=== PATIENT | female | born 1940 | race Caucasian/White ===

== ENCOUNTER 2021-05-27 12:30 | Outpatient (RCR) | payer MEDICARE, SELFPAY ==
--- NOTE | 2021-02-26 10:43 | OTOPEVAL ---
OCCUPATIONAL THERAPY INITIAL EVALUATION: 02/26/2021 Thank you for referring Rohini Ladd to [facility].? The patient is scheduled to be seen for therapy? 2x/week for 4 weeks. Please review, sign, date and return this plan of care BAUTISTA. I agree with and certify that the following plan of care is medically necessary. Referring Physician Date Attending Provider: Gurwinder Crandall, *OT Outpatient Evaluation Start: 02/26/21 09:32 Freq: Status: Active Protocol: Document 02/26/21 09:31 KJL (Rec: 02/26/21 10:43 KJL [id number]) Therapy Assessment Status Assessment Status Assessment Status Evaluation Evaluation Information Problem Diagnosis closed nondisplaced fracture of scaphoid Onset October 14, 2020 Cause fall Additional Evaluation Detail patient had a fall in kitchen on October 14, 2020 resulting in a scaphoid fracture of R UE wrist. Patient was in a cast for 8 weeks, and a brace for an additional week. Subjective Information Patient reports increased Query Text:As Reported By Patient/ swelling, decreased motion in Family R UE hand. 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, grasp objects, unable to play piano, difficulties with ADLs including dressing, buttoning shirts Prior Level of Function Activity Level (Last 3 Months) Hand Dominance Left Activity of Daily Living Ability Independent Indoor/Home Mobility Independent Community Mobility Independent Stairs Ability Independent Functional Cognition (Planning, Shopping Independent , Taking Medications) Cooking No Cleaning No Laundry Yes Shopping Yes Driving Yes Home Setting Home Type Apartment,Independent Living Facility Living Situation With Spouse Support Available Local Family Support,Neighbor/ Friend Support Mobility Assistive Devices (Used Last 3 Walker, Rollator Months) Bathroom Environment Bathtub, Walk-In,Shower, Curtain Bathing Equipment Built in Shower Seat,Grab Bars ,Hand Held Shower Toileting Equipment Grab Bars,Tall Toilet Pain Assessment Timing of Pain Assessmen
--- NOTE | 2021-03-25 14:38 | OTOPEVAL ---
OCCUPATIONAL THERAPY RE-EVALUATION AND POC UPDATE 03/25/21 Patient presents after 4 weeks of OT for right forearm, wrist, and hand stiffness and weakness following scaphoid fracture with lengthy immobilization. 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 Continued skilled OT indicated to progressively strengthen, utilize modalities for stiffness, utilize manual therapy techniques to mobilize stiff finger joints, and progress HEP as tolerated. Thank you for referring Rohini Ladd to [facility].? The patient is scheduled to be seen for continued occupational therapy?2x/week for 4 weeks. Please review, sign, date and return this plan of care BAUTISTA. I agree with and certify that the following plan of care is medically necessary. Referring Physician Date Referring Provider: Gurwinder Crandall MD *OT Outpatient Re-Evaluation Start: 02/26/21 09:32 Therapy Assessment Status Assessment Status Assessment Status Re-evaluation Evaluation Information Problem Diagnosis closed nondisplaced fracture of scaphoid Onset October 14, 2020 Cause fall Subjective Information Patient reports improvements Query Text:As Reported By Patient/ with the mobility of her index Family finger which has allowed more function with pinching and picking up objects. She reports that her function in still severely limited due to how weak the hand is. She states she has constant tingling, which has been keeping her up at night. She has concerns about her middle, ring, and small fingers not bending. Pain Assessment Timing of Pain Assessment Timing of Pain Assessment Assessment Pain Scale Pain Scale Used Numeric (1 - 10) Self Report Pain Assessment Right Hand(s) Reported Pain Level 3 Pain Description Aching,Soreness Other Pain Description Sore Lowest Pain Intensity 3 Greatest Pain Intensity 5 Pain Score Pain Score 3: Self Report Interventions Used Interventions Used By Clinicians Exercise Upper Extremity Range of Motion Elbow/Forearm Range of Motion Right Reason Not Measured WNL/Left Forearm Supination - Active 60 Forearm Pronation - Active 90 Elbow/Forearm Range of Motion Comments Supination improved from 25* Wrist Range of Motion Right Reason Not Measured WNL/Left Wrist Flexion - Active 65 Wrist Extension - Active 45 Wrist Radial Deviation - Active 20 Wrist Ulnar Deviation - Active 30 Wrist Range of Motion
--- NOTE | 2021-04-17 16:13 | PTOPEVAL ---
PHYSICAL THERAPY EVALUATION AND PLAN OF CARE 04-17-21 Thank you for referring Rohini Ladd to [facility] for the diagnosis of B LE lymphedema. She is scheduled to be seen for therapy? 3 x/week for 5 weeks. Please review, sign, date and return this plan of care BAUTISTA. I agree with and certify that the following plan of care is medically necessary. Referring Physician Date Attending Provider: Gurwinder Crandall MD *PT Outpatient Evaluation Document 04/17/21 14:55 CARLOS (Rec: 04/17/21 16:13 CARLOS [id number]) Therapy Assessment Status Assessment Status Assessment Status Evaluation Outpatient Past Medical History Past Medical History Source of Past Medical History Patient Neurological History Hx Neurological Disorders No Significant History Cardiovascular History Hx Cardiac Disorders No Significant History Respiratory History Hx Respiratory Disorders No Significant History Gastrointestinal History Hx Cholecystectomy Yes Genitourinary History Hx Genitourinary Disorders No Significant History Musculoskeletal History Hx Arthritis Yes: knees Hx Back Pain Yes: chronic back pain Hx Fractures Yes: R scaphoid fracture- immobilized Hx Orthopedic Surgery Yes: B carpal tunnel surgery Endocrine History Hx Endocrine Disorders No Significant History HEENT History Hx Other HEENT Disorders Yes: wear glasses Other History Hx Other Surgeries Yes: varicose vein surgery B LE, blood clots B LE Evaluation Information Problem Diagnosis lymphedema B LE's Onset January 2021 Prior Level of Function Activity Level (Last 3 Months) Activity of Daily Living Ability Independent Indoor/Home Mobility Independent Community Mobility Independent Stairs Ability Independent Functional Cognition (Planning, Shopping Independent , Taking Medications) Cooking No Cleaning No Laundry No Shopping No Driving No Medications Home Meds (Include: OTC, RX, Vitamins, xarelto, oxybutynin, Herbals, Dose, Route,and Frequency) propranodol, prinmidone; Query Text:Home Med Entries Will No multivitamin, Longer Recall From Past Visits. Home Meds Must Be Re-entered With Each Visit. Home Setting Home Type Apartment,Assisted Living Facility Living Situation With Spouse Mobility Assistive Devices (Used Last 3 Walker, Wheeled,Wheelchair, Months) Scooter Comments Additional Prior Level of Function indep with bathing and Comments dressing
--- NOTE | 2021-04-29 11:57 | OTOPEVAL ---
OCCUPATIONAL THERAPY RE-EVALUATION REPORT Patient presents for OT re-evaluation following 8 weeks of therapy for severe right forearm, wrist, finger, and thumb stiffness and weakness following scaphoid fracture with lengthy immobilization. Rohini continues to make functional progress toward being able to make a functional box sealing machine catcher/fist for ADLs. She is having overall less pain and is able to tolerate more aggressive ROM and strength training. She continues to have severe functional limitations and with the amount of progress seen monthly, another 4 weeks of therapy is indicated to continue to progress exercises and HEP. Skilled, hands-on, manual therapy necessary to continue to mobilize stiff joints. Thank you for referring Rohini Ladd to [facility].? The patient is scheduled to be seen for therapy? 2x/week for 4 weeks. Please review, sign, date and return this plan of care BAUTISTA. I agree with and certify that the following plan of care is medically necessary. Referring Physician Date Referring Provider: Gurwinder Crandall MD *OT Outpatient Re-Evaluation Problem Diagnosis Closed nondisplaced fracture of scaphoid Onset 10/14/2020 Cause Fall Subjective Information Patient reports improvements Query Text:As Reported By Patient/ with the flexibility of the Family middle, ring, and pinky fingers, now. She reports that the biggest improvements have been with nerve healing as noted by less tingling down the arm and wrist and now is only isolated to the finger tips. She reports sleeping better due to having less pain and paresthesias. Functional box sealing machine catcher is also improving as she is now able to unlock her rollator, but doesn't quite have the strength to pull open the fridge door. Pain Assessment Timing of Pain Assessment Timing of Pain Assessment Re-assessment Pain Scale Pain Scale Used Numeric (1 - 10) Self Report Pain Assessment Right Hand(s) Reported Pain Level 3 Pain Description Pressure,Shooting,Soreness Other Pain Description Sensitive , Sore Lowest Pain Intensity 1 Greatest Pain Intensity 3 Pain Score Pain Score 3: Self Report Interventions Used Interventions Used By Clinicians Rest Upper Extremity Range of Motion Elbow/Forearm Range of Motion Right Reason Not Measured WNL/Left Forearm Supination - Active 75 Forearm Pronation - Active 90 Elbow/Forearm Range of Motion Comments Supination improved from 60* Wrist Range of Motion Right Reason Not Measured
--- NOTE | 2021-05-08 15:39 | PCPTNOTE ---
per pt request faxed to [facility] her order for Circaid genny and knee high compression garments; and faxed request to for signature on the garments.
--- NOTE | 2021-05-13 10:00 | PCPTNOTE ---
pt called this AM, stated she had called [facility] and they did not know anything about her garment order. I called [facility] and talked with Nicky--she stated Talib Cortez was off today. I discussed with her. She was able to look and found the initial order I faxed over on 05-08-21 , but she stated it has not been ordered or processed yet. She did not not have the dr signature script I faxed over yesterday, I refaxed it to her. She stated they would start the process to order it, notify pt for payment and after all approval, would take 1-2 business days to receive it.
--- NOTE | 2021-05-22 13:55 | PTOPEVAL ---
PHYSICAL THERAPY REEVALUATION AND UPDATED PLAN OF CARE 05-22-21 Refer to the clinical summary below for her status today, compared to the initial evaluation. PT is to continue 3x/week for 2 weeks. Thank you for referring Rohini Ladd to [facility].? Please review, sign, date and return this updated plan of care BAUTISTA. I agree with and certify that the following plan of care is medically necessary. Referring Physician Date Attending Provider: Gurwinder Crandall, Document 05/22/21 12:35 CARLOS (Rec: 05/22/21 13:55 CARLOS [id number]) Assessment Status Re-evaluation Subjective Information Rohini reports: legs are Query Text:As Reported By Patient/ looking much better and amazed Family at how they went down so fast in size; Pain Assessment Timing of Pain Assessment Timing of Pain Assessment Assessment Pain Scale Pain Scale Used Numeric (1 - 10) Self Report Pain Assessment Bilateral Leg(s) Reported Pain Level 2 Pain Description Aching,Soreness Pain Frequency Chronic,Intermittent Other Pain Description sore in calf Pain Score Pain Score 2: Self Report Interventions Used Interventions Used By Clinicians Education Lymphedema Evaluation Skin Inspection Location Left Lower Extremity,Right Lower Extremity Skin Observations Absence of Leg Hair,Dorsum Foot Swelling Palpation Findings Cool Skin Temperature Tissue Texture Firm Lymphedema Stage II Skin Inspection Comment R LE: minimal edema over toes and dorsum of foot; no redness of leg; slight fibrotic ridge at medial- distal calf, with tenderness to deep pressure; tissue over thigh and knee with good skin color and no fibrotic tissue; lower medial leg lobule measurement of 16 cm- superior /inferior; L LE: minimal edema over toes and dorsum of foot; no redness over leg, no fibrotic tissue; increase size of medial knee and thigh LE Circumferential Measurement Right LE Lymphedema Side Right Metatarsal Heads (cm) 21.8 Figure 8 of Ankle (cm) 50 8 cm From Bottom of Foot (cm) 24.4 12 cm From Bottom of Foot (cm) 24.6 16 cm From Bottom of Foot (cm) 27 20 cm From Bottom of Foot (cm)
--- NOTE | 2021-05-22 14:34 | OTOPEVAL ---
OCCUPATIONAL THERAPY RE-EVALUATION REPORT AND DISCHARGE SUMMARY Patient presents today for her 3rd OT re-evaluation since beginning hand therapy on 02/26/21. Treatments have included instruction in active/passive ROM, strengthening, thermal modalities, manual joint mobilization, and fabrication of static progressive splinting to help facilitate improved functional use of her right hand. She has made quite a bit of progress since beginning therapy, but she continues to be severely limited functionally. Ability to make a fist is only about 50% normal and she was unable to complete the 9-hole peg test. She does now have the ability to lock her rollator and open the fridge however. At this time the patient has reached her maximum benefit from therapy. Discharging today with the patient independent with all materials. Thank you for referring Rohini Ladd to [facility].?D/C Note Please review, sign, date and return this plan of care BAUTISTA. I agree with and certify that the following plan of care is medically necessary. Referring Physician Date Referring Provider: Gurwinder Crandall MD *OT Outpatient Re-Evaluation Diagnosis Closed nondisplaced fracture of scaphoid Onset 10/14/2020 Cause Fall Subjective Information Patient reports that she has Query Text:As Reported By Patient/ noticed more improvements, Family particularly in the flexibility of the ring and pinky fingers. She notes that the tingling is now just localized to the tips of the fingers instead of radiating up the arm. She is now able to unlock her rollator and open the fridge door with the right UE. Pain Assessment Timing of Pain Assessment Timing of Pain Assessment Re-assessment Pain Scale Pain Scale Used Numeric (1 - 10) Self Report Pain Assessment Right Finger, Middle Reported Pain Level 3 Pain Description Aching Lowest Pain Intensity 0 Greatest Pain Intensity 3 Pain Aggravating Factors ADL's Other Pain Aggravating Factors Pinching and pulling up her compression stockings. Pain Score Pain Score 3: Self Report Interventions Used Interventions Used By Clinicians Rest Upper Extremity Range of Motion Wrist Range of Motion Right Reason Not Measured WNL/Left Wrist Flexion - Active 65 Wrist Extension - Active 60 Wrist Radial Deviation - Active 20 Wrist Ulnar Deviation - Active 30 Wrist Range of Motion Limitations Muscle Weakness,Pain,Soft Tissue Restriction Finger Range of Motion Right Index Finger MCP Joint Flexion - Active 35 Index Finger PIP Joint Flexion - Active 85 Index Finger DIP Joint Flex
--- NOTE | 2021-06-02 09:36 | PCPTNOTE ---
This treatment is being continued on visit number [id number] Please see documentation on both accounts to view progress. Completed interventions, outcomes, and problems have been marked as Inactive to facilitate the copying of the Care plan routine for recurring accounts. The reeval/ discharge was performed under the new #; plan of care and goals addressed under the previous #;
== END 2021-05-27 14:54 | disposition home or self-care (01) ==
LOC: ANHPT 12:30
PROVIDERS: Visit Provider Internal Medicine
DX: S62.001D Unspecified fracture of navicular [scaphoid] bone of right wrist, subsequent encounter for fracture with routine healing (principal); I89.0 Lymphedema, not elsewhere classified
CPT/HCPCS: 29581; 97016; 97018; 97110; 97140; 97161; 97165; 97760; L3806

== ENCOUNTER 2021-05-29 08:08 | Outpatient (RCR) | payer MEDICARE, SELFPAY ==
--- NOTE | 2021-05-29 16:19 | PTOPEVAL ---
PHYSICAL THERAPY DISCHARGE 05-29-21 Refer to the clinical summary below for her status today, compared to the last reeval. The goals were partially achieved. Discharge PT services. Thank you for referring Rohini Ladd to [facility].? Please review, sign, date and return this plan of care [facility]. I agree with and certify that the following plan of care is medically necessary. Referring Physician Date Attending Provider: Gurwinder Crandall MD Document 05/29/21 12:35 CARLOS (Rec: 05/29/21 13:16 CARLOS [id number]) Assessment Status Discharge Subjective Information Rohini reports: is pleased Query Text:As Reported By Patient/ with her legs and how small Family they are, is walking better and legs not hurt as much anymore; and helper are helping her with the garments. Using home pump for legs daily , with helper assist; doing self massage and deep breathing; is doing leg exercises and walking as much as can with the knees hurting; agrees to discharge from PT services. Pain Assessment Timing of Pain Assessment Timing of Pain Assessment Assessment Self Report Self Report Pain Level 0 Pain Score Pain Score 0: Self Report Additional Pain Score Comments tight at ankles where garment is, but eases within few minutes when take them off Lymphedema Evaluation Skin Inspection Location Left Lower Extremity,Right Lower Extremity Skin Observations Absence of Leg Hair,Dorsum Foot Swelling,Lipedema,Obesity Palpation Findings Warm Skin Temperature Lymphedema Stage I Skin Inspection Comment both legs with good skin color , without redness, no fibrotic tissue; lobules over medial, lower thighs and knees; no tenderness with palpation over legs; lobule over medial-upper tibial area, measured superior /inferior of 13.5 cm to dept with R and L knee high compression garments intact-- Mediven plus, 20-30 mmHg and mediven circiad
--- NOTE | 2021-06-02 09:22 | PCPTNOTE ---
This treatment is being continued from # [id number]. Please see documentation on both accounts to view progress. Completed interventions, outcomes, and problems have been marked as Inactive to facilitate the copying of the Care plan routine for recurring accounts. Refer to previous # for her plan of care and goals outcomes;
== END 2021-08-25 11:58 | disposition home or self-care (01) ==
LOC: ANHPT 08:08
PROVIDERS: Visit Provider Internal Medicine
DX: S62.001D Unspecified fracture of navicular [scaphoid] bone of right wrist, subsequent encounter for fracture with routine healing (principal)
CPT/HCPCS: 97140

== ENCOUNTER 2021-08-14 15:00 | Outpatient (RCR) | payer MEDICARE, SELFPAY ==
--- NOTE | 2021-07-30 16:08 | PTOPEVAL ---
PHYSICAL THERAPY EVALUATION AND PLAN OF CARE 07-30-21 Thank you for referring Rohini Ladd to [facility] for the diagnosis of B LE lymphedema. She is scheduled to be seen for therapy? 0-2 x/week for 6 weeks, depending upon appointment needs for measuring and fitting of new garments. Please review, sign, date and return this plan of care BAUTISTA. I agree with and certify that the following plan of care is medically necessary. Referring Physician Date Attending Provider: Gurwinder Crandall MD PT Outpatient Evaluation Document 07/30/21 14:45 CARLOS (Rec: 07/30/21 16:08 CARLOS [id number]) Outpatient Past Medical History Neurological History Hx Neurological Disorders No Significant History Cardiovascular History Hx Cardiac Disorders No Significant History Respiratory History Hx Respiratory Disorders No Significant History Gastrointestinal History Hx Cholecystectomy Yes Genitourinary History Hx Genitourinary Disorders No Significant History Musculoskeletal History Hx Arthritis Yes: knees Hx Back Pain Yes: chronic back pain Hx Fractures Yes: R scaphoid fracture- immobilized/ non surgical Hx Orthopedic Surgery Yes: B carpal tunnel surgery Endocrine History Hx Endocrine Disorders No Significant History HEENT History Hx Other HEENT Disorders Yes: wear glasses Other History Hx Other Surgeries Yes: varicose vein surgery B LE, blood clots B LE Evaluation Information Problem Diagnosis lymphedema B LE's Onset June 2021 Prior Level of Function Activity Level (Last 3 Months) Occupation retired Hand Dominance Right Activity of Daily Living Ability Needs Some Help Indoor/Home Mobility Independent Community Mobility Independent Stairs Ability Not-Applicable Functional Cognition (Planning, Shopping Needs Some Help , Taking Medications) Home Setting Home Type Apartment,Independent Living Facility Living Situation With Spouse Support Available Well Shooter,Medical Alert System Mobility Assistive Devices (Used Last 3 Walker, Rollator Months) Bathroom Environment Shower, Curtain Bathing Equipment Grab Bars,Hand Held Shower,Tub Seat With Back Toileting Equipment Raised Toilet Seat Comments Additional Prior Level of Function live in apartment of assisted Comments living facility- indep with bathing and dressing, except socks and shoes; meals and
--- NOTE | 2021-09-07 09:22 | PCPTNOTE ---
pt called and stated she has her custom garments and they fit well; feel like she does not need to come in for them to be checked. Stated that they fit well and does not have any issues. But, top of foot a little tight, and her legs are a little swollen.
--- NOTE | 2021-09-21 10:15 | PCPTNOTE ---
PHYSICAL THERAPY DISCHARGE 09-21-21 Attending Provider: Gurwinder Crandall MD Patient:Rohini aLdd Date of :1940 Mrs. Ladd has not returned for any further treatments since 08/14/2021. She had the initial PT eval and then the measurement for the custom garments. She received them and by phone conversations on September 07 and , informed me that they were comfortable and did not have any concerns with them. Therefore she will be discharged at this time. The goals were not addressed in person, but she verbally reported they were met. Thank you for referring Rohini to [facility]. Please review, sign, date and return this discharge summary BAUTISTA. I have been updated about the patient's current status and I agree with discharge from the above service at this time. Referring Physician Date
== END 2021-09-22 08:12 | disposition home or self-care (01) ==
LOC: ANHPT 15:00
PROVIDERS: Visit Provider Internal Medicine
DX: I89.0 Lymphedema, not elsewhere classified (principal)
CPT/HCPCS: 97140; 97161

== ENCOUNTER 2022-06-08 14:00 | Outpatient (RCR) | payer MEDICARE, SELFPAY ==
--- NOTE | 2022-03-18 15:57 | PTOPEVAL ---
PHYSICAL THERAPY EVALUATION AND PLAN OF CARE 03-18-22 Thank you for referring Rohini Ladd to [facility].? She is scheduled to be seen for therapy? 3x/week for 6 weeks. Please review, sign, date and return this plan of care BAUTISTA. I agree with and certify that the following plan of care is medically necessary. Referring Physician Date Attending Provider: Gurwinder Crandall MD Past Medical History Source of Past Medical History Recalled from Previous Visit, Confirmed with Patient/Family Neurological History Hx Neurological Disorders No Significant History Cardiovascular History Hx Hypertension Yes: meds Respiratory History Hx Respiratory Disorders No Significant History Gastrointestinal History Hx Cholecystectomy Yes Genitourinary History Hx Genitourinary Disorders No Significant History Musculoskeletal History Hx Arthritis Yes: knees Hx Back Pain Yes: chronic back pain Hx Fractures Yes: R scaphoid fracture- immobilized/ non surgical Hx Orthopedic Surgery Yes: B carpal tunnel surgery Endocrine History Hx Endocrine Disorders No Significant History HEENT History Hx Other HEENT Disorders Yes: wear glasses Other History Hx Other Surgeries Yes: varicose vein surgery B LE, blood clots B LE Evaluation Information Diagnosis B LE lymphedema Onset February 24, 2022 Additional Prior Level of Function live in assisted living Comments apartment; indep with bathing and dressing, but helper puts on her compression leg garments- socks and shoes; meals and housekeeping are provided; she does some light home chores and light cooking; use wheeled walker for ambulation; do exercises for legs daily; Pain Assessment Timing of Pain Assessment Timing of Pain Assessment Assessment Pain Scale Pain Scale Used Numeric (1 - 10) Self Report Pain Assessment Bilateral Leg(s) Reported Pain Level 5 Pain Frequency Chronic,Continuous Lowest Pain Intensity 5 Greatest Pain Intensity 8 Pain Aggravating Factors Walking,Weight Bearing/ Standing Pain Behaviors Anxious,Grimacing,Guarding Interventions Used Interventions Used By Clinicians Education Pain Relief Interventions Used By Inactivity/Rest,Position Patient Change Gross Lower Extremity Range of Motion sitting: B ankle WNL; knees (- Comments
--- NOTE | 2022-04-30 13:48 | PTOPEVAL ---
PHYSICAL THERAPY RE-EVALUATION AND UPDATED PLAN OF CARE 04-30-22 Refer to the clinical summary below for her status today, compared to the initial evaluation. The goals were partially achieved. Continue PT treatment 2-3 x/wk for 3 weeks. Thank you for referring Rohini Ladd to [facility].? Please review, sign, date and return this updated plan of care BAUTISTA. I agree with and certify that the following plan of care is medically necessary. Referring Physician Date Attending Provider: Gurwinder Crandall MD Pain Assessment Pain Scale Pain Scale Used Numeric (1 - 10) Self Report Pain Assessment Bilateral Leg(s) Pain Frequency Chronic,Continuous Pain Score Pain Score 5: Self Report Additional Pain Score Comments pain in both knees- arthritis; legs sore and ache a little Skin Inspection Location Left Lower Extremity,Right Lower Extremity Skin Observations Absence of Leg Hair,Dorsum Foot Swelling Palpation Findings Warm Skin Temperature Lymphedema Stage I Skin Inspection Comment both legs with normal skin color, edema over dorsum of feet; slight redness over L lateral 5th toe, where garment hit toe and anterior ankle-- reinforced with pt to keep garment pulled up; to dept with compression wrap over R lower leg and L lower leg with compression garment calf high--[employer] Elvarex soft 20-30 mmHg compression open toe; pt reports L garment comfortable and wants same garment for her R leg; --------- removed wraps from R lower leg ; cleansed leg; measured R leg for calf high custom garment, same as L garment type; see order form faxed order to [facility] per pt request LE Circumferential Measurement Right LE Lymphedema Side Right Metatarsal Heads (cm) 21 Figure 8 of Ankle (cm) 49 8 cm From Bottom of Foot (cm) 24.4 12 cm From Bottom of Foot (cm) 24.4 16 cm From Bottom of Foot (cm) 29 20 cm From Bottom of Foot (cm) 34.4 24 cm From Bottom of Foot (cm)
--- NOTE | 2022-04-30 14:13 | PCPTNOTE ---
faxed pt's measurements for custom garment to [employer] [phone], attn: Isaias, per pt request.
--- NOTE | 2022-05-21 14:32 | PTOPEVAL ---
PHYSICAL THERAPY RE-EVALUATION AND UPDATED PLAN OF CARE 05-21-22 Refer to the clinical summary below, for her status today, compared to the last reeval. The goals were partially achieved. Continue PT 2-3x/wk for 3 weeks, or less, when her compression garments are received and fit is appropriate for her. Thank you for referring Rohini Ladd to [facility].? Please review, sign, date and return this updated plan of care BAUTISTA. I agree with and certify that the following plan of care is medically necessary. Referring Physician Date Attending Provider: Gurwinder Crandall MD Subjective Information Rohini reports: anxious to Query Text:As Reported By Patient/ get the garments--waiting for Family them to be mailed to me, disappointed they are not here yet; does not want to have another wrap this weekend--has great grand daughter's birthday republican to go to; Pain Assessment Timing of Pain Assessment Pain Scale Pain Scale Used Numeric (1 - 10) Self Report Pain Assessment Bilateral Leg(s) Reported Pain Level 8 Pain Description Aching,Soreness,Tender on Palpation Pain Frequency Chronic,Intermittent Interventions Used Interventions Used By Clinicians Education Lymphedema Evaluation Skin Inspection Location Left Lower Extremity,Right Lower Extremity Skin Observations Dorsum Foot Swelling, Hyperpigmentation,Hyperplasia, Lipedema,Obesity,Swollen, Squared off Toes Palpation Findings Non-Pitting Edema,Pitting Edema Tissue Texture Hard Lymphedema Stage II Skin Inspection Comment R LE: dorsum of foot swelling; tenderness over big toe- medial aspect and medial knee/ upper tibial lobule; L LE: dorsum of foot swelling; medial knee and upper tibial lobule; LE Circumferential Measurement Right LE Lymphedema Side Right Metatarsal Heads (cm) 23 Figure 8 of Ankle (cm) 52 8 cm From Bottom of Foot (cm) 25.2 12 cm From Bottom of Foot (cm) 24.2 16 cm From Bottom of Foot (cm) 30.2 20 cm From Bottom of Foot (cm) 36.8 24 cm From Bottom of Foot (cm) 40.8 28 cm From Bottom of Foot (cm) 48.8 32 cm From Bottom of Foot (cm) 51 36 cm From Bottom of Foot (cm) 52 40 cm From Bottom of Foot (cm) 55 44 cm From Bottom of Foot (cm) 56 48 cm From Bottom of Foot (cm) 58 52 cm From Bottom o
--- NOTE | 2022-06-08 14:37 | PTOPDC ---
Assessment and note entered by Ros Salomon, PT Evaluation Information Assessment Status Discharge Subjective Information feels like she is ready to be done with therapy, but is not totally pleased with the new garments; will try them a little longer and reassess them; agrees to discharge from PT at this time; at home, to continue with the home pump, elevation, leg exercises, walking and compression garments. Reported Pain Level Pain Score Self Report range of 5-8/10 Additional Pain Score Comments legs tend to hurt more at night, with trying to sleep Assessment PT Clinical Summary Rohini has received 26 PT sessions, for B LE lymphedema. Compared to the last reevaluation: decreased circumferential measurements: R LE by 10.3 cm and L by 31.3 cm; she has good fitting R and L calf high compression garments 20-30 mmHg. At home, she has a helper for the donning of the garments and use of her home intermittent compression pump. She continues to have R dorsum of foot and toe edema--her garments are open toe, she cannot tolerate anything closed over her toes. Rohini expressed concern that she feels the garments are not giving her enough compression and the tops of the bands are not staying very well and sometimes roll down. She has been using a roll-on sticky product to assist them staying up. Reeducated her on the position of the garments. The goals were partially achieved. Discharge PT services. Plan of Care PT Services Indicated No
== END 2022-06-09 11:12 | disposition home or self-care (01) ==
LOC: ANHPT 14:00
PROVIDERS: PCP Internal Medicine; Visit Provider Internal Medicine
DX: I89.0 Lymphedema, not elsewhere classified (principal)
CPT/HCPCS: 29581; 97016; 97140; 97161

== ENCOUNTER 2023-09-05 12:30 | Outpatient (RCR) | payer MEDICARE, SELFPAY ==
--- NOTE | 2023-06-10 13:38 | OPREHPOC ---
Outpatient Therapy Plan of Care This is a Multidisciplinary Plan of Care that may contain components documented by all disciplines (PT, OT, and ST.) PT Problem 1 PT Problem #1 Knowledge Deficit PT Goal 1 Goal 1* indep with lymphedema management and self manual lymph drainage PT Problem 2 PT Problem #2 Impaired Lymphatic System PT Goal 1 Goal circumferential measurement of legs, to 68 cm from bottom of foot: 1* R 790 cm 2* L 790 cm 3* obtain appropriate compression garments for R and L LE PT Problem 3 PT Problem #3 Impaired Strength PT Goal 1 Goal increase LE strength: 1* supine/sit with use of one UE to assist legs 2* in supine, perform 5 SLR R and L LE
--- NOTE | 2023-06-10 13:38 | PTOPEVAL1 ---
Assessment and note entered by Ros Salomon, PT Evaluation Information Assessment Status Evaluation Diagnosis lymphedema of R and L LE Onset January 2023 Subjective Information gradual increase in leg swelling with heat and warm weather; ACTIVITY: use wheeled walker all the time, live in assisted living facility; indep with showering and dressing, except compression socks requires help; Reported Pain Level Pain Score 8: Self Report Additional Pain Score Comments both knees painful due to arthritis; R big toe with callous and pain Assessment PT Clinical Summary Rohini has the diagnosis of Bilateral LE lymphedema. She has chronic issues and has been her multiple times for lymphedema treatment. Last treatment was one year ago. She reports more swelling of her legs over the summer with heat and garments not working anymore. 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 Skilled PT services for complete decongestive therapy--manual lymph drainage, multilayer compression wraps, education and recommendations to obtain new compression garments. Plan of Care Interventions Lymphedema Compression Wrap,Manual Lymph Drainage, Patient Education,Therapeutic Exercise PT Services Indicated Yes Treatment Frequency and 3x/wk for 6 weeks Duration These treatments will address the objective and functional deficits as defined above. The patient will be advanced safely and appropriately in order for the patient to progress towards his/her prior level of function. Additional exercises will be introduced and as well as a comprehensive home exercise program upon discharge, if needed, ?to ensure carryover of functional gains achieved in the clinic. This treatment plan has been reviewed and agreement upon by the patient.
--- NOTE | 2023-07-21 10:33 | PCPTNOTE ---
faxed pt info to [employer] for insurance auth for home intermittent compression pump--demographic sheet, initial mike and dr stokes. Pt signed consent for info release during yesterday treatment session.
--- NOTE | 2023-07-22 13:25 | OPREHPOC ---
Outpatient Therapy Plan of Care This is a Multidisciplinary Plan of Care that may contain components documented by all disciplines (PT, OT, and ST.) PT Problem 1 PT Problem #1 Knowledge Deficit PT Goal 1 Goal 1* indep with lymphedema management and self manual lymph drainage Progress Met Comment 07-22-23 progress met goal continue to progress education/HEP. PT Problem 2 PT Problem #2 Impaired Lymphatic System PT Goal 1 Goal circumferential measurement of legs, to 68 cm from bottom of foot: 1* R 790 cm 2* L 790 cm 3* obtain appropriate compression garments for R and L LE Progress Not Met Comment 07-22-23 progress goals not met; #1 improved to 829 cm #2 have not yet initiated compression wraps for L LE #3- awaiting compression garment for R LE continue towards goals PT Problem 3 PT Problem #3 Impaired Strength PT Goal 1 Goal increase LE strength: 1* supine/sit with use of one UE to assist legs 2* in supine, perform 5 SLR R and L LE Progress Not Met Comment 07-22-23 progress goals not met; continue towards
--- NOTE | 2023-07-22 13:25 | PTOPPROG ---
Addendum entered by Ros Salomon, PT 08/02/23 09:55: Rohini reports she continues to do her leg exercises in sitting, walking as much as she can with the walker and elevating her legs in her recliner when she is sitting and reading or watching TV. Original Note: Assessment and note entered by Ros Salomon, PT Evaluation Information Assessment Status Progress Diagnosis lymphedema of R and L LE Onset January 2023 Subjective Information have ordered the R leg garment and waiting for it to come in; Assessment PT Clinical Summary Rohini has received 17 PT sessions. Compared to the initial evaluation: R LE circumferential measurement is 829.4 cm, from bottom of foot up to 68 cm-- decreased by 38.0 cm; L LE was not measured, due to not having compression wraps on it yet. Her R lower leg custom compression garment has been ordered and awaiting for it to arrive, so compression wraps continue on R LE until it arrives. She is not interested in any compression over her thighs or trunk/capris. She continues to have pain and heaviness in her legs with decreased strength--requires assist for supine/sit transfers. Education for self management of lymphedema care, leg exercises and self manual lymph drainage. Request has been sent to intermittent compression pump [employer] for her to obtain a new home pump-- awaiting insurance authorization for the pump. The goals were partially met. Continue PT treatment for bilateral LE lymphedema. Plan of Care Interventions Intermittent Compression,Lymphedema Compression Wraps ,Manual Lymph Drainage,Patient Education, Therapeutic Exercise PT Services Indicated Yes Treatment Frequency and 3x/wk for 5 weeks Duration These treatments will address the objective and functional deficits as defined above. The patient will be advanced safely and appropriately in order for the patient to progress towards his/her prior level of function. Additional exercises will be introduced and as well as a comprehensive home exercise program upon discharge, if needed, ?to ensure carryover of functional gains achieved in the clinic. This treatment plan has been reviewed and agreement upon by the patient.
--- NOTE | 2023-08-24 13:29 | OPREHPOC ---
Outpatient Therapy Plan of Care This is a Multidisciplinary Plan of Care that may contain components documented by all disciplines (PT, OT, and ST.) PT Problem 1 PT Problem #1 Knowledge Deficit PT Goal 1 Goal 1* indep with lymphedema management and self manual lymph drainage Progress Met Comment 07-22-23 progress met goal continue to progress education/HEP. PT Goal 2 Goal 08-23-23 progress met goal continue to progress education PT Problem 2 PT Problem #2 Impaired Lymphatic System PT Goal 1 Goal circumferential measurement of legs, to 68 cm from bottom of foot: 1* R 790 cm 2* L 790 cm 3* obtain appropriate compression garments for R and L LE Progress Not Met Comment 07-22-23 progress goals not met; #1 improved to 829 cm #2 have not yet initiated compression wraps for L LE #3- awaiting compression garment for R LE continue towards goals PT Goal 2 Goal 08-23-23 progress met goals 1,2 continue 3 PT Problem 3 PT Problem #3 Impaired Strength PT Goal 1 Goal increase LE strength: 1* supine/sit with use of one UE to assist legs 2* in supine, perform 5 SLR R and L LE Progress Not Met Comment 07-22-23 progress goals not met; continue towards PT Goal 2 Goal 08-23-23 progress goals not met continue towards
--- NOTE | 2023-08-24 13:30 | PTOPPROG ---
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 She has the compression garment for her R leg and it is maintaining her measurements. Her L LE is continuing with compression wraps, awaiting the custom made compression garment, which should be here any day now. With the circumferential measurements, decreased on R by 40.3 cm and L by 19.3 cm. She continues to use the wheeled walker for ambulation and requires assist for supine/sit transfer due to weakness and size of legs. The goals were partially met. Continue treatment, awaiting compression garment for L lower leg and assess it for fit and make sure it maintains her leg size. Plan of Care Interventions Intermittent Compression,Lymphedema Compression Wrap ,Manual Lymph Drainage,Patient/Caregiver Education, Therapeutic Exercise PT Services Indicated Yes Treatment Frequency and 2-3x/wk for 3 weeks Duration These treatments will address the objective and functional deficits as defined above. The patient will be advanced safely and appropriately in order for the patient to progress towards his/her prior level of function. Additional exercises will be introduced and as well as a comprehensive home exercise program upon discharge, if needed, ?to ensure carryover of functional gains achieved in the clinic. This treatment plan has been reviewed and agreement upon by the patient.
--- NOTE | 2023-09-05 13:38 | PTOPDC ---
Assessment and note entered by Ros Salomon, PT Discharge Information Assessment Status Discharge Diagnosis lymphedema of R and L LE Onset January 2023 Subjective Information Rohini reports: new garments are comfortable and doing well with them; is able to put them on herself, but takes some time and struggle with them; she no longer has her helper come every day, so she does it all on her own now; have the new home pump and can put it on and take it off herself; ready for being done with therapy. Reported Pain Level Pain Score 3: Self Report Assessment PT Clinical Summary Roihni has received 33 PT sessions. She now has R and L lower leg compression garments custom made 20-30 mmHg; education completed for self care of lymphedema. She has a new home intermittent compression pump that she is able to don/doff herself. The goals were partially met. Leg strength has increased with long sitting SLR, but needs assist with sit/supine transfer. She continues to have issues with her R garment slipping down and bunching at her ankle-- reinforced with her to pull it up during day. She has It Stays adhesive to apply at the top band to help keep it in place. Discharge PT services. Plan of Care PT Services Indicated No
== END 2023-09-05 14:06 | disposition home or self-care (01) ==
LOC: ANHPT 12:30
PROVIDERS: PCP Internal Medicine; Visit Provider Family Medicine
DX: I89.0 Lymphedema, not elsewhere classified (principal)
CPT/HCPCS: 29581; 97016; 97110; 97140; 97161

== ENCOUNTER 2023-09-29 13:29 | Emergency (ER) | payer MEDICARE, SELFPAY ==
[2023-09-29] VITALS (7 sets, daily range): BP systolic 140–169; BP diastolic 93–98; PULSE 55–78; RESP 12–22; TEMP 37.1; O2SAT 97–99
--- NOTE | ~2023-09-29 | XR_ITS ---
XR chest 2V DATE: 09/29/2023 14:11 INDICATION: Urinary frequency TECHNIQUE: 2 views COMPARISON: None FINDINGS: There is mild cardiomegaly. Aortic calcification. No hilar or mediastinal enlargement. Moderate hyperinflation. No pulmonary infiltrate or consolidation, pulmonary vascular congestion or pleural effusion or pneumothorax. There is mild upper thoracic scoliosis and more prominent lower thoracic dextroscoliosis. There is d egenerative change of the thoracic spine. There is right rotator cuff atrophy. Osteopenia. IMPRESSION: Cardiomegaly, aortic atherosclerosis Moderate hyperinflation; no active pulmonary disease Reviewed, dictated and finalized at location L. 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
--- NOTE | 2023-09-29 13:31 | ECG_ITS ---
Measurements Intervals [place] Rate: 68 P: 25 FL: 224 QRS: -4 QRSD: 92 T: 28 QT: 412 QTc: 440 Interpretive Statements SINUS RHYTHM WITH SINUS ARRHYTHMIA WITH FIRST DEGREE AV BLOCK BASELINE ARTIFACT- I, II, III, AVR, AVL, AVF, V1-V6 BORDERLINE ECG NO PREVIOUS ECG AVAILABLE FOR COMPARISON Electronically Signed On 09-29-2023 13:43:05 IT PROGRAM ENGAGEMENT DIRECTOR by Vladimir Giraldo D.O.
[2023-09-29 13:58] LABS: Basophils Absolute Auto 0.1 K/mm3 (0.0-0.1); Basophils Percent Auto 0.9 % (0.2-1.2); Eosinophils Absolute Auto 0.2 K/mm3 (0-0.3); Eosinophils Percent Auto 2.9 % (0-4.4); Hematocrit 42.6 % (37.0-47.0); Hemoglobin 13.7 g/dL (12.0-15.0); Immature Granulocyte Absolute 0.01 K/mm3 (0.00-0.031); Immature Granulocyte Percent A 0.2 % (0-0.5); Lymphocytes Absolute Auto 1.55 K/mm3 (0.9-3.2); Lymphocytes Percent Auto 26.6 % (18.3-44.2); Mean Corpuscular HGB Conc 32.2 g/dl (32-36); Mean Corpuscular Hemoglobin 31.4 pg (26-34); Mean Corpuscular Volume 97.5 fl (80-100); Monocytes Absolute Auto 0.8 K/mm3 (0.1-0.6); Monocytes Percent Auto 13.1 % (2.6-8.5); Neutrophils Absolute Auto 3.3 K/mm3 (1.3-6.7); Neutrophils Percent Auto 56.3 % (45.5-73.1); Platelet Count Result 204 k/mm3 (150-375); Red Blood Count 4.37 M/mm3 (4.2-5.4); Red Cell Distribution Width 14.3 % (11.5-14.5); White Blood Count 5.8 K/mm3 (4.5-10.0)
[2023-09-29 14:04] LABS: Appearance Urine Clear (Clear); Bacteria Urine None Seen /hpf; Bilirubin Urine Negative (Negative); Color Urine Yellow (Yellow); Glucose Urine UA Negative (Negative); Ketones Urine 2+ mg/dL (Negative); Leukocyte Esterase Ur Trace LEU/UL (Negative); Nitrate Urine Negative (Negative); Non Pathogenic Casts 0-2; Protein Urine Negative (Negative); RBC Urine 0-2 /hpf (0-2); Specific Grav Ur 1.008 (1.001-1.035); Squamous Epithelial Cell Urine None seen /hpf (Few); Urobilinogen Urine 0.2 mg/dL (<2.0); pH Urine 7.5 (5.0-9.0)
[2023-09-29 14:11] LABS: Alanine Aminotransferase 15 U/L (6-35); Albumin Level 3.9 g/dL (3.5-5.1); Alkaline Phosphatase 89 U/L (38-126); Anion Gap 7 mmol/L (8-16); Aspartate Amino Transferase 22 U/L (14-36); Bilirubin,Total 0.9 mg/dL (0.2-1.3); Blood Urea Nitrogen 11 mg/dL (7-17); Carbon Dioxide 26 mmol/L (22-30); Chloride 107 mmol/L (98-107); Estimated CRCL calculation 73 ml/min; Estimated Glomerular Filt Rate > 60; Glucose 93 mg/dL (65-110); Potassium 3.7 mmol/L (3.4-5.0); Sodium 140 mmol/L (137-145)
[2023-09-29 14:19] LABS: Add Urine Microscopic? YES
--- NOTE | 2023-09-29 16:32 | ED.GENADULT ---
HPI - General Adult General Chief complaint: Weakness Stated complaint: weakness Time Seen by Provider: 09/29/23 13:32 History of Present Illness HPI narrative: Patient is an 82-year-old female who presents ER with reports of weakness and urinary frequency. She reports that she just continues to have urinary incontinence and she has mild discomfort when she urinates. No abdominal pain. No fever he chills or sweats. Denies diarrhea. No chest pain or chest pressure. Related Data Allergies Allergy/AdvReac Type Severity Reaction Status Date / Time Penicillins Allergy unknown Unverified 09/29/23 16:33 Review of Systems Review of Systems: All systems reviewed & are unremarkable except as noted in HPI and below Constitutional: Constitutional: Reports no additional constitutional complaints Respiratory: Respiratory: Reports no additional respiratory complaints Gastrointestinal: Gastrointestinal: Reports no additional gastrointestinal complaints Genitourinary: Genitourinary: Reports nocturia, Reports dysuria, Denies pelvic pain and Denies flank pain PMF Past Medical History Medical History (Updated 09/29/23 @ 19:22 by Panchito Gr MD) DVT (deep venous thrombosis) Hypertension Surgical History Surgical History (Updated 09/29/23 @ 19:22 by Panchito Gr MD) History of appendectomy History of cholecystectomy Exam Narrative: GENERAL: Well-appearing, Obese, and in no acute distress. HEAD: Normocephalic, atraumatic. ENT: Mucous membranes moist. NECK: Supple. CHEST: Clear to auscultation. No respiratory distress. HEART: Regular rate and rhythm. Normal peripheral pulses. ABDOMEN: Soft, nontender, nondistended. EXTREMITIES: Normal range of motion. 2+ edema. SKIN: Warm, dry, no rash. NEURO: Alert and oriented x3. PSYCH: Normal mood and affect. Course Course Emergency Course: patient resting comfortably. Suspect UTI given white blood cells and leukocyte esterase with urinary frequency and dysuria. Will start her on cephalexin. Vital Signs Vital signs: Vital Signs Temperature 98.7 F 09/29/23 13:30 Pulse Rate 78 09/29/23 13:30 Respiratory Rate 18 09/29/23 13:30 Blood Pressure 169/93 H 09/29/23 13:30 Pulse Oximetry 97 09/29/23 13:30 Oxygen Delivery Room Air 09/29/23 13:30 Temperature 98.7 F 09/29/23 13:30 Pulse Rate 67 09/29/23 14:49 Respiratory Rate 22 H 09/29/23 14:45 Blood Pressure 140/98 H 09/29/23 14:44 Pulse Oximetry 99 09/29/23 14:02 Oxygen Delivery Room Air 09/29/23 13:30 Medical Decision Making Vital Signs Vital Signs: Vital Signs Temperature 98.7 F 09/29/23 13:30 Pulse Rate 78 09/29/23 13:30 Respiratory Rate 18 09/29/23 13:30 Blood Pressure 169/93 H 09/29/23 13:30 Pulse Oximetry 97 09/29/23 13:30 Oxygen Delivery Room Air 09/29/23 13:30 Temperature 98.7 F 09/29/23 13:30 Pulse Rate 67 09/29/23 14:49 Respiratory Rate 22 H 09/29/23 14:45 Blood Pressure 140/98 H 09/29/23 14:44 Pulse Oximetry 99 09/29/23 14:02 Oxygen Delivery Room Air 09/29/23 13:30 Lab Data 09/29/23 13:47 09/29/23 13:47 Labs: Lab Results 09/29/23 Range/Units 13:47 WBC 5.8 (4.5-10.0) K/mm3 RBC 4.37 (4.2-5.4) M/mm3 Hgb 13.7 (12.0-15.0) g/dL Hct 42.6 (37.0-47.0) % MCV 97.5 (80-100) fl MCH 31.4 (26-34) pg MCHC 32.2 (32-36) g/dl RDW 14.3 (11.5-14.5) % Plt Count 204 (150-375) k/mm3 MPV 10.0 (7.4-10.4) fl Immature Gran % (Auto) 0.2 (0-0.5) % Neut % (Auto) 56.3 (45.5-73.1) % Lymph % (Auto) 26.6 (18.3-44.2) % [place] % (Auto) 13.1 H (2.6-8.5) % Eos % (Auto) 2.9 (0-4.4) % Baso % (Auto) 0.9 (0.2-1.2) % Lymph # (Auto) 1.55 (0.9-3.2) K/mm3 [place] # (Auto) 0.8 H (0.1-0.6) K/mm3 Eos # (Auto) 0.2 (0-0.3) K/mm3 Baso # (Auto) 0.1 (0.0-0.1) K/mm3 Abs Immat Gran (auto) 0.01 (0.00-0.031) K/mm3 Absolute Neuts (auto) 3.3 (1.3-6.
== END 2023-09-29 17:01 | disposition home or self-care (01) ==
PROVIDERS: Emergency Medicine; Emergency Provider Emergency Medicine; PCP Internal Medicine
DX: N39.0 Urinary tract infection, site not specified (principal); I10 Essential (primary) hypertension; Z86.718 Personal history of other venous thrombosis and embolism; Z90.49 Acquired absence of other specified parts of digestive tract; R94.31 Abnormal electrocardiogram [ECG] [EKG]
CPT/HCPCS: 36415; 71046; 80053; 81001; 85025; 87086; 93005; 99284

== ENCOUNTER 2024-01-24 14:39 | Observation (INO) | payer MEDICARE, SELFPAY ==
[2024-01-24] VITALS (15 sets, daily range): BP systolic 90–150; BP diastolic 55–95; PULSE 76–84; RESP 10–20; TEMP 36.9; O2SAT 90–99
--- NOTE | 2024-01-24 18:02 | ED.GENADULT ---
HPI - General Adult General Chief complaint: Unspecified <Matt Sharpe MD - Last Filed: 01/28/24 11:08> Stated complaint: ?mental health eval <Matt Sharpe MD - Last Filed: 01/28/24 11:08> Time Seen by Provider: 01/24/24 17:17 <Matt Sharpe MD - Last Filed: 01/28/24 11:08> History of Present Illness HPI narrative: 83-year-old female present to the emergency department for evaluation of altered mental status. Patient was reportedly on the phone and made some statements that concerned the staff. Patient lately apparently stay that she thought she was dying. Upon arrival emergency department patient is alert oriented has no complaints. Patient has had decreased p.o. intake and did have episode of diarrhea few days ago. patient is currently in independent living and family is helping get her set up with assisted living and this is anticipated happen on Tuesday. Patient feels that she is able to take care of herself at this time. <Matt Sharpe MD - Last Filed: 01/28/24 11:08> Related Data Home medications: Home Medications Medication Instructions Recorded Confirmed apixaban 5 mg tablet (Eliquis) 5 mg PO BID 01/25/24 01/25/24 oxybutynin chloride 15 mg 15 mg PO DAILY 01/25/24 01/25/24 tablet,extended release 24 hr propranolol 80 mg capsule,24 160 mg PO DAILY 01/25/24 01/25/24 hr,extended release <Matt Sharpe MD - Last Filed: 01/28/24 11:08> Allergies/adverse reactions: Allergies Allergy/AdvReac Type Severity Reaction Status Date / Time Penicillins Allergy unknown Verified 01/24/24 22:55 <Matt Sharpe MD - Last Filed: 01/28/24 11:08> Review of Systems Review of Systems: All systems reviewed & are unremarkable except as noted in HPI and below <Matt Sharpe MD - Last Filed: 01/28/24 11:08> PMFSH Past Medical History Medical History: Medical History (Updated 01/25/24 @ 03:12 by Marcelo Arredondo MD) DVT (deep venous thrombosis) Hypertension <Matt Sharpe MD - Last Filed: 01/28/24 11:08> Surgical History Surgical History: Surgical History (Updated 09/29/23 @ 19:22 by Panchito Gr MD) History of appendectomy History of cholecystectomy <Matt Sharpe MD - Last Filed: 01/28/24 11:08> Social History Social History: Social History Smoking status: Never smoker Alcohol intake: never Substance use: never Spiritual care concerns: No <Matt Sharpe MD - Last Filed: 01/28/24 11:08> Exam Narrative: APPEARANCE: Well appearing, no pain, no distress, well-nourished. HEAD: normocephalic, atraumatic. EYES: PERRLA/EOMI, conjunctivae clear. NOSE: Normal no drainage EARS:TMS clear with good light reflex. THROAT: Pharynx clear, no exudate. NECK: Supple. No adenopathy, no masses. RESPIRATORY: Airway patent, respirations nonlabored. Clear to auscultation bilaterally, no rales, rhonchi, wheezing. CARDIOVASCULAR: Regular rate and rhythm without murmurs rubs or gallops. ABDOMINAL: Soft, nontender, nondistended, normal bowel sounds MUSCULOSKELETAL: Moves all extremities. Strength/ROM intact, No edema, No calf tenderness. NEURO: Alert. Cranial nerves II through XII intact. Good gait. Good coordination SKIN: Warm, dry. Normal Color PSYCHIATRIC: Normal affect/mood. <Matt Sharpe MD - Last Filed: 01/28/24 11:08> Course Course Emergency Course: Family does not feel the patient is able to take care of herself at home. Patient is going to be set up with assisted living on Tuesday but they did not feel they can care for the patient until Tuesday. Patient was signed out to Dr. Arredondo with crisis evaluation pending. Case was discussed with the hospitalist and patient will be admitted upstairs if the patient does not qualify for geriatric psych. ADIA: [id number]: Patient sinus me from previous physician pending crisis evaluation. Patient was cleared by the crisis team. Having abnormal grief reac
[2024-01-24 18:21] LABS: Basophils Percent Auto 0.5 % (0.2-1.2); Eosinophils Absolute Auto 0.1 K/mm3 (0-0.3); Eosinophils Percent Auto 0.8 % (0-4.4); Hematocrit 37.2 % (37.0-47.0); Hemoglobin 12.1 g/dL (12.0-15.0); Immature Granulocyte Absolute 0.02 K/mm3 (0.00-0.031); Immature Granulocyte Percent A 0.3 % (0-0.5); Lymphocytes Absolute Auto 1.64 K/mm3 (0.9-3.2); Lymphocytes Percent Auto 20.6 % (18.3-44.2); Mean Corpuscular HGB Conc 32.5 g/dl (32-36); Mean Corpuscular Hemoglobin 30.7 pg (26-34); Mean Corpuscular Volume 94.4 fl (80-100); Mean Platelet Volume 9.3 fl (7.4-10.4); Monocytes Absolute Auto 1.5 K/mm3 (0.1-0.6); Monocytes Percent Auto 18.7 % (2.6-8.5); Neutrophils Absolute Auto 4.7 K/mm3 (1.3-6.7); Neutrophils Percent Auto 59.1 % (45.5-73.1); Platelet Count Result 270 k/mm3 (150-375); Red Blood Count 3.94 M/mm3 (4.2-5.4); Red Cell Distribution Width 13.7 % (11.5-14.5)
[2024-01-24 18:38] LABS: Alanine Aminotransferase 10 U/L (6-35); Albumin Level 3.6 g/dL (3.5-5.1); Alkaline Phosphatase 63 U/L (38-126); Anion Gap 7 mmol/L (4-12); Aspartate Amino Transferase 19 U/L (14-36); Bilirubin,Total 1.1 mg/dL (0.2-1.3); Blood Urea Nitrogen 12 mg/dL (7-17); Calcium 8.9 mg/dL (8.4-10.2); Carbon Dioxide 23 mmol/L (22-30); Chloride 105 mmol/L (98-107); Estimated CRCL calculation 74 ml/min; Estimated Glomerular Filt Rate > 60; Glucose 104 mg/dL (65-110); Sodium 135 mmol/L (137-145)
[2024-01-24 18:56] LABS: Influenza A QL RT-PCR Negative (Negative); Influenza B QL RT-PCR Negative (Negative); RSV RNA, RT-PCR Negative (Negative); SARS-CoV-2 RNA PCR Negative (Negative)
[2024-01-24 20:37] LABS: Appearance Urine Clear (Clear); Bacteria Urine None Seen /hpf; Bilirubin Urine 1+ (Negative); Blood Urine Negative (Negative); Calcium Oxalate Crystals Urine Present /hpf; Color Urine Dark Yellow (Yellow); Glucose Urine UA Negative (Negative); Ketones Urine 2+ mg/dL (Negative); Leukocyte Esterase Ur Negative LEU/UL (Negative); Need Manual Microscopic Reviewed; Nitrate Urine Negative (Negative); Non Pathogenic Casts 0-2; Protein Urine Trace mg/dL (Negative); Specific Grav Ur 1.025 (1.001-1.035); Squamous Epithelial Cell Urine Occasional /hpf (Few); WBC Urine 0-5 /hpf (0-3)
[2024-01-24 20:38] LABS: Add Urine Microscopic? YES
[2024-01-24] MEDS: SODIUM CHLORIDE 0.9% IV 1,000 ML 999 ML IV CONT (21:47)
--- NOTE | 2024-01-24 22:00 | PC.NURSE ---
Patient has frequently stated that she wishes to go to [facility]. Dr. Sharpe and Dr. Cary aware and crisis has been paged for evaluation.
[2024-01-25 00:01] VITALS: BP 157/80; PULSE 83; RESP 20; O2SAT 97
--- NOTE | 2024-01-25 00:22 | PC.NURSE ---
Nikki crisis here to evaluate patient.
--- NOTE | 2024-01-25 01:15 | PC.NURSE ---
Crisis workers plan to safety plan patient.
[2024-01-25 02:01] VITALS: BP 136/92; PULSE 75; RESP 20; O2SAT 96
[2024-01-25 04:01] VITALS: BP 138/62; PULSE 68; RESP 20; O2SAT 96
--- NOTE | 2024-01-25 04:52 | ADMGEN ---
This patient, Rohini Ladd, was admitted to Medical Room 344-01. Patient/family oriented to hospital policies and general routines including ID bracelet, bed and alarms, visiting hours, pain management, procedures, bathroom and other care routines, personal items, smoking policy, room service/diet, and visiting hours. Information on how to activate the Rapid Response Team has been discussed. Patient/Family are encouraged to report perceived risks to care and to ask questions if they do not understand what they are told or what they should do.
[2024-01-25 05:35] VITALS: BMI 30.7
[2024-01-25 05:36] VITALS: BP 143/55; PULSE 77; RESP 18; TEMP 36.8; O2SAT 97
[2024-01-25 08:58] VITALS: O2SAT 96
--- NOTE | 2024-01-25 12:18 | PM.SD2 ---
Same Day Admit/Disch: HPI History of Present Illness Chief complaint: Grief Narrative: Rohini Ladd is a 83 year old female past medical history DVT and hypertension presenting with abnormal grief reaction. Lives in independent living and her recently . There were concerns from the family that she was acting odd. On evaluation on 01/24 in the morning the patient reports she is fine. Score 0 on a suicide screen. She denies suicidal or homicidal ideations. She is cantankerous otherwise and does not want any imaging of the brain or further workup and wants to leave. She is competent to make her own decisions she is A&O x3 can discuss her medical care comprehensively with me. [facility] Past Medical History Medical History (Updated 01/25/24 @ 03:12 by Marcelo Arredondo MD) DVT (deep venous thrombosis) Hypertension Surgical History Surgical History (Updated 09/29/23 @ 19:22 by Panchito Gr MD) History of appendectomy History of cholecystectomy Social History Social History Smoking status: Never smoker Alcohol intake: never Substance use: never Spiritual care concerns: No Same Day Admit/Disch: Med Pre-admit Medications Home Medications Medication Instructions Recorded Confirmed Type apixaban 5 mg tablet (Eliquis) 5 mg PO BID 01/25/24 01/25/24 History oxybutynin chloride 15 mg 15 mg PO DAILY 01/25/24 01/25/24 History tablet,extended release 24 hr propranolol 80 mg capsule,24 160 mg PO DAILY 01/25/24 01/25/24 History hr,extended release Review of Systems Review of Systems All systems reviewed & are unremarkable except as noted in HPI and below (Subjective) Exam Const: General: comfortable and no acute distress Other: A&O x3 Eyes: Pupils: Equal, round and reactive pupils present Neck: Neck: supple Resp: Effort & Inspection: normal respiratory effort Auscultation: clear to auscultation bilaterally Cardio: Rate: regular rate Rhythm: regular rhythm GI: GI Palp: Yes Soft to palpation and No Tenderness to palpation present (GI) Extrem: General: no edema DS: Data Data Completed and Pending Labs on day of discharge: Labs from last 24 hours 01/24/24 01/24/24 19:17 18:17 WBC 8.0 RBC 3.94 L Hgb 12.1 Hct 37.2 MCV 94.4 MCH 30.7 MCHC 32.5 RDW 13.7 Plt Count 270 MPV 9.3 Immature Gran % (Auto) 0.3 Neut % (Auto) 59.1 Lymph % (Auto) 20.6 [place] % (Auto) 18.7 H Eos % (Auto) 0.8 Baso % (Auto) 0.5 Lymph # (Auto) 1.64 [place] # (Auto) 1.5 H Eos # (Auto) 0.1 Baso # (Auto) 0.0 Abs Immat Gran (auto) 0.02 Absolute Neuts (auto) 4.7 Absolute Nucleated RBC 0.000 Nucleated RBC % 0.0 Sodium 135 L Potassium 4.0 Chloride 105 Carbon Dioxide 23 Anion Gap 7 BUN 12 Creatinine 0.50 L Estim Creat Clear Calc 74 Estimated GFR > 60 Glucose 104 Calcium 8.9 Total Bilirubin 1.1 AST 19 ALT 10 Alkaline Phosphatase 63 Total Protein 7.0 Albumin 3.6 Urine Color Dark yellow Urine Appearance Clear Urine pH 6.0 Ur Specific [place] 1.025 Urine Protein Trace Urine Glucose (UA) Negative Urine Ketones 2+ H Ur Blood (Man) Negative Urine Nitrate Negative Urine Bilirubin 1+ H Urine Urobilinogen 1.0 Add Ur Microanalysis Reviewed Leukocyte Esterase Rfl Negative Urine RBC 6-10 H Urine WBC 0-5 Ur Squamous Epith Cells Occasional Calcium Oxalate Crystal Present Urine Bacteria None seen Urine Casts 0-2 Influenza A (RT-PCR) Negative Influenza B (RT-PCR) Negative RSV (RT-PCR) Negative SARS-CoV-2 RNA (RT-PCR) Negative DS: Summary Hospital Course Hospital Course: Rohini Ladd is a 83 year old female past medical history DVT and hypertension presenting with abnormal grief reaction. Lives in independent living and her recently . There were concerns from the family that she was acting odd. On evaluation on 01/24 in the morning the kun
[2024-01-25] MEDS: APIXABAN 5 MG TABLET PO (12:49)
[2024-01-25] MEDS: oxyBUTYnin CHLORIDE XL 5 MG TAB.ER.24 15 MG PO (12:49)
== END 2024-01-25 16:15 ==
LOC: ANHED 01-25 03:12 → ANH3MED 01-25 11:08
PROVIDERS: Admitting Provider Internal Medicine; Emergency Provider Emergency Medicine; PCP Internal Medicine; Visit Provider General Practice
DX: F43.20 Adjustment disorder, unspecified (principal); I10 Essential (primary) hypertension; Z86.718 Personal history of other venous thrombosis and embolism; Z20.822 Contact with and (suspected) exposure to COVID-19
CPT/HCPCS: 36415; 80053; 81001; 85025; 87637; 96360; 97161; 99285; A9270; G0378; J7030

== ENCOUNTER 2024-08-22 19:11 | Observation (INO) | payer MEDICARE, SELFPAY ==
--- NOTE | ~2024-08-22 | XR_ITS ---
EXAMINATION: XR chest 2V DATE: 08/22/2024 19:35 INDICATION: Persistent cough. Choking event. TECHNIQUE: frontal and lateral views of the chest were obtained. COMPARISON: Chest radiograph dated 09/29/2023 FINDINGS: Calcified nodule at the right lung base consistent with old granulomatous disease. Unchanged opacitie s at the anterolateral left lower lung zone likely related to pericardial fat pad and associated ling ular atelectasis/scarring. No new airspace opacities, pulmonary edema, pleural effusion or pneumothor ax. Cardiomegaly. Thoracic dextroscoliosis with moderate to severe spondylosis. IMPRESSION: 1. Unchanged chronic opacities at the left lower lung zone likely related to paracardial fat pad and lingular atelectasis/scarring. No acute cardiopulmonary disease. Reviewed, dictated and finalized at location [facility] IMPRESSION: 1. Unchanged chronic opacities at the left lower lung zone likely related to pa racardial fat pad and lingular atelectasis/scarring. No acute cardiopulmonary d isease.
[2024-08-22 19:12] VITALS: BP 116/88; PULSE 61; RESP 14; TEMP 36.4; O2SAT 100
[2024-08-22 21:07] VITALS: BP 143/83; PULSE 53; PULSE 57; RESP 19; O2SAT 99
--- NOTE | 2024-08-22 22:49 | ED.GENADULT ---
HPI - General Adult General Chief complaint: Unspecified Stated complaint: choked on pork chop Time Seen by Provider: 08/22/24 20:00 History of Present Illness HPI narrative: patient is a 83-year-old female who presents emergency department with chief complaint of choking episode. The patient was eating a pork chop reports she had difficulty swallowing the port. Patient reports 7 around 5:30 p.m. reports her symptoms lasted until around 8 patient reports she is able to swallow now reports no shortness of breath she was sent to evaluate for possible aspiration Related Data Home Medications Medication Instructions Recorded Confirmed apixaban 5 mg tablet (Eliquis) 5 mg PO BID 01/25/24 08/23/24 oxybutynin chloride 15 mg 15 mg PO DAILY 01/25/24 08/23/24 tablet,extended release 24 hr propranolol 80 mg capsule,24 160 mg PO DAILY 01/25/24 08/23/24 hr,extended release furosemide 20 mg tablet 20 mg PO DAILY 08/23/24 08/23/24 Allergies Allergy/AdvReac Type Severity Reaction Status Date / Time Penicillins Allergy unknown Verified 08/23/24 00:49 Review of Systems Review of Systems: A 10 system review of systems was completed on the patient and is negative except for what is stated in the HPI. Nursing and ancillary documentation was reviewed. [facility] Past Medical History Medical History (Updated 08/23/24 @ 01:19 by Janusz Tellez MD) DVT (deep venous thrombosis) Hypertension Obesity Surgical History Surgical History History of appendectomy History of cholecystectomy Social History Social History Smoking status: Never smoker Alcohol intake: never Substance use: never Spiritual care concerns: No Exam Narrative: GENERAL: Well-appearing, well-nourished, and in no acute distress. HEAD: Normocephalic, atraumatic. EYES: PERRLA and EOMI. ENT: Nares clear, no rhinorrhea or epistaxis. Mucous membranes moist. NECK: Supple. CHEST: Clear to auscultation. No respiratory distress. HEART: Regular rate and rhythm. No murmur heard. Normal peripheral pulses. ABDOMEN: Soft, nontender, nondistended, normal active bowel sounds. EXTREMITIES: Normal range of motion. No edema. SKIN: Warm, dry, no rash. NEURO: No focal deficits. Alert and oriented x3. PSYCH: Normal mood and affect. Course Vital Signs Vital signs: Vital Signs Temperature 36.4 C L 08/22/24 19:12 Pulse Rate 61 08/22/24 19:12 Respiratory Rate 14 08/22/24 19:12 Blood Pressure 116/88 08/22/24 19:12 Pulse Oximetry 100 08/22/24 19:12 Oxygen Delivery Room Air 08/22/24 19:12 Temperature 36.4 C L 08/22/24 19:12 Pulse Rate 68 08/23/24 01:15 Respiratory Rate 23 H 08/23/24 01:15 Blood Pressure 111/48 L 08/23/24 01:15 Pulse Oximetry 93 08/23/24 01:15 Oxygen Delivery Nasal Cannula 08/23/24 01:15 Oxygen Flow Rate 4 08/23/24 01:15 Medical Decision Making MDM Narrative Medical decision making narrative: differential diagnosis includes aspiration pneumonia, esophageal food impaction patient is currently asymptomatic will have a p.o. challenge chest x-ray showed no focal infiltrate an initial attempt was made for the patient p.o. challenge patient was unable tolerate p.o. and the patient was then attempted with nitroglycerin and glucagon without passing esophageal obstruction. The case was discussed with GI who will take patient to the endoscopy suite for upper endoscopy Vital Signs Vital Signs: Vital Signs Temperature 36.4 C L 08/22/24 19:12 Pulse Rate 61 08/22/24 19:12 Respiratory Rate 14 08/22/24 19:12 Blood Pressure 116/88 08/22/24 19:12 Pulse Oximetry 100 08/22/24 19:12 Oxygen Delivery Room Air 08/22/24 19:12 Temperature 36.4 C L 08/22/24 19:12 Pulse Rate 68 08/23/24 01:15 Respiratory Rate 23 H 08/23/24 01:15 Blood Pressure 111/48 L 08/23/24 01:15 Pulse Oximetry 93 08/23/24 01:15 Oxygen Delivery Nasal Cannula 08/23/24 01:15 Oxygen Flow Rate 4 08/23/24 01:15 Lab Data 08/22/24 23:25 08/22/24 23:25 Labs: Lab Results 08/22/24 Range/Units 23:25 WBC 7.2 (4.5-10.0) K/mm3 RBC 3.88 L (4.2-5.4) M/mm3 Hgb 12.4 (12.0-15.0) g/dL Hct 38.2 (37.0-47.0) % MCV 98.5 (80-100) fl MCH 32.0 (26-34) pg MCHC 32.5 (32-36) g/dl RDW 14.0 (11.5-14.5) % Plt Count 209 (150-375) k/mm3 MPV 10.2 (7.4-10.4) fl Immature Gran % (Auto) 0.1 (0-0.5) % Neut % (Auto) 51.0 (45.5-73.1) % Lymph % (Auto) 33.5 (18.3-44.2) % [place] % (Auto) 11.5 H (2.6-8.5) % Eos % (Auto) 3.2 (0-4.4) % Baso % (Auto) 0.7 (0.2-1.2) % Lymph # (Auto) 2.41 (0.9-3.2) K/mm3 [place] # (Auto) 0.8 H (0.1-0.6) K/mm3 Eos # (Auto) 0.2 (0-0.3) K/mm3 Baso # (Auto) 0.1 (0.0-0.1) K/mm3 Abs Immat Gran (auto) 0.01 (0.00-0.031) K/mm3 Absolute Neuts (auto) 3.7 (1.3-6.7) K/mm3 Absolute Nucleated RBC 0.000 (0.0-0.012) K/mm3 Nucleated RBC % 0.0 (0.0-0.2) % Sodium 140 (137-145) mmol/L Potassium 4.0 (3.4-5.0) mmol/L Chloride 107 (98-107) mmol/L Carbon Dioxide 27 (22-30) mmol/L Anion Gap 6 (4-12) mmol/L BUN 20 H (7-17) mg/dL Creatinine 0.70 (0.7-1.0) mg/dL Estim Creat Clear Calc 53 ml/min Estimated GFR > 60 (59 - ) Glucose 133 H (65-110) mg/dL Calcium 9.1 (8.4-10.2) mg/dL Total Bilirubin 0.5 (0.2-1.3) mg/dL AST 19 (14-36) U/L ALT 13 (6-35) U/L Alkaline Phosphatase 84 (38-126) U/L Total Protein 7.0 (6.3-8.2) g/dL Albumin 4.1 (3.5-5.1) g/dL Discharge Plan Discharge Clinical Impression: Choking episode, Food impaction of esophagus Patient Disposition: Still a Patient Condition: Stable
[2024-08-22 23:00] VITALS: BP 162/71; PULSE 52; RESP 13; O2SAT 98
[2024-08-22] MEDS: NITROGLYCERIN SL 0.4 MG TABLET SUBLINGUAL (23:09)
[2024-08-22] MEDS: GLUCAGON FOR INJ 1 MG VIAL IV PUSH (23:14)
[2024-08-22 23:20] VITALS: BP 101/65; PULSE 60; RESP 17; O2SAT 96
[2024-08-22 23:27] VITALS: BP 124/86; PULSE 50; RESP 14; O2SAT 97
[2024-08-22 23:47] LABS: Basophils Absolute Auto 0.1 K/mm3 (0.0-0.1); Basophils Percent Auto 0.7 % (0.2-1.2); Eosinophils Absolute Auto 0.2 K/mm3 (0-0.3); Eosinophils Percent Auto 3.2 % (0-4.4); Hematocrit 38.2 % (37.0-47.0); Hemoglobin 12.4 g/dL (12.0-15.0); Immature Granulocyte Absolute 0.01 K/mm3 (0.00-0.031); Immature Granulocyte Percent A 0.1 % (0-0.5); Lymphocytes Absolute Auto 2.41 K/mm3 (0.9-3.2); Lymphocytes Percent Auto 33.5 % (18.3-44.2); Mean Corpuscular HGB Conc 32.5 g/dl (32-36); Mean Corpuscular Volume 98.5 fl (80-100); Mean Platelet Volume 10.2 fl (7.4-10.4); Monocytes Absolute Auto 0.8 K/mm3 (0.1-0.6); Monocytes Percent Auto 11.5 % (2.6-8.5); Neutrophils Absolute Auto 3.7 K/mm3 (1.3-6.7); Platelet Count Result 209 k/mm3 (150-375); Red Blood Count 3.88 M/mm3 (4.2-5.4); White Blood Count 7.2 K/mm3 (4.5-10.0)
[2024-08-22 23:57] LABS: Alanine Aminotransferase 13 U/L (6-35); Albumin Level 4.1 g/dL (3.5-5.1); Alkaline Phosphatase 84 U/L (38-126); Anion Gap 6 mmol/L (4-12); Aspartate Amino Transferase 19 U/L (14-36); Bilirubin,Total 0.5 mg/dL (0.2-1.3); Blood Urea Nitrogen 20 mg/dL (7-17); Calcium 9.1 mg/dL (8.4-10.2); Carbon Dioxide 27 mmol/L (22-30); Chloride 107 mmol/L (98-107); Estimated CRCL calculation 53 ml/min; Estimated Glomerular Filt Rate > 60; Glucose 133 mg/dL (65-110); Sodium 140 mmol/L (137-145)
[2024-08-23] VITALS (12 sets, daily range): BP systolic 85–164; BP diastolic 48–86; PULSE 50–72; RESP 13–23; TEMP 36.4; O2SAT 92–98; BMI 32.9
--- NOTE | 2024-08-23 00:32 | P.PNAN_ITS ---
Anes - Initial Pre Proc Eval Procedure: Operation Date: 08/23/24 01:00 Proposed Procedures p Esophagogastroduodenoscopy - Jameson Almodovar MD Date/Time: 08/23/24 00:32 Surgeon: Yoseph Tellez MD Pre Op Diagnosis: choked on pork chop Patient Data Age: 83 Gender: F Height: 1.63 m Weight: 84.09 kg Last Vital Signs Temp 36.4 C L 08/22/24 19:12 Pulse 50 L 08/23/24 00:16 Resp 17 08/23/24 00:16 BP 126/63 08/23/24 00:16 Pulse Ox 98 08/23/24 00:16 O2 Del Method Room Air 08/22/24 19:12 Allergies Allergy/AdvReac Type Severity Reaction Status Date / Time Penicillins Allergy unknown Verified 01/24/24 22:55 Home Medications Medication Instructions Recorded Confirmed Type apixaban 5 mg tablet (Eliquis) 5 mg PO BID 01/25/24 01/25/24 History oxybutynin chloride 15 mg 15 mg PO DAILY 01/25/24 01/25/24 History tablet,extended release 24 hr propranolol 80 mg capsule,24 160 mg PO DAILY 01/25/24 01/25/24 History hr,extended release Laboratory Tests 08/22/24 23:25 WBC 7.2 K/mm3 (4.5-10.0) RBC 3.88 L M/mm3 (4.2-5.4) Hgb 12.4 g/dL (12.0-15.0) Hct 38.2 % (37.0-47.0) MCV 98.5 fl (80-100) MCH 32.0 pg (26-34) MCHC 32.5 g/dl (32-36) RDW 14.0 % (11.5-14.5) Plt Count 209 k/mm3 (150-375) MPV 10.2 fl (7.4-10.4) Immature Gran % (Auto) 0.1 % (0-0.5) Neut % (Auto) 51.0 % (45.5-73.1) Lymph % (Auto) 33.5 % (18.3-44.2) [place] % (Auto) 11.5 H % (2.6-8.5) Eos % (Auto) 3.2 % (0-4.4) Baso % (Auto) 0.7 % (0.2-1.2) Lymph # (Auto) 2.41 K/mm3 (0.9-3.2) [place] # (Auto) 0.8 H K/mm3 (0.1-0.6) Eos # (Auto) 0.2 K/mm3 (0-0.3) Baso # (Auto) 0.1 K/mm3 (0.0-0.1) Abs Immat Gran (auto) 0.01 K/mm3 (0.00-0.031) Absolute Neuts (auto) 3.7 K/mm3 (1.3-6.7) Absolute Nucleated RBC 0.000 K/mm3 (0.0-0.012) Nucleated RBC % 0.0 % (0.0-0.2) Sodium 140 mmol/L (137-145) Potassium 4.0 mmol/L (3.4-5.0) Chloride 107 mmol/L (98-107) Carbon Dioxide 27 mmol/L (22-30) Anion Gap 6 mmol/L (4-12) BUN 20 H mg/dL (7-17) Creatinine 0.70 mg/dL (0.7-1.0) Estim Creat Clear Calc 53 ml/min Estimated GFR > 60 (59 - ) Glucose 133 H mg/dL (65-110) Calcium 9.1 mg/dL (8.4-10.2) Total Bilirubin 0.5 mg/dL (0.2-1.3) AST 19 U/L (14-36) ALT 13 U/L (6-35) Alkaline Phosphatase 84 U/L (38-126) Total Protein 7.0 g/dL (6.3-8.2) Albumin 4.1 g/dL (3.5-5.1) Patient hx anesthesia problems: none Family hx anesthesia problems: none Results Review: All pre-operative results and documents have been reviewed as part of the pre- operative evaluation. [facility] Past Medical History Medical History (Updated 08/23/24 @ 00:32 by Maikel Israel MD) DVT (deep venous thrombosis) Hypertension Obesity Surgical History Surgical History History of appendectomy History of cholecystectomy Social History Social History Smoking status: Never smoker Alcohol intake: never Substance use: never Spiritual care concerns: No Anes - Eval Final PreProcedure Day of Procedure 08/23/24 00:32 Patient weight: obese Heart: bradycardia and murmur (SM) Lungs: clear to auscultation Airway: Mallampati scale class II Last oral intake: >/= 8 hours ASA classification: III Emergent: yes Anesthetic plan: proceed Anesthesia type and monitoring: general GIVS (possible ETT) Results Review: All pre-operative results and documents have been reviewed as part of the pre- operative evaluation. Informed Consent: The patient's anesthetic plan and its attendant risks and benefits were discussed with the patient/family/POA. Questions were solicited and answers provided to the satisfaction of the patient/family/POA.
[2024-08-23] MEDS: LACTATED RINGERS 1,000 ML 150 ML IV CONT (00:35)
--- NOTE | 2024-08-23 01:15 | PM.IMHP ---
H&P: HPI History of Present Illness Date/Time: 08/23/24 01:15 Chief Complaint: food bolus Narrative: The patient was eating lunch at noon and felt that after eating a portion of pork chop she could not swallow any more liquids or solids, having a sensation of obstruction in her esophagus. No previous episodes or previous dysphagia. Review of Systems Review of Systems: All systems reviewed & are unremarkable except as noted in HPI and below PMFSH Past Medical History Medical History (Updated 08/23/24 @ 00:32 by Maikel Israel MD) DVT (deep venous thrombosis) Hypertension Obesity Surgical History Surgical History History of appendectomy History of cholecystectomy Social History Social History Smoking status: Never smoker Alcohol intake: never Substance use: never Spiritual care concerns: No Meds Home Medications and Allergies Home Medications Medication Instructions Recorded Confirmed Type apixaban 5 mg tablet (Eliquis) 5 mg PO BID 01/25/24 08/23/24 History oxybutynin chloride 15 mg 15 mg PO DAILY 01/25/24 08/23/24 History tablet,extended release 24 hr propranolol 80 mg capsule,24 160 mg PO DAILY 01/25/24 08/23/24 History hr,extended release furosemide 20 mg tablet 20 mg PO DAILY 08/23/24 08/23/24 History Allergies Allergy/AdvReac Type Severity Reaction Status Date / Time Penicillins Allergy unknown Verified 08/23/24 00:49 Vital Signs Vital Signs - 24 hr 08/22/24 19:12 08/22/24 21:07 08/22/24 21:07 Temperature 97.5 F L Pulse Rate 61 53 L 57 L Respiratory Rate 14 19 Blood Pressure 116/88 143/83 H Pulse Oximetry 100 99 Oxygen Delivery Room Air 08/22/24 23:00 08/22/24 23:20 08/22/24 23:27 Temperature Pulse Rate 52 L 60 50 L Respiratory Rate 13 17 14 Blood Pressure 162/71 H 101/65 124/86 Pulse Oximetry 98 96 97 Oxygen Delivery 08/23/24 00:16 08/23/24 00:50 Temperature Pulse Rate 50 L 52 L Respiratory Rate 17 20 Blood Pressure 126/63 144/51 H Pulse Oximetry 98 97 Oxygen Delivery Room Air Exam Const: General: cooperative and healthy appearing Resp: Effort & Inspection: normal respiratory effort and able to speak in complete sentences Auscultation: clear to auscultation bilaterally Cardio: Rate: regular rate Rhythm: regular rhythm GI: Inspection: normal to inspection GI Palp: No No hepatosplenomegaly present Auscultation: normal bowel sounds Rectal Exam: deferred Skin: General skin exam: normal color Psych: Appearance: grossly normal Mental Status: mental status grossly normal H&P: Results Labs Labs: Short CBC 08/22/24 Range/Units 23:25 WBC 7.2 (4.5-10.0) K/mm3 Hgb 12.4 (12.0-15.0) g/dL Hct 38.2 (37.0-47.0) % Plt Count 209 (150-375) k/mm3 BMP 08/22/24 23:25 Sodium 140 Potassium 4.0 Chloride 107 Carbon Dioxide 27 BUN 20 H Creatinine 0.70 Glucose 133 H Calcium 9.1 Liver Function 08/22/24 Range/Units 23:25 Total Bilirubin 0.5 (0.2-1.3) mg/dL AST 19 (14-36) U/L ALT 13 (6-35) U/L Alkaline Phosphatase 84 (38-126) U/L Albumin 4.1 (3.5-5.1) g/dL Assessment and Plan Assessment and plan (1) Choking episode: Code(s): R09.89 - Other specified symptoms and signs involving the circulatory and respiratory systems Status: Acute Assessment and Plan: Food bolus suspected. Will perform EGD with antesthesia. Consent signed.
--- NOTE | 2024-08-23 02:11 | SUR.PHASEII ---
Patient and son discussing the options on going home. Son does not feel he can care for her overnight at the assisted living facility. Spoke with powerhouse engineer, okay to bring patient back to ER for further care.
--- NOTE | 2024-08-23 02:15 | PC.NURSE ---
Pt returned from GI lab. This RN received report from ELDA Magaña. @[id number] HR: 72 RR: 12 O2: 94% BP:102/76
--- NOTE | 2024-08-23 08:41 | P.HP_ITS ---
H&P: HPI History of Present Illness Date/Time: 08/23/24 08:41 Chief Complaint: Chocking Sensation Narrative: 84 years old female was admitted through the hospital for for an episode of choking sensation. According to the patient yesterday at dinnertime she was eating pork chop but then she started having choking sensation. Choking sensation lasted for 2 hours. Patient was brought in the ER GI was consulted emergency endoscopy was performed and . impacted food bolus was removed. Patient started feeling better after that at present time she is on the floor in the room lying comfortably. Patient has no choking sensation. No shortness of breath or chest pain. Review of Systems Review of Systems: All systems reviewed & are unremarkable except as noted in HPI and below (the history and physical examination.) [facility]LY [facility] Past Medical History Medical History (Updated 08/23/24 @ 08:47 by Darell Solares MD) DVT (deep venous thrombosis) Hypertension Obesity Surgical History Surgical History History of appendectomy History of cholecystectomy Social History Social History Smoking status: Unknown if ever smoked Alcohol intake: unknown Substance use: unknown Substance use type: does not use Do You Feel Safe in your Home?: Yes Lack of Transportation: No Lack of Food: Never True Current Housing: I Have Housing Concerned About Future Housing: No Difficulty Paying Gas/Electric Bills: No Difficulty Paying for Meds: No Currently Unemployed: No Education: Don't Know Difficulty w/ Childcare or Family Care: No Spiritual care concerns: No Meds Home Medications and Allergies Home Medications Medication Instructions Recorded Confirmed Type apixaban 5 mg tablet (Eliquis) 5 mg PO BID 01/25/24 08/23/24 History oxybutynin chloride 15 mg 15 mg PO DAILY 01/25/24 08/23/24 History tablet,extended release 24 hr propranolol 80 mg capsule,24 160 mg PO DAILY 01/25/24 08/23/24 History hr,extended release furosemide 20 mg tablet 20 mg PO DAILY 08/23/24 08/23/24 History Allergies Allergy/AdvReac Type Severity Reaction Status Date / Time Penicillins Allergy unknown Verified 08/23/24 00:49 Vital Signs Vital Signs - 24 hr 08/22/24 19:12 08/22/24 21:07 08/22/24 21:07 Temperature 36.4 C L Pulse Rate 61 53 L 57 L Respiratory Rate 14 19 Blood Pressure 116/88 143/83 H Pulse Oximetry 100 99 Oxygen Delivery Room Air Oxygen Flow Rate 08/22/24 23:00 08/22/24 23:20 08/22/24 23:27 Temperature Pulse Rate 52 L 60 50 L Respiratory Rate 13 17 14 Blood Pressure 162/71 H 101/65 124/86 Pulse Oximetry 98 96 97 Oxygen Delivery Oxygen Flow Rate 08/23/24 00:16 08/23/24 00:50 08/23/24 01:15 Temperature Pulse Rate 50 L 52 L 68 Respiratory Rate 17 20 23 H Blood Pressure 126/63 144/51 H 111/48 L Pulse Oximetry 98 97 93 Oxygen Delivery Room Air Nasal Cannula Oxygen Flow Rate 4 08/23/24 01:25 08/23/24 01:35 08/23/24 01:46 Temperature Pulse Rate 69 67 Respiratory Rate 20 16 Blood Pressure 110/48 L 85/58 L 103/54 L Pulse Oximetry 93 95 Oxygen Delivery Nasal Cannula Nasal Cannula Oxygen Flow Rate 4 2 08/23/24 02:00 08/23/24 02:12 08/23/24 02:38 Temperature Pulse Rate 72 Respiratory Rate 13 Blood Pressure 118/86 121/49 L 102/76 Pulse Oximetry 93 94 94 Oxygen Delivery Room Air Room Air Oxygen Flow Rate 08/23/24 04:02 08/23/24 04:25 Temperature 36.4 C Pulse Rate 63 67 Respiratory Rate 21 H 18 Blood Pressure 151/74 H 164/69 H Pulse Oximetry 95 92 Oxygen Delivery Oxygen Flow Rate Exam Narrative: Narrative: GENERAL: Well-jodi earing, well-pal shed, and in no ac alicia distress. HEAD : Normocephalic, a traumatic. EYES: P ERRLA and EOMI. EN T: Nares clear, no rhinorrhea or epi staxis. Mucous me mbranes moist. NEC K: Supple. CHEST: Clear to auscultat ion. No respirato ry distress. HEART : Regular rate and rhythm. No murmu r heard. Normal p eripheral pulses. ABDOMEN: Soft, non tender, nondistend ed, normal active bowel sounds. EXTR EMITIES: Normal ra nge of motion. No edema. SKIN: Warm , dry, no rash. NE URO: No focal defi cits. Alert and o riented x3. PSYCH: Normal mood and a ffect. H&P: Results Labs Labs: Short CBC 08/22/24 Range/Units 23:25 WBC 7.2 (4.5-10.0) K/mm3 Hgb 12.4 (12.0-15.0) g/dL Hct 38.2 (37.0-47.0) % Plt Count 209 (150-375) k/mm3 BMP 08/22/24 23:25 Sodium 140 Potassium 4.0 Chloride 107 Carbon Dioxide 27 BUN 20 H Creatinine 0.70 Glucose 133 H Calcium 9.1 Liver Function 08/22/24 Range/Units 23:25 Total Bilirubin 0.5 (0.2-1.3) mg/dL AST 19 (14-36) U/L ALT 13 (6-35) U/L Alkaline Phosphatase 84 (38-126) U/L Albumin 4.1 (3.5-5.1) g/dL Assessment and Plan Assessment and plan (1) Food impaction of esophagus: Code(s): T18.128A - Food in esophagus causing other injury, initial encounter; W44.F3XA - Food entering into or through a natural orifice, initial encounter Status: Acute Assessment and Plan: Impacted food bolus was removed to by endoscopy. Patient is feeling better now. Will continue home medication start feeding patient now. If patient stays okay will discharge back home today (2) Hypertension: Code(s): I10 - Essential (primary) hypertension Status: Acute Assessment and Plan: Stable on current medications P Quality VTE Prophylaxis VTE prophylaxis: pharmacologic ordered Patient is admitted for observation. Will start feeding patient. Continue home medication. Possible discharge in the afternoon.
[2024-08-23] MEDS: FUROSEMIDE 20 MG TABLET PO (09:02)
[2024-08-23] MEDS: oxyBUTYnin CHLORIDE XL 5 MG TAB.ER.24 15 MG PO (09:02)
[2024-08-23] MEDS: APIXABAN 5 MG TABLET PO (09:02)
[2024-08-23] MEDS: PROPRANOLOL HCL 40 MG TABLET 160 MG PO (09:02)
--- NOTE | 2024-08-23 09:21 | PM.DS ---
DS: Admitting Diagnosis Discharge Date 08/23/2024 Admitting Diagnosis Food impaction DS: Discharge Diagnosis Discharge Diagnosis (1) Food impaction of esophagus: Code(s): T18.128A - Food in esophagus causing other injury, initial encounter; W44.F3XA - Food entering into or through a natural orifice, initial encounter Status: Acute Assessment and Plan: Impacted food bolus was removed to by endoscopy. Patient is feeling better now. Will continue home medication start feeding patient now. If patient stays okay will discharge back home today (2) Hypertension: Code(s): I10 - Essential (primary) hypertension Status: Acute Assessment and Plan: Stable on current medications P Plan Food impaction DS: Summary Hospital Course Reason for hospitalization: Food impaction Hospital Course: 83 years old female was admitted for food impaction. Emergent endoscopy was performed and food bolus was removed. At present patient is feeling better. Patient discharged back longterm in stable condition. Follow-up with primary care and GI scale Status at Discharge Cognitive/behavioral status at discharge: Stable Time Spent with Patient Time attestation: Total time spent providing and/or coordinating discharge services: 30 minutes Exam Narrative: Narrative: GENERAL: Well-jodi earing, well-pal shed, and in no ac [place] distress. HEAD : Normocephalic, a traumatic. EYES: P ERRLA and EOMI. EN T: Nares clear, no rhinorrhea or epi staxis. Mucous me mbranes moist. NEC K: Supple. CHEST: Clear to auscultat ion. No respirato ry distress. HEART : Regular rate and rhythm. No murmu r heard. Normal p eripheral pulses. ABDOMEN: Soft, non tender, nondistend ed, normal active bowel sounds. EXTR EMITIES: Normal ra nge of motion. No edema. SKIN: Warm , dry, no rash. NE URO: No focal defi cits. Alert and o riented x3. PSYCH: Normal mood and a ffect. DS: Data Data Completed and Pending Labs on day of discharge: Labs from last 24 hours 08/22/24 23:25 WBC 7.2 RBC 3.88 L Hgb 12.4 Hct 38.2 MCV 98.5 MCH 32.0 MCHC 32.5 RDW 14.0 Plt Count 209 MPV 10.2 Immature Gran % (Auto) 0.1 Neut % (Auto) 51.0 Lymph % (Auto) 33.5 [place] % (Auto) 11.5 H Eos % (Auto) 3.2 Baso % (Auto) 0.7 Lymph # (Auto) 2.41 [place] # (Auto) 0.8 H Eos # (Auto) 0.2 Baso # (Auto) 0.1 Abs Immat Gran (auto) 0.01 Absolute Neuts (auto) 3.7 Absolute Nucleated RBC 0.000 Nucleated RBC % 0.0 Sodium 140 Potassium 4.0 Chloride 107 Carbon Dioxide 27 Anion Gap 6 BUN 20 H Creatinine 0.70 Estim Creat Clear Calc 53 Estimated GFR > 60 Glucose 133 H Calcium 9.1 Total Bilirubin 0.5 AST 19 ALT 13 Alkaline Phosphatase 84 Total Protein 7.0 Albumin 4.1 Discharge Plan Discharge Attending physician on discharge: Darell Solares Discharging Clinician: Darell Solares Patient Disposition: [facility] Activity: as tolerated Diet: as tolerated Patient Instructions: Antibiotic Form, Food Impaction (ED) Stand Alone Forms: General Discharge Information Follow-up/Referrals: Raz,MD Gurwinder [Primary Care Provider] - Discharge Medications: Continued oxybutynin chloride 15 mg tablet extended release 24hr 15 mg PO DAILY propranolol 80 mg capsule,extended release 24hr 160 mg PO DAILY Eliquis 5 mg tablet 5 mg PO BID furosemide 20 mg tablet 20 mg PO DAILY Date of admission: 08/23/24 03:33 Primary Care Provider: RazGurwinder Admitting Provider: Carlene Cary Attending physician on admission: Carlene Cary Condition: Stable Quality VTE Prophylaxis VTE prophylaxis: pharmacologic ordered
== END 2024-08-23 11:27 ==
LOC: ANHED 23:55 → ANHENDO 08-23 00:01 → ANHED 08-23 02:33 → ANH3MEDSUR 08-23 04:24
PROVIDERS: Internal Medicine Gastroenterology; Admitting Provider Internal Medicine; Emergency Provider Emergency Medicine; PCP Internal Medicine; Visit Provider Internal Medicine
PROC: 0DJ08ZZ Inspection of Upper Intestinal Tract, Via Natural or Artificial Opening Endoscopic (ICD-10-PCS; CPT 43235; principal; 2024-08-23 01:00)
DX: T18.128A Food in esophagus causing other injury, initial encounter (principal); W44.F3XA Food entering into or through a natural orifice, initial encounter; I10 Essential (primary) hypertension; E66.9 Obesity, unspecified; Z68.32 Body mass index [BMI] 32.0-32.9, adult; Z79.01 Long term (current) use of anticoagulants; Z79.899 Other long term (current) drug therapy; Z86.718 Personal history of other venous thrombosis and embolism; Z88.0 Allergy status to penicillin; Z90.49 Acquired absence of other specified parts of digestive tract
CPT/HCPCS: 43247; 36415; 71046; 80053; 85025; 96361; 96374; 99285; A9270; G0378; J1610; J2704; J7120

== ENCOUNTER 2024-12-03 03:48 | Inpatient (IN) | payer MEDICARE, SELFPAY ==
[2024-12-03] VITALS (12 sets, daily range): BP systolic 117–181; BP diastolic 47–83; PULSE 55–78; RESP 14–20; TEMP 36.2–36.8; O2SAT 95–98; BMI 35.8
--- NOTE | ~2024-12-03 | CT_ITS ---
Noncontrast CT scan of the cervical spine Technique: Multiple contiguous axial [address] images of the cervical spine were obtained and rec onstructed in 2D sagittal and coronal planes on the acquisition scanner. Dose reduction technique was used on this scan by utilizing automated exposure control, adjustment of the mA and/or kV according to patient size. The dose-length product (DLP) was 247.74 mGy-cm. Clinical History: Pain Findings: No acute fracture. There is minimal grade 1 anterolisthesis of C5 over C6. There is mild re versal normal cervical lordosis. There is degenerative change at the articulation of the odontoid pro cess with the anterior arch of C1. There is advanced degenerative disc narrowing at C5-C6 and C6-C7. There are extensive facet joint degenerative changes of the cervical spine. There is left neural fora ruth narrowing at C5-C6. No prevertebral soft tissue swelling. Impression: No acute fracture. Minimal grade 1 anterolisthesis of C5 over C6. Moderate degenerative spondylosis, as above. Reviewed, dictated and finalized at [facility]. Impression: No acute fracture. Minimal grade 1 anterolisthesis of C5 over C6. Moderate degenerative spondylosis, as above.
--- NOTE | ~2024-12-03 | XR_ITS ---
AP view of the pelvis and AP and lateral views of the left hip Clinical history: Pain Findings: No acute fracture or dislocation is seen. Osseous alignment is anatomic. Bilateral hip and SI joint spaces are preserved. Soft tissues are unremarkable. Impression: No significant abnormality is seen. Reviewed, dictated and finalized at [facility]. Impression: No significant abnormality is seen.
--- NOTE | ~2024-12-03 | CT_ITS ---
CT head without contrast Indication: Head injury Technique: Serial scans were obtained through the brain without the administration of contrast. Dose reduction technique was used on this scan by utilizing automated exposure control and iterative recon struction technique. The dose-length product (DLP) was 681.00 mGy-cm. Findings: There is no evidence of intracranial hemorrhage, mass lesion, or acute infarct. The ventri cles and subarachnoid spaces are dilated, consistent with mild to moderate atrophy. Low attenuation regions are seen within the periventricular white matter bilaterally, likely representing changes fro m chronic microvascular ischemic disease. There is no evidence of edema, mass effect or midline shif t. The visualized paranasal sinuses and mastoid air cells are clear. Impression: No intracranial hemorrhage, mass, or acute infarct. Atrophy and chronic white matter changes, as above. Reviewed, dictated and finalized at location [facility]. Impression: No intracranial hemorrhage, mass, or acute infarct. Atrophy and chronic white matter changes, as above.
--- NOTE | ~2024-12-03 | XR_ITS ---
Portable chest x-ray Comparison: 08/22/2024 Clinical History: Cough, weakness Findings: Suspected minimal left pleural effusion. Possible COPD. Cardiomediastinal silhouette is s table. Bones and soft tissues are unremarkable. Impression: Suspected minimal left pleural effusion. COPD. Reviewed, dictated and finalized at [facility]. Impression: Suspected minimal left pleural effusion. COPD.
--- NOTE | 2024-12-03 03:54 | ECG_ITS ---
Test Date: 2024-12-03 04:37:12 Measurements Intervals [place] Rate: 72 P: 76 MS: 330 QRS: 34 QRSD: 102 T: 21 QT: 383 QTc: 421 Interpretive Statements SINUS RHYTHM WITH FIRST DEGREE AV BLOCK No previous ECG available for comparison Electronically Signed On 12-03-2024 11:36:32 CDT by Idris Diaz M.D.
--- NOTE | 2024-12-03 04:03 | ED_ITS ---
HPI - Weakness General Chief complaint: Weakness Stated complaint: GROUND LEVEL FALL AND WEAK Time Seen by Provider: 12/03/24 03:58 History of Present Illness HPI Narrative: Patient states that she was sleeping in her recliner and had to go to the bathroom, she tried to get up but could not reach her walker and slowly slid out of the recliner onto the ground. No loss of consciousness, she does take Eliquis, she has been weak for the last few days as she has been getting over a respiratory illness, she is having pain to her left hip. Related Data Home Medications ?Medication ?Instructions ?Recorded ?Confirmed ?Last Taken ?Type apixaban 5 mg tablet (Eliquis) 5 mg PO BID 01/25/24 08/23/24 08/22/24 History oxybutynin chloride 15 mg 15 mg PO DAILY 01/25/24 08/23/24 08/22/24 History tablet,extended release 24 hr propranolol 80 mg capsule,24 160 mg PO DAILY 01/25/24 08/23/24 08/22/24 History hr,extended release furosemide 20 mg tablet 20 mg PO DAILY 08/23/24 08/23/24 08/22/24 History Allergies Allergy/AdvReac Type Severity Reaction Status Date / Time Penicillins Allergy unknown Verified 08/23/24 00:49 Review of Systems 2 Review of Systems: All systems reviewed & are unremarkable except as noted in HPI and below PMFSH Past Medical History Medical History (Updated 12/03/24 @ 05:42 by Michaelle Zamudio MD) Obesity Hypertension DVT (deep venous thrombosis) Surgical History Surgical History History of appendectomy History of cholecystectomy Social History Social History Smoking status: Unknown if ever smoked Alcohol intake: unknown Substance use: unknown Substance use type: does not use Do You Feel Safe in your Home?: Yes Lack of Transportation: No Lack of Food: Never True Current Housing: I Have Housing Concerned About Future Housing: No Difficulty Paying Gas/Electric Bills: No Difficulty Paying for Meds: No Currently Unemployed: No Education: Don't Know Difficulty w/ Childcare or Family Care: No Spiritual care concerns: No Exam 2 Narrative: EXAMINATION OF ORGAN SYSTEMS/BODY AREAS: Constitutional: Vital signs per nursing GENERAL:[No acute distress, non-toxic appearing.] HEAD: Normal with no signs of head trauma. EYES: EOMI, conjunctiva normal ENT: Hearing grossly intact LUNGS: Nonlabored breathing. HEART: [Regular rate and rhythm] ABD: [Soft], [nontender to palpation] EXT: Tenderness to palpation left hip SKIN: [No rashes or lesions.] NEURO: [Alert. Speaking with clear speech.] PSYCH: Normal affect Course Vital Signs Vital signs: Vital Signs Temperature 97.7 F 12/03/24 03:56 Pulse Rate 75 12/03/24 03:56 Respiratory Rate 20 12/03/24 03:56 Blood Pressure 181/79 H 12/03/24 03:56 Pulse Oximetry 97 12/03/24 03:56 Oxygen Delivery Room Air 12/03/24 03:56 Temperature 97.7 F 12/03/24 03:56 Pulse Rate 75 12/03/24 03:56 Respiratory Rate 20 12/03/24 03:56 Blood Pressure 181/79 H 12/03/24 03:56 Pulse Oximetry 97 12/03/24 03:56 Oxygen Delivery Room Air 12/03/24 03:56 MDM - Weakness MDM Narrative Medical decision making narrative: Patient presenting with generalized weakness, she had a recent URI, was unable to reach her walker to go to the bathroom earlier today and ended of sliding out of her recliner onto for, and then she was unable to get back up on her own. She is on Eliquis, she has some pain to her left hip denies pain anywhere else. Will obtain imaging and basic labs. Imaging thankfully normal, however given her generalized weakness, will try to ambulate her since she is currently at assisted living. Shows completely out of breath and required assistance even with a walker to go to and from the bathroom which is only several feet, given this I did not feel it was safe for her to be back at assisted living, that she would likely benefit from PT/OT at this time. Patient agreeable to this plan. Labs within acceptable limits. Viral swab negative. CT head/C-spine without acute abnormality. X-ray of left hip on my independent interpretation does not show any obvious fracture. Family updated. Around agreeable to the plan. Discussed with hospitalist for admission. Lab Data 12/03/24 04:39 12/03/24 04:39 Labs: Lab Results 12/03/24 Range/Units 04:39 WBC 7.7 (4.5-10.0) K/mm3 RBC 3.66 L (4.2-5.4) M/mm3 Hgb 11.5 L (12.0-15.0) g/dL Hct 36.1 L (37.0-47.0) % MCV 98.6 (80-100) fl MCH 31.4 (26-34) pg MCHC 31.9 L (32-36) g/dl RDW 14.1 (11.5-14.5) % Plt Count 224 (150-375) k/mm3 MPV 9.6 (7.4-10.4) fl Immature Gran % (Auto) 0.1 (0-0.5) % Neut % (Auto) 54.3 (45.5-73.1) % Lymph % (Auto) 24.1 (18.3-44.2) % [place] % (Auto) 15.4 H (2.6-8.5) % Eos % (Auto) 5.3 H (0-4.4) % Baso % (Auto) 0.8 (0.2-1.2) % Lymph # (Auto) 1.85 (0.9-3.2) K/mm3 [place] # (Auto) 1.2 H (0.1-0.6) K/mm3 Eos # (Auto) 0.4 H (0-0.3) K/mm3 Baso # (Auto) 0.1 (0.0-0.1) K/mm3 Abs Immat Gran (auto) 0.01 (0.00-0.031) K/mm3 Absolute Neuts (auto) 4.2 (1.3-6.7) K/mm3 Absolute Nucleated RBC 0.000 (0.0-0.012) K/mm3 Nucleated RBC % 0.0 (0.0-0.2) % Sodium 140 (137-145) mmol/L Potassium 4.2 (3.4-5.0) mmol/L Chloride 107 (98-107) mmol/L Carbon Dioxide 25 (22-30) mmol/L Anion Gap 8 (4-12) mmol/L BUN 17 (7-17) mg/dL Creatinine 0.61 L (0.7-1.0) mg/dL Estim Creat Clear Calc 60 ml/min Estimated GFR > 60 (59 - ) Glucose 104 (65-110) mg/dL Calcium 9.3 (8.4-10.2) mg/dL Total Bilirubin 0.4 (0.2-1.3) mg/dL AST 17 (14-36) U/L ALT 13 (6-35) U/L Alkaline Phosphatase 86 (38-126) U/L Total Protein 7.0 (6.3-8.2) g/dL Albumin 3.9 (3.5-5.1) g/dL Influenza A (RT-PCR) Negative (Negative) Influenza B (RT-PCR) Negative (Negative) RSV (RT-PCR) Negative (Negative) SARS-CoV-2 RNA (RT-PCR) Negative (Negative) Discharge Plan Discharge Clinical Impression: Generalized weakness, Patient unable to walk 150 feet, Fall Patient Disposition: Still a Patient Condition: Stable Patient Language: Malagasy Prescriptions: No Action oxybutynin chloride 15 mg tablet extended release 24hr 15 mg PO DAILY propranolol 80 mg capsule,extended release 24hr 160 mg PO DAILY Eliquis 5 mg tablet 5 mg PO BID furosemide 20 mg tablet 20 mg PO DAILY Follow-up/Referrals: Raz,MD Gurwinder [Primary Care Provider] -
[2024-12-03 04:46] LABS: Basophils Absolute Auto 0.1 K/mm3 (0.0-0.1); Basophils Percent Auto 0.8 % (0.2-1.2); Eosinophils Absolute Auto 0.4 K/mm3 (0-0.3); Eosinophils Percent Auto 5.3 % (0-4.4); Hematocrit 36.1 % (37.0-47.0); Hemoglobin 11.5 g/dL (12.0-15.0); Immature Granulocyte Absolute 0.01 K/mm3 (0.00-0.031); Immature Granulocyte Percent A 0.1 % (0-0.5); Lymphocytes Absolute Auto 1.85 K/mm3 (0.9-3.2); Lymphocytes Percent Auto 24.1 % (18.3-44.2); Mean Corpuscular HGB Conc 31.9 g/dl (32-36); Mean Corpuscular Hemoglobin 31.4 pg (26-34); Mean Corpuscular Volume 98.6 fl (80-100); Mean Platelet Volume 9.6 fl (7.4-10.4); Monocytes Absolute Auto 1.2 K/mm3 (0.1-0.6); Monocytes Percent Auto 15.4 % (2.6-8.5); Neutrophils Absolute Auto 4.2 K/mm3 (1.3-6.7); Neutrophils Percent Auto 54.3 % (45.5-73.1); Platelet Count Result 224 k/mm3 (150-375); Red Blood Count 3.66 M/mm3 (4.2-5.4); Red Cell Distribution Width 14.1 % (11.5-14.5); White Blood Count 7.7 K/mm3 (4.5-10.0)
--- OUTSIDE RECORDS SUMMARY | 2024-12-03 04:47 | XMS_ITS | Clinical Summary ---
Author Organization [facility] Address [address] [place] [address] Phone Care Team Providers Care Utility System Operator Name Role Phone Bartolo Troncoso MD Primary Care Provider [phone] Allergies Active Allergy Reactions Criticality Noted Date Comments Acetaminophen Codeine Hydrocodone Hydrocodone-Acetaminophen Penicillins Rofecoxib Sulfa (Sulfonamide Antibiotics) Medications No known medications Active Problems Problem Noted Date Diagnosed Date Knee pain 03/20/2014 Surgical History Surgery Date Site/Laterality Comments OTHER SURGICAL HISTORY bile duct OTHER SURGICAL HISTORY varicose vein surgery CHOLECYSTECTOMY Cholecystectomy CARPAL TUNNEL RELEASE Carpal tunnel release CATARACT EXTRACTION Cataract extraction Medical History Medical History Date Comments Hx Other Medical poor circulatio n Hx Other Medical back pain Hx Other Medical blood clots in leg and lung Rheumatoid arthritis (HCC) Rheum atoid arthritis Hypertension Hypertension Family History Medical History Relation Name Comments Arthritis Father Family history of arthritis - (Added by Conv) Diabetes Father Family history of diabetes mellitus - (Added by TW Conv) Hypertension Father Family history of hypertension - (Added by TW Conv) Arthritis Mother Family history of arthritis - (Added by TW Conv) Diabetes Mother Family history of diabetes mellitus - (Added by Conv) Hypertension Mother Family history of hypertension - (Added by TW Conv) Blood Clot Other Family history of blood clots; Diabetes Other Family history of Diabetes mellitus; Hypertension Other Family history of Hypertension; Osteoarthritis Other Family histor y of Osteoarthritis; Other Other Family history of clots in lung; Stroke Other Family history of Stroke; Relation Name Status Comments Father Mother Other Social History Tobacco Use Types Packs/Day Years Used Date Smoking Tobacco: Never Alcohol Use Standard Drinks/Week Comments Yes 0 (1 standard drink = 0.6 oz pur e alcohol) Comments Unknown Sex and Gender Information Value Date Recorded Sex Assigned at Not on file 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 Gender Identity Not on file Sexual Orientation Not on file Obstetrics History Last Filed Vital Signs Vital Sign Reading Time Taken Comments Blood Pressure 155/78 12/03/2013 10:54 AM CDT Pulse 60 12/03/2013 10:54 AM CDT Temperature - - Respiratory Rate - - Oxygen Saturation - - Inhaled Oxygen Concentration - - Weight 85.7 kg (189 lb) 12/03/2013 10:54 AM CDT Height 158.8 cm (5' 2.5 ) 12/03/2013 10:54 AM CD T Body Mass Index 34.02 12/03/2013 10:54 AM CDT Plan of Treatment Health Maintenance Due Date Last Done Comments Depression Screening 1938 Fall Risk Assessment 1938 Hepatitis B Screening 1958 Well Visit 65+ 2003 Covid-19 Vaccine (5 - 2023-2 5 season) 2024 02/10/2022, 07/08/2021, 11/11/2020, Additional history exists Influenza Vaccine (#1) 2024 3, 06/15/2022, 07/04/2020, Additional history exists DTaP/Tdap/Td Vaccine (2 - Td or Tdap) 09/21/2032 09/21/2022 Zoster Vaccine Completed 10/23/2021, 05/13/2021 Pneumococcal vaccine 65+ Completed 022, 03/10/2020, 07/27/2006 Insurance [facility] MEDICARE [email or web address] [place] [id number] [place] [facility] MEDICARE BCBS MEDICARE [place] Care Teams Utility System Operator Relationship Specialty Start Date End Date Bartolo Troncoso MD [facility] - General 12/03/13
--- OUTSIDE RECORDS SUMMARY | 2024-12-03 04:47 | XMS_ITS | Referral Summary ---
Author Organization [facility] Address [address] [place] [address] Phone Care Team Providers Care Theatrical Agent Name Role Phone Bartolo Troncoso MD Primary Care Provider [phone] Allergies Active Allergy Reactions Criticality Noted Date Comments Acetaminophen Codeine Hydrocodone Hydrocodone-Acetaminophen Penicillins Rofecoxib Sulfa (Sulfonamide Antibiotics) Medications No known medications Active Problems Problem Noted Date Diagnosed Date Knee pain 03/20/2014 Social History Tobacco Use Types Packs/Day Years Used Date Smoking Tobacco: Never Alcohol Use Standard Drinks/Week Comments Yes 0 (1 standard drink = 0.6 oz pur e alcohol) Comments Unknown Sex and Gender Information Value Date Recorded Sex Assigned at Not on file Legal Sex 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 Gender Identity Not on file Sexual Orientation Not on file Last Filed Vital Signs Vital Sign Reading [...] 12/03/2013 10:54 AM CDT Plan of Treatment Not on file Insurance [employer] [place] [address] [employer], [facility] MEDICARE [employer] [place] [facility] Member Subscriber Plan / Payer (Ef fective 2021-Present) Name:Rohini Ladd Relation to Subscriber:Self Name:Rohini Ladd Payer ID:[id number] (NAIC) Group ID:[id number] Type: OTHER Address: [address] [place] [id number] MEDICARE [place] MEDICARE [place] [facility] Care Teams Theatrical Agent Relationship Specialty Start Date End Date Bartolo Troncoso MD PCP - General 12/03/13
--- OUTSIDE RECORDS SUMMARY | 2024-12-03 04:47 | XMS_ITS ---
Author Organization [facility] Care Team Providers Care Policy Checker Name Role Phone Brittany Baez Unavailable Unavailable Autumn Barraza Unavailable Unavailable Wendy Alexander Unavailable Unavailable Phil Fernández Unavailable Unavailable Allergies and adverse reactions Code CodeSystem Substance Reaction Severity StartDate Concern Status Vioxx Unknown 10/15/[address] Sulfa Antibiotics Unknown 10/15/[address] Penicillins Unknown 10/15/2020 activ e Macrobid Unknown 10/15/2020 active 5489 RXNORM Hydrocodone Unknown 10/15/2020 active 2670 RXNORM Codeine Unknown 10/15/[address] Cephalosporins Unknown 10/15/2020 ac tive Care Team Name Role Address Phone Organization [facility] y Practice [address], [place], [address], [place] (Office): : : [facility] 10/15/2020 - 01/23/2021 Brittany Baez Attending Physician [address], [facility] (Office): : [facility] 10/15/2020 - 01/23/2021 Autumn Barraza Attending Physician [address], [facility] (Office): : [facility] 10/15/2020 - 01/23/2021 Wendy Alexander Attending Physician [address], [facility] (Office): : [facility] 10/15/2020 - 01/23/2021 Immunizations Immunization Status Vaccine Details Vaccine Code CodeSystem Date Notes Hepatitis B cancelled hepatitis B vaccine, adult dosage 43 CVX created date: consent date: 1 Influenza completed Influenza, high-dose, split virus, quadrivalent, injectable, preservative free 197 CVX created date: 1 administe red date: 0 Given at [facility] TB 2 Step Mantoux Skin Test completed tuberculin skin test; unspecified formulation lotNumber: [id number] expiry: 06/13/2022 Given 0.1 ml Left Forearm intradermally Step 2 of Multi-step with next step required 98 CVX created date: 1 consent date: 1 administe red date: 1 TB 2 Step Mantoux Skin Test completed tuberculin skin test; unspecified formulation lotNumber: [id number] expiry: 03/05/2022 Mfg: SANOF PASTEUR Given 0.1 ml Left Forearm intradermally Step 1 of Multi-step with next step required 98 CVX created date: 1 consent date: 1 administe red date: 1 Zostavax (Shingles) cancelled zoster vaccine recombinant 187 CVX created date: 1 consent date: 1 Pneumococcal polysaccharide vaccine (PPSV23) completed pneumococcal polysaccharide vaccine, 23 valent 33 CVX created date: 1 administe red date: 6 Given at [facility] COVID Pre-Vaccine Consent new created date: 1 consent date: 1 SARS-COV-2 (COVID-19) completed lotNumber: [id number] Mfg: pfizer Given Left Deltoid intramuscularly Step 2 of Multi-step with next step required created date: 1 consent date: 1 administe red date: 1 [facility] came and gave SARS-COV-2 (COVID-19) completed lotNumber: [id number] Given Left Deltoid intramuscularly Step 1 of Multi-step with next step required created date: 1 consent date: 1 administe red date: 1 [facility] came and gave the vaccine Mental Status Section Date Assessment Total Score Description 01/23/2021 BIMS 15 cognitively int act CAM 0 No delirium ind icated PHQ-9 00 01/20/2021 BIMS 15 cognitively int act CAM 0 No delirium ind icated PHQ-9 00 Problems Problem # Description Date of onset Resolved Date Code CodeSystem Concern Status 1 ABNORMAL POSTURE 10/16/[address] active 2 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 10/16/[address] active 3 DIFFICULTY IN WALKING, NOT ELSEWHERE CLASSIFIED 10/16/[address] active 4 DISPLACED FRACTURE OF RIGHT ULNA STYLOID PROCESS, SUBSEQUENT ENCOUNTER FOR CLOSED FRACTURE WITH ROUTINE HEALING 10/16/1901/20/[address] completed 5 ESSENTIAL (PRIMARY) HYPERTENSION 10/16/[address] active 6 INSTITUTIONAL AIDE (CURRENT) USE OF ANTICOAGULANTS 10/16/[address] active 7 MUSCLE WEAKNESS (GENERALIZED) 10/16/[address] active 8 NEED FOR ASSISTANCE WITH PERSONAL CARE 10/16/[address] active 9 PNEUMONIA, UNSPECIFIED ORGANISM 10/16/1901/20/[address] completed 10 UNSPECIFIED OSTEOARTHRITIS, UNSPECIFIED SITE 10/16/[address] active 11 DISPLACED FRACTURE OF RIGHT ULNA STYLOID PROCESS, SUBSEQUENT ENCOUNTER FOR CLOSED FRACTURE WITH ROUTINE HEALING 10/15/[address] active 12 OTHER CHRONIC PAIN 10/15/[address] active 13 REPEATED FALLS 10/15/[address] active Reason for Referral No Reasons for Referral Entered Social History Social History Observation Description Start Date End Date Code Code System Current Smoking Status Tobacco smoking consumption unknown 408799950 SNOMED CT Sex Assigned At Female 1940 40634-1 [facility] Vital Signs Code Code System Vitals Name Values and Units Timing Information 9279-1 [facility] Respiratory Rate Value=20.0 Units=/m in 01/23/2021 8462-4 [facility] Blood Pressure-Diastolic Value=68 Un its=mmHg 01/23/2021 8480-6 [facility] Blood Pressure-Systolic Vdrji=086 Un its=mmHg 01/23/2021 8310-5 [facility] Body Temperature Value=97.9 Units= F 01/23/2021 8867-4 [facility] Heart rate Value=64.0 Units=/min 13341-3 [facility] O2 % BldC Oximetry Value=98.0 Units= % 01/23/2021 74387-0 [facility] Pain Level Value=0.0 01/22/2021 93083-0 [facility] Weight Rwnwq=193.0 Units=Lbs 06/2021 8302-2 [facility] Height Value=62.0 Units=Inches 10/16/2020
--- OUTSIDE RECORDS SUMMARY | 2024-12-03 04:47 | XMS_ITS | Continuity of Care Document ---
Author Name Auto Generated, Auto Generated Organization [facility] Support Name Relationship Address Phone Natanael Reis Emergency Contact [address] [place] [address] Unavailable Natanael Reis Son [address] [place] [address] Unavailable Natanael medeiros [facility] Financial [address] [place] [address] Unavailable Geri Reis Daughter [address] [place] [address] Unavailable Rohini Ladd Self [address] [place] [address] [place] [address] Rohini Ladd Statement Copy [address] [place] [address] Natanael Reis [facility] [address] [place] [address] Unavailable Geri Reis Emergency Contact [address] [place] [address] Unavailable Geri Reis Financial Responsible Democrat [address] [place] [address] Unavailable Geri Reis Statement Copy [address] [place] [address] Unavailable Adam Ladd Spouse [address] [place] [address] Summary Purpose Consult/Referral Allergies, Adverse Reactions, Alerts Type Description/Agent Code Date Allergy Active Date Allergy Inactivated Date of Last Reaction Adverse Reactions Severity Status Comments Source of Information FDB Medic ation Ingre dient penicillin Active Patien t History Medications Medications Prescription Date Begun Date Discontinued Status Associated Diagnoses Ordering Provider Vitamin D3 125 mcg (5,000 unit) tablet 1 tab 1 Time Daily 11/29/19 25 Active MD Caleb Pierre meloxicam 7.5 mg tablet 1 TABLET PRN 1 Time Daily 11/05/19 25 Active MD Caleb Pierre furosemide 20 mg tablet 1 tablet 1 Time Daily 03/02/20 24 Active AME Muñoz propranoloL ER 80 mg capsule,24 hr,extended release 2 tabs 1 Time Daily 02/12/20 24 Active MD Pierre Ellis oxyBUTYnin chloride ER 15 mg tablet,extended release 24 hr Take 1 1 Time Daily 02/12/20 24 Active MD Caleb Pierre Eliquis 5 mg tablet Take 1 2 Times Daily 02/12/20 24 Active MD Pierre Ellis acetaminophen 325 mg capsule 650 mg PRN Every 6 Hours 02/12/20 24 Active MD Pierre Ellis acetaminophen 325 mg tablet 2 tabs 4 Times Daily 02/12/20 24 Active MD Caleb Pierre Blood Pressure Kit 1 2 Times Monthly 02/12/20 24 Active MD Caleb Pierre Conditions/Problems Problem/Diagnosis Awareness of Diagnosis Code (ICD-10) Onset Date (Start Date) Resolution Date (End Date) Status Source Comments UNSPECIFIED OSTEOARTHRITIS, UNSPECIFIED SITE M19.90 01/30/20 24 Active MD Caleb Pierre ALTERED MENTAL STATUS, UNSPECIFIED R41.82 01/30/20 24 Active MD Caleb Pierre WEAKNESS R53.1 01/30/20 24 Active MD Caleb Pierre UNSTEADINESS ON FEET R26.81 0 24 Active MD Caleb Pierre UNSPECIFIED FALL, SUBSEQUENT ENCOUNTER W19.XXXD 01/26/20 24 Active MD Caleb Pierre UNSPECIFIED INFLAMMATORY SPONDYLOPATHY, SITE UNSPECIFIED M46.90 01/25/20 24 Active MD Caleb Pierre VARICOSE VEINS OF BILATERAL LOWER EXTREMITIES WITH OTHER COMPLICATIONS I83.893 01/25/20 24 Active MD Caleb Pierre LOCALIZED EDEMA R60.0 01/25/20 24 Active MD Caleb Pierre LYMPHEDEMA, NOT ELSEWHERE CLASSIFIED I89.0 01/25/20 24 Active MD Caleb Pierre CONTRACT ADMINISTRATIVE ASSISTANT (CURRENT) USE OF ANTICOAGULANTS Z79.01 01/25/20 24 Active MD Caleb Pierre PERSONAL HISTORY OF PULMONARY EMBOLISM Z86.711 01/25/20 24 Active MD Caleb Pierre PERSONAL HISTORY OF OTHER VENOUS THROMBOSIS AND EMBOLISM Z86.718 01/25/20 24 Active MD Caleb Pierre NONDISPLACED FRACTURE OF DISTAL POLE OF NAVICULAR [SCAPHOID] BONE OF RIGHT WRIST, SUBSEQUENT ENCOUNTER FOR FRACTURE WITH NONUNION S62.014K 01/25/20 Active MD Caleb Pierre ESSENTIAL (PRIMARY) HYPERTENSION I10 01/25/20 Active MD Caleb Pierre OTHER FATIGUE R53.83 01/20/20 Active MD Caleb Pierre NONINFECTIVE GASTROENTERITIS AND COLITIS, UNSPECIFIED K52.9 01/20/20 Active MD Caleb Pierre ACUTE UPPER RESPIRATORY INFECTION, UNSPECIFIED J06.9 01/20/20 Active MD Caleb Pierre MUSCLE WEAKNESS (GENERALIZED) M62.81 07/22/20 Active MD Caleb Pierre HISTORY OF FALLING Z91.81 07/22/20 Active MD Caleb Pierre Procedures No Known Procedures Immunizations Vaccine Administration Date Status Fluad Triv 2023-(65y up)(P F) 45 mcg (15 mcg x 3)/0.5 mL IM syringe 07/05/2024 Administered
--- OUTSIDE RECORDS SUMMARY | 2024-12-03 04:47 | XMS_ITS | Encounter Summary ---
Author Organization [facility] Address [address] [place] [address] Care Team Providers Care Marketer Name Role Phone Bartolo Troncoso MD Primary Care Provider [phone] Neville Ruiz MD Unavailable Gurwinder Crandall MD Primary Care Provider [phone] Encounter Details Date Type Department Care Team (Late st Contact Info) Description 03/03/2019 Abstract SFL CONVERSION [address] [place] [address] , Generic Conversion, Social History Tobacco Use Types Packs/Day Years Used Date Smoking Tobacco: Never Smokeless Tobacco: Never Alcohol Use Standard Drinks/Week Comments No 0 (1 standard drink = 0.6 oz pur e alcohol) Comments Unknown Sex and Gender Information Value Date Recorded Sex Assigned at Not on file Legal Sex Female 1:41 AM CDT Gender Identity Not on file Sexual Orientation Not on file 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 Not on file Not on file Not on file documented as of this encounter Plan of Treatment Not on file documented as of this encounter Visit Diagnoses Not on filedocumented in this encounter Additional Health Concerns Infection Onset Date Last Indicated Resolved Time COVID-19 Rule Out 10/12/2020 10/12/2020 10/12/2020 7:23 PM FINANCIAL PLANNING ANALYST COVID-19 Rule Out 10/12/2020 10/13/2020 10/13/2020 3:40 PM FINANCIAL PLANNING ANALYST COVID-19 Rule Out 09/23/2021 09/23/2021 09/24/2021 6:33 PM FINANCIAL PLANNING ANALYST COVID-19 Rule Out 10/27/2021 10/27/2021 10/27/2021 1:46 PM FINANCIAL PLANNING ANALYST COVID-19 Rule Out 10/27/2021 10/27/2021 10/30/2021 2:44 PM FINANCIAL PLANNING ANALYST COVID-19 Rule Out 01/20/2024 01/20/2024 01/20/2024 2:06 PM CDT documented as of this encounter Care Teams Marketer Relationship Specialty Start Date End Date Bartolo Troncoso MD [address] [place] [address] PCP - General FAMILY PRACTICE 07/27/16 02/05/21 Gurwinder Crandall MD [address] [id number] PCP - General INTERNAL MEDICINE 02/06/21 Neville Ruiz MD [address] [place] [address] INTERNAL MEDICINE 07/27/16 11/03/21 documented as of this encounter
--- OUTSIDE RECORDS SUMMARY | 2024-12-03 04:47 | XMS_ITS | Clinical Summary ---
Author Organization [facility] Address [facility] [place] [address] Care Team Providers Care Oncology Technician Name Role Phone Gurwinder Crandall MD Primary Care Provider [phone] Allergies Active Allergy Reactions Criticality Noted Date Comments Acetaminophen Other (see comment) 03/10/2021 Cephalosporins Nausea Only 03/14/2020 Codeine GI Upset 08/05/2016 Hydrocodone Other (see comment) 03/10/2021 Hydrocodone-Acetaminophe n Hallucinations 08/05/2016 Nitrofurantoin Rash,Itching Low 03/14/2020 Penicillins Rash Low 08/05/2016 Sulfa Antibiotics Rash Low 08/05/2016 Trazodone Other (see comment) 02/05/2022 Tongue swelling and dry mouth Rofecoxib Nausea Only 03/14/2020 Medications vitamin D3, cholecalciferol, (VITAMIN D) 1000 UNIT Tab tabletIndications:O steopenia, unspecified location Take 2 tablets (2,000 Units total) by mouth daily. 30 tablet 03/10/20 21 Active Additional Information Patient not taking.Reported on 09/10/2024 BED RAILS, DME,Indications:At high risk for falls 1 Device by Does not apply route daily. Send to [facility]; fax to [phone] 1 Device 12/24/19 22 Active Misc. Devices (EXTENDABLE BEDSIDE RAIL) MiscIndications:Art hritis,At high risk for falls Place one rail on each side of bed. Send order to [facility]. 2 each 02/09/20 Active Oral Electrolytes (PEDIALYTE ADVANCED CARE) SolutionIndications :Acute gastroenteritis Take 1 cup by mouth every 4 (four) hours. [place] substitute. [address] mL 01/20/20 24 Active Additional Information Patient not taking.Reported on 09/10/2024 traMADol (ULTRAM) 50 MG tabletIndications:C hronic Pain Take 1 tablet (50 mg total) by mouth 2 (two) times daily as needed for Pain. Indications: Chronic Pain 60 tablet 04/16/20 Active diclofenac sodium (VOLTAREN) 1 % gelIndications:Clos ed nondisplaced fracture of scaphoid of right wrist, unspecified portion of scaphoid, initial encounter Apply 2 g topically 2 (two) times a day. Rub on knees to help with pain. 150 g 1 04/16/20 24 Active Additional Information Patient not taking.Reported on 09/10/2024 COMPRESSION STOCKINGS, DME,Indications:Lym phedema Apply 1 Package topically daily. Fax to [facility] or [facility]. 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 Controlled. 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) Overview (02/05/2022): On Xarelto. Stable. 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, bilateral 02/06/2021 Lymphedema 02/06/2021 Encounters Date Type Department Care Team Description 09/10/2024 1:00 PM SENIOR ARCHITECTURAL DESIGNER Office Visit [facility] - [address] [place] [address] Gurwinder Crandall MD Follow Up (Acute - growth in eyebrow, pt is not sure when it appeared, may have been there for months ); Leg Swelling (Compression stockings are stretched out at the top); Lesion Removal 09/10/2024 5:29 AM SENIOR ARCHITECTURAL DESIGNER - 09/10/2024 11:59 PM SENIOR ARCHITECTURAL DESIGNER Hospital Encounter [facility] [address] [place] [address] Gurwinder Crandall MD Discharge Disposition: Home or Self Care (Routine Discharge) 09/10/2024 Travel from Last 3 Months Immunizations Name Administration Dates Next Due Fluzone High Dose (IIV, triv alent, 0.5mL) 09/10/2024 Fluzone High Dose - >Age 65 (Prefilled Syringe) 11/04/2021,07/04/2020 Influenza (Generic) 07/05/2023 Influenza Adult (Generic) 06/15/2022,05/2020,07/10/2019,2017,08/04/2017 MODERNA COVID-19 (12+) MRNA, LNP-S, PF, 100 MCG/ 0.5 ML DOSE 11/11/2020,10/21/2020 PFIZER COVID-19 (PEREIRA CAP), MRNA, LNP-S, PF, 30 MCG/0.3 ML BRENDAN-SUCROSE, IM 02/10/2022 PFIZER COVID-19 (ORIGINAL FORMULATION, PURPLE CAP) mRNA, LNP-S, PF, 30 MCG/0.3 ML DOSE 02/10/2022,07/08/2021 Pneumococcal (Pneumovax 23) 03/10/2020, 6 Pneumococcal (Prevnar 13) 06/21/2022 Shingrix 10/23/2021,05/13/2021 Tdap (Adacel) 09/21/2022 Family History Medical History Relation Comments No Known Problems Brother No Known Problems Father No Known Problems Mother No Known Problems Sister Relation Status Comments Brother Alive Father Mother Sister Social History Tobacco Use Types Packs/Day Years Used Date Smoking Tobacco: Never Smokeless Tobacco: Never Tobacco Cessation:Counseling Given: Yes Comments:Counseled by Dr Crandall. Alcohol Use Standard Drinks/Week Comments Yes 0 (1 standard drink = 0.6 oz pur e alcohol) SOCIALLY ON SPECIAL OCCASSIONS Overall Financial Resource Strain (CARDIA) Answe r Date Recorded How hard is it for you to pa y for the very basics like food, housing, medical care, and heating? Not hard at all 10/11/2020 PHQ-2 Answer Date Recorded Patient Health Questionnaire-2 Score 0 02/07/2023 [facility] - Occupational Stress Questionnaire Answer Date Recorded Do you feel stress - tense, restless, nervous, or anxious, or unable to sleep at night because your mind is troubled all the time - these days? Not at all 10/11/2020 Exercise Vital Sign Answer Date Recorde d On average, how many days pe r week do you engage in moderate to strenuous exercise (like a brisk walk)? 0 days 10/11/2020 On average, how many minutes do you engage in exercise at this level? 0 min 10/11/2020 Hunger Vital Sign Answer Date Recorded Within the past 12 months, y ou worried that your food would run out before you got the money to buy more. Never true 10/11/19 21 Within the past 12 months, t he food you bought just didn't last and you didn't have money to get more. Never true 10/11/2020 PRAPARE - Transportation Answer Date Re corded In the past 12 months, has l ack of transportation kept you from medical appointments or from getting medications? No 09/26 In the past 12 months, has l ack of transportation kept you from meetings, work, or from getting things needed for daily living? 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 Not on file Not on file Last Filed Vital Signs Vital Sign Reading Time Taken Comments Blood Pressure 117/78 09/10/2024 1:10 PM SENIOR ARCHITECTURAL DESIGNER Pulse 51 09/10/2024 1:10 PM SENIOR ARCHITECTURAL DESIGNER Temperature 36.4 C (97.6 F) 09/10/2024 1:10 PM SENIOR ARCHITECTURAL DESIGNER Respiratory Rate 18 09/10/2024 1:10 PM SENIOR ARCHITECTURAL DESIGNER Oxygen Saturation 96% 09/10/2024 1:10 PM SENIOR ARCHITECTURAL DESIGNER Inhaled Oxygen Concentration - - Weight 87.5 kg (192 lb 12.8 oz) 09/10/2024 1:10 PM SENIOR ARCHITECTURAL DESIGNER Height 158.8 cm (5' 2.5 ) 09/10/2024 1:10 PM SENIOR ARCHITECTURAL DESIGNER Body Mass Index 34.7 09/10/2024 1:10 PM SENIOR ARCHITECTURAL DESIGNER Plan of Treatment Health Maintenance Due Date Last Done Comments RSV Immunization or 60+ Years (1 - 1-dose 75+ series) 2013 Annual Medicare Wellness Visit 11/05/2022 11/04/2021 COVID-19 Vaccine ( season) 2024 07/09/2022, 02/10/2022, 02/10/2022, Additional history exists PHQ-2 (Physician [place]) 09/26/2024 02/07/2023 DTaP, Tdap and Td Vaccines (2 - Td or Tdap) 09/21/2032 09/21/2022 Zoster Vaccines Completed 10/23/2021, 05/13/2021 Pneumococcal Vaccine: 65+ Years Completed 06/21/2022, 03/10/2020, 07/27/2006 Influenza Adult Completed 09/10/2024, 06/26, 06/15/2022, Additional history exists Meningococcal B Vaccine Aged Out No l onger eligible based on patient's age to complete this topic Meningococcal Vaccine Aged Out No yaniv garrick eligible based on patient's age to complete this topic RSV Immunizations Under 20 Months Aged Out No longer eligible based on patient's age to complete this topic Goals Goal Patient Goal Type Associated Problems Recent Progress Patient-Stated? Author pt needs to increase activity at home Lifestyle Archana Blas, RN Note: Pt daughter states that pt and her both suffer from mobility issues. Pt will have PT/OT evaluation today Procedures Procedure Name Priority Date/Time Associated Diagnosis Comments PATHOLOGY Routine 09/10/2024 12:00 AM SENIOR ARCHITECTURAL DESIGNER from Last 3 Months Results * Pathology (09/10/2024 12:00 AM SENIOR ARCHITECTURAL DESIGNER) PATHOLOGY [facility] Department of Laboratory Medicine [address] [place] [address] , extension [phone] Pathology Report Surgical Pathology Report Name: ROHINI GARCIA Specimen #: [id number] Age: 2 1940 (Age: 83) Location: [facility] Sex: F Procedure Date: 09/10/2024 Hospital #: [id number] Date Received: 09/11/2024 Date Reported: 09/12/2024 Provider: GURWINDER CRANDALL MD Source: Skin, eyebrow above right eye, excision Clinical History: 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 FINAL DIAGNOSIS: Skin, eyebrow above right eye, excision: -Hypertrophic actinic keratosis, transected. Gross Description: Received in formalin, labeled with a patient label and not further designated, is a 0.5 x 0.4 cm shave biopsy of verrucous white-larsen skin. The deep surface is inked black and this piece is bisected. Also within the specimen containers 0.2 cm piece of larsen tissue. This piece is left intact and a deep surface is not grossly identified. The specimen is entirely submitted in cassette 1. Gross examination (when applicable) was performed at [facility], [address] [place] [address]. This case was interpreted and signed out at [facility], [address] [place], [place] [address]. Electronically Signed Out Ariana Swenson M.D. [facility] 09/10/2024 09/11/2024 8:3 9 AM SENIOR ARCHITECTURAL DESIGNER Comment:Skin, eyebrow above right eye, excision us Gurwinder Crandall MD PATHOLOGY/CYTOLOGY ORDERABLES nal Result [facility] [address] [place] [address], [place] [phone] [id number] from Last 3 Months Insurance MEDICARE [facility] Advance Directives Documents on File Type Date Recorded Patient Drafting Supervisor Expl anation Advance Directives and Livin g Will 01/25/2024 7:13 AM POLST * Full Code (Latest Code Status on File) Date Activated Date Inactivated Comments 10/11/2020 5:07 AM 10/15/2020 5:09 PM * Full Code Date Activated Date Inactivated Comments 10/08/2020 11:23 PM 10/10/2020 7:41 PM Care Teams Oncology Technician Relationship Specialty Start Date End Date Gurwinder Crandall MD [address] [address] PCP - General INTERNAL MEDICINE 02/06/21
[2024-12-03 05:00] LABS: Alanine Aminotransferase 13 U/L (6-35); Albumin Level 3.9 g/dL (3.5-5.1); Alkaline Phosphatase 86 U/L (38-126); Anion Gap 8 mmol/L (4-12); Aspartate Amino Transferase 17 U/L (14-36); Bilirubin,Total 0.4 mg/dL (0.2-1.3); Blood Urea Nitrogen 17 mg/dL (7-17); Calcium 9.3 mg/dL (8.4-10.2); Carbon Dioxide 25 mmol/L (22-30); Chloride 107 mmol/L (98-107); Estimated CRCL calculation 60 ml/min; Estimated Glomerular Filt Rate > 60; Glucose 104 mg/dL (65-110); Potassium 4.2 mmol/L (3.4-5.0); Sodium 140 mmol/L (137-145)
[2024-12-03 05:22] LABS: Influenza A QL RT-PCR Negative (Negative); Influenza B QL RT-PCR Negative (Negative); RSV RNA, RT-PCR Negative (Negative); SARS-CoV-2 RNA PCR Negative (Negative)
--- NOTE | 2024-12-03 05:42 | P.HP_ITS ---
H&P: HPI History of Present Illness Date/Time: 12/03/24 05:42 Chief Complaint: Weakness Upper respiratory infection Narrative: This is an 84 year old with a significant past medical history of obesity, hypertension, DVT, arthritis, chronic back pain who presented to the hospital from [facility] for evaluation of weakness. Patient was trying to get up from her recliner, reached for her walker, and ended up sliding out of her chair landing on her left hip. She was reporting left hip/thigh pain at the facility. She was also noted to have cough, postnasal drip, and congestion which started Tuesday night. She denies any fever, chills, nausea, vomiting, diarrhea, abdominal pain, chest pain, or shortness of breath. She is currently on room air. EMS was called and she was brought here for further evaluation. Work up in the hospital included hip/pelvis x-ray which was negative for any fracture or dislocation. Cervical spine CT was negative for any acute fracture, minimal grade I anterolisthesis of C5 over C6, moderate degenerative spondylosis. Head CT was negative for any acute intracranial hemorrhage, mass, or acute infarct, shown atrophy and chronic white matter changes. Chest X-ray shown COPD changes and suspected minimal left pleural effusion. Initial labs which showed a normal white blood cell count of 7.7, hemoglobin 11.5, eosinophils 5.3, otherwise unremarkable. Respiratory panel was negative for influenza A and B, RSV, COVID. EKG showed sinus rhythm with first-degree AV block with a rate of 72, QTC 421. Review of Systems Review of Systems: All systems reviewed & are unremarkable except as noted in HPI and below PMFSH Past Medical History Medical History (Updated 12/03/24 @ 07:04 by Keturah Troncoso APRN) Lymphedema Overactive bladder Obesity Hypertension DVT (deep venous thrombosis) Surgical History Surgical History History of appendectomy History of cholecystectomy Social History Social History Smoking status: Unknown if ever smoked Alcohol intake: never Substance use: never Substance use type: does not use Do You Feel Safe in your Home?: Yes Lack of Transportation: No Lack of Food: Never True Current Housing: I Have Housing Concerned About Future Housing: No Difficulty Paying Gas/Electric Bills: No Difficulty Paying for Meds: No Currently Unemployed: No Education: High School Diploma/GED Difficulty w/ Childcare or Family Care: No Spiritual care concerns: Yes Meds Home Medications and Allergies Home Medications ?Medication ?Instructions ?Recorded ?Confirmed ?Type apixaban 5 mg tablet (Eliquis) 5 mg PO BID 01/25/24 12/03/24 History oxybutynin chloride 15 mg 15 mg PO DAILY 01/25/24 12/03/24 History tablet,extended release 24 hr propranolol 80 mg capsule,24 160 mg PO DAILY 01/25/24 12/03/24 History hr,extended release furosemide 20 mg tablet 20 mg PO DAILY 08/23/24 12/03/24 History meloxicam 7.5 mg tablet 7.5 mg PO PRN pain 12/03/24 12/03/24 History Allergies Allergy/AdvReac Type Severity Reaction Status Date / Time Penicillins Allergy unknown Verified 08/23/24 00:49 Vital Signs Vital Signs - 24 hr 12/03/24 03:56 Temperature 97.7 F Pulse Rate 75 Respiratory Rate 20 Blood Pressure 181/79 H Pulse Oximetry 97 Oxygen Delivery Room Air Exam Narrative: General: In no acute distress, well nourished Head: atraumatic, no encephalopathy Eyes: PERRLA, sclera clear ENT: moist mucous membranes, nasal passages clear Neck: supple, no JVD, no adenopathy, trachea midline Cardiac: Normal S1 and S2. No murmur, gallops or friction rubs, peripheral pulses intact. Respiratory:Crackles noted in L>R, no adventitious lung sounds, currently on room air, course nonproductive cough, post nasal drip, congestion. Gastrointestinal: soft, non-distended, non-tender, normoactive bowel sounds. : voiding without difficulty. Extremities: moves all extremities well, lymphedema BLE, 1-2+ pedal edema, good ROM, strength 5/5 Skin: clean, dry, intact. No wounds or lesions. Neuro: Alert and oriented x4, cranial nerves intact, no neuro deficits. Psych: normal mood, normal affect, interactive H&P: Results Labs Labs: Short CBC 12/03/24 Range/Units 04:39 WBC 7.7 (4.5-10.0) K/mm3 Hgb 11.5 L (12.0-15.0) g/dL Hct 36.1 L (37.0-47.0) % Plt Count 224 (150-375) k/mm3 BMP 12/03/24 04:39 Sodium 140 Potassium 4.2 Chloride 107 Carbon Dioxide 25 BUN 17 Creatinine 0.61 L Glucose 104 Calcium 9.3 Liver Function 12/03/24 Range/Units 04:39 Total Bilirubin 0.4 (0.2-1.3) mg/dL AST 17 (14-36) U/L ALT 13 (6-35) U/L Alkaline Phosphatase 86 (38-126) U/L Albumin 3.9 (3.5-5.1) g/dL Imaging Hip/pelvis x-ray: Radiologist's impression: AP view of the pelvis and AP and lateral views of the left hip Clinical history: Pain Findings: No acute fracture or dislocation is seen. Osseous alignment is anatomic. Bilateral hip and SI joint spaces are preserved. Soft tissues are unremarkable. Impression: No significant abnormality is seen. Reviewed, dictated and finalized at [facility]. CT scan - head: Radiologist's impression: CT head without contrast Indication: Head injury Technique: Serial scans were obtained through the brain without the administration of contrast. Dose reduction technique was used on this scan by utilizing automated exposure control and iterative reconstruction technique. The dose-length product (DLP) was 681.00 mGy-cm. Findings: There is no evidence of intracranial hemorrhage, mass lesion, or acute infarct. The ventricles and subarachnoid spaces are dilated, consistent with mild to moderate atrophy. Low attenuation regions are seen within the periventricular white matter bilaterally, likely representing changes from chronic microvascular ischemic disease. There is no evidence of edema, mass effect or midline shift. The visualized paranasal sinuses and mastoid air cells are clear. Impression: No intracranial hemorrhage, mass, or acute infarct. Atrophy and chronic white matter changes, as above. Reviewed, dictated and finalized at location [facility]. Cervical spine CT: Radiologist's impression: Noncontrast CT scan of the cervical spine Technique: Multiple contiguous axial [address] images of the cervical spine were obtained and reconstructed in 2D sagittal and coronal planes on the acquisition scanner. Dose reduction technique was used on this scan by utilizing automated exposure control, adjustment of the mA and/or kV according to patient size. The dose-length product (DLP) was 247.74 mGy-cm. Clinical History: Pain Findings: No acute fracture. There is minimal grade 1 anterolisthesis of C5 over C6. There is mild reversal normal cervical lordosis. There is degenerative change at the articulation of the odontoid process with the anterior arch of C1. There is advanced degenerative disc narrowing at C5-C6 and C6-C7. There are extensive facet joint degenerative changes of the cervical spine. There is left neural foraminal narrowing at C5-C6. No prevertebral soft tissue swelling. Impression: No acute fracture. Minimal grade 1 anterolisthesis of C5 over C6. Moderate degenerative spondylosis, as above. Reviewed, dictated and finalized at location . Chest x-ray: Radiologist's impression: Portable chest x-ray Comparison: 08/22/2024 Clinical History: Cough, weakness Findings: Suspected minimal left pleural effusion. Possible COPD. Cardiomediastinal silhouette is stable. Bones and soft tissues are unremarkable. Impression: Suspected minimal left pleural effusion. COPD. Reviewed, dictated and finalized at location . Assessment and Plan Assessment and plan (1) Fall: Code(s): W19.XXXA - Unspecified fall, initial encounter Status: Acute Assessment and Plan: Patient was at her assisted living facility resting in her recliner when she tried to get up to go use the restroom and slipped out of chair onto floor landing on left hip * Head CT was negative for any acute intracranial hemorrhage, mass, acute infarct, atrophy and chronic white matter changes * Cervical spine CT was negative for fracture, showed minimal grade 1 anterior listhesis of C5 over C6, moderate degenerative spondylosis * Hip/pelvis x-ray was negative for any acute abnormality * Continue fall precautions * PT and OT ordered * Case coordination consulted for possible acute rehab * Will check UA with reflex to culture (2) Generalized weakness: Code(s): R53.1 - Weakness Status: Acute Assessment and Plan: Recently came down with upper respiratory symptoms of cough, postnasal drip, congestion that started this past Tuesday with associated weakness. * PT and OT ordered * Case coordination consulted (3) Hypertension: Code(s): I10 - Essential (primary) hypertension Status: Acute Assessment and Plan: * Blood pressure ranging 164/69 to 181/79 * Continue propranolol (4) DVT (deep venous thrombosis): Code(s): I82.409 - Acute embolism and thrombosis of unspecified deep veins of unspecified lower extremity Status: Acute Assessment and Plan: * Continue Eliquis (5) Upper respiratory infection: Code(s): J06.9 - Acute upper respiratory infection, unspecified Status: Acute Assessment and Plan: * Respiratory panel negative for influenza A and B, RSV, COVID * Start guaifenesin * Chest x-ray was negative for any acute cardiopulmonary process, showed minimal left pleural effusion * Start prednisone 40 mg daily * Start DuoNeb * Pep therapy Quality VTE Prophylaxis VTE prophylaxis: pharmacologic ordered Hospitalist MIPS Advance Care Plan I have confirmed that the patient's Advanced Care Plan is present, code status is documented, or surrogate decision maker is listed in patient medical record.: Yes Medication Reconciliation I have utilized all available resources to obtain, update and review the patients current medications (includes all prescriptions, OTC, herbals, cannabis, and nutritional supplements).: Yes
[2024-12-03] MEDS: FUROSEMIDE 20 MG TABLET PO (09:10)
[2024-12-03] MEDS: guaiFENesin 12 HR 600 MG TABCR 1200 MG PO (09:10)
[2024-12-03] MEDS: APIXABAN 5 MG TABLET PO (09:10)
[2024-12-03] MEDS: predniSONE 20 MG TABLET 40 MG PO (09:10)
[2024-12-03] MEDS: oxyBUTYnin CHLORIDE XL 5 MG TAB.ER.24 15 MG PO (09:11)
[2024-12-03] MEDS: PROPRANOLOL HCL 60 MG CAPSULE CR 120 MG PO (09:39)
--- NOTE | 2024-12-03 10:08 | P.PNIM_ITS ---
Progress Note: A&P Assessment and Plan (1) Fall: Code(s): W19.XXXA - Unspecified fall, initial encounter Status: Acute Assessment and Plan: Patient was at her assisted living facility resting in her recliner when she tried to get up to go use the restroom and slipped out of chair onto floor landing on left hip * Head CT was negative for any acute intracranial hemorrhage, mass, acute infarct, atrophy and chronic white matter changes * Cervical spine CT was negative for fracture, showed minimal grade 1 anterior listhesis of C5 over C6, moderate degenerative spondylosis * Hip/pelvis x-ray was negative for any acute abnormality * Continue fall precautions * PT and OT ordered * Case coordination consulted for possible acute rehab * Will check UA with reflex to culture * fall risk (2) Generalized weakness: Code(s): R53.1 - Weakness Status: Acute Assessment and Plan: Recently came down with upper respiratory symptoms of cough, postnasal drip, congestion that started this past Tuesday with associated weakness. * PT and OT ordered * Case coordination consulted (3) Hypertension: Code(s): I10 - Essential (primary) hypertension Status: Acute Assessment and Plan: * Blood pressure ranging 164/69 to 181/79 * Continue propranolol * monitor (4) DVT (deep venous thrombosis): Code(s): I82.409 - Acute embolism and thrombosis of unspecified deep veins of unspecified lower extremity Status: Acute Assessment and Plan: * Continue Eliquis * fall and bleeding risk (5) Upper respiratory infection: Code(s): J06.9 - Acute upper respiratory infection, unspecified Status: Acute Assessment and Plan: * Respiratory panel negative for influenza A and B, RSV, COVID * Start guaifenesin * Chest x-ray was negative for any acute cardiopulmonary process, showed minimal left pleural effusion * Start prednisone 40 mg daily * Start DuoNeb * Pep therapy Time Spent With Patient Time with patient: 25 - 35 minutes Subjective Date/time seen: 12/03/24 10:08 Interval history: Weakness Upper respiratory infection 84 year old with a significant past medical history of obesity, hypertension, DVT, arthritis, chronic back pain who presented to the hospital from [facility]. Patient was trying to get up from her recliner, reached for her walker, and ended up sliding out of her chair landing on her left hip. She was reporting left hip/thigh pain at the facility. She was also noted to have cough, postnasal drip, and congestion which started Tuesday night. She denies any fever, chills, nausea, vomiting, diarrhea, abdominal pain, chest pain, or shortness of breath. She is currently on room air. EMS was called and she was brought here for further evaluation. Work up in the hospital included hip/pelvis x-ray which was negative for any fracture or dislocation. Cervical spine CT was negative for any acute fracture, minimal grade I anterolisthesis of C5 over C6, moderate degenerative spondylosis. Head CT was negative for any acute intracranial hemorrhage, mass, or acute infarct, shown atrophy and chronic white matter changes. Chest X-ray shown COPD changes and suspected minimal left pleural effusion. Initial labs which showed a normal white blood cell count of 7.7, hemoglobin 11.5, eosinophils 5.3, otherwise unremarkable. Respiratory panel was negative for influenza A and B, RSV, COVID. EKG showed sinus rhythm with first-degree AV block with a rate of 72, QTC 421. Pt is seen and examined. She reports legs swelling- chronic. Generalized weakness, uses walker normally. Pt is alert, oriented, pleasant. Eating breakfast during the exam, voicing no acute concerns. Review of Systems Review of Systems: All systems reviewed & are unremarkable except as noted in HPI and below Exam Narrative: General: In no acute distress, well nourished Head: atraumatic, no encephalopathy Eyes: PERRLA, sclera clear ENT: moist mucous membranes, nasal passages clear Neck: supple, no JVD, no adenopathy, trachea midline Cardiac: Normal S1 and S2. No murmur, gallops or friction rubs, peripheral pulses intact. Respiratory:Crackles noted in L>R, no adventitious lung sounds, currently on room air, course nonproductive cough, post nasal drip, congestion. Gastrointestinal: soft, non-distended, non-tender, normoactive bowel sounds. : voiding without difficulty. Extremities: moves all extremities well, lymphedema BLE, 1-2+ pedal edema, good ROM, strength 5/5 Skin: clean, dry, intact. No wounds or lesions. Neuro: Alert and oriented x4, cranial nerves intact, no neuro deficits. Psych: normal mood, normal affect, interactive Objective Data Vital Signs Vital Signs: Vital Signs - 24 hr 12/03/24 03:56 12/03/24 06:19 12/03/24 06:21 Temperature 97.7 F Pulse Rate 75 78 Respiratory Rate 20 20 Blood Pressure 181/79 H 174/83 H Pulse Oximetry 97 98 Oxygen Delivery Room Air Room Air 12/03/24 06:22 12/03/24 08:00 12/03/24 09:39 Temperature 97.2 F L Pulse Rate 78 59 L 60 Respiratory Rate 20 18 Blood Pressure 174/83 H 128/47 L Pulse Oximetry 98 98 Oxygen Delivery Intake/Output Intake/Output: Intake & Output 11/30/24 12/01/24 12/03/24 12/03/24 23:59 23:59 00:59 23:59 Intake Total 120 Output Total 550 Balance -430 Meds/Results Medications: Active Medications Generic Name Dose Route Start Last Admin Trade Name Freq PRN Reason Stop Dose Admin Acetaminophen 650 mg 12/03/24 05:55 Acetaminophen 325 Mg Tablet PO Q4H PRN Mild Pain (1-3) or Fever Albuterol/Ipratropium 3 ml 12/03/24 08:00 12/03/24 09:29 Ipratropium 0.5 Mg/Albuterol Sulfate 2.5 Mg Ampul.Neb 3 Ml INHALATION Not Given Q6HRT ELLI Apixaban 5 mg 12/03/24 09:00 12/03/24 09:10 Apixaban 5 Mg Tablet PO 5 mg Q12HR ELLI Administration Furosemide 20 mg 12/03/24 09:00 12/03/24 09:10 Furosemide 20 Mg Tablet PO 20 mg DAILY ELLI Administration Guaifenesin 1,200 mg 12/03/24 09:00 12/03/24 09:10 Guaifenesin 12 Hr 600 Mg Tabcr PO 1,200 mg Q12HR ELLI Administration Ondansetron HCl 4 mg 12/03/24 05:55 Ondansetron Inj 4 Mg/2 Ml Vial IV PUSH Q6H PRN Nausea And Vomiting Oxybutynin Chloride 15 mg 12/03/24 09:00 12/03/24 09:11 Oxybutynin Chloride Xl 5 Mg Tab.Er.24 PO 15 mg DAILY ELLI Administration Prednisone 40 mg 12/03/24 08:00 12/03/24 09:10 Prednisone 20 Mg Tablet PO 40 mg DAILY@0800 ELLI Administration Propranolol HCl 120 mg 12/03/24 09:30 12/03/24 09:39 Propranolol Hcl 60 Mg Capsule Cr PO 120 mg QAM ELLI Administration Tramadol HCl 25 mg 12/03/24 05:55 Tramadol Hcl (*Crx) 25 Mg Tablet PO Q4H PRN Pain Rated 4-6 Radiology Results: ITS Impressions Cervical Spine CT 12/03/24 06:19 Impression: No acute fracture. Minimal grade 1 anterolisthesis of C5 over C6. Moderate degenerative spondylosis, as above. Head CT 12/03/24 06:19 Impression: No intracranial hemorrhage, mass, or acute infarct. Atrophy and chronic white matter changes, as above. Hip/Pelvis X-Ray 12/03/24 06:20 Impression: No significant abnormality is seen. Chest X-Ray 12/03/24 06:21 Impression: Suspected minimal left pleural effusion. COPD. Labs Labs: Laboratory Results - last 24 hr 12/03/24 04:39 WBC 7.7 RBC 3.66 L Hgb 11.5 L Hct 36.1 L MCV 98.6 MCH 31.4 MCHC 31.9 L RDW 14.1 Plt Count 224 MPV 9.6 Immature Gran % (Auto) 0.1 Neut % (Auto) 54.3 Lymph % (Auto) 24.1 [place] % (Auto) 15.4 H Eos % (Auto) 5.3 H Baso % (Auto) 0.8 Lymph # (Auto) 1.85 [place] # (Auto) 1.2 H Eos # (Auto) 0.4 H Baso # (Auto) 0.1 Abs Immat Gran (auto) 0.01 Absolute Neuts (auto) 4.2 Absolute Nucleated RBC 0.000 Nucleated RBC % 0.0 Sodium 140 Potassium 4.2 Chloride 107 Carbon Dioxide 25 Anion Gap 8 BUN 17 Creatinine 0.61 L Estim Creat Clear Calc 60 Estimated GFR > 60 Glucose 104 Calcium 9.3 Total Bilirubin 0.4 AST 17 ALT 13 Alkaline Phosphatase 86 Total Protein 7.0 Albumin 3.9 Influenza A (RT-PCR) Negative Influenza B (RT-PCR) Negative RSV (RT-PCR) Negative SARS-CoV-2 RNA (RT-PCR) Negative Quality VTE Prophylaxis VTE prophylaxis: pharmacologic ordered
[2024-12-03 13:02] LABS: Add Urine Microscopic? NO; Appearance Urine Clear (Clear); Bilirubin Urine Negative (Negative); Blood Urine Negative (Negative); Color Urine Yellow (Yellow); Glucose Urine UA Negative (Negative); Ketones Urine Negative (Negative); Leukocyte Esterase Ur Negative LEU/UL (Negative); Nitrate Urine Negative (Negative); Protein Urine Negative (Negative); Specific Grav Ur 1.008 (1.001-1.035); Urobilinogen Urine 0.2 mg/dL (<2.0)
[2024-12-03] MEDS: IPRATROPIUM 0.5 MG/ALBUTEROL SULFATE 2.5 MG AMPUL.NEB 3 ML INHALATION ×2 (13:46→20:07)
[2024-12-04] VITALS (9 sets, daily range): BP systolic 126–154; BP diastolic 62–71; PULSE 54–86; RESP 16–24; TEMP 36.8–36.9; O2SAT 96–97
[2024-12-04] MEDS: IPRATROPIUM 0.5 MG/ALBUTEROL SULFATE 2.5 MG AMPUL.NEB 3 ML INHALATION ×4 (02:18→21:59)
[2024-12-04 05:49] LABS: Hematocrit 35.3 % (37.0-47.0); Hemoglobin 11.2 g/dL (12.0-15.0); Mean Corpuscular HGB Conc 31.7 g/dl (32-36); Mean Corpuscular Hemoglobin 30.9 pg (26-34); Mean Corpuscular Volume 97.5 fl (80-100); Mean Platelet Volume 9.3 fl (7.4-10.4); Platelet Count Result 246 k/mm3 (150-375); Red Blood Count 3.62 M/mm3 (4.2-5.4); Red Cell Distribution Width 13.9 % (11.5-14.5); White Blood Count 8.7 K/mm3 (4.5-10.0)
[2024-12-04 06:15] LABS: Alanine Aminotransferase 14 U/L (6-35); Albumin Level 3.7 g/dL (3.5-5.1); Alkaline Phosphatase 79 U/L (38-126); Anion Gap 6 mmol/L (4-12); Aspartate Amino Transferase 17 U/L (14-36); Bilirubin,Total 0.5 mg/dL (0.2-1.3); Blood Urea Nitrogen 15 mg/dL (7-17); Calcium 9.1 mg/dL (8.4-10.2); Carbon Dioxide 29 mmol/L (22-30); Chloride 106 mmol/L (98-107); Estimated CRCL calculation 59 ml/min; Estimated Glomerular Filt Rate > 60; Glucose 103 mg/dL (65-110); Potassium 3.6 mmol/L (3.4-5.0); Sodium 141 mmol/L (137-145)
--- NOTE | 2024-12-04 07:23 | P.PNIM_ITS ---
Progress Note: A&P Assessment and Plan (1) Fall: Code(s): W19.XXXA - Unspecified fall, initial encounter Status: Acute Assessment and Plan: Patient was at her assisted living facility resting in her recliner when she tried to get up to go use the restroom and slipped out of chair onto floor landing on left hip * Head CT was negative for any acute intracranial hemorrhage, mass, acute infarct, atrophy and chronic white matter changes * Cervical spine CT was negative for fracture, showed minimal grade 1 anterior listhesis of C5 over C6, moderate degenerative spondylosis * Hip/pelvis x-ray was negative for any acute abnormality * Continue fall precautions * PT and OT ordered -develop be done today, appreciate recommendations * Case coordination consulted for possible acute rehab * UA with reflex to culture -was negative * fall risk (2) Generalized weakness: Code(s): R53.1 - Weakness Status: Acute Assessment and Plan: Recently came down with upper respiratory symptoms of cough, postnasal drip, congestion that started this past Tuesday with associated weakness. * PT and OT ordered * Case coordination consulted will follow suggestions post PT/OT eval (3) Hypertension: Code(s): I10 - Essential (primary) hypertension Status: Acute Assessment and Plan: * Blood pressure ranging 164/69 to 181/79 * Continue propranolol * monitor (4) DVT (deep venous thrombosis): Code(s): I82.409 - Acute embolism and thrombosis of unspecified deep veins of unspecified lower extremity Status: Acute Assessment and Plan: * Continue Eliquis * fall and bleeding risk (5) Upper respiratory infection: Code(s): J06.9 - Acute upper respiratory infection, unspecified Status: Acute Assessment and Plan: * Respiratory panel negative for influenza A and B, RSV, COVID * Start guaifenesin * Chest x-ray was negative for any acute cardiopulmonary process, showed minimal left pleural effusion * Start prednisone 40 mg daily * Start DuoNeb * Pep therapy Plan Patient however PT OT evaluation today, will follow suggestions DVT -patient will continue her Eliquis Code status -DNR Time Spent With Patient Time with patient: Greater than 35 minutes (40 minutes) Subjective Date/time seen: 12/04/24 07:23 Interval history: Weakness Upper respiratory infection 84 year old with a significant past medical history of obesity, hypertension, DVT, arthritis, chronic back pain who presented to the hospital from [facility] for evaluation of weakness. Patient was trying to get up from her recliner, reached for her walker, and ended up sliding out of her chair landing on her left hip. She was reporting left hip/thigh pain at the facility. She was also noted to have cough, postnasal drip, and congestion which started Tuesday night. She denies any fever, chills, nausea, vomiting, diarrhea, abdominal pain, chest pain, or shortness of breath. She is currently on room air. EMS was called and she was brought here for further evaluation. Work up in the hospital included hip/pelvis x-ray which was negative for any fracture or dislocation. Cervical spine CT was negative for any acute fracture, minimal grade I anterolisthesis of C5 over C6, moderate degenerative spondylosis. Head CT was negative for any acute intracranial hemorrhage, mass, or acute infarct, shown atrophy and chronic white matter changes. Chest X-ray shown COPD changes and suspected minimal left pleural effusion. Initial labs which showed a normal white blood cell count of 7.7, hemoglobin 11.5, eosinophils 5.3, otherwise unremarkable. Respiratory panel was negative for influenza A and B, RSV, COVID. EKG showed sinus rhythm with first-degree AV block with a rate of 72, QTC 421. 12/03- Pt is seen and examined. She reports legs swelling- chronic. Generalized weakness, uses walker normally. Pt is alert, oriented, pleasant. Eating breakfast during the exam, voicing no acute concerns. 12/04-patient today reports she does not want to be here, she wants to return to her apartment with her water. She states she just got up to the floor this morning, she was told she could go home by 930. Patient is A&O x1, but shows no signs of distress. The PT/OT are going to evaluate patient today and give recommendations on safety returning to her assisted living facility. According to nursing staff patient's night has been rather uneventful, patient is confused and requesting to go back home, otherwise no concerns. Review of Systems Review of Systems: All systems reviewed & are unremarkable except as noted in HPI and below Exam Narrative: General: In no acute distress, well nourished Head: atraumatic, no encephalopathy Eyes: PERRLA, sclera clear ENT: moist mucous membranes, nasal passages clear Neck: supple, no JVD, no adenopathy, trachea midline Cardiac: Normal S1 and S2. No murmur, gallops or friction rubs, peripheral pulses intact. Respiratory:Crackles noted in L>R, no adventitious lung sounds, currently on room air, course nonproductive cough, post nasal drip, congestion. Gastrointestinal: soft, non-distended, non-tender, normoactive bowel sounds. : voiding without difficulty. Extremities: moves all extremities well, lymphedema BLE, 1-2+ pedal edema, good ROM, strength 5/5 Skin: clean, dry, intact. No wounds or lesions. Neuro: Alert and oriented x4, cranial nerves intact, no neuro deficits. Psych: normal mood, normal affect, interactive Objective Data Vital Signs Vital Signs: Vital Signs - 24 hr 12/03/24 08:00 12/03/24 09:10 12/03/24 09:39 Temperature 97.2 F L Pulse Rate 59 L 60 Respiratory Rate 18 Blood Pressure 128/47 L Pulse Oximetry 98 98 Oxygen Delivery Room Air Fraction of Inspired Oxygen 12/03/24 13:46 12/03/24 13:46 12/03/24 13:55 Temperature Pulse Rate 58 L 55 L Respiratory Rate 16 16 Blood Pressure Pulse Oximetry 96 Oxygen Delivery Room Air Fraction of Inspired Oxygen 21 12/03/24 14:00 12/03/24 14:18 12/03/24 20:00 Temperature 97.5 F L Pulse Rate 57 L Respiratory Rate 14 Blood Pressure 117/54 L Pulse Oximetry 98 Oxygen Delivery Room Air Room Air Fraction of Inspired Oxygen 12/03/24 20:07 12/03/24 20:07 12/03/24 20:13 Temperature Pulse Rate 68 63 Respiratory Rate 16 16 Blood Pressure Pulse Oximetry 96 Oxygen Delivery Room Air Fraction of Inspired Oxygen 12/03/24 22:41 12/04/24 02:19 12/04/24 02:25 Temperature 98.3 F Pulse Rate 58 L 78 73 Respiratory Rate 16 16 16 Blood Pressure 126/60 Pulse Oximetry 95 Oxygen Delivery Fraction of Inspired Oxygen Intake/Output Intake/Output: Intake & Output 12/01/24 12/03/24 12/03/24 12/04/24 23:59 00:59 23:59 23:59 Intake Total 1460 Output Total 1460 Balance 0 Meds/Results Medications: Active Medications Generic Name Dose Route Start Last Admin Trade Name Freq PRN Reason Stop Dose Admin Acetaminophen 650 mg 12/03/24 05:55 Acetaminophen 325 Mg Tablet PO Q4H PRN Mild Pain (1-3) or Fever Albuterol/Ipratropium 3 ml 12/03/24 08:00 12/04/24 02:18 Ipratropium 0.5 Mg/Albuterol Sulfate 2.5 Mg Ampul.Neb 3 Ml INHALATION 3 ml Q6HRT ELLI Administration Apixaban 5 mg 12/03/24 09:00 12/04/24 06:15 Apixaban 5 Mg Tablet PO Not Given Q12HR ELLI Furosemide 20 mg 12/03/24 09:00 12/03/24 09:10 Furosemide 20 Mg Tablet PO 20 mg DAILY ELLI Administration Guaifenesin 1,200 mg 12/03/24 09:00 12/04/24 06:15 Guaifenesin 12 Hr 600 Mg Tabcr PO Not Given Q12HR ELLI Ondansetron HCl 4 mg 12/03/24 05:55 Ondansetron Inj 4 Mg/2 Ml Vial IV PUSH Q6H PRN Nausea And Vomiting Oxybutynin Chloride 15 mg 12/03/24 09:00 12/03/24 09:11 Oxybutynin Chloride Xl 5 Mg Tab.Er.24 PO 15 mg DAILY ELLI Administration Prednisone 40 mg 12/03/24 08:00 12/03/24 09:10 Prednisone 20 Mg Tablet PO 40 mg DAILY@0800 ELLI Administration Propranolol HCl 120 mg 12/03/24 09:30 12/03/24 09:39 Propranolol Hcl 60 Mg Capsule Cr PO 120 mg QAM ELLI Administration Tramadol HCl 25 mg 12/03/24 05:55 Tramadol Hcl (*Crx) 25 Mg Tablet PO Q4H PRN Pain Rated 4-6 Radiology Results: ITS Impressions Cervical Spine CT 12/03/24 06:19 Impression: No acute fracture. Minimal grade 1 anterolisthesis of C5 over C6. Moderate degenerative spondylosis, as above. Head CT 12/03/24 06:19 Impression: No intracranial hemorrhage, mass, or acute infarct. Atrophy and chronic white matter changes, as above. Hip/Pelvis X-Ray 12/03/24 06:20 Impression: No significant abnormality is seen. Chest X-Ray 12/03/24 06:21 Impression: Suspected minimal left pleural effusion. COPD. Labs Labs: Laboratory Results - last 24 hr 12/03/24 12/03/24 12/04/24 04:39 12:53 05:40 WBC 8.7 RBC 3.62 L Hgb 11.2 L Hct 35.3 L MCV 97.5 MCH 30.9 MCHC 31.7 L RDW 13.9 Plt Count 246 MPV 9.3 Sodium 141 Potassium 3.6 Chloride 106 Carbon Dioxide 29 Anion Gap 6 BUN 15 Creatinine 0.60 L Estim Creat Clear Calc 59 Estimated GFR > 60 Glucose 103 Calcium 9.1 Magnesium 2.0 Total Bilirubin 0.5 AST 17 ALT 14 Alkaline Phosphatase 79 Total Protein 7.0 Albumin 3.7 TSH 2.580 Urine Color Yellow Urine Appearance Clear Urine pH 7.0 Ur Specific Randolph 1.008 Urine Protein Negative Urine Glucose (UA) Negative Urine Ketones Negative Ur Blood (Man) Negative Urine Nitrate Negative Urine Bilirubin Negative Urine Urobilinogen 0.2 Leukocyte Esterase Rfl Negative Quality VTE Prophylaxis VTE prophylaxis: pharmacologic ordered Hospitalist [facility] Advance Care Plan I have confirmed that the patient's Advanced Care Plan is present, code status is documented, or surrogate decision maker is listed in patient medical record.: Yes Medication Reconciliation I have utilized all available resources to obtain, update and review the patients current medications (includes all prescriptions, OTC, herbals, cannabis, and nutritional supplements).: Yes
[2024-12-04] MEDS: APIXABAN 5 MG TABLET PO ×2 (09:26→20:50)
[2024-12-04] MEDS: guaiFENesin 12 HR 600 MG TABCR 1200 MG PO ×2 (09:26→20:50)
[2024-12-04] MEDS: predniSONE 20 MG TABLET 40 MG PO (09:26)
[2024-12-04] MEDS: oxyBUTYnin CHLORIDE XL 5 MG TAB.ER.24 15 MG PO (09:26)
[2024-12-04] MEDS: FUROSEMIDE 20 MG TABLET PO (09:26)
[2024-12-04] MEDS: PROPRANOLOL HCL 60 MG CAPSULE CR 120 MG PO (09:26)
[2024-12-05 01:57] VITALS: PULSE 80; RESP 20
[2024-12-05] MEDS: IPRATROPIUM 0.5 MG/ALBUTEROL SULFATE 2.5 MG AMPUL.NEB 3 ML INHALATION ×2 (01:57→08:26)
[2024-12-05 02:10] VITALS: PULSE 79; RESP 18
[2024-12-05] MEDS: HALOPERIDOL LACTATE 5 MG/ML VIAL IM (03:59)
--- NOTE | 2024-12-05 04:02 | PM.EVENT ---
Event Note Event Note Event Note: Called by bedside nursing that patient was agitated, trying to bite and hit the staff. Likely hospitalized delirium we will go ahead and give 5 mg IM Haldol now x1. We will continue to monitor.
--- NOTE | 2024-12-05 04:25 | PC.NURSE ---
At start of shift pt was seeing things on the floor and quiñones that wasnt there but was pleasant and could be redirected . As the night has went on her hallucinations have increased to seeing people in the room and having conversations w them. She was also seeing children at the closed window. At 0340 she was climbing out of bed again this time she couldnt be redirected and became very agitated. ELIE Donna came to help me to redirect her back to bed so she wouldnt fall. Patient became violent hitting and kicking Donna and Biting and scratching me. I called Keturah REIS to get some medication to help calm her. She received IM Haldol. We have succeeded in getting her in bed but she is still having hallucinations and is acting out.
[2024-12-05 06:03] LABS: Hematocrit 36.5 % (37.0-47.0); Hemoglobin 11.8 g/dL (12.0-15.0); Mean Corpuscular HGB Conc 32.3 g/dl (32-36); Mean Corpuscular Hemoglobin 31.3 pg (26-34); Mean Corpuscular Volume 96.8 fl (80-100); Mean Platelet Volume 9.9 fl (7.4-10.4); Platelet Count Result 268 k/mm3 (150-375); Red Blood Count 3.77 M/mm3 (4.2-5.4); Red Cell Distribution Width 14.2 % (11.5-14.5); White Blood Count 9.7 K/mm3 (4.5-10.0)
[2024-12-05 06:11] LABS: Alanine Aminotransferase 15 U/L (6-35); Albumin Level 3.9 g/dL (3.5-5.1); Alkaline Phosphatase 84 U/L (38-126); Anion Gap 9 mmol/L (4-12); Aspartate Amino Transferase 25 U/L (14-36); Bilirubin,Total 0.5 mg/dL (0.2-1.3); Blood Urea Nitrogen 17 mg/dL (7-17); Calcium 9.2 mg/dL (8.4-10.2); Carbon Dioxide 26 mmol/L (22-30); Chloride 106 mmol/L (98-107); Estimated CRCL calculation 55 ml/min; Estimated Glomerular Filt Rate > 60; Glucose 103 mg/dL (65-110); Potassium 3.7 mmol/L (3.4-5.0); Sodium 141 mmol/L (137-145)
[2024-12-05 08:27] VITALS: PULSE 57; RESP 22; O2SAT 97
[2024-12-05 08:34] VITALS: PULSE 60; RESP 22
[2024-12-05] MEDS: APIXABAN 5 MG TABLET PO ×2 (09:07→20:55)
[2024-12-05] MEDS: guaiFENesin 12 HR 600 MG TABCR 1200 MG PO ×2 (09:07→20:55)
[2024-12-05] MEDS: oxyBUTYnin CHLORIDE XL 5 MG TAB.ER.24 15 MG PO (09:08)
[2024-12-05] MEDS: predniSONE 20 MG TABLET 40 MG PO (09:08)
[2024-12-05] MEDS: FUROSEMIDE 20 MG TABLET PO (09:08)
[2024-12-05 09:09] VITALS: PULSE 66
[2024-12-05] MEDS: PROPRANOLOL HCL 60 MG CAPSULE CR 120 MG PO (09:09)
--- NOTE | 2024-12-05 15:34 | P.PNIM_ITS ---
Progress Note: A&P Assessment and Plan (1) Fall: Code(s): W19.XXXA - Unspecified fall, initial encounter Status: Acute Assessment and Plan: Patient was at her assisted living facility resting in her recliner when she tried to get up to go use the restroom and slipped out of chair onto floor landing on left hip * Head CT was negative for any acute intracranial hemorrhage, mass, acute infarct, atrophy and chronic white matter changes * Cervical spine CT was negative for fracture, showed minimal grade 1 anterior listhesis of C5 over C6, moderate degenerative spondylosis * Hip/pelvis x-ray was negative for any acute abnormality * Continue fall precautions * PT and OT ordered -develop be done today, appreciate recommendations * Case coordination consulted for possible acute rehab * UA with reflex to culture -was negative * fall risk (2) Generalized weakness: Code(s): R53.1 - Weakness Status: Acute Assessment and Plan: Recently came down with upper respiratory symptoms of cough, postnasal drip, congestion that started this past Tuesday with associated weakness. * PT and OT ordered * Case coordination consulted will follow suggestions post PT/OT eval (3) Hypertension: Code(s): I10 - Essential (primary) hypertension Status: Acute Assessment and Plan: * Blood pressure ranging 164/69 to 181/79 * Continue propranolol * monitor (4) DVT (deep venous thrombosis): Code(s): I82.409 - Acute embolism and thrombosis of unspecified deep veins of unspecified lower extremity Status: Acute Assessment and Plan: * Continue Eliquis * fall and bleeding risk (5) Upper respiratory infection: Code(s): J06.9 - Acute upper respiratory infection, unspecified Status: Acute Assessment and Plan: * Respiratory panel negative for influenza A and B, RSV, COVID * Start guaifenesin * Chest x-ray was negative for any acute cardiopulmonary process, showed minimal left pleural effusion * Start prednisone 40 mg daily * Start DuoNeb * Pep therapy Plan Patient however PT OT evaluation today, will follow suggestions DVT -patient will continue her Eliquis Code status -DNR Subjective Date/time seen: 12/05/24 15:34 Interval history: Patient has episodes of agitation possibly due to dementia. Review of Systems Review of Systems: All systems reviewed & are unremarkable except as noted in HPI and below Exam Narrative: General: In no acute distress, well nourished Head: atraumatic, no encephalopathy Eyes: PERRLA, sclera clear ENT: moist mucous membranes, nasal passages clear Neck: supple, no JVD, no adenopathy, trachea midline Cardiac: Normal S1 and S2. No murmur, gallops or friction rubs, peripheral pulses intact. Respiratory:Crackles noted in L>R, no adventitious lung sounds, currently on room air, course nonproductive cough, post nasal drip, congestion. Gastrointestinal: soft, non-distended, non-tender, normoactive bowel sounds. : voiding without difficulty. Extremities: moves all extremities well, lymphedema BLE, 1-2+ pedal edema, good ROM, strength 5/5 Skin: clean, dry, intact. No wounds or lesions. Neuro: Alert and oriented x4, cranial nerves intact, no neuro deficits. Psych: normal mood, normal affect, interactive Objective Data Vital Signs Vital Signs: Vital Signs - 24 hr 12/04/24 20:00 12/04/24 20:05 12/04/24 21:59 Temperature 98.3 F Pulse Rate 58 L Respiratory Rate 17 Blood Pressure 154/71 H Pulse Oximetry 97 96 Oxygen Delivery Room Air Room Air 12/04/24 21:59 12/05/24 01:57 12/05/24 02:10 Temperature Pulse Rate 70 80 79 Respiratory Rate 24 H 20 18 Blood Pressure Pulse Oximetry Oxygen Delivery 12/05/24 04:37 12/05/24 08:00 12/05/24 08:27 Temperature Pulse Rate Respiratory Rate Blood Pressure Pulse Oximetry 97 Oxygen Delivery Room Air Room Air Room Air 12/05/24 08:27 12/05/24 08:34 12/05/24 09:09 Temperature Pulse Rate 57 L 60 66 Respiratory Rate 22 H 22 H Blood Pressure Pulse Oximetry Oxygen Delivery Intake/Output Intake/Output: Intake & Output 12/03/24 12/03/24 12/04/24 12/05/24 00:59 23:59 23:59 23:59 Intake Total 1460 1934 480 Output Total 1460 1800 Balance 0 134 480 Meds/Results Medications: Active Medications Generic Name Dose Route Start Last Admin Trade Name Freq PRN Reason Stop Dose Admin Acetaminophen 650 mg 12/03/24 05:55 Acetaminophen 325 Mg Tablet PO Q4H PRN Mild Pain (1-3) or Fever Albuterol/Ipratropium 3 ml 12/05/24 14:44 Ipratropium 0.5 Mg/Albuterol Sulfate 2.5 Mg Ampul.Neb 3 Ml INHALATION Q6HRT PRN Wheezing Apixaban 5 mg 12/03/24 09:00 12/05/24 09:07 Apixaban 5 Mg Tablet PO 5 mg Q12HR ELLI Administration Furosemide 20 mg 12/03/24 09:00 12/05/24 09:08 Furosemide 20 Mg Tablet PO 20 mg DAILY ELLI Administration Guaifenesin 1,200 mg 12/03/24 09:00 12/05/24 09:07 Guaifenesin 12 Hr 600 Mg Tabcr PO 1,200 mg Q12HR ELLI Administration Ondansetron HCl 4 mg 12/03/24 05:55 Ondansetron Inj 4 Mg/2 Ml Vial IV PUSH Q6H PRN Nausea And Vomiting Oxybutynin Chloride 15 mg 12/03/24 09:00 12/05/24 09:08 Oxybutynin Chloride Xl 5 Mg Tab.Er.24 PO 15 mg DAILY ELLI Administration Propranolol HCl 120 mg 12/03/24 09:30 12/05/24 09:09 Propranolol Hcl 60 Mg Capsule Cr PO 120 mg QAM ELLI Administration Tramadol HCl 25 mg 12/03/24 05:55 Tramadol Hcl (*Crx) 25 Mg Tablet PO Q4H PRN Pain Rated 4-6 Radiology Results: ITS Impressions Cervical Spine CT 12/03/24 06:19 Impression: No acute fracture. Minimal grade 1 anterolisthesis of C5 over C6. Moderate degenerative spondylosis, as above. Head CT 12/03/24 06:19 Impression: No intracranial hemorrhage, mass, or acute infarct. Atrophy and chronic white matter changes, as above. Hip/Pelvis X-Ray 12/03/24 06:20 Impression: No significant abnormality is seen. Chest X-Ray 12/03/24 06:21 Impression: Suspected minimal left pleural effusion. COPD. Labs Labs: Laboratory Results - last 24 hr 12/05/24 05:37 WBC 9.7 RBC 3.77 L Hgb 11.8 L Hct 36.5 L MCV 96.8 MCH 31.3 MCHC 32.3 RDW 14.2 Plt Count 268 MPV 9.9 Sodium 141 Potassium 3.7 Chloride 106 Carbon Dioxide 26 Anion Gap 9 BUN 17 Creatinine 0.65 L Estim Creat Clear Calc 55 Estimated GFR > 60 Glucose 103 Calcium 9.2 Total Bilirubin 0.5 AST 25 ALT 15 Alkaline Phosphatase 84 Total Protein 7.0 Albumin 3.9 Quality VTE Prophylaxis VTE prophylaxis: pharmacologic ordered Hospitalist [facility] Advance Care Plan I have confirmed that the patient's Advanced Care Plan is present, code status is documented, or surrogate decision maker is listed in patient medical record.: Yes Medication Reconciliation I have utilized all available resources to obtain, update and review the patients current medications (includes all prescriptions, OTC, herbals, cannabis, and nutritional supplements).: Yes
[2024-12-05] MEDS: QUEtiapine FUMARATE 25 MG TABLET PO (20:55)
[2024-12-05 21:21] VITALS: BP 150/68; PULSE 74; RESP 17; TEMP 36.6; O2SAT 96
[2024-12-06 05:37] LABS: Hematocrit 37.3 % (37.0-47.0); Hemoglobin 12.2 g/dL (12.0-15.0); Mean Corpuscular HGB Conc 32.7 g/dl (32-36); Mean Corpuscular Hemoglobin 31.8 pg (26-34); Mean Corpuscular Volume 97.1 fl (80-100); Mean Platelet Volume 9.3 fl (7.4-10.4); Platelet Count Result 252 k/mm3 (150-375); Red Blood Count 3.84 M/mm3 (4.2-5.4); Red Cell Distribution Width 14.2 % (11.5-14.5); White Blood Count 10.4 K/mm3 (4.5-10.0)
[2024-12-06 05:40] VITALS: BP 136/77; PULSE 70; RESP 18; TEMP 36.5; O2SAT 94
[2024-12-06 05:56] LABS: Alanine Aminotransferase 17 U/L (6-35); Albumin Level 3.7 g/dL (3.5-5.1); Alkaline Phosphatase 76 U/L (38-126); Anion Gap 7 mmol/L (4-12); Aspartate Amino Transferase 27 U/L (14-36); Bilirubin,Total 0.6 mg/dL (0.2-1.3); Blood Urea Nitrogen 17 mg/dL (7-17); Carbon Dioxide 30 mmol/L (22-30); Chloride 106 mmol/L (98-107); Estimated CRCL calculation 54 ml/min; Estimated Glomerular Filt Rate > 60; Glucose 94 mg/dL (65-110); Potassium 3.7 mmol/L (3.4-5.0); Sodium 143 mmol/L (137-145)
--- NOTE | 2024-12-06 08:33 | PCPTNOTE ---
Attempted PT and per RN no PT at this time due to pt finally sleeping well after many hours of restlessness. Will cont per POC
--- NOTE | 2024-12-06 09:13 | P.DS_ITS ---
DS: Admitting Diagnosis Discharge Date 12/06/2024 Admitting Diagnosis Weakness Upper respiratory infection DS: Discharge Diagnosis Discharge Diagnosis (1) Fall: Code(s): W19.XXXA - Unspecified fall, initial encounter Status: Acute Assessment and Plan: Patient was at her assisted living facility resting in her recliner when she tried to get up to go use the restroom and slipped out of chair onto floor landing on left hip * Head CT was negative for any acute intracranial hemorrhage, mass, acute infarct, atrophy and chronic white matter changes * Cervical spine CT was negative for fracture, showed minimal grade 1 anterior listhesis of C5 over C6, moderate degenerative spondylosis * Hip/pelvis x-ray was negative for any acute abnormality * Continue fall precautions * PT and OT ordered -develop be done today, appreciate recommendations * Case coordination consulted for possible acute rehab * UA with reflex to culture -was negative * fall risk (2) Generalized weakness: Code(s): R53.1 - Weakness Status: Acute Assessment and Plan: Recently came down with upper respiratory symptoms of cough, postnasal drip, congestion that started this past Tuesday with associated weakness. * PT and OT ordered * Case coordination consulted will follow suggestions post PT/OT eval (3) Hypertension: Code(s): I10 - Essential (primary) hypertension Status: Acute Assessment and Plan: * Blood pressure ranging 164/69 to 181/79 * Continue propranolol * monitor (4) DVT (deep venous thrombosis): Code(s): I82.409 - Acute embolism and thrombosis of unspecified deep veins of unspecified lower extremity Status: Acute Assessment and Plan: * Continue Eliquis * fall and bleeding risk (5) Upper respiratory infection: Code(s): J06.9 - Acute upper respiratory infection, unspecified Status: Acute Assessment and Plan: * Respiratory panel negative for influenza A and B, RSV, COVID * Start guaifenesin * Chest x-ray was negative for any acute cardiopulmonary process, showed minimal left pleural effusion * Start prednisone 40 mg daily * Start DuoNeb * Pep therapy DS: Summary Hospital Course Hospital Course: 84 year old with a significant past medical history of obesity, hypertension, DVT, arthritis, chronic back pain who presented to the hospital from [facility] for evaluation of weakness. Patient was trying to get up from her recliner, reached for her walker, and ended up sliding out of her chair landing on her left hip. She was reporting left hip/thigh pain at the facility. She was also noted to have cough, postnasal drip, and congestion which started Tuesday night. She denies any fever, chills, nausea, vomiting, diarrhea, abdominal pain, chest pain, or shortness of breath. She is currently on room air. EMS was called and she was brought here for further evaluation. Work up in the hospital included hip/pelvis x-ray which was negative for any fracture or dislocation. Cervical spine CT was negative for any acute fracture, minimal grade I anterolisthesis of C5 over C6, moderate degenerative spondylosis. Head CT was negative for any acute intracranial hemorrhage, mass, or acute infarct, shown atrophy and chronic white matter changes. Chest X-ray shown COPD changes and suspected minimal left pleural effusion. Initial labs which showed a normal white blood cell count of 7.7, hemoglobin 11.5, eosinophils 5.3, otherwise unremarkable. Respiratory panel was negative for influenza A and B, RSV, COVID. EKG showed sinus rhythm with first-degree AV block with a rate of 72, QTC 421. I assumed care on 12/05-12/06: Night before patient was aggressive and received Haldol 5 mg IV 1 time. Patient was not agitated during my evaluation. Patient is AAO x3. Started Seroquel 25 mg p.o. q.h.s.Cervical spine CT was negative for any acute fractur e, minimal grade I anterolisthesis of C5 over C6, moderate degenerative spondylosis. Head CT was negative for any acute intracranial hemorrhage, mass, or acute infarct, shown atrophy and chronic white matter changes. Chest X-ray shown COPD changes and suspected minimal left pleural effusion. Patient has baseline dementia and needs to follow-up with the neurologist for further workup. Status at Discharge Cognitive/behavioral status at discharge: Stable Time Spent with Patient Time attestation: Total time spent providing and/or coordinating discharge services: 45 minute Exam Narrative: General: In no acute distress, well nourished Head: atraumatic, no encephalopathy Eyes: PERRLA, sclera clear ENT: moist mucous membranes, nasal passages clear Neck: supple, no JVD, no adenopathy, trachea midline Cardiac: Normal S1 and S2. No murmur, gallops or friction rubs, peripheral pulses intact. Respiratory:Crackles noted in L>R, no adventitious lung sounds, currently on room air, course nonproductive cough, post nasal drip, congestion. Gastrointestinal: soft, non-distended, non-tender, normoactive bowel sounds. : voiding without difficulty. Extremities: moves all extremities well, lymphedema BLE, 1-2+ pedal edema, good ROM, strength 5/5 Skin: clean, dry, intact. No wounds or lesions. Neuro: Alert and oriented x4, cranial nerves intact, no neuro deficits. Psych: normal mood, normal affect, interactive DS: Data Data Completed and Pending Labs on day of discharge: Labs from last 24 hours 12/06/24 05:29 WBC 10.4 H RBC 3.84 L Hgb 12.2 Hct 37.3 MCV 97.1 MCH 31.8 MCHC 32.7 RDW 14.2 Plt Count 252 MPV 9.3 Sodium 143 Potassium 3.7 Chloride 106 Carbon Dioxide 30 Anion Gap 7 BUN 17 Creatinine 0.66 L Estim Creat Clear Calc 54 Estimated GFR > 60 Glucose 94 Calcium 9.0 Total Bilirubin 0.6 AST 27 ALT 17 Alkaline Phosphatase 76 Total Protein 7.0 Albumin 3.7 Imaging Radiologist's impression: ITS Impressions Cervical Spine CT 12/03/24 06:19 Impression: No acute fracture. Minimal grade 1 anterolisthesis of C5 over C6. Moderate degenerative spondylosis, as above. Head CT 12/03/24 06:19 Impression: No intracranial hemorrhage, mass, or acute infarct. Atrophy and chronic white matter changes, as above. Hip/Pelvis X-Ray 12/03/24 06:20 Impression: No significant abnormality is seen. Chest X-Ray 12/03/24 06:21 Impression: Suspected minimal left pleural effusion. COPD. Discharge Plan Discharge Attending physician on discharge: Jermaine Cabello Discharging Clinician: Jermaine Cabello Anticipated Discharge Date/Time: 12/06/24 09:17 Patient Disposition: SNF Activity: as tolerated Diet: regular Discharge Instructions: Check blood pressure 1 to 2 times a day. Record and bring into your doctor for review. Call your doctor if your blood pressure is greater than 180/110 or less than 90/45. Walk with cane or other assist device. Take precautions to avoid falls. Rise slowly from a lying or sitting position. Pause before standing or walking. Contact your doctor or call 911 and come to the Emergency Room if you have any type of trauma, lightheadedness with standing or other worrisome symptoms. Avoid NSAIDs (ibuprofen, naproxen, Aleve). Tylenol is safe to take. Follow-up with your primary care provider in 1-2 weeks. Please call for appointment. Follow-up with Cardiology in 2-4 weeks. Please call for an appointment. Thank you for using [facility] for your health care needs. Patient Language: Uzbek Stand Alone Forms: General Discharge Information Discharge Medications: New guaifenesin [Mucus Relief ER] 600 mg Tablet Extended Release 12hr 1,200 mg PO Q12HR Qty: 30 0RF quetiapine [Seroquel] 25 mg Tablet 25 mg PO HS Qty: 30 0RF Continued oxybutynin chloride 15 mg tablet extended release 24hr 15 mg PO DAILY propranolol 80 mg capsule,extended release 24hr 160 mg PO DAILY Eliquis 5 mg tablet 5 mg PO BID meloxicam 7.5 mg tablet 7.5 mg PO PRN furosemide 20 mg tablet 20 mg PO DAILY Date of admission: 12/03/24 05:39 Primary Care Provider: Raz,Gurwinder Admitting Provider: Walt Arceo Attending physician on admission: Walt Arceo Condition: Stable
[2024-12-06] MEDS: FUROSEMIDE 20 MG TABLET PO (16:44)
[2024-12-06] MEDS: oxyBUTYnin CHLORIDE XL 5 MG TAB.ER.24 15 MG PO (16:44)
[2024-12-06 16:45] VITALS: PULSE 48
== END 2024-12-06 18:03 | DRG 948 ==
LOC: ANHED 05:47 → ANH3MED 13:39
PROVIDERS: Nurse Practitioner Acute Care; Admitting Provider Internal Medicine; Emergency Provider Emergency Medicine; PCP Internal Medicine; Visit Provider General Practice
DX: R53.1 Weakness (principal); F05 Delirium due to known physiological condition; J06.9 Acute upper respiratory infection, unspecified; I10 Essential (primary) hypertension; N32.81 Overactive bladder; M19.90 Unspecified osteoarthritis, unspecified site; M54.9 Dorsalgia, unspecified; G89.29 Other chronic pain; F03.90 Unspecified dementia, unspecified severity, without behavioral disturbance, psychotic disturbance, mood disturbance, and anxiety; W07.XXXA Fall from chair, initial encounter; Z20.822 Contact with and (suspected) exposure to COVID-19; Z79.01 Long term (current) use of anticoagulants; Z86.718 Personal history of other venous thrombosis and embolism
CPT/HCPCS: 36415; 70450; 71045; 72125; 73502; 80053; 81003; 83735; 84443; 85025; 85027; 87637; 93005; 94640; 94667; 97110; 97161; 97166; 97530; 99285; A9270; J1630; J7512

== ENCOUNTER 2025-01-17 14:12 | Inpatient (IN) | payer MEDICARE, SELFPAY ==
--- NOTE | ~2025-01-17 | CT_ITS ---
CT head without contrast Indication: Confusion COMPARISON: 12/03/2024 Technique: Serial scans were obtained through the brain without the administration of contrast. Dose reduction technique was used on this scan by utilizing automated exposure control and iterative recon struction technique. The dose-length product (DLP) was 605.33 mGy-cm. Findings: There is no evidence of intracranial hemorrhage, mass lesion, or acute infarct. The ventri cles and subarachnoid spaces are dilated, consistent with mild atrophy. Low attenuation regions are seen within the periventricular white matter bilaterally, likely representing changes from chronic mi crovascular ischemic disease. There is no evidence of edema, mass effect or midline shift. The visu alized paranasal sinuses and mastoid air cells are clear. Impression: No intracranial hemorrhage, mass, or acute infarct. Atrophy and chronic white matter changes, as above. Reviewed, dictated and finalized at location . Impression: No intracranial hemorrhage, mass, or acute infarct. Atrophy and chronic white matter changes, as above.
--- NOTE | ~2025-01-17 | US_ITS ---
BILATERAL LOWER EXTREMITY VENOUS ULTRASOUND Ordering provider: Hari Pérez MD History: . SWELLING, PAIN . Comparison: None. FINDINGS: RIGHT LOWER EXTREMITY VEINS: --COMMON FEMORAL: Patent and free of thrombus. Normal compressibility, phasic flow and augmentation. --PROXIMAL SUPERFICIAL FEMORAL: Patent and free of thrombus. Normal compressibility, phasic flow and augmentation. --DISTAL SUPERFICIAL FEMORAL: Patent and free of thrombus. Normal compressibility, phasic flow and au gmentation. --POPLITEAL: Patent and free of thrombus. Normal compressibility, phasic flow and augmentation. --POSTERIOR TIBIAL: Not evaluated. LEFT LOWER EXTREMITY VEINS: --COMMON FEMORAL: Patent and free of thrombus. Normal compressibility, phasic flow and augmentation. --PROXIMAL SUPERFICIAL FEMORAL: Patent and free of thrombus. Normal compressibility, phasic flow and augmentation. --DISTAL SUPERFICIAL FEMORAL: Patent and free of thrombus. Normal compressibility, phasic flow and au gmentation. --POPLITEAL: Patent and free of thrombus. Normal compressibility, phasic flow and augmentation. --POSTERIOR TIBIAL: Not evaluated. IMPRESSION: Negative bilateral lower extremity venous US. No deep vein thrombosis. Reviewed, dictated and finalized at location A.
--- NOTE | ~2025-01-17 | XR_ITS ---
CHEST RADIOGRAPH CLINICAL HISTORY: BILATERAL LEG EDEMA . COMPARISON: 12/03/2024 TECHNIQUE: Single portable view of the chest. FINDINGS The cardiomediastinal silhouette is unremarkable. Blunting of the left costophrenic sulcus suggesting a small left-sided pleural effusion. The remainder of the lungs are clear. IMPRESSION: Small left-sided pleural effusion without focal infiltrate. Reviewed, dictated and finalized at location A.
--- NOTE | ~2025-01-17 | CT_ITS ---
EXAMINATION: CTA LE BI DATE: 01/21/2025 11:28 INDICATION: Peripheral foot with bilateral lower limb edema. TECHNIQUE: Computed tomographic angiography (CTA) of the abdominal, pelvis, and both lower extremitie s was performed with 150 mL Omnipaque 350 intravenous contrast. Automated exposure control and iterat matt reconstruction technique were employed. The dose-length product was 1961.57 mGy-cm. COMPARISON: None. FINDINGS: There is excellent contrast opacification of the arteries in the lower chest, abdomen and pelvis. The re is however suboptimal contrast opacification of the arteries on subsequent imaging extending from the pelvis through the bilateral lower extremities which limits assessment of the arteries in the low er limbs. ABDOMINAL AORTA AND ITS BRANCHES IN THE ABDOMEN AND PELVIS: The visualized lower thoracic aorta and the abdominal aorta are normal in caliber with mild nonhemody namically significant atherosclerotic plaque and no dissection. No evident atherosclerotic plaque jean-paul ng the celiac axis and superior mesenteric artery. Small amount of plaque with no significant stenosi s origins of the inferior mesenteric artery and bilateral renal arteries. There is additional nonhemo dynamically significant atherosclerotic plaque along the bilateral common and bilateral internal guevara c arteries with no aneurysm or dissection. No evident plaque along the normal caliber bilateral exter nal iliac arteries. RIGHT LOWER EXTREMITY: Small amount of atherosclerotic plaque with with no hemodynamically significant stenosis at the right common femoral and superficial femoral arteries. No evident plaque along the right profunda femoral artery. There is scattered discoid plaque along the right popliteal artery with up to 50% stenosis ju st above level of the knee joint line. Scattered plaque without hemodynamically significant stenosis at the right anterior tibial artery, tibioperoneal trunk and the peroneal artery with runoff below th e ankle. There is occlusion of the right posterior parietal artery beginning at its origin which alessandro nstitutes from the peroneal artery just above level of the ankle with subsequent runoff below the ank le. LEFT LOWER EXTREMITY: Mild nonhemodynamically significant atherosclerotic plaque along the left common femoral, superficial femoral and popliteal arteries. No evident plaque along the left profunda femoral artery. There is m ild to moderate stenosis at the origin of the left anterior tibial artery and a moderate to severe st enosis at the origin of the left tibioperoneal trunk. There is three-vessel runoff below left ankle. ADDITIONAL FINDINGS: Small right pleural effusion. Mild bibasilar atelectasis. Calcified right lower lobe nodule consisten t with old granulomatous disease. Cardiomegaly. No pericardial effusion. Bladder not visualized and l ikely surgically absent. Liver, spleen, bilateral adrenal glands and right kidney are normal. 5 mm no nobstructing stone at the lower pole of the left kidney. Scattered colonic diverticulosis without adj acent from trace stranding to suggest diverticulitis. Normal bladder diverticulum. The retroverted ut erus and right adnexa are unremarkable. 1.3 cm left adnexal cyst. No pathologically enlarged abdomina l, pelvic or inguinal lymphadenopathy. IMPRESSION: 1. Atherosclerotic disease without hematoma significant stenosis in the abdomen and pelvis. 2. 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 Otherwise mild nonhemodynamically significant cali nosis in the arteries of the right lower limb. 3. Mild to moderate stenosis at the origin of the left anterior tibial artery and moderate to severe stenosis at the origin of the left tibioperoneal trunk but with three-vessel runoff below the ankle. 4. Nonobstructing left nephrolithiasis. Reviewed, dictated and finalized at location B. IMPRESSION: 1. Atherosclerotic disease without hematoma significant stenosis in the abdome n and pelvis. 2. 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 Other knight mild nonhemodynamically significant stenosis in the arteries of the right lower limb. 3. Mild to moderate stenosis at the origin of the left anterior tibial artery a nd moderate to severe stenosis at the origin of the left tibioperoneal trunk bu t with three-vessel runoff below the ankle. 4. Nonobstructing left nephrolithiasis.
--- NOTE | ~2025-01-17 | XR_ITS ---
EXAMINATION: XR tibia fibula RT 2V, XR foot RT min 3V DATE: 01/18/2025 15:07 INDICATION: Right lower leg and foot pain TECHNIQUE: 1. AP and lateral views of the right tibia and fibula were obtained on overlapping proximal and dista l images. 2. Dorsal plantar, lateral and oblique views of the right foot were obtained. COMPARISON: None. FINDINGS: Diffuse osteopenia. No fracture. Tricompartmental osteoarthritis at the right knee, severe in the lat eral compartment with secondary genu valgus. Bone alignment is otherwise normal. There is suggestion of a small right knee. Additional polyarticular osteoarthritis, moderate severity at the calcaneocubo id, first metatarsophalangeal and multiple tarsometatarsal joints and mild at the ankle and majority the remaining joints throughout the right foot. Small plantar calcaneal spur. Diffuse subcutaneous ed man throughout the right lower leg and ankle and more prominently over the dorsum of the foot. IMPRESSION: 1. Extensive subcutaneous edema throughout the right lower leg and about the foot and ankle. No acute osseous abnormality. 2. Polyarticular osteoarthritis, severe at the lateral compartment the right knee and moderate at mul tiple joints in the right foot. Reviewed, dictated and finalized at location A. IMPRESSION: 1. Extensive subcutaneous edema throughout the right lower leg and about the fo ot and ankle. No acute osseous abnormality. 2. Polyarticular osteoarthritis, severe at the lateral compartment the right kn ee and moderate at multiple joints in the right foot.
[2025-01-17 14:24] VITALS: BP 121/56; PULSE 74; RESP 20; TEMP 36.2; O2SAT 99
--- NOTE | 2025-01-17 15:01 | ED.EXTPRO ---
HPI - Extremity Problem General Chief complaint: Extremity Problem,Nontraumatic <Amrita Nash APRN - Last Filed: 01/17/25 15:08> Stated complaint: Bilat leg pain- more than normal <Amrita Nash APRN - Last Filed: 01/17/25 15:08> Time Seen by Provider: 01/17/25 15:00 <Amrita Nash APRN - Last Filed: 01/17/25 15:08> Focused HPI: Patient is an 84-year-old female who presents to the ER with bilateral lower extremity swelling. She has a history of dementia and is unable to give any reason as to why EMS brought her here. Per EMS report, patient was sent here for evaluation, as her lymphedema is worse today. Patient denies any pain or shortness of breath at the time of examination. Per her medical history she is on Eliquis. GENERAL: Well-appearing, well-nourished, and in no acute distress. HEAD: Normocephalic, atraumatic. CHEST: Clear to auscultation. ?No respiratory distress. HEART: Regular rate and rhythm.? NEURO: ?Alert and oriented x3. Patient screened in triage and initial orders placed.? ?Additional care and disposition to be based upon?diagnostic testing and treatment. <Amrita Nash APRN - Last Filed: 01/17/25 15:08> History of Present Illness HPI Narrative: AGREE WITH THE ABOVE HPI PATIENT IS AWAKE, ALERT ORIENTED X3 TO HER NAME, AGE AND THE YEAR OTHERWISE DOES NOT KNOW WHY SHE IS IN THE EMERGENCY ROOM. SHE DENIES ANY FEVER, CHILLS, NAUSEA, VOMITING, CHEST PAIN, SHORTNESS OF BREATH, OR ANY PAIN. <Hari Pérez MD - Last Filed: 01/17/25 18:41> Related Data Home medications: Home Medications ?Medication ?Instructions ?Recorded ?Confirmed ?Last Taken ?Type apixaban 5 mg tablet (Eliquis) 5 mg PO BID 01/25/24 12/03/24 12/02/24 History oxybutynin chloride 15 mg 15 mg PO DAILY 01/25/24 12/03/24 12/02/24 History tablet,extended release 24 hr propranolol 80 mg capsule,24 160 mg PO DAILY 0512/03/24 12/02/24 History hr,extended release furosemide 20 mg tablet 20 mg PO DAILY 08/23/24 12/03/24 12/02/24 History meloxicam 7.5 mg tablet 7.5 mg PO PRN pain 12/03/24 12/03/24 Unknown History <Amrita Nash APRN - Last Filed: 01/17/25 15:08> Allergies/Adverse reactions: Allergies Allergy/AdvReac Type Severity Reaction Status Date / Time Penicillins Allergy unknown Verified 01/17/25 14:14 <Amrita Nash APRN - Last Filed: 01/17/25 15:08> Review of Systems Review of Systems: ROS unobtainable: Yes unobtainable due to medical condition <Hari Pérez MD - Last Filed: 01/17/25 18:41> PMFSH Past Medical History Medical History: Medical History Lymphedema Overactive bladder Obesity Hypertension DVT (deep venous thrombosis) <Amrita Nash APRN - Last Filed: 01/17/25 15:08> Surgical History Surgical History: Surgical History History of appendectomy History of cholecystectomy <Amrita Nash APRN - Last Filed: 01/17/25 15:08> Social History Social History: Social History Smoking status: Never smoker Alcohol intake: never Substance use: never Substance use type: does not use Do You Feel Safe in your Home?: Yes Lack of Transportation: No Lack of Food: Never True Current Housing: I Have Housing Concerned About Future Housing: No Difficulty Paying Gas/Electric Bills: No Difficulty Paying for Meds: No Currently Unemployed: No Education: High School Diploma/GED Difficulty w/ Childcare or Family Care: No Spiritual care concerns: Yes <Amrita Nash APRN - Last Filed: 01/17/25 15:08> Exam Narrative: GENERAL APPEARANCE: WELL-DEVELOPED, WELL-NOURISHED SKIN: NORMAL COLOR HEAD: NORMOCEPHALIC, NONTRAUMATIC EYES: CLEAR CONJUNCTIVA ENT: OROPHARYNX NORMAL, EARS NORMAL, NOSE NORMAL NECK: SUPPLE, NONTENDER CHEST AND RESPIRATORY: AIRWAY PATENT, NO RESPIRATORY DISTRESS, NO ACCESSORY MUSCLE USE HEART: REGULAR RATE/RHYTHM ABDOMEN: SOFT, NONTENDER, NO ORGANOMEGALY, QUIET BOWEL SOUNDS VASCULAR: NORMAL PERIPHERAL PULSES, NORMAL CAPILLARY REFILL. MUSCULOSKELETAL: LARGE SWOLLEN LOWER EXTREMITY BILATERALLY MORE ON THE RIGHT SIDE CONSISTENT WITH LYMPHEDEMA, NO BRUISES, NO DEFORMITY, NO ERYTHEMA OR RASH OR ULCERATION OR WOUND. NO PITTING EDEMA NO LOCALIZED TENDERNESS. NEUROLOGIC: ALERT AND ORIENTED ?3, FACTORY WORKER IS NORMAL TESTED, NO GROSS MOTOR DEFICIT <Hari Pérez MD - Last Filed: 01/17/25 18:41> Course Vital Signs Vital signs: Vital Signs Temperature 36.2 C L 01/17/25 14:24 Pulse Rate 74 01/17/25 14:24 Respiratory Rate 20 01/17/25 14:24 Blood Pressure 121/56 L 01/17/25 14:24 Pulse Oximetry 99 01/17/25 14:24 Oxygen Delivery Room Air 01/17/25 14:24 Temperature 36.2 C L 01/17/25 14:24 Pulse Rate 66 01/17/25 17:42 Respiratory Rate 15 01/17/25 17:42 Blood Pressure 133/77 01/17/25 17:42 Pulse Oximetry 99 01/17/25 17:42 Oxygen Delivery Room Air 01/17/25 14:24 <Amrita Nash APRN - Last Filed: 01/17/25 15:08> Vital Signs Temperature 36.2 C L 01/17/25 14:24 Pulse Rate 74 01/17/25 14:24 Respiratory Rate 20 01/17/25 14:24 Blood Pressure 121/56 L 01/17/25 14:24 Pulse Oximetry 99 01/17/25 14:24 Oxygen Delivery Room Air 01/17/25 14:24 Temperature 36.2 C L 01/17/25 14:24 Pulse Rate 66 01/17/25 17:42 Respiratory Rate 15 01/17/25 17:42 Blood Pressure 133/77 01/17/25 17:42 Pulse Oximetry 99 01/17/25 17:42 Oxygen Delivery Room Air 01/17/25 14:24 <Hari Pérez MD - Last Filed: 01/17/25 18:41> MDM - Extremity (Nontraumatic) MDM Narrative Medical decision making narrative: PATIENT CAME TO THE ED WITH POSSIBLE INCREASED SWELLING AND PAIN OF THE LOWER EXTREMITY BILATERALLY, HISTORY OF LYMPHEDEMA, CURRENTLY ON ELIQUIS. VITAL SIGNS ARE STABLE PHYSICAL EXAMINATION CONSISTENT WITH LYMPHEDEMA OF THE LOWER EXTREMITIES DIFFERENTIAL DIAGNOSIS INCLUDE LYMPHEDEMA FLARE, CELLULITIS, DEEP VEIN THROMBOSIS, CONGESTIVE HEART FAILURE, RENAL FAILURE, HEPATIC FAILURE BLOOD WORKUP TODAY INCLUDES CBC, CMP PRO PRO BNP [place]OWED PRO BNP OF 2780 OTHERWISE WITHIN NORMAL LIMIT EKG ON ARRIVAL SHOWED AFIB WITH NORMAL VENTRICULAR RESPONSE AT 6 7 BEATS PER MINUTE, COMPARED TO EKG ON DECEMBER 03, 2024 SINUS RHYTHM NO LONGER PRESENT Venous Doppler lower extremity bilaterally showed no deep vein thrombosis Diagnosis AFib with normal ventricular response, elevated proBNP, CHF-suspected, Admit to hospitalist <Hari Pérez MD - Last Filed: 01/17/25 18:41> Differential Diagnosis Differential diagnosis: Likely other (As above) <Hari Pérez MD - Last Filed: 01/17/25 18:41> Lab Data Result diagrams: 01/17/25 17:21 01/17/25 15:31 <Amrita Nash APRN - Last Filed: 01/17/25 15:08> Labs: Lab Results 01/17/25 01/17/25 01/17/25 Range/Units 15:31 17:05 17:21 WBC 5.6 6.2 (4.5-10.0) K/mm3 RBC 3.88 L 3.82 L (4.2-5.4) M/mm3 Hgb 12.0 11.9 L (12.0-15.0) g/dL Hct 38.1 36.9 L (37.0-47.0) % MCV 98.2 96.6 (80-100) fl MCH 30.9 31.2 (26-34) pg MCHC 31.5 L 32.2 (32-36) g/dl RDW 14.5 14.5 (11.5-14.5) % Plt Count 231 228 (150-375) k/mm3 MPV 9.8 9.9 (7.4-10.4) fl Immature Gran % (Auto) 0.2 0.3 (0-0.5) % Neut % (Auto) 48.2 43.6 L (45.5-73.1) % Lymph % (Auto) 31.1 35.7 (18.3-44.2) % [place] % (Auto) 16.5 H 17.0 H (2.6-8.5) % Eos % (Auto) 3.1 2.6 (0-4.4) % Baso % (Auto) 0.9 0.8 (0.2-1.2) % Lymph # (Auto) 1.73 2.22 (0.9-3.2) K/mm3 [place] # (Auto) 0.9 H 1.1 H (0.1-0.6) K/mm3 Eos # (Auto) 0.2 0.2 (0-0.3) K/mm3 Baso # (Auto) 0.1 0.1 (0.0-0.1) K/mm3 Abs Immat Gran (auto) 0.01 0.02 (0.00-0.031) K/mm3 Absolute Neuts (auto) 2.7 2.7 (1.3-6.7) K/mm3 Absolute Nucleated RBC 0.000 0.000 (0.0-0.012) K/mm3 Nucleated RBC % 0.0 0.0 (0.0-0.2) % PT 16.6 H (11.1-14.7) Seconds INR 1.3 APTT 32.5 (22.3-36.8) Seconds Sodium 139 (137-145) mmol/L Potassium 3.6 (3.4-5.0) mmol/L Chloride 102 (98-107) mmol/L Carbon Dioxide 30 (22-30) mmol/L Anion Gap 7 (4-12) mmol/L BUN 18 H (7-17) mg/dL Creatinine 0.87 (0.7-1.0) mg/dL Estim Creat Clear Calc 43 ml/min Estimated GFR > 60 (59 - ) Glucose 106 (65-110) mg/dL Calcium 9.0 (8.4-10.2) mg/dL Total Bilirubin 0.7 (0.2-1.3) mg/dL AST 24 (14-36) U/L ALT 13 (6-35) U/L Alkaline Phosphatase 84 (38-126) U/L Troponin I < 0.012 (0.000-0.034) ng/mL NT-Pro-B Natriuret Pep 2780 H (19.9-100) pg/mL Total Protein 7.0 (6.3-8.2) g/dL Albumin 4.0 (3.5-5.1) g/dL Urine Color Yellow (Yellow) Urine Appearance Clear (Clear) Urine pH 7.0 (5.0-9.0) Ur Specific [place] 1.008 (1.001-1.035) Urine Protein Negative (Negative) mg/dL Urine Glucose (UA) Negative (Negative) mg/dL Urine Ketones Negative (Negative) mg/dL Ur Blood (Man) Negative (Negative) Urine Nitrate Negative (Negative) Urine Bilirubin Negative (Negative) Urine Urobilinogen 0.2 (<2.0) mg/dL Leukocyte Esterase Rfl Negative (Negative) ALFA/UL <Amrita Nash, [employer]ENT[employer] ACCESS MANAGEMENT ARCHITECT - Last Filed: 01/17/25 15:08> Lab Results 01/17/25 01/17/25 01/17/25 Range/Units 15:31 17:05 17:21 WBC 5.6 6.2 (4.5-10.0) K/mm3 RBC 3.88 L 3.82 L (4.2-5.4) M/mm3 Hgb 12.0 11.9 L (12.0-15.0) g/dL Hct 38.1 36.9 L (37.0-47.0) % MCV 98.2 96.6 (80-100) fl MCH 30.9 31.2 (26-34) pg MCHC 31.5 L 32.2 (32-36) g/dl RDW 14.5 14.5 (11.5-14.5) % Plt Count 231 228 (150-375) k/mm3 MPV 9.8 9.9 (7.4-10.4) fl Immature Gran % (Auto) 0.2 0.3 (0-0.5) % Neut % (Auto) 48.2 43.6 L (45.5-73.1) % Lymph % (Auto) 31.1 35.7 (18.3-44.2) % [place] % (Auto) 16.5 H 17.0 H (2.6-8.5) % Eos % (Auto) 3.1 2.6 (0-4.4) % Baso % (Auto) 0.9 0.8 (0.2-1.2) % Lymph # (Auto) 1.73 2.22 (0.9-3.2) K/mm3 [place] # (Auto) 0.9 H 1.1 H (0.1-0.6) K/mm3 Eos # (Auto) 0.2 0.2 (0-0.3) K/mm3 Baso # (Auto) 0.1 0.1 (0.0-0.1) K/mm3 Abs Immat Gran (auto) 0.01 0.02 (0.00-0.031) K/mm3 Absolute Neuts (auto) 2.7 2.7 (1.3-6.7) K/mm3 Absolute Nucleated RBC 0.000 0.000 (0.0-0.012) K/mm3 Nucleated RBC % 0.0 0.0 (0.0-0.2) % PT 16.6 H (11.1-14.7) Seconds INR 1.3 APTT 32.5 (22.3-36.8) Seconds Sodium 139 (137-145) mmol/L Potassium 3.6 (3.4-5.0) mmol/L Chloride 102 (98-107) mmol/L Carbon Dioxide 30 (22-30) mmol/L Anion Gap 7 (4-12) mmol/L BUN 18 H (7-17) mg/dL Creatinine 0.87 (0.7-1.0) mg/dL Estim Creat Clear Calc 43 ml/min Estimated GFR > 60 (59 - ) Glucose 106 (65-110) mg/dL Calcium 9.0 (8.4-10.2) mg/dL Total Bilirubin 0.7 (0.2-1.3) mg/dL AST 24 (14-36) U/L ALT 13 (6-35) U/L Alkaline Phosphatase 84 (38-126) U/L Troponin I < 0.012 (0.000-0.034) ng/mL NT-Pro-B Natriuret Pep 2780 H (19.9-100) pg/mL Total Protein 7.0 (6.3-8.2) g/dL Albumin 4.0 (3.5-5.1) g/dL Urine Color Yellow (Yellow) Urine Appearance Clear (Clear) Urine pH 7.0 (5.0-9.0) Ur Specific [place] 1.008 (1.001-1.035) Urine Protein Negative (Negative) mg/dL Urine Glucose (UA) Negative (Negative) mg/dL Urine Ketones Negative (Negative) mg/dL Ur Blood (Man) Negative (Negative) Urine Nitrate Negative (Negative) Urine Bilirubin Negative (Negative) Urine Urobilinogen 0.2 (<2.0) mg/dL Leukocyte Esterase Rfl Negative (Negative) ALFA/UL <Hari Pérez MD - Last Filed: 01/17/25 18:41> Imaging Data Radiologist's impression: Impressions Chest X-Ray 01/17/25 16:21 IMPRESSION: Small left-sided pleural effusion without focal infiltrate. Venous Doppler Study 01/17/25 16:49 IMPRESSION: Negative bilateral lower extremity venous US. No deep vein thrombosis. <Hari Pérez MD - Last Filed: 01/17/25 18:41> ECG Data EKG #1: Attestation EKG: I personally reviewed and interpreted this ECG as follows: <Hari Pérez MD - Last Filed: 01/17/25 18:41> ECG completion date: 01/17/25 <Hari Pérez MD - Last Filed: 01/17/25 18:41> Interpretation: AFib at 67 beats per minute, incomplete right bundle-branch block, baseline artifact, abnormal EKG, compared to EKG on December 03, 2024 sinus rhythm no longer present <Hari Pérez MD - Last Filed: 01/17/25 18:41> Critical Care Time Critical Care Time Critical Care Time: No <Hari Pérez MD - Last Filed: 01/17/25 18:41> Discharge Plan Discharge Clinical Impression: Atrial fibrillation by electrocardiogram, CHF (congestive heart failure), Lymphedema <Amrita Nash APRN - Last Filed: 01/17/25 15:08> Patient Disposition: Still a Patient <Amrita Nash APRN - Last Filed: 01/17/25 15:08> Condition: Stable <Amrita Nash APRN - Last Filed: 01/17/25 15:08> Patient Language: Serbian <Amrita Nash APRN - Last Filed: 01/17/25 15:08> Prescriptions: No Action oxybutynin chloride 15 mg tablet extended release 24hr 15 mg PO DAILY propranolol 80 mg capsule,extended release 24hr 160 mg PO DAILY Eliquis 5 mg tablet 5 mg PO BID meloxicam 7.5 mg tablet 7.5 mg PO PRN guaifenesin [Mucus Relief ER] 600 mg Tablet Extended Release 12hr 1,200 mg PO Q12HR Qty: 30 0RF quetiapine [Seroquel] 25 mg Tablet 25 mg PO HS Qty: 30 0RF furosemide 20 mg tablet 20 mg PO DAILY <Amrita Nash APRN - Last Filed: 01/17/25 15:08> Follow-up/Referrals: Raz,MD Gurwinder [Primary Care Provider] - <Amrita Nash APRN - Last Filed: 01/17/25 15:08>
--- OUTSIDE RECORDS SUMMARY | 2025-01-17 15:21 | XMS_ITS ---
Author Name Auto Generated, Auto Generated Organization [facility] Address [address] [place] [address] Phone [phone] Care Team Providers [facility] Name Role Phone Pierre Ellis Unavailable [phone] Nicky Vogel Unavailable Isabel Alva Unavailable [phone] Functional Status No Results Mental Status No Results Allergies and Intolerances Name Onset Date Reaction Severity penicillin (Allergy) TueJanuary 24 17:55:00 EDT 202 4 Encounters Program Name Primary Diagnosis Admission Date/Time Dis charge Date/Time [facility] TueSep 21 19:00:00 2019January 29 12:30:00 EDT 2023 [facility] TueDec 19 20:00:00 EDT 2024 Assisted Living Area Lymphedema, not elsewhere classified TueFebruary 11 09:00:00 EDT 2023 [facility] TueJanuary 24 12:45:00 EDT 2023February 11 08:30:00 EDT 2023 [facility] TueFebruary 12 20:00:00 EDT 2023 Caitlyn Mar 08 08:00:00 EDT 2023 [facility] TueDec 06 14:30:00 EDT 2024Dec 19 07:00:00 EDT 2024 Immunizations Name Dates Status TST-PPD intradermal TueJanuary 24 01:00:00 EDT 2024 Completed TST-PPD intradermal Wed January 31:00:00 EDT 2023 Completed TST-PPD intradermal Wed January 24:00:00 EDT 2023 Completed TST-PPD intradermal Caitlyn February 01 01:00:00 EDT 2023 Completed influenza, trivalent, adjuvanted Caitlyn Jul 05 01:0 0:00 EDT 2023 Completed TST-PPD intradermal Wed Aug 22 01:00:00 EST 2023 Completed TST-PPD intradermal Fri Aug 24 01:00:00 EST 2023 Completed TST-PPD intradermal Fri Aug 31 01:00:00 EST 2023 Completed TST-PPD intradermal Wed Aug 29 01:00:00 EST 2023 Completed TST-PPD intradermal Fri Dec 07 01:00:00 EDT 2024 Completed TST-PPD intradermal Fri Nov 14 01:00:00 EDT 2024 Completed TST-PPD intradermal Sun Nov 16 01:00:00 EDT 2024 Completed TST-PPD intradermal Fri Nov 21 01:00:00 EDT 2024 Completed TST-PPD intradermal Sun Nov 23 01:00:00 EDT 2024 Completed Medications Medication Directions Start Date End Date dexAMETHasone sodium phosphate (PF) 10 mg/mL injection solution 40 mg VIAL (ML) Intramuscular 1 Time Daily for 1 Day Indication: Muscle painAdminister steroid into right knee x1. TueJan 21 10:00:00 EDT 2024Jan 22 09:59:00 2024 lidocaine HCL 10 mg/mL (1 %) injection solution 5 mg VIAL (ML) Intramuscular 1 Time Daily for 1 Day Indication: Muscle pain Administer steroid into right knee x1. TueJan 21 10:00:00 EDT 2024Jan 22 09:59:00 ED2024 dexAMETHasone sodium phosphate (PF) 10 mg/mL injection solution 40 mg VIAL (ML) Intramuscular 1 Time Daily for 1 Day Indication: Muscle painAdminister steroid into left knee x1. TueJan 21 10:00:00 EDT 2024Jan 22 09:59:00 ED2024 furosemide 20 mg tablet 1 tablet TABLET Oral 1 Time Daily Indication: Edema total 40mg DISABILITY ATTORNEY supervision x1 TueJan 11 01:00:00 ED2024 benzonatate 200 mg capsule 1 capsule CAP DARA Oral PRN Every 8 Hours Indication: cough Sat Dec 29 16:00:00 EDT 2024 Mucus Relief ER 600 mg tablet, extended release 1 tablet TABLET, EXTENDED RELEASE 12 HR Oral PRN Every 12 Hours Indication: congestion Sat Dec 29 16:00:00 EDT 2024 Myrbetriq 25 mg tablet,extended release 1 tab TABLET, EXTENDED RELEASE 24 HR Oral 1 Time Daily Indication: OAB Caitlyn Dec 27 01:00:00 EDT 2024 oxyBUTYnin chloride ER 15 mg tablet,extended release 24 hr Take 1 TABLET, EXTENDED RELEASE 24 HR Oral 1 Time Daily Indication: OABCNA supervision x1 TueDec 19 15:05:00 EDT 2024Dec 26 21:22:00 EDT 2024 Eliquis 5 mg tablet Take 1 TABLET Oral 2 Times Daily Indication: blood clot prevention DISABILITY ATTORNEY supervision x1, x4 TueDec 19 15:07:00 EDT 2024 propranoloL ER 80 mg capsule,24 hr,extended release 2 tabs CAPSULE, EXTENDED RELEASE 24HR Oral 1 Time Daily Indication: HTN HIGH BLOOD PRESSURE BP and/or Pulse Hold: Systolic Blood Pressure < 100 Hold;Vitals (Diastolic Blood Pressure) < 60 Hold;Vital Signs (Pulse) < 55 Hold;.DISABILITY ATTORNEY supervision x1 TueDec 19 15:13:00 EDT 2024 furosemide 20 mg tablet 1 tablet TABLET Oral 1 Time Daily Indication: Edema DISABILITY ATTORNEY supervision x1 TueDec 19 15:14:00 EDT 2024 acetaminophen 325 mg capsule 2 tablets CAPSULE Oral PRN Every 6 Hours Indication: PainNurse to administer TueDec 19 15:16:00 EDT 2024 Vitamin D3 125 mcg (5,000 unit) tablet 1 tab TABLET Oral 1 Time Daily Indication: Vitamin D deficiencyCNA supervision X1 TueDec 19 15:17:00 EDT 2024 melatonin 5 mg tablet 1 tablet TABLET Or al 1 Time Daily Indication: Insomnia DISABILITY ATTORNEY supervision x4 TueDec 19 15:00:00 EDT 2024 Lidocaine Pain Relief 4 % topical patch 1-2 patches ADHESIVE PATCH, MEDICATED Topical PRN 2 Times Daily Indication: pain Apply 1-2 patches to LLE in am and remove at HS. TueDec 19 15:00:00 EDT 2024 Lidocaine Pain Relief 4 % topical patch Apply 1-2 patches ADHESIVE PATCH, MEDICATED Topical 2 Times Daily Indication: Pain Apply 1-2 patches to LLE in am and remove at HS for pain TueDec 11 11:23:00 EDT 2024Dec 19 01:00:00 EDT 2024 benzonatate 200 mg capsule 200 mg CAPSUL E Oral 3 Times Daily for 5 Days Indication: cough TueDec 11 09:00:00 EDT 2024Dec 16 08:59:00 EDT 2024 Vitamin D3 125 mcg (5,000 unit) tablet 5,000 units TABLET Oral 1 Time Daily Indication: supplement TueDec 09 13:00:00 EDT 2024Dec 19 01:00:00 EDT 2024 benzonatate 200 mg capsule 200 mg CAPSUL E Oral 3 Times Daily for 5 Days Indication: cough TueDec 09 13:00:00 EDT 2024Dec 10 12:23:00 EDT 2024 benzonatate 200 mg capsule 200 mg CAPSUL E Oral 3 Times Daily for 5 Days Indication: cough TueDec 10 07:00:00 EDT 2024Dec 10 12:23:00 EDT 2024 Mucinex 1,200 mg tablet, extended release 1 TAB TABLET, EXTENDED RELEASE 12 HR Oral 2 Times Daily for 8 Days Indication: congestion Tue 13 22:00:00 EDT 2024Dec 14 21:59:00 EDT 2024 oxyBUTYnin chloride ER 15 mg tablet,extended release 24 hr 1 TAB TABLET, EXTENDED RELEASE 24 HR Oral 1 Time Daily Indication: Bladder spasms TueDec 07 14:22:00 EDT 2024Dec 19 01:00:00 EDT 2024 Eliquis 5 mg tablet 1 TAB TABLET Oral 2 Times Daily Indication: DVT proph TueDec 07 14:22:00 EDT 2024Dec 19 01:00:00 ED2024 propranoloL ER 80 mg capsule,24 hr,extended release 160mg CAPSULE, EXTENDED RELEASE 24HR Oral 1 Time Daily Indication: HTN TueDec 07 14:23:00 ED2024Dec 07 14:25:00 ED2024 propranoloL ER 80 mg capsule,24 hr,extended release 160mg CAPSULE, EXTENDED RELEASE 24HR Oral 1 Time Daily Indication: HTN TueDec 07 14:24:00 T 2024Dec 19 01:00:00 ED2024 furosemide 20 mg tablet 1 tablet TABLET Oral 1 Time Daily Indication: CHF TueDec 07 14:25:00 EDT 2024Dec 19 01:00:00 EDT 2024 melatonin 5 mg tablet 1 tablet TABLET Or al 1 Time Daily Indication: Insomnia TueDec 07 14:25:00 ED2024Dec 19 01:00:00 EDT 2024 acetaminophen 325 mg tablet 2 tablets TABLET Oral PRN Every 6 Hours Indication: Pain TueDec 07 14:28:00 EDT 2024Dec 19 01:00:00 EDT 2024 TubersoL 5 tub. unit/0.1 mL intradermal injection solution 0.1 ml VIAL (ML) Intradermal 1 Time Weekly for 2 Weeks Indication: TB 1st injection on admission, then one week after. Read between 48 and 72 hours TueDec 07 07:00:00 EDT 2024Dec 19 01:00:00 EDT 2024 TubersoL 5 tub. unit/0.1 mL intradermal injection solution Read Results VIAL (ML) Other 1 Time Weekly for 2 Weeks Indication: TB Read results between 48-72 hours after 1st and 2nd (1 week apart). Any reading of 10mm or greater results in a positive test, an x-ray will need to be ordered as a follow up. TueDec 07 14:31:00 2024Dec 19 01:00:00 EDT 2024 oxyBUTYnin chloride ER 15 mg tablet,extended release 24 hr 1 TAB TABLET, EXTENDED RELEASE 24 HR Oral 1 Time Daily Indication: Bladder spasms TueDec 06 19:00:00 2024Dec 07 14:23:00 2024 Eliquis 5 mg tablet 1 TAB TABLET Oral 2 Times Daily Indication: Anticoagulant TueDec 06 21:30:00 2024Dec 07 14:23:00 2024 propranoloL ER 80 mg capsule,24 hr,extended release 2 tabs CAPSULE, EXTENDED RELEASE 24HR Oral 1 Time Daily Indication: HTN TueDec 06 19:00:00 2024Dec 07 14:25:00 ED2024 furosemide 20 mg tablet 1 tablet TABLET Oral 1 Time Daily Indication: CHF TueDec 06 19:00:00 ED2024Dec 07 14:26:00 2024 Mucinex 1,200 mg tablet, extended release 1 TAB TABLET, EXTENDED RELEASE 12 HR Oral 2 Times Daily for 8 Days Indication: congestion TueDec 06 22:00:00 ED2024Dec 07 14:22:00 2024 melatonin 5 mg tablet 1 tab TABLET Oral 1 Time Daily Indication: sleep TueDec 06 22:00:00 2024Dec 07 14:29:00 ED2024 acetaminophen 325 mg tablet 2 tab TABLET Oral PRN Every 6 Hours Indication: pain TueDec 06 22:00:00 EDT 2024Dec 07 14:29:00 EDT 2024 TubersoL 5 tub. unit/0.1 mL intradermal injection solution 0.1 ml VIAL (ML) Intradermal 1 Time Weekly for 2 Weeks Indication: TB 1st injection on admission, then one week after. Read between 48 and 72 hours TueDec 06 01:00:00 EDT 2024Dec 07 14:31:00 EDT 2024 TubersoL 5 tub. unit/0.1 mL intradermal injection solution Read Results VIAL (ML) Other 1 Time Weekly for 2 Weeks Indication: TB Read results between 48-72 hours after 1st and 2nd (1 week apart). Any reading of 10mm or greater results in a positive test, an x-ray will need to be ordered as a follow up. TueDec 06 01:00:00 EDT 2024Dec 07 14:32:00 EDT 2024 Vitamin D3 125 mcg (5,000 unit) tablet 1 tab TABLET Oral 1 Time Daily Indication: Vitamin D deficiencyCNA supervision X1 TueNov 28 01:00:00 EST 2024Dec 19 15:18:00 EDT 2024 meloxicam 7.5 mg tablet 1 TABLET TABLET Oral PRN 1 Time Daily Indication: pain TueNov 05 17:00:00 EST 2024Dec 19 15:43:00 EDT 2024 ondansetron 4 mg disintegrating tablet 1 tablet TABLET,DISINTEGRATING Oral PRN for 10 Days Indication: For nausea and vomiting. Give 1 tablet po every 8 hours PRN for 10 days. TueOct 01 03:00:00 EST 2024Oct 11 02:59:00 EST 2024 TubersoL 5 tub. unit/0.1 mL intradermal injection solution Read Results VIAL (ML) Other 1 Time Weekly for 2 Weeks Indication: rule out tb Read results between 48-72 hours after 1st and 2nd (1 week apart). If positive do chest x-ray. TueAug 24 07:00:00 EST 2023Sep 07 06:59:00 EST 2023 TubersoL 5 tub. unit/0.1 mL intradermal injection solution 0.1 ml VIAL (ML) Intradermal 1 Time Weekly for 2 Weeks Indication: rule out tb 1st injection on admission, then one week after. Read between 48 and 72 hours TueAug 22 07:00:00 EST 2023Sep 05 06:59:00 EST 2023 Fluad Triv (65y up)(PF) 45 mcg (15 mcg x 3)/0.5 mL IM syringe 1 SYRINGE (ML) Intramuscular 1 Time Daily for 1 Day Indication: Vaccine TueJul 05 01:00:00 EDT 2023Jul 06 00:59:00 EDT 2023 furosemide 20 mg tablet 1 tablet TABLET Oral 1 Time Daily Indication: Edema DISABILITY ATTORNEY supervision x1 TueMar 02 01:00:00 EDT 2023Dec 19 15:15:00 EDT 2024 doxycycline hyclate 100 mg capsule 1 tab CAPSULE Oral 2 Times Daily for 10 Days Indication: URI DISABILITY ATTORNEY Supervision X1 x4 TueFebruary 23 01:00:00 EDT 2023Mar 05 00:59:00 EDT 2023 azithromycin 250 mg tablet 2 tabs TABLET Oral 1 Time Daily for 1 Day Indication: Bronchitis DISABILITY ATTORNEY Supervision x1 TueFebruary 16 01:00:00 EDT 2023February 17 00:59:00 EDT 2023 azithromycin 250 mg tablet 1 tabs TABLET Oral 1 Time Daily for 4 Days Indication: Bronchitis DISABILITY ATTORNEY Supervision x1 TueFebruary 17 01:00:00 EDT 2023February 21 00:59:00 EDT 2023 Mucus DM 30 mg-600 mg tablet,extended release 1 tab TABLET, EXTENDED RELEASE 12 HR Oral 2 Times Daily for 7 Days Indication: Bronchitis /cough DISABILITY ATTORNEY Supervision x1 x4 TueFebruary 16 01:00:00 EDT 2023February 23 00:59:00 EDT 2023 oxyBUTYnin chloride ER 15 mg tablet,extended release 24 hr Take 1 TABLET, EXTENDED RELEASE 24 HR Oral 1 Time Daily Indication: OABCNA supervision x1 TueFebruary 11 14:00:00 EDT 2023Dec 19 15:07:00 EDT 2024 Eliquis 5 mg tablet Take 1 TABLET Oral 2 Times Daily Indication: blood clot prevention DISABILITY ATTORNEY supervision x1, x4 TueFebruary 11 14:00:00 EDT 2023Dec 19 15:13:00 EDT 2024 acetaminophen 325 mg capsule 650 mg CAPSULE Oral PRN Every 6 Hours Indication: PainNurse to administer TueFebruary 11 14:00:00 EDT 2023Dec 19 15:17:00 EDT 2024 propranoloL ER 80 mg capsule,24 hr,extended release 2 tabs CAPSULE, EXTENDED RELEASE 24HR Oral 1 Time Daily Indication: HIGH BLOOD PRESSURE BP and/or Pulse Hold: Systolic Blood Pressure < 100 Hold;Vitals (Diastolic Blood Pressure) < 60 Hold;Vital Signs (Pulse) < 55 Hold;.DISABILITY ATTORNEY supervision x1 TueFebruary 11 06:00:00 EDT 2023February 11 17:01:00 EDT 2023 acetaminophen 325 mg tablet 2 tabs TABLET Oral 4 Times Daily Indication: PainCNA supervision x1, x2, x3, x4 TueFebruary 11 14:00:00 EDT 2023Dec 19 15:42:00 EDT 2024 propranoloL ER 80 mg capsule,24 hr,extended release 2 tabs CAPSULE, EXTENDED RELEASE 24HR Oral 1 Time Daily Indication: HIGH BLOOD PRESSURE BP and/or Pulse Hold: Systolic Blood Pressure < 100 Hold;Vitals (Diastolic Blood Pressure) < 60 Hold;Vital Signs (Pulse) < 55 Hold;.DISABILITY ATTORNEY supervision x1 TueFebruary 11 17:00:00 EDT 2023Dec 19 15:15:00 EDT 2024 Blood Pressure Kit 1 KIT Other 2 Times Monthly Indication: Vital signs DISABILITY ATTORNEY to obtain vital signs TueFebruary 11 14:00:00 EDT 2023 acetaminophen 325 mg tablet Take 2 TABLET Oral Every 6 Hours Indication: Pain TueFebruary 01 05:00:00 EDT 2023February 11 01:00:00 EDT 2023 propranoloL ER 80 mg capsule,24 hr,extended release 160 MG CAPSULE, EXTENDED RELEASE 24HR Oral 1 Time Daily Indication: HIGH BLOOD PRESSURE BP and/or Pulse Hold: Systolic Blood Pressure < 100 Hold;Vitals (Diastolic Blood Pressure) < 60 Hold;Vital Signs (Pulse) < 55 Hold;. TueJanuary 29 07:00:00 EDT 2023February 11 01:00:00 EDT 2023 acetaminophen 325 mg capsule 650 mg CAPSULE Oral PRN Every 6 Hours Indication: Pain TueJanuary 28 13:00:00 EDT 2023February 11 01:00:00 EDT 2023 acetaminophen 325 mg capsule 650 mg CAPSULE Oral PRN Every 6 Hours Indication: Pain TueJanuary 24 17:00:00 EDT 2023January 28 08:55:00 EDT 2023 TubersoL 5 tub. unit/0.1 mL intradermal injection solution 0.1 ml VIAL (ML) Intradermal 1 Time Weekly for 2 Weeks Indication: 1st injection on admission, then one week after. Read between 48 and 72 hours TueJanuary 24 15:00:00 EDT 2023February 07 14:59:00 EDT 2023 TubersoL 5 tub. unit/0.1 mL intradermal injection solution Read Results VIAL (ML) Other 1 Time Weekly for 2 Weeks Indication: Read results between 48-72 hours after 1st and 2nd (1 week apart). If positive do chest x-ray. TueJanuary 24 15:00:00 EDT 2023February 07 14:59:00 EDT 2023 oxyBUTYnin chloride ER 15 mg tablet,extended release 24 hr Take 1 TABLET, EXTENDED RELEASE 24 HR Oral 1 Time Daily Indication: OAB TueJanuary 24 15:00:00 EDT 2023February 11 01:00:00 EDT 2023 propranoloL ER 160 mg capsule,24 hr,extended release Take 1 CAPSULE, EXTENDED RELEASE 24HR Oral 1 Time Daily BP and/or Pulse Hold: Systolic Blood Pressure < 110 Hold;Vitals (Diastolic Blood Pressure) < 60 Hold;. Indication: HTN TueJanuary 24 15:00:00 EDT 2023January 29 09:04:00 EDT 2023 Eliquis 5 mg tablet Take 1 TABLET Oral 2 Times Daily Indication: blood clot prevention TueJanuary 24 15:00:00 EDT 2023February 11 01:00:00 EDT 2023 Problems Active Concerns * Muscle weakness (generalized)* Code: * Start Date: TueFebruary 17 00:00:00 EDT 2020 * End Date: * Text: * History of falling* Code: * Start Date: TueJul 22 00:00:00 EDT 2020 * End Date: * Text: * Unspecified osteoarthritis, unspecified site* Code: * Start Date: TueJanuary 24 00:00:00 EDT 2023 * End Date: * Text: * Varicose veins of bilateral lower extremities with other complications* Code: * Start Date: TueJanuary 24 00:00:00 EDT 2023 * End Date: * Text: * Localized edema* Code: * Start Date: TueJanuary 24 00:00:00 EDT 2023 * End Date: * Text: * Lymphedema, not elsewhere classified* Code: * Start Date: TueJanuary 24 00:00:00 EDT 2023 * End Date: * Text: * [facility] (current) use of anticoagulants* Code: * Start Date: TueJanuary 24 00:00:00 EDT 2023 * End Date: * Text: * Personal history of pulmonary embolism* Code: * Start Date: TueJanuary 24 00:00:00 EDT 2023 * End Date: * Text: * Personal history of other venous thrombosis and embolism* Code: * Start Date: TueJanuary 24 00:00:00 EDT 2023 * End Date: * Text: * Nondisplaced fracture of distal pole of navicular [scaphoid] bone of right wrist, subsequent encounter for fracture with nonunion* Code: * Start Date: TueJanuary 24 00:00:00 EDT 2023 * End Date: * Text: * Essential (primary) hypertension* Code: * Start Date: TueJanuary 24 00:00:00 EDT 2023 * End Date: * Text: * Other fatigue* Code: * Start Date: TueJanuary 24 00:00:00 EDT 2023 * End Date: * Text: * Noninfective gastroenteritis and colitis, unspecified* Code: * Start Date: TueJanuary 24 00:00:00 EDT 2023 * End Date: * Text: * Unspecified fall, subsequent encounter* Code: * Start Date: TueDec 06 00:00:00 EDT 2024 * End Date: * Text: * Unspecified inflammatory spondylopathy, site unspecified* Code: * Start Date: TueJanuary 24 00:00:00 EDT 2023 * End Date: * Text: * Altered mental status, unspecified* Code: * Start Date: TueJanuary 24 00:00:00 EDT 2023 * End Date: * Text: * Weakness* Code: * Start Date: TueFebruary 13 00:00:00 EDT 2023 * End Date: * Text: * Unsteadiness on feet* Code: * Start Date: TueFebruary 13 00:00:00 EDT 2023 * End Date: * Text: * Atrioventricular block, first degree* Code: * Start Date: TueDec 06 00:00:00 EDT 2024 * End Date: * Text: * Spondylosis without myelopathy or radiculopathy, cervical region* Code: * Start Date: TueDec 06 00:00:00 EDT 2024 * End Date: * Text: * Spondylolisthesis, cervical region* Code: * Start Date: TueDec 06 00:00:00 EDT 2024 * End Date: * Text: * Pleural effusion, not elsewhere classified* Code: * Start Date: TueDec 06 00:00:00 EDT 2024 * End Date: * Text: * Overactive bladder* Code: * Start Date: TueJanuary 24 00:00:00 EDT 2023 * End Date: * Text: * Insomnia, unspecified* Code: * Start Date: TueDec 06 00:00:00 EDT 2024 * End Date: * Text: * Vitamin D deficiency, unspecified* Code: * Start Date: TueDec 06 00:00:00 EDT 2024 * End Date: * Text: * Chronic obstructive pulmonary disease with (acute) lower respiratory infection * Code: * Start Date: TueDec 20 00:00:00 EDT 2024 * End Date: * Text: * Other abnormalities of gait and mobility* Code: * Start Date: TueDec 20 00:00:00 EDT 2024 * End Date: * Text: * LSS_COPD Gaurav Nova has diagnosis of COPD.* Code: * Start Date: TueDec 14 00:00:00 EDT 2024 * End Date: * Text: LSS_COPD Gaurav Nova has diagnosis of COPD. * LSS_Falls Gaurav Nova is at risk for falls/injury as evidenced by: history of falls, cognitive status/behavior, vision status, continence, mobility, balance.* Code: * Start Date: TueDec 14 00:00:00 EDT 2024 * End Date: * Text: LSS_Falls Gaurav Nova is at risk for falls/injury as evidenced by: history of falls, cognitive status/behavior, vision status, continence, mobility, balance. * LSS_Skin Integrity - (Potential Alteration of)- Rohini is at risk for developing impaired skin integrity.* Code: * Start Date: TueDec 14 00:00:00 EDT 2024 * End Date: * Text: LSS_Skin Integrity - (Potential Alteration of)- Rohini is at risk for developing impaired skin integrity. * LSS_ADLs - Rohini has ADL selfcare deficit related to decreased mobility and muscle weakness* Code: * Start Date: TueDec 14 00:00:00 EDT 2024 * End Date: * Text: LSS_ADLs - Rohini has ADL selfcare deficit related to decreased mobility and muscle weakness * LSS_Urinary Incontinence1 - Rohini is occasionally incontinent.* Code: * Start Date: TueDec 14 00:00:00 EDT 2024 * End Date: * Text: LSS_Urinary Incontinence1 - Rohini is occasionally incontinent. * Rohini is at risk for weight loss related to COPD dx* Code: * Start Date: TueDec 17 00:00:00 EDT 2024 * End Date: * Text: Rohini is at risk for weight loss related to COPD dx * LSS_Social Services- Rohini's wishes will be followed (Advanced Directive/Code Status).* Code: * Start Date: TueDec 18 00:00:00 EDT 2024 * End Date: * Text: LSS_Social Services- Rohini's wishes will be followed (Advanced Directive/Code Status). * LSS_Social Services- Rohini will be involved in goal development to the best of his or her ability.* Code: * Start Date: TueDec 18 00:00:00 EDT 2024 * End Date: * Text: LSS_Social Services- Rohini will be involved in goal development to the best of his or her ability. * LSS_Social Services- Rohini has impaired cognition.* Code: * Start Date: TueDec 18 00:00:00 EDT 2024 * End Date: * Text: LSS_Social Services- Rohini has impaired cognition. * LSS_Social Services- Rohini has family/friends who are supportive.* Code: * Start Date: TueDec 18 00:00:00 EDT 2024 * End Date: * Text: LSS_Social Services- Rohini has family/friends who are supportive. * LSS_Social Services- Rohini's mobility level is different than prior level due to current medical condition.* Code: * Start Date: TueDec 18 00:00:00 EDT 2024 * End Date: * Text: LSS_Social Services- Rohini's mobility level is different than prior level due to current medical condition. * LSS_Social Services- Rohini will be involved in discharge planning.* Code: * Start Date: TueDec 18 00:00:00 EDT 2024 * End Date: * Text: LSS_Social Services- Rohini will be involved in discharge planning. Resolved Concerns * Problem Acute upper respiratory infection, unspecified* Code: * Start Date: TueDec 06 00:00:00 EDT 2024 * End Date: TueJan 09 00:00:00 EDT 2024 * Problem Unspecified dementia, unspecified severity, without behavioral disturbance, psychotic disturbance, mood disturbance, and anxiety* Code: * Start Date: TueDec 06 00:00:00 EDT 2024 * End Date: TueDec 11 00:00:00 EDT 2024 Vital Signs Vital Sign Measurement Date Systolic Blood Pressure 127.00 mm[Hg] TueJan 17 11:06:10 EDT 2024 Diastolic Blood Pressure 74.00 mm[Hg] TueJan 17 11:06:10 EDT 2024 Heart Rate 72.00 /min TueJan 17 11:06 :10 EDT 2024 Systolic Blood Pressure 133.00 mm[Hg] TueJan 16 08:03:47 EDT 2024 Diastolic Blood Pressure 75.00 mm[Hg] TueJan 16 08:03:47 EDT 2024 Heart Rate 67.00 /min TueJan 16 08:03 :47 EDT 2024 Systolic Blood Pressure 109.00 mm[Hg] TueJan 15 08:26:28 EDT 2024 Diastolic Blood Pressure 62.00 mm[Hg] TueJan 15 08:26:28 EDT 2024 Heart Rate 59.00 /min TueJan 15 08:26 :28 EDT 2024 Systolic Blood Pressure 140.00 mm[Hg] TueJan 14 10:55:46 EDT 2024 Diastolic Blood Pressure 78.00 mm[Hg] TueJan 14 10:55:46 EDT 2024 Heart Rate 62.00 /min TueJan 14 10:55 :46 EDT 2024 Systolic Blood Pressure 140.00 mm[Hg] TueJan 13 09:04:45 EDT 2024 Diastolic Blood Pressure 65.00 mm[Hg] TueJan 13 09:04:45 EDT 2024 Heart Rate 76.00 /min TueJan 13 09:04 :45 EDT 2024 Systolic Blood Pressure 121.00 mm[Hg] Sat Jan 12 11:32:10 EDT 2024 Diastolic Blood Pressure 61.00 mm[Hg] TueJan 12 11:32:10 EDT 2024 Heart Rate 65.00 /min Sat Dec 19 11:32 :10 EDT 2024 Systolic Blood Pressure 119.00 mm[Hg] Tue 18 11:06:01 EDT 2024 Diastolic Blood Pressure 58.00 mm[Hg] Tue 18 11:06:01 EDT 2024 Heart Rate 72.00 /min Tue 18 11:06 :01 EDT 2024 Systolic Blood Pressure 119.00 mm[Hg] Caitlyn Dec 17 22:49:29 EDT 2024 Diastolic Blood Pressure 60.00 mm[Hg] Caitlyn Dec 17 22:49:29 EDT 2024 Body weight 192.60 [lb_av] Caitlyn Dec 17 22:49 :29 EDT 2024 Heart Rate 55.00 /min Caitlyn Dec 17 22:49 :29 EDT 2024 Body temperature 97.70 [degF] Caitlyn Dec 17 22:4 9:29 EDT 2024 Respiratory rate 18.00 /min Caitlyn Dec 17 22:4 9:29 EDT 2024 Systolic Blood Pressure 112.00 mm[Hg] Caitlyn Dec 17 08:02:15 EDT 2024 Diastolic Blood Pressure 53.00 mm[Hg] Caitlyn Dec 17 08:02:15 EDT 2024 Heart Rate 50.00 /min Caitlyn Dec 17 08:02 :15 EDT 2024 Systolic Blood Pressure 131.00 mm[Hg] Tue 16 10:45:02 EDT 2024 Diastolic Blood Pressure 61.00 mm[Hg] Tue 16 10:45:02 EDT 2024 Heart Rate 66.00 /min Tue 16 10:45 :02 EDT 2024 Systolic Blood Pressure 109.00 mm[Hg] Tue 15 10:08:42 EDT 2024 Diastolic Blood Pressure 60.00 mm[Hg] Tue 15 10:08:42 EDT 2024 Heart Rate 51.00 /min Tue 15 10:08 :42 EDT 2024 Systolic Blood Pressure 135.00 mm[Hg] Tue 14 11:04:51 EDT 2024 Diastolic Blood Pressure 67.00 mm[Hg] Tue 14 11:04:51 EDT 2024 Heart Rate 68.00 /min Tue 14 11:04 :51 EDT 2024 Systolic Blood Pressure 126.00 mm[Hg] Sun Dec 13 08:38:36 EDT 2024 Diastolic Blood Pressure 58.00 mm[Hg] Sun Jan 06 08:38:36 EDT 2024 Heart Rate 54.00 /min TueJan 06 08:38 :36 EDT 2024 Systolic Blood Pressure 127.00 mm[Hg] Sat Dec 12 08:34:27 EDT 2024 Diastolic Blood Pressure 86.00 mm[Hg] Sat Jan 05 08:34:27 EDT 2024 Heart Rate 78.00 /min Sat Jan 05 08:34 :27 EDT 2024 Systolic Blood Pressure 142.00 mm[Hg] TueJan 04 14:40:54 EDT 2024 Diastolic Blood Pressure 48.00 mm[Hg] TueJan 04 14:40:54 EDT 2024 Heart Rate 60.00 /min TueJan 04 14:40 :54 EDT 2024 Systolic Blood Pressure 105.00 mm[Hg] Caitlyn Jan 03 11:28:00 EDT 2024 Diastolic Blood Pressure 57.00 mm[Hg] TueJan 03 11:28:00 EDT 2024 Heart Rate 50.00 /min TueJan 03 11:28 :00 EDT 2024 Systolic Blood Pressure 113.00 mm[Hg] TueJan 02 11:42:21 EDT 2024 Diastolic Blood Pressure 52.00 mm[Hg] TueJan 02 11:42:21 EDT 2024 Heart Rate 55.00 /min TueJan 02 11:42 :21 EDT 2024 Systolic Blood Pressure 98.00 mm[Hg] TueJan 01 08:23:40 EDT 2024 Diastolic Blood Pressure 64.00 mm[Hg] TueJan 01 08:23:40 EDT 2024 Heart Rate 71.00 /min TueJan 01 08:23 :40 EDT 2024 Systolic Blood Pressure 94.00 mm[Hg] TueDec 31 09:05:49 EDT 2024 Diastolic Blood Pressure 63.00 mm[Hg] TueDec 31 09:05:49 EDT 2024 Heart Rate 63.00 /min TueDec 31 09:05 :49 EDT 2024 Systolic Blood Pressure 142.00 mm[Hg] Sun Dec 30 08:13:59 EDT 2024 Diastolic Blood Pressure 64.00 mm[Hg] Sun Dec 30 08:13:59 EDT 2024 Heart Rate 71.00 /min Sun Dec 30 08:13 :59 EDT 2024 Systolic Blood Pressure 96.00 mm[Hg] Sat Apr 05 09:08:21 EDT 2025 Diastolic Blood Pressure 74.00 mm[Hg] Sat Dec 29 09:08:21 EDT 2024 Heart Rate 90.00 /min Sat Dec 29 09:08 :21 EDT 2024 Systolic Blood Pressure 111.00 mm[Hg] Fri Dec 28 10:35:52 EDT 2024 Diastolic Blood Pressure 58.00 mm[Hg] TueDec 28 10:35:52 EDT 2024 Heart Rate 66.00 /min TueDec 28 10:35 :52 EDT 2024 Systolic Blood Pressure 122.00 mm[Hg] Caitlyn Dec 27 18:30:20 EDT 2024 Diastolic Blood Pressure 73.00 mm[Hg] Caitlyn Dec 27 18:30:20 EDT 2024 Body weight 192.20 [lb_av] Caitlyn Dec 27 18:30 :20 EDT 2024 Heart Rate 54.00 /min Caitlyn Dec 27 18:30 :20 EDT 2024 Body temperature 98.20 [degF] Caitlyn Dec 27 18:3 0:20 EDT 2024 Respiratory rate 20.00 /min Caitlyn Dec 27 18:3 0:20 EDT 2024 Systolic Blood Pressure 118.00 mm[Hg] Caitlyn Dec 27 11:01:08 EDT 2024 Diastolic Blood Pressure 69.00 mm[Hg] Caitlyn Dec 27 11:01:08 EDT 2024 Heart Rate 62.00 /min Caitlyn Dec 27 11:01 :08 EDT 2024 Systolic Blood Pressure 135.00 mm[Hg] TueDec 26 09:15:47 EDT 2024 Diastolic Blood Pressure 75.00 mm[Hg] TueDec 26 09:15:47 EDT 2024 Heart Rate 78.00 /min TueDec 26 09:15 :47 EDT 2024 Systolic Blood Pressure 109.00 mm[Hg] TueDec 25 08:47:03 EDT 2024 Diastolic Blood Pressure 82.00 mm[Hg] TueDec 25 08:47:03 EDT 2024 Heart Rate 67.00 /min TueDec 25 08:47 :03 EDT 2024 Systolic Blood Pressure 109.00 mm[Hg] TueDec 24 10:58:05 EDT 2024 Diastolic Blood Pressure 54.00 mm[Hg] TueDec 24 10:58:05 EDT 2024 Heart Rate 52.00 /min TueDec 24 10:58 :05 EDT 2024 Systolic Blood Pressure 115.00 mm[Hg] Tue 30 08:40:07 EDT 2024 Diastolic Blood Pressure 63.00 mm[Hg] Tue 30 08:40:07 EDT 2024 Heart Rate 58.00 /min Tue 30 08:40 :07 EDT 2024 Systolic Blood Pressure 113.00 mm[Hg] Sat Mar 29 07:53:22 EDT 2024 Diastolic Blood Pressure 76.00 mm[Hg] Sat Nov 29 07:53:22 EDT 2024 Heart Rate 70.00 /min Tue 29 07:53 :22 EDT 2024 Systolic Blood Pressure 137.00 mm[Hg] TueDec 21 08:54:52 EDT 2024 Diastolic Blood Pressure 63.00 mm[Hg] TueDec 21 08:54:52 EDT 2024 Heart Rate 58.00 /min TueDec 21 08:54 :52 EDT 2024 Systolic Blood Pressure 93.00 mm[Hg] Caitlyn Dec 20 09:04:42 EDT 2024 Diastolic Blood Pressure 69.00 mm[Hg] Caitlyn Dec 20 09:04:42 EDT 2024 Heart Rate 58.00 /min Caitlyn Dec 20 09:04 :42 EDT 2024 Systolic Blood Pressure 123.00 mm[Hg] TueDec 19 10:33:44 EDT 2024 Diastolic Blood Pressure 63.00 mm[Hg] TueDec 19 10:33:44 EDT 2024 Systolic Blood Pressure 123.00 mm[Hg] TueDec 19 10:33:44 EDT 2024 Diastolic Blood Pressure 63.00 mm[Hg] TueDec 19 10:33:44 EDT 2024 Heart Rate 74.00 /min TueDec 19 10:33 :44 EDT 2024 Systolic Blood Pressure 123.00 mm[Hg] TueDec 19 09:41:10 EDT 2024 Diastolic Blood Pressure 63.00 mm[Hg] TueDec 19 09:41:10 EDT 2024 Heart Rate 74.00 /min TueDec 19 09:41 :10 EDT 2024 Body temperature 98.20 [degF] TueDec 19 09:4 1:10 EDT 2024 Respiratory rate 20.00 /min TueDec 19 09:4 1:10 EDT 2024 Pulse Oximetry 96.00 % TueDec 19 09:41 :10 EDT 2024 Systolic Blood Pressure 115.00 mm[Hg] TueDec 19 01:00:00 EDT 2024 Diastolic Blood Pressure 71.00 mm[Hg] TueDec 19 01:00:00 EDT 2024 Heart Rate 65.00 /min TueDec 19 01:00 :00 EDT 2024 Body weight 191.20 [lb_av] TueDec 19 01:00 :00 EDT 2024 Body temperature 98.40 [degF] TueDec 19 01:0 0:00 EDT 2024 Respiratory rate 18.00 /min TueDec 19 01:0 0:00 EDT 2024 Pulse Oximetry 98.00 % TueDec 19 01:00 :00 EDT 2024 Body Height 62.00 [in_i] TueDec 19 01:00 :00 EDT 2024 Systolic Blood Pressure 124.00 mm[Hg] TueDec 18 23:28:33 EDT 2024 Diastolic Blood Pressure 54.00 mm[Hg] TueDec 18 23:28:33 EDT 2024 Heart Rate 76.00 /min TueDec 18 23:28 :33 EDT 2024 Body temperature 98.50 [degF] TueDec 18 23:2 8:33 EDT 2024 Respiratory rate 18.00 /min TueDec 18 23:2 8:33 EDT 2024 Pulse Oximetry 97.00 % TueDec 18 23:28 :33 EDT 2024 Body weight 184.10 [lb_av] TueDec 18 17:16 :07 EDT 2024 Systolic Blood Pressure 112.00 mm[Hg] TueDec 18 09:33:13 EDT 2024 Diastolic Blood Pressure 56.00 mm[Hg] TueDec 18 09:33:13 EDT 2024 Heart Rate 59.00 /min TueDec 18 09:33 :13 EDT 2024 Body temperature 98.00 [degF] TueDec 18 09:3 3:13 EDT 2024 Respiratory rate 20.00 /min TueDec 18 09:3 3:13 EDT 2024 Pulse Oximetry 97.00 % TueDec 18 09:33 :13 EDT 2024 Systolic Blood Pressure 112.00 mm[Hg] TueDec 18 08:55:16 EDT 2024 Diastolic Blood Pressure 56.00 mm[Hg] TueDec 18 08:55:16 EDT 2024 Systolic Blood Pressure 112.00 mm[Hg] Tue Mar 25 08:55:16 EDT 2024 Diastolic Blood Pressure 56.00 mm[Hg] TueDec 18 08:55:16 EDT 2024 Heart Rate 59.00 /min TueDec 18 08:55 :16 EDT 2024 Systolic Blood Pressure 134.00 mm[Hg] TueDec 18 00:37:20 EDT 2024 Diastolic Blood Pressure 61.00 mm[Hg] TueDec 18 00:37:20 EDT 2024 Heart Rate 58.00 /min TueDec 18 00:37 :20 EDT 2024 Body temperature 98.20 [degF] TueDec 18 00:3 7:20 EDT 2024 Respiratory rate 18.00 /min TueDec 18 00:3 7:20 EDT 2024 Pulse Oximetry 99.00 % TueDec 18 00:37 :20 EDT 2024 Systolic Blood Pressure 131.00 mm[Hg] TueDec 17 09:12:16 EDT 2024 Diastolic Blood Pressure 54.00 mm[Hg] TueDec 17 09:12:16 EDT 2024 Systolic Blood Pressure 131.00 mm[Hg] Tue 24 09:12:16 EDT 2024 Diastolic Blood Pressure 54.00 mm[Hg] Tue 24 09:12:16 EDT 2024 Systolic Blood Pressure 131.00 mm[Hg] Tue 24 09:12:16 EDT 2024 Diastolic Blood Pressure 54.00 mm[Hg] Tue 24 09:12:16 EDT 2024 Heart Rate 51.00 /min Tue 24 09:12 :16 EDT 2024 Heart Rate 51.00 /min Tue 24 09:12 :16 EDT 2024 Body temperature 98.00 [degF] Tue 24 09:1 2:16 EDT 2024 Respiratory rate 18.00 /min Tue 24 09:1 2:16 EDT 2024 Pulse Oximetry 97.00 % Tue 24 09:12 :16 EDT 2024 Systolic Blood Pressure 121.00 mm[Hg] Tue 23 23:09:55 EDT 2024 Diastolic Blood Pressure 66.00 mm[Hg] TueDec 16 23:09:55 EDT 2024 Heart Rate 82.00 /min Tue 23 23:09 :55 EDT 2024 Body temperature 97.80 [degF] TueDec 16 23:0 9:55 EDT 2025 Respiratory rate 18.00 /min Sun Dec 16 23:0 9:55 EDT 2024 Pulse Oximetry 97.00 % Sun Dec 16 23:09 :55 EDT 2024 Systolic Blood Pressure 109.00 mm[Hg] TueDec 16 11:57:31 EDT 2024 Diastolic Blood Pressure 90.00 mm[Hg] Sun Dec 16 11:57:31 EDT 2024 Body weight 184.00 [lb_av] Sun Dec 16 11:57 :31 EDT 2024 Heart Rate 98.00 /min TueDec 16 11:57 :31 EDT 2024 Body temperature 97.40 [degF] Sun Dec 16 11:5 7:31 EDT 2024 Respiratory rate 16.00 /min TueDec 16 11:5 7:31 EDT 2024 Pulse Oximetry 98.00 % TueDec 16 11:57 :31 EDT 2024 Systolic Blood Pressure 128.00 mm[Hg] Sun Dec 16 11:51:23 EDT 2024 Diastolic Blood Pressure 64.00 mm[Hg] Sun Dec 16 11:51:23 EDT 2024 Systolic Blood Pressure 128.00 mm[Hg] Sun Dec 16 11:51:23 EDT 2024 Diastolic Blood Pressure 64.00 mm[Hg] Sun Dec 16 11:51:23 EDT 2024 Heart Rate 66.00 /min Sun Dec 16 11:51 :23 EDT 2024 Systolic Blood Pressure 104.00 mm[Hg] Sat Mar 21:42:50 EDT 2024 Diastolic Blood Pressure 57.00 mm[Hg] Sat Mar 21:42:50 EDT 2024 Heart Rate 61.00 /min Sat Mar 21:42 :50 EDT 2024 Body temperature 98.20 [degF] Sat Mar 21:4 2:50 EDT 2024 Respiratory rate 18.00 /min Sat Mar 22 21:4 2:50 EDT 2024 Pulse Oximetry 99.00 % Sat Mar 22 21:42 :50 EDT 2024 Body weight 185.40 [lb_av] Sat Mar 22 12:54 :15 EDT 2024 Systolic Blood Pressure 137.00 mm[Hg] Sat Mar 22 09:23:31 EDT 2024 Diastolic Blood Pressure 63.00 mm[Hg] Sat Mar 22 09:23:31 EDT 2024 Systolic Blood Pressure 137.00 mm[Hg] Sat Mar 22 09:23:31 EDT 2024 Diastolic Blood Pressure 63.00 mm[Hg] Sat Mar 22 09:23:31 EDT 2024 Heart Rate 62.00 /min Tue Mar 22 09:23 :31 EDT 2024 Systolic Blood Pressure 137.00 mm[Hg] Sat Mar 22 08:29:44 EDT 2024 Diastolic Blood Pressure 63.00 mm[Hg] Sat Mar 22 08:29:44 EDT 2024 Heart Rate 62.00 /min Tue Mar 08:29 :44 EDT 2024 Body temperature 98.00 [degF] Sat Mar 22 08:2 9:44 EDT 2024 Respiratory rate 16.00 /min Sat Mar 08:2 9:44 EDT 2024 Pulse Oximetry 99.00 % [facility] Mar 08:29 :44 EDT 2024 Systolic Blood Pressure 110.00 mm[Hg] Tue 22 01:49:47 EDT 2024 Diastolic Blood Pressure 72.00 mm[Hg] TueDec 15 01:49:47 EDT 2024 Heart Rate 68.00 /min [facility] Dec 15 01:49 :47 EDT 2024 Body temperature 98.20 [degF] [facility] Dec 15 01:4 9:47 EDT 2024 Respiratory rate 16.00 /min TueDec 15 01:4 9:47 EDT 2024 Pulse Oximetry 98.00 % [facility] Dec 15 01:49 :47 EDT 2024 Body weight 181.00 [lb_av] TueDec 14 17:50 :27 EDT 2024 Systolic Blood Pressure 103.00 mm[Hg] TueDec 14 10:12:18 EDT 2024 Diastolic Blood Pressure 55.00 mm[Hg] TueDec 14 10:12:18 EDT 2024 Systolic Blood Pressure 103.00 mm[Hg] TueDec 14 10:12:18 EDT 2024 Diastolic Blood Pressure 55.00 mm[Hg] TueDec 14 10:12:18 EDT 2024 Systolic Blood Pressure 103.00 mm[Hg] TueDec 14 10:12:18 EDT 2024 Diastolic Blood Pressure 55.00 mm[Hg] TueDec 14 10:12:18 EDT 2024 Heart Rate 74.00 /min TueDec 14 10:12 :18 EDT 2024 Heart Rate 74.00 /min TueDec 14 10:12 :18 EDT 2024 Body temperature 97.40 [degF] TueDec 14 10:1 2:18 EDT 2024 Respiratory rate 16.00 /min Tue 21 10:1 2:18 EDT 2024 Pulse Oximetry 98.00 % TueDec 14 10:12 :18 EDT 2024 Systolic Blood Pressure 114.00 mm[Hg] Tue 20 21:49:23 EDT 2024 Diastolic Blood Pressure 50.00 mm[Hg] Caitlynnov 20 21:49:23 EDT 2024 Heart Rate 68.00 /min Caitlynnov 20 21:49 :23 EDT 2024 Body temperature 98.00 [degF] Caitlynnov 20 21:4 9:23 EDT 2024 Respiratory rate 18.00 /min Tue 20 21:4 9:23 EDT 2024 Pulse Oximetry 95.00 % Caitlynnov 20 21:49 :23 EDT 2024 Systolic Blood Pressure 117.00 mm[Hg] Caitlynnov 20 10:05:07 EDT 2024 Diastolic Blood Pressure 57.00 mm[Hg] Caitlynnov 20 10:05:07 EDT 2024 Body weight 181.60 [lb_av] Caitlyn Dec 13 10:05 :07 EDT 2024 Heart Rate 56.00 /min Tue 20 10:05 :07 EDT 2024 Body temperature 98.20 [degF] Caitlynnov 20 10:0 5:07 EDT 2024 Respiratory rate 18.00 /min Caitlynnov 20 10:0 5:07 EDT 2024 Pulse Oximetry 95.00 % Caitlynnov 20 10:05 :07 EDT 2024 Systolic Blood Pressure 117.00 mm[Hg] Caitlynnov 20 09:42:04 EDT 2024 Diastolic Blood Pressure 57.00 mm[Hg] Caitlynnov 20 09:42:04 EDT 2024 Systolic Blood Pressure 117.00 mm[Hg] Caitlynnov 20 09:42:04 EDT 2024 Diastolic Blood Pressure 57.00 mm[Hg] Caitlynnov 20 09:42:04 EDT 2024 Heart Rate 55.00 /min Caitlynnov 20 09:42 :04 EDT 2024 Systolic Blood Pressure 146.00 mm[Hg] Caitlynnov 20 00:00:56 EDT 2024 Diastolic Blood Pressure 77.00 mm[Hg] Caitlynnov 20 00:00:56 EDT 2024 Heart Rate 97.00 /min Caitlynnov 20 00:00 :56 EDT 2024 Body temperature 98.20 [degF] Tue 20 00:0 0:56 EDT 2024 Respiratory rate 20.00 /min TueDec 13 00:0 0:56 EDT 2024 Pulse Oximetry 98.00 % TueDec 13 00:00 :56 EDT 2024 Body weight 182.40 [lb_av] TueDec 12 13:53 :22 EDT 2024 Systolic Blood Pressure 129.00 mm[Hg] TueDec 12 13:39:16 EDT 2024 Diastolic Blood Pressure 57.00 mm[Hg] TueDec 12 13:39:16 EDT 2024 Heart Rate 71.00 /min TueDec 12 13:39 :16 EDT 2024 Body temperature 98.20 [degF] TueDec 12 13:3 9:16 EDT 2024 Respiratory rate 18.00 /min TueDec 12 13:3 9:16 EDT 2024 Pulse Oximetry 92.00 % TueDec 12 13:39 :16 EDT 2024 Systolic Blood Pressure 129.00 mm[Hg] TueDec 12 08:58:54 EDT 2024 Diastolic Blood Pressure 57.00 mm[Hg] TueDec 12 08:58:54 EDT 2024 Systolic Blood Pressure 129.00 mm[Hg] TueDec 12 08:58:54 EDT 2024 Diastolic Blood Pressure 57.00 mm[Hg] TueDec 12 08:58:54 EDT 2024 Heart Rate 71.00 /min TueDec 12 08:58 :54 EDT 2024 Systolic Blood Pressure 131.00 mm[Hg] TueDec 12 00:06:58 EDT 2024 Diastolic Blood Pressure 69.00 mm[Hg] TueDec 12 00:06:58 EDT 2024 Heart Rate 71.00 /min TueDec 12 00:06 :58 EDT 2024 Body temperature 98.20 [degF] TueDec 12 00:0 6:58 EDT 2024 Respiratory rate 20.00 /min TueDec 12 00:0 6:58 EDT 2024 Pulse Oximetry 94.00 % TueDec 12 00:06 :58 EDT 2024 Body weight 179.20 [lb_av] TueDec 11 14:50 :56 EDT 2024 Systolic Blood Pressure 108.00 mm[Hg] TueDec 11 09:25:15 EDT 2024 Diastolic Blood Pressure 70.00 mm[Hg] TueDec 11 09:25:15 EDT 5 Systolic Blood Pressure 108.00 mm[Hg] TueDec 11 09:10:06 EDT 2024 Diastolic Blood Pressure 70.00 mm[Hg] TueDec 11 09:10:06 EDT 2024 Heart Rate 69.00 /min TueDec 11 09:10 :06 EDT 2024 Body temperature 98.00 [degF] TueDec 11 09:1 0:06 EDT 2024 Respiratory rate 18.00 /min TueDec 11 09:1 0:06 EDT 2024 Pulse Oximetry 97.00 % TueDec 11 09:10 :06 EDT 2024 Systolic Blood Pressure 116.00 mm[Hg] TueDec 11 00:29:55 EDT 2024 Diastolic Blood Pressure 64.00 mm[Hg] TueDec 11 00:29:55 EDT 2024 Heart Rate 67.00 /min TueDec 11 00:29 :55 EDT 2024 Body temperature 98.20 [degF] TueDec 11 00:2 9:55 EDT 2024 Respiratory rate 16.00 /min TueDec 11 00:2 9:55 EDT 2024 Pulse Oximetry 99.00 % TueDec 11 00:29 :55 EDT 2024 Body Height 62.00 [in_i] TueDec 10 14:01 :26 EDT 2024 Body weight 181.60 [lb_av] TueDec 10 12:15 :54 EDT 2024 Systolic Blood Pressure 116.00 mm[Hg] TueDec 10 12:15:46 EDT 2024 Diastolic Blood Pressure 59.00 mm[Hg] TueDec 10 12:15:46 EDT 2024 Heart Rate 65.00 /min TueDec 10 12:15 :46 EDT 2024 Body temperature 98.20 [degF] TueDec 10 12:1 5:46 EDT 2024 Respiratory rate 20.00 /min TueDec 10 12:1 5:46 EDT 2024 Pulse Oximetry 95.00 % TueDec 10 12:15 :46 EDT 2024 Systolic Blood Pressure 115.00 mm[Hg] TueDec 10 10:40:22 EDT 2024 Diastolic Blood Pressure 59.00 mm[Hg] TueDec 10 10:40:22 EDT 2024 Systolic Blood Pressure 115.00 mm[Hg] Mon Mar 17 10:40:22 EDT 5 Diastolic Blood Pressure 59.00 mm[Hg] Tue 17 10:40:22 EDT 5 Heart Rate 65.00 /min Tue 17 10:40 :22 EDT 5 Systolic Blood Pressure 143.00 mm[Hg] Tue 17 01:10:16 EDT 2024 Diastolic Blood Pressure 75.00 mm[Hg] Tue 17 01:10:16 EDT 2024 Heart Rate 78.00 /min Tue 17 01:10 :16 EDT 2024 Body temperature 98.20 [degF] Tue 17 01:1 0:16 EDT 5 Respiratory rate 20.00 /min Tue 17 01:1 0:16 EDT 2024 Pulse Oximetry 99.00 % Tue 17 01:10 :16 EDT 2024 Systolic Blood Pressure 140.00 mm[Hg] Sun Nov 16 10:54:00 EDT 2024 Diastolic Blood Pressure 73.00 mm[Hg] Sun Nov 16 10:54:00 EDT 2024 Body weight 178.60 [lb_av] Sun Nov 16 10:54 :00 EDT 2024 Heart Rate 89.00 /min Sun Nov 16 10:54 :00 EDT 2024 Body temperature 98.50 [degF] Tue 16 10:5 4:00 EDT 2024 Respiratory rate 18.00 /min Tue 16 10:5 4:00 EDT 2024 Pulse Oximetry 94.00 % Tue 16 10:54 :00 EDT 2024 Systolic Blood Pressure 140.00 mm[Hg] Sun Nov 16 10:53:06 EDT 2024 Diastolic Blood Pressure 73.00 mm[Hg] Sun Nov 16 10:53:06 EDT 2024 Systolic Blood Pressure 140.00 mm[Hg] Sun Nov 16 10:53:06 EDT 2024 Diastolic Blood Pressure 73.00 mm[Hg] Sun Nov 16 10:53:06 EDT 2024 Heart Rate 89.00 /min Sun Nov 16 10:53 :06 EDT 2024 Systolic Blood Pressure 108.00 mm[Hg] Sun Nov 16 01:02:52 EDT 2024 Diastolic Blood Pressure 61.00 mm[Hg] Sun Mar 16 01:02:52 EDT 2024 Heart Rate 64.00 /min Sun Nov 16 01:02 :52 EDT 2024 Body temperature 97.80 [degF] Sun Mar 16 01:0 2:52 EDT 2024 Respiratory rate 20.00 /min [facility] 16 01:0 2:52 EDT 2024 Pulse Oximetry 93.00 % [facility] 16 01:02 :52 EDT 2024 Body weight 179.60 [lb_av] [facility] Mar 15 11:32 :51 EDT 2024 Systolic Blood Pressure 108.00 mm[Hg] [facility] Mar 15 10:47:15 EDT 2024 Diastolic Blood Pressure 78.00 mm[Hg] [facility] Mar 15 10:47:15 EDT 2024 Heart Rate 72.00 /min [facility] 15 10:47 :15 EDT 2024 Body temperature 98.20 [degF] [facility] 15 10:4 7:15 EDT 2024 Respiratory rate 20.00 /min [facility] 15 10:4 7:15 EDT 2024 Pulse Oximetry 96.00 % [facility] 15 10:47 :15 EDT 2024 Systolic Blood Pressure 108.00 mm[Hg] [facility] 15 10:35:49 EDT 2024 Diastolic Blood Pressure 78.00 mm[Hg] [facility] 15 10:35:49 EDT 2024 Systolic Blood Pressure 108.00 mm[Hg] [facility] 15 10:35:49 EDT 2024 Diastolic Blood Pressure 78.00 mm[Hg] [facility] Mar 15 10:35:49 EDT 2024 Heart Rate 72.00 /min [facility] Mar 15 10:35 :49 EDT 2024 Systolic Blood Pressure 94.00 mm[Hg] [facility] Mar 15 02:44:16 EDT 2024 Diastolic Blood Pressure 58.00 mm[Hg] [facility] Mar 15 02:44:16 EDT 2024 Heart Rate 65.00 /min [facility] Nov 15 02:44 :16 EDT 2024 Body temperature 98.30 [degF] [facility] Mar 15 02:4 4:16 EDT 2024 Respiratory rate 18.00 /min [facility] 15 02:4 4:16 EDT 2024 Pulse Oximetry 95.00 % [facility] Nov 15 02:44 :16 EDT 2024 Systolic Blood Pressure 156.00 mm[Hg] Tue 14 10:18:03 EDT 2024 Diastolic Blood Pressure 82.00 mm[Hg] Tue 14 10:18:03 EDT 2024 Systolic Blood Pressure 156.00 mm[Hg] Tue 14 10:18:03 EDT 2024 Diastolic Blood Pressure 82.00 mm[Hg] Tue 14 10:18:03 EDT 5 Systolic Blood Pressure 156.00 mm[Hg] Tue 14 09:27:12 EDT 2024 Diastolic Blood Pressure 82.00 mm[Hg] Tue 14 09:27:12 EDT 2024 Heart Rate 82.00 /min Tue 14 09:27 :12 EDT 2024 Body temperature 98.30 [degF] Tue 14 09:2 7:12 EDT 2024 Respiratory rate 18.00 /min Tue 14 09:2 7:12 EDT 2024 Pulse Oximetry 90.00 % Tue 14 09:27 :12 EDT 2024 Systolic Blood Pressure 166.00 mm[Hg] Tue 14 01:39:39 EDT 2024 Diastolic Blood Pressure 78.00 mm[Hg] Tue 14 01:39:39 EDT 2024 Heart Rate 75.00 /min Tue 14 01:39 :39 EDT 2024 Body temperature 98.50 [degF] Tue 14 01:3 9:39 EDT 2024 Respiratory rate 18.00 /min Tue 14 01:3 9:39 EDT 2024 Pulse Oximetry 98.00 % Tue 14 01:39 :39 EDT 5 Systolic Blood Pressure 166.00 mm[Hg] Tue 14 00:29:00 EDT 2024 Diastolic Blood Pressure 78.00 mm[Hg] Tue 14 00:29:00 EDT 2024 Heart Rate 75.00 /min Tue 14 00:29 :00 EDT 2024 Body temperature 98.50 [degF] Tue 14 00:2 9:00 EDT 2024 Respiratory rate 18.00 /min Tue 14 00:2 9:00 EDT 2024 Pulse Oximetry 98.00 % Tue 14 00:29 :00 EDT 2024 Systolic Blood Pressure 160.00 mm[Hg] Tue 10 04:34:00 EDT 2024 Diastolic Blood Pressure 93.00 mm[Hg] TueDec 03 04:34:00 EDT 2024 Heart Rate 70.00 /min TueDec 03 04:34 :00 EDT 2024 Body temperature 97.70 [degF] TueDec 03 04:3 4:00 EDT 2024 Respiratory rate 22.00 /min TueDec 03 04:3 4:00 EDT 2024 Pulse Oximetry 93.00 % TueDec 03 04:34 :00 EDT 2024 Systolic Blood Pressure 138.00 mm[Hg] TueDec 02 09:13:43 EDT 2024 Diastolic Blood Pressure 59.00 mm[Hg] TueDec 02 09:13:43 EDT 2024 Heart Rate 54.00 /min TueDec 02 09:13 :43 EDT 2024 Systolic Blood Pressure 148.00 mm[Hg] TueDec 01 09:28:56 EST 2024 Diastolic Blood Pressure 67.00 mm[Hg] TueDec 01 09:28:56 EST 2024 Heart Rate 57.00 /min TueDec 01 09:28 :56 EST 5 Systolic Blood Pressure 127.00 mm[Hg] TueNov 30 09:44:17 EST 2024 Diastolic Blood Pressure 63.00 mm[Hg] TueNov 30 09:44:17 EST 2024 Heart Rate 62.00 /min TueNov 30 09:44 :17 EST 2024 Systolic Blood Pressure 138.00 mm[Hg] TueNov 29 08:21:52 EST 2024 Diastolic Blood Pressure 73.00 mm[Hg] TueNov 29 08:21:52 EST 2024 Heart Rate 51.00 /min TueNov 29 08:21 :52 EST 2024 Systolic Blood Pressure 136.00 mm[Hg] TueNov 28 10:26:33 EST 2024 Diastolic Blood Pressure 66.00 mm[Hg] TueNov 28 10:26:33 EST 2024 Heart Rate 56.00 /min TueNov 28 10:26 :33 EST 2024 Systolic Blood Pressure 123.00 mm[Hg] TueNov 27 08:27:27 EST 2024 Diastolic Blood Pressure 61.00 mm[Hg] TueNov 27 08:27:27 EST 2024 Heart Rate 52.00 /min TueNov 27 08:27 :27 EST 2024 Systolic Blood Pressure 116.00 mm[Hg] TueNov 26 19:49:37 EST 2024 Diastolic Blood Pressure 49.00 mm[Hg] TueNov 26 19:49:37 EST 2024 Body weight 195.20 [lb_av] TueNov 26 19:49 :37 EST 2024 Heart Rate 52.00 /min TueNov 26 19:49 :37 EST 2024 Body temperature 97.50 [degF] TueNov 26 19:4 9:37 EST 2024 Respiratory rate 18.00 /min TueNov 26 19:4 9:37 EST 2024 Systolic Blood Pressure 150.00 mm[Hg] Mon Nov 26 10:45:06 EST 2024 Diastolic Blood Pressure 63.00 mm[Hg] Mon Nov 26 10:45:06 EST 2024 Heart Rate 57.00 /min Mon Nov 26 10:45 :06 EST 2024 Systolic Blood Pressure 145.00 mm[Hg] Sun Mar 02 10:00:10 EST 2024 Diastolic Blood Pressure 68.00 mm[Hg] Sun Mar 10:00:10 EST 2024 Heart Rate 53.00 /min Sun Mar 10:00 :10 EST 2024 Systolic Blood Pressure 162.00 mm[Hg] Sat Mar 08:27:24 EST 2024 Diastolic Blood Pressure 68.00 mm[Hg] Sat Mar 08:27:24 EST 2024 Heart Rate 54.00 /min Sat Mar 08:27 :24 EST 2024 Systolic Blood Pressure 124.00 mm[Hg] Tue Feb 09:58:38 EST 2024 Diastolic Blood Pressure 55.00 mm[Hg] Tue Feb 09:58:38 EST 2024 Heart Rate 45.00 /min Tueb 09:58 :38 EST 2024 Systolic Blood Pressure 142.00 mm[Hg] Caitlyn Feb 27 10:44:11 EST 2024 Diastolic Blood Pressure 62.00 mm[Hg] Caitlyn Feb 27 10:44:11 EST 2024 Heart Rate 47.00 /min Caitlyn Feb 27 10:44 :11 EST 2024 Systolic Blood Pressure 139.00 mm[Hg] Wed Feb 11:05:37 EST 2024 Diastolic Blood Pressure 55.00 mm[Hg] Wed Feb 11:05:37 EST 2024 Heart Rate 52.00 /min Wed Feb 11:05 :37 EST 5 Systolic Blood Pressure 130.00 mm[Hg] e Feb 09:07:32 EST 5 Diastolic Blood Pressure 51.00 mm[Hg] Tue Feb 09:07:32 EST 2024 Heart Rate 50.00 /min Tue Feb 09:07 :32 EST 5 Systolic Blood Pressure 141.00 mm[Hg] Mon Feb 24 11:08:28 EST 5 Diastolic Blood Pressure 62.00 mm[Hg] Mon Feb 24 11:08:28 EST 5 Heart Rate 58.00 /min Tue Feb 24 11:08 :28 EST 5 Systolic Blood Pressure 131.00 mm[Hg] Sun Feb 23 10:40:24 EST 5 Diastolic Blood Pressure 60.00 mm[Hg] Sun Feb 23 10:40:24 EST 5 Heart Rate 55.00 /min Sun Feb 23 10:40 :24 EST 5 Systolic Blood Pressure 144.00 mm[Hg] Sat Feb 22 11:41:38 EST 5 Diastolic Blood Pressure 64.00 mm[Hg] Sat Feb 22 11:41:38 EST 2025 Heart Rate 53.00 /min Sat Feb 22 11:41 :38 EST 2025 Systolic Blood Pressure 104.00 mm[Hg] Fri Feb 21 08:30:18 EST 5 Diastolic Blood Pressure 60.00 mm[Hg] Fri Feb 21 08:30:18 EST 5 Heart Rate 48.00 /min Tue Feb 08:30 :18 EST 5 Systolic Blood Pressure 128.00 mm[Hg] Caitlyn Feb 20 10:35:24 EST 5 Diastolic Blood Pressure 64.00 mm[Hg] Caitlyn Feb 20 10:35:24 EST 5 Heart Rate 57.00 /min Caitlyn Feb 20 10:35 :24 EST 5 Systolic Blood Pressure 138.00 mm[Hg] Wed Feb 19 12:14:48 EST 5 Diastolic Blood Pressure 70.00 mm[Hg] Wed Feb 19 12:14:48 EST 5 Heart Rate 50.00 /min Tue Feb 19 12:14 :48 EST 5 Systolic Blood Pressure 144.00 mm[Hg] Tue Feb 18 11:09:52 EST 5 Diastolic Blood Pressure 68.00 mm[Hg] Tue Feb 18 11:09:52 EST 5 Heart Rate 54.00 /min Tueb 18 11:09 :52 EST 5 Systolic Blood Pressure 121.00 mm[Hg] Tueb 17 19:14:46 EST 5 Diastolic Blood Pressure 54.00 mm[Hg] Tueb 17 19:14:46 EST 5 Body weight 194.00 [lb_av] Tueb 17 19:14 :46 EST 5 Heart Rate 47.00 /min Tueb 17 19:14 :46 EST 5 Body temperature 96.60 [degF] Tueb 17 19:1 4:46 EST 5 Respiratory rate 18.00 /min Mon Feb 17 19:1 4:46 EST 5 Systolic Blood Pressure 141.00 mm[Hg] Mon Feb 17 11:22:57 EST 5 Diastolic Blood Pressure 64.00 mm[Hg] Mon Feb 17 11:22:57 EST 5 Heart Rate 78.00 /min Mon Feb 17 11:22 :57 EST 5 Systolic Blood Pressure 129.00 mm[Hg] Sun Feb 16 08:56:04 EST 5 Diastolic Blood Pressure 57.00 mm[Hg] Sun Feb 16 08:56:04 EST 5 Heart Rate 53.00 /min Sun Feb 16 08:56 :04 EST 5 Systolic Blood Pressure 123.00 mm[Hg] Sat Feb 15 09:05:05 EST 5 Diastolic Blood Pressure 69.00 mm[Hg] Sat Feb 15 09:05:05 EST 5 Heart Rate 51.00 /min Sat Feb 15 09:05 :05 EST 5 Systolic Blood Pressure 163.00 mm[Hg] Fri Feb 14 11:17:59 EST 5 Diastolic Blood Pressure 76.00 mm[Hg] Fri Feb 14 11:17:59 EST 5 Heart Rate 67.00 /min Fri Feb 14 11:17 :59 EST 5 Systolic Blood Pressure 111.00 mm[Hg] Wed Feb 12 13:06:03 EST 5 Diastolic Blood Pressure 59.00 mm[Hg] Wed Feb 12 13:06:03 EST 5 Heart Rate 73.00 /min Wed Feb 12 13:06 :03 EST 5 Systolic Blood Pressure 152.00 mm[Hg] Tue Feb 11 08:22:43 EST 5 Diastolic Blood Pressure 77.00 mm[Hg] e Feb 11 08:22:43 EST 5 Heart Rate 45.00 /min e Feb 11 08:22 :43 EST 5 Systolic Blood Pressure 127.00 mm[Hg] Mon Feb 10 08:13:51 EST 5 Diastolic Blood Pressure 67.00 mm[Hg] Mon Feb 10 08:13:51 EST 5 Heart Rate 70.00 /min Mon Feb 10 08:13 :51 EST 5 Systolic Blood Pressure 147.00 mm[Hg] Sun Feb 09 11:33:19 EST 5 Diastolic Blood Pressure 69.00 mm[Hg] Sun Feb 09 11:33:19 EST 5 Heart Rate 58.00 /min Sun Feb 09 11:33 :19 EST 5 Systolic Blood Pressure 155.00 mm[Hg] Sat Feb 08 10:42:42 EST 5 Diastolic Blood Pressure 72.00 mm[Hg] Sat Feb 08 10:42:42 EST 2025 Heart Rate 49.00 /min Sat Feb 08 10:42 :42 EST 5 Systolic Blood Pressure 125.00 mm[Hg] Tueb 07 11:35:47 EST 2025 Diastolic Blood Pressure 62.00 mm[Hg] Tueb 11:35:47 EST 2025 Heart Rate 52.00 /min Tueb 11:35 :47 EST 5 Systolic Blood Pressure 155.00 mm[Hg] Caitlyn b 11:07:45 EST 5 Diastolic Blood Pressure 75.00 mm[Hg] Caitlyn Nov 01 11:07:45 EST 5 Heart Rate 48.00 /min Caitlynb 11:07 :45 EST 5 Systolic Blood Pressure 147.00 mm[Hg] TueOct 31 11:57:14 EST 5 Diastolic Blood Pressure 86.00 mm[Hg] TueOct 31 11:57:14 EST 5 Heart Rate 77.00 /min TueOct 31 11:57 :14 EST 2024 Systolic Blood Pressure 126.00 mm[Hg] TueOct 30 10:24:52 EST 5 Diastolic Blood Pressure 62.00 mm[Hg] TueOct 30 10:24:52 EST 5 Heart Rate 63.00 /min TueOct 30 10:24 :52 EST 5 Systolic Blood Pressure 128.00 mm[Hg] TueOct 29 21:22:55 EST 2024 Diastolic Blood Pressure 67.00 mm[Hg] TueOct 29 21:22:55 EST 2024 Body weight 185.60 [lb_av] TueOct 29 21:22 :55 EST 2024 Heart Rate 70.00 /min TueOct 29 21:22 :55 EST 2024 Body temperature 98.20 [degF] TueOct 29 21:2 2:55 EST 2024 Respiratory rate 18.00 /min TueOct 29 21:2 2:55 EST 2024 Systolic Blood Pressure 121.00 mm[Hg] TueOct 29 10:37:18 EST 2024 Diastolic Blood Pressure 65.00 mm[Hg] TueOct 29 10:37:18 EST 2024 Heart Rate 69.00 /min TueOct 29 10:37 :18 EST 2024 Systolic Blood Pressure 145.00 mm[Hg] TueOct 28 08:46:42 EST 2024 Diastolic Blood Pressure 86.00 mm[Hg] TueOct 28 08:46:42 EST 2024 Heart Rate 59.00 /min TueOct 28 08:46 :42 EST 2024 Systolic Blood Pressure 128.00 mm[Hg] [facility] Oct 27 08:40:20 EST 2024 Diastolic Blood Pressure 61.00 mm[Hg] [facility] Oct 27 08:40:20 EST 2024 Heart Rate 52.00 /min [facility] Oct 27 08:40 :20 EST 2024 Systolic Blood Pressure 135.00 mm[Hg] TueOct 26 09:48:55 EST 2024 Diastolic Blood Pressure 68.00 mm[Hg] TueOct 26 09:48:55 EST 2024 Heart Rate 59.00 /min TueOct 26 09:48 :55 EST 2024 Systolic Blood Pressure 135.00 mm[Hg] TueOct 25 10:35:03 EST 2024 Diastolic Blood Pressure 72.00 mm[Hg] TueOct 25 10:35:03 EST 2024 Heart Rate 71.00 /min TueOct 25 10:35 :03 EST 2024 Systolic Blood Pressure 127.00 mm[Hg] TueOct 24 09:37:35 EST 2024 Diastolic Blood Pressure 55.00 mm[Hg] TueOct 24 09:37:35 EST 2024 Heart Rate 90.00 /min TueOct 24 09:37 :35 EST 2024 Systolic Blood Pressure 102.00 mm[Hg] TueOct 23 07:35:06 EST 2024 Diastolic Blood Pressure 68.00 mm[Hg] TueOct 23 07:35:06 EST 2024 Heart Rate 77.00 /min TueOct 23 07:35 :06 EST 2024 Systolic Blood Pressure 143.00 mm[Hg] TueOct 22 10:12:43 EST 2024 Diastolic Blood Pressure 75.00 mm[Hg] TueOct 22 10:12:43 EST 2024 Heart Rate 75.00 /min TueOct 22 10:12 :43 EST 2024 Systolic Blood Pressure 121.00 mm[Hg] TueOct 21 11:33:37 EST 2024 Diastolic Blood Pressure 68.00 mm[Hg] TueOct 21 11:33:37 EST 2024 Heart Rate 64.00 /min TueOct 21 11:33 :37 EST 2024 Systolic Blood Pressure 136.00 mm[Hg] TueOct 20 09:39:48 EST 2024 Diastolic Blood Pressure 60.00 mm[Hg] TueOct 20 09:39:48 EST 2024 Heart Rate 54.00 /min TueOct 20 09:39 :48 EST 2024 Systolic Blood Pressure 110.00 mm[Hg] TueOct 19 09:52:54 EST 2024 Diastolic Blood Pressure 56.00 mm[Hg] TueOct 19 09:52:54 EST 2024 Heart Rate 86.00 /min TueOct 19 09:52 :54 EST 2024 Systolic Blood Pressure 144.00 mm[Hg] TueOct 18 12:08:19 EST 2024 Diastolic Blood Pressure 74.00 mm[Hg] TueOct 18 12:08:19 EST 2024 Heart Rate 58.00 /min TueOct 18 12:08 :19 EST 2024 Systolic Blood Pressure 119.00 mm[Hg] TueOct 17 08:47:08 EST 2024 Diastolic Blood Pressure 71.00 mm[Hg] TueOct 17 08:47:08 EST 2024 Heart Rate 63.00 /min TueOct 17 08:47 :08 EST 2024 Systolic Blood Pressure 147.00 mm[Hg] TueOct 16 11:47:01 EST 2024 Diastolic Blood Pressure 86.00 mm[Hg] TueOct 16 11:47:01 EST 2024 Heart Rate 83.00 /min TueOct 16 11:47 :01 EST 2024 Systolic Blood Pressure 109.00 mm[Hg] TueOct 15 09:34:37 EST 2024 Diastolic Blood Pressure 79.00 mm[Hg] TueOct 15 09:34:37 EST 2024 Heart Rate 85.00 /min TueOct 15 09:34 :37 EST 2024 Systolic Blood Pressure 151.00 mm[Hg] TueOct 14 07:54:25 EST 2024 Diastolic Blood Pressure 67.00 mm[Hg] TueOct 14 07:54:25 EST 2024 Heart Rate 56.00 /min TueOct 14 07:54 :25 EST 2024 Systolic Blood Pressure 129.00 mm[Hg] TueOct 13 08:42:41 EST 2024 Diastolic Blood Pressure 63.00 mm[Hg] TueOct 13 08:42:41 EST 2024 Heart Rate 54.00 /min TueOct 13 08:42 :41 EST 2024 Systolic Blood Pressure 133.00 mm[Hg] TueOct 12 18:34:02 EST 2024 Diastolic Blood Pressure 69.00 mm[Hg] TueOct 12 18:34:02 EST 2024 Body weight 186.40 [lb_av] TueOct 12 18:34 :02 EST 2024 Heart Rate 55.00 /min TueOct 12 18:34 :02 EST 2024 Body temperature 97.20 [degF] TueOct 12 18:3 4:02 EST 2024 Respiratory rate 18.00 /min TueOct 12 18:3 4:02 EST 2024 Systolic Blood Pressure 133.00 mm[Hg] TueOct 12 08:47:55 EST 2024 Diastolic Blood Pressure 69.00 mm[Hg] TueOct 12 08:47:55 EST 2024 Heart Rate 55.00 /min TueOct 12 08:47 :55 EST 2024 Systolic Blood Pressure 126.00 mm[Hg] TueOct 11 08:58:40 EST 2024 Diastolic Blood Pressure 55.00 mm[Hg] TueOct 11 08:58:40 EST 2024 Heart Rate 54.00 /min TueOct 11 08:58 :40 EST 2024 Systolic Blood Pressure 144.00 mm[Hg] TueOct 10 08:40:55 EST 2024 Diastolic Blood Pressure 70.00 mm[Hg] TueOct 10 08:40:55 EST 2024 Heart Rate 47.00 /min TueOct 10 08:40 :55 EST 2024 Systolic Blood Pressure 166.00 mm[Hg] TueOct 09 08:22:33 EST 2024 Diastolic Blood Pressure 89.00 mm[Hg] TueOct 09 08:22:33 EST 2024 Heart Rate 55.00 /min TueOct 09 08:22 :33 EST 2024 Systolic Blood Pressure 139.00 mm[Hg] TueOct 08 09:42:59 EST 2024 Diastolic Blood Pressure 69.00 mm[Hg] TueOct 08 09:42:59 EST 2024 Heart Rate 48.00 /min TueOct 08 09:42 :59 EST 2024 Systolic Blood Pressure 151.00 mm[Hg] TueOct 07 10:03:06 EST 2024 Diastolic Blood Pressure 67.00 mm[Hg] TueOct 07 10:03:06 EST 2024 Heart Rate 52.00 /min TueOct 07 10:03 :06 EST 2024 Systolic Blood Pressure 190.00 mm[Hg] TueOct 06 10:31:56 EST 2024 Diastolic Blood Pressure 83.00 mm[Hg] TueOct 06 10:31:56 EST 2024 Heart Rate 68.00 /min TueOct 06 10:31 :56 EST 2024 Systolic Blood Pressure 152.00 mm[Hg] TueOct 05 11:25:12 EST 2024 Diastolic Blood Pressure 88.00 mm[Hg] TueOct 05 11:25:12 EST 2024 Heart Rate 60.00 /min TueOct 05 11:25 :12 EST 2024 Systolic Blood Pressure 164.00 mm[Hg] TueOct 04 09:45:00 EST 2024 Diastolic Blood Pressure 73.00 mm[Hg] TueOct 04 09:45:00 EST 2024 Heart Rate 49.00 /min TueOct 04 09:45 :00 EST 2024 Systolic Blood Pressure 145.00 mm[Hg] TueOct 03 08:18:31 EST 2024 Diastolic Blood Pressure 82.00 mm[Hg] TueOct 03 08:18:31 EST 2024 Heart Rate 79.00 /min TueOct 03 08:18 :31 EST 2024 Systolic Blood Pressure 153.00 mm[Hg] TueOct 02 10:23:42 EST 2024 Diastolic Blood Pressure 80.00 mm[Hg] TueOct 02 10:23:42 EST 2024 Heart Rate 61.00 /min TueOct 02 10:23 :42 EST 2024 Systolic Blood Pressure 123.00 mm[Hg] TueOct 01 08:44:21 EST 2024 Diastolic Blood Pressure 73.00 mm[Hg] TueOct 01 08:44:21 EST 2024 Heart Rate 68.00 /min TueOct 01 08:44 :21 EST 2024 Systolic Blood Pressure 147.00 mm[Hg] TueSep 30 09:08:29 EST 2024 Diastolic Blood Pressure 76.00 mm[Hg] TueSep 30 09:08:29 EST 2024 Heart Rate 49.00 /min TueSep 30 09:08 :29 EST 2024 Systolic Blood Pressure 141.00 mm[Hg] TueSep 29 09:25:08 EST 2024 Diastolic Blood Pressure 69.00 mm[Hg] TueSep 29 09:25:08 EST 2024 Heart Rate 74.00 /min TueSep 29 09:25 :08 EST 2024 Systolic Blood Pressure 163.00 mm[Hg] TueSep 28 21:27:04 EST 2024 Diastolic Blood Pressure 70.00 mm[Hg] TueSep 28 21:27:04 EST 2024 Body weight 193.20 [lb_av] TueSep 28 21:27 :04 EST 2024 Heart Rate 66.00 /min TueSep 28 21:27 :04 EST 2024 Body temperature 98.20 [degF] TueSep 28 21:2 7:04 EST 2024 Respiratory rate 18.00 /min TueSep 28 21:2 7:04 EST 2024 Systolic Blood Pressure 143.00 mm[Hg] TueSep 28 11:22:33 EST 2024 Diastolic Blood Pressure 72.00 mm[Hg] TueSep 28 11:22:33 EST 2024 Heart Rate 62.00 /min TueSep 28 11:22 :33 EST 2024 Systolic Blood Pressure 170.00 mm[Hg] TueSep 27 11:49:23 EST 2024 Diastolic Blood Pressure 73.00 mm[Hg] TueSep 27 11:49:23 EST 2024 Heart Rate 53.00 /min TueSep 27 11:49 :23 EST 2024 Systolic Blood Pressure 164.00 mm[Hg] TueSep 26 10:53:20 EST 2024 Diastolic Blood Pressure 69.00 mm[Hg] TueSep 26 10:53:20 EST 2024 Heart Rate 50.00 /min TueSep 26 10:53 :20 EST 2024 Systolic Blood Pressure 172.00 mm[Hg] TueSep 25 09:09:40 EST 2023 Diastolic Blood Pressure 69.00 mm[Hg] TueSep 25 09:09:40 EST 2023 Heart Rate 51.00 /min TueSep 25 09:09 :40 EST 2023 Systolic Blood Pressure 146.00 mm[Hg] TueSep 24 11:32:02 EST 2023 Diastolic Blood Pressure 78.00 mm[Hg] TueSep 24 11:32:02 EST 2023 Heart Rate 86.00 /min TueSep 24 11:32 :02 EST 2023 Systolic Blood Pressure 129.00 mm[Hg] TueSep 23 08:55:27 EST 2023 Diastolic Blood Pressure 76.00 mm[Hg] TueSep 23 08:55:27 EST 2023 Heart Rate 62.00 /min TueSep 23 08:55 :27 EST 2023 Systolic Blood Pressure 166.00 mm[Hg] TueSep 22 10:56:39 EST 2023 Diastolic Blood Pressure 68.00 mm[Hg] TueSep 22 10:56:39 EST 2023 Heart Rate 51.00 /min TueSep 22 10:56 :39 EST 4 Systolic Blood Pressure 180.00 mm[Hg] TueSep 21 08:52:58 EST 2023 Diastolic Blood Pressure 73.00 mm[Hg] TueSep 21 08:52:58 EST 2023 Heart Rate 57.00 /min TueSep 21 08:52 :58 EST 2023 Systolic Blood Pressure 153.00 mm[Hg] TueSep 20 09:22:55 EST 2023 Diastolic Blood Pressure 79.00 mm[Hg] TueSep 20 09:22:55 EST 2023 Heart Rate 64.00 /min TueSep 20 09:22 :55 EST 2023 Systolic Blood Pressure 145.00 mm[Hg] TueSep 19 09:18:20 EST 2023 Diastolic Blood Pressure 65.00 mm[Hg] TueSep 19 09:18:20 EST 4 Heart Rate 51.00 /min TueSep 19 09:18 :20 EST 4 Systolic Blood Pressure 157.00 mm[Hg] TueSep 18 09:06:21 EST 4 Diastolic Blood Pressure 81.00 mm[Hg] TueSep 18 09:06:21 EST 4 Heart Rate 61.00 /min TueSep 18 09:06 :21 EST 4 Systolic Blood Pressure 112.00 mm[Hg] TueSep 17 08:28:15 EST 2023 Diastolic Blood Pressure 79.00 mm[Hg] TueSep 17 08:28:15 EST 4 Heart Rate 52.00 /min TueSep 17 08:28 :15 EST 4 Systolic Blood Pressure 137.00 mm[Hg] TueSep 16 08:19:47 EST 2023 Diastolic Blood Pressure 78.00 mm[Hg] TueSep 16 08:19:47 EST 4 Heart Rate 68.00 /min TueSep 16 08:19 :47 EST 2023 Systolic Blood Pressure 149.00 mm[Hg] TueSep 15 08:44:14 EST 2023 Diastolic Blood Pressure 69.00 mm[Hg] TueSep 15 08:44:14 EST 2023 Heart Rate 53.00 /min TueSep 15 08:44 :14 EST 4 Systolic Blood Pressure 136.00 mm[Hg] TueSep 14 11:13:26 EST 2023 Diastolic Blood Pressure 64.00 mm[Hg] TueSep 14 11:13:26 EST 2023 Heart Rate 55.00 /min TueSep 14 11:13 :26 EST 2023 Systolic Blood Pressure 151.00 mm[Hg] TueSep 13 08:39:36 EST 2023 Diastolic Blood Pressure 79.00 mm[Hg] TueSep 13 08:39:36 EST 2023 Heart Rate 58.00 /min TueSep 13 08:39 :36 EST 4 Systolic Blood Pressure 102.00 mm[Hg] TueSep 12 08:41:42 EST 2023 Diastolic Blood Pressure 76.00 mm[Hg] TueSep 12 08:41:42 EST 2023 Heart Rate 65.00 /min TueSep 12 08:41 :42 EST 4 Systolic Blood Pressure 119.00 mm[Hg] TueSep 11 21:01:26 EST 2023 Diastolic Blood Pressure 66.00 mm[Hg] TueSep 11 21:01:26 EST 2023 Body weight 193.00 [lb_av] TueSep 11 21:01 :26 EST 2023 Heart Rate 51.00 /min TueSep 11 21:01 :26 EST 2023 Body temperature 98.40 [degF] TueSep 11 21:0 1:26 EST 2023 Respiratory rate 18.00 /min TueSep 11 21:0 1:26 EST 2023 Systolic Blood Pressure 121.00 mm[Hg] TueSep 11 08:25:47 EST 2023 Diastolic Blood Pressure 62.00 mm[Hg] TueSep 11 08:25:47 EST 2023 Heart Rate 54.00 /min TueSep 11 08:25 :47 EST 2023 Systolic Blood Pressure 142.00 mm[Hg] TueSep 10 14:43:49 EST 2023 Diastolic Blood Pressure 68.00 mm[Hg] TueSep 10 14:43:49 EST 2023 Heart Rate 60.00 /min TueSep 10 14:43 :49 EST 2023 Systolic Blood Pressure 145.00 mm[Hg] TueSep 09 13:12:53 EST 2023 Diastolic Blood Pressure 54.00 mm[Hg] TueSep 09 13:12:53 EST 2023 Heart Rate 66.00 /min TueSep 09 13:12 :53 EST 2023 Systolic Blood Pressure 144.00 mm[Hg] TueSep 08 10:37:23 EST 2023 Diastolic Blood Pressure 66.00 mm[Hg] TueSep 08 10:37:23 EST 2023 Heart Rate 60.00 /min TueSep 08 10:37 :23 EST 4 Systolic Blood Pressure 135.00 mm[Hg] TueSep 07 10:48:53 EST 2023 Diastolic Blood Pressure 55.00 mm[Hg] TueSep 07 10:48:53 EST 2023 Heart Rate 50.00 /min TueSep 07 10:48 :53 EST 4 Systolic Blood Pressure 143.00 mm[Hg] TueSep 06 09:05:56 EST 2023 Diastolic Blood Pressure 67.00 mm[Hg] TueSep 06 09:05:56 EST 2023 Heart Rate 50.00 /min TueSep 06 09:05 :56 EST 4 Systolic Blood Pressure 127.00 mm[Hg] TueSep 05 08:00:43 EST 2023 Diastolic Blood Pressure 77.00 mm[Hg] TueSep 05 08:00:43 EST 2023 Heart Rate 58.00 /min TueSep 05 08:00 :43 EST 4 Systolic Blood Pressure 123.00 mm[Hg] TueSep 04 11:04:17 EST 2023 Diastolic Blood Pressure 63.00 mm[Hg] TueSep 04 11:04:17 EST 4 Heart Rate 61.00 /min TueSep 04 11:04 :17 EST 4 Systolic Blood Pressure 162.00 mm[Hg] TueSep 03 10:27:38 EST 2023 Diastolic Blood Pressure 75.00 mm[Hg] TueSep 03 10:27:38 EST 2023 Heart Rate 60.00 /min TueSep 03 10:27 :38 EST 4 Systolic Blood Pressure 152.00 mm[Hg] TueSep 02 08:05:42 EST 2023 Diastolic Blood Pressure 63.00 mm[Hg] TueSep 02 08:05:42 EST 2023 Heart Rate 50.00 /min TueSep 02 08:05 :42 EST 4 Systolic Blood Pressure 168.00 mm[Hg] TueSep 01 08:45:37 EST 4 Diastolic Blood Pressure 66.00 mm[Hg] TueSep 01 08:45:37 EST 2023 Heart Rate 56.00 /min TueSep 01 08:45 :37 EST 4 Systolic Blood Pressure 136.00 mm[Hg] TueAug 31 11:07:49 EST 4 Diastolic Blood Pressure 54.00 mm[Hg] TueAug 31 11:07:49 EST 4 Heart Rate 50.00 /min TueAug 31 11:07 :49 EST 4 Systolic Blood Pressure 154.00 mm[Hg] TueAug 30 11:21:32 EST 2023 Diastolic Blood Pressure 78.00 mm[Hg] TueAug 30 11:21:32 EST 2023 Heart Rate 57.00 /min TueAug 30 11:21 :32 EST 2023 Systolic Blood Pressure 136.00 mm[Hg] TueAug 29 08:51:04 EST 2023 Diastolic Blood Pressure 61.00 mm[Hg] TueAug 29 08:51:04 EST 2023 Heart Rate 54.00 /min TueAug 29 08:51 :04 EST 2023 Systolic Blood Pressure 143.00 mm[Hg] TueAug 28 19:19:04 EST 2023 Diastolic Blood Pressure 60.00 mm[Hg] TueAug 28 19:19:04 EST 2023 Body weight 190.00 [lb_av] TueAug 28 19:19 :04 EST 2023 Heart Rate 48.00 /min TueAug 28 19:19 :04 EST 2023 Body temperature 97.70 [degF] TueAug 28 19:1 9:04 EST 2023 Respiratory rate 18.00 /min TueAug 28 19:1 9:04 EST 2023 Systolic Blood Pressure 135.00 mm[Hg] TueAug 28 10:03:33 EST 2023 Diastolic Blood Pressure 59.00 mm[Hg] TueAug 28 10:03:33 EST 2023 Heart Rate 50.00 /min TueAug 28 10:03 :33 EST 2023 Systolic Blood Pressure 137.00 mm[Hg] TueAug 27 10:44:01 2023 Diastolic Blood Pressure 77.00 mm[Hg] TueAug 27 10:44:01 2023 Heart Rate 57.00 /min TueAug 27 10:44 :01 EST 2023 Systolic Blood Pressure 145.00 mm[Hg] TueAug 26 11:10:22 EST 2023 Diastolic Blood Pressure 64.00 mm[Hg] TueAug 26 11:10:22 EST 2023 Heart Rate 76.00 /min TueAug 26 11:10 :22 EST 2023 Systolic Blood Pressure 157.00 mm[Hg] TueAug 25 08:55:59 EST 2023 Diastolic Blood Pressure 71.00 mm[Hg] TueAug 25 08:55:59 EST 2023 Heart Rate 81.00 /min TueAug 25 08:55 :59 EST 2023 Systolic Blood Pressure 114.00 mm[Hg] TueAug 24 10:27:23 EST 2023 Diastolic Blood Pressure 78.00 mm[Hg] TueAug 24 10:27:23 EST 2023 Heart Rate 47.00 /min TueAug 24 10:27 :23 EST 2023 Systolic Blood Pressure 140.00 mm[Hg] TueAug 22 08:06:37 EST 2023 Diastolic Blood Pressure 62.00 mm[Hg] TueAug 22 08:06:37 EST 2023 Heart Rate 44.00 /min TueAug 22 08:06 :37 EST 202 Systolic Blood Pressure 146.00 mm[Hg] TueAug 21 11:31:53 EST 2023 Diastolic Blood Pressure 66.00 mm[Hg] TueAug 21 11:31:53 EST 2023 Heart Rate 49.00 /min TueAug 21 11:31 :53 EST 2023 Systolic Blood Pressure 124.00 mm[Hg] TueAug 20 13:55:30 EST 2023 Diastolic Blood Pressure 56.00 mm[Hg] TueAug 20 13:55:30 EST 2023 Heart Rate 50.00 /min TueAug 20 13:55 :30 EST 2023 Systolic Blood Pressure 117.00 mm[Hg] TueAug 19 09:05:47 EST 2023 Diastolic Blood Pressure 64.00 mm[Hg] TueAug 19 09:05:47 EST 2023 Heart Rate 80.00 /min TueAug 19 09:05 :47 EST 2023 Systolic Blood Pressure 127.00 mm[Hg] TueAug 18 10:01:59 EST 2023 Diastolic Blood Pressure 62.00 mm[Hg] TueAug 18 10:01:59 EST 2023 Heart Rate 70.00 /min TueAug 18 10:01 :59 EST 2023 Systolic Blood Pressure 137.00 mm[Hg] TueAug 17 11:14:11 EST 2023 Diastolic Blood Pressure 64.00 mm[Hg] TueAug 17 11:14:11 EST 2023 Heart Rate 63.00 /min TueAug 17 11:14 :11 EST 2023 Systolic Blood Pressure 121.00 mm[Hg] TueAug 16 10:18:59 EST 2023 Diastolic Blood Pressure 57.00 mm[Hg] TueAug 16 10:18:59 EST 2023 Heart Rate 53.00 /min TueAug 16 10:18 :59 EST 2023 Systolic Blood Pressure 114.00 mm[Hg] TueAug 15 08:06:22 EST 2023 Diastolic Blood Pressure 56.00 mm[Hg] TueAug 15 08:06:22 EST 2023 Heart Rate 45.00 /min TueAug 15 08:06 :22 EST 4 Systolic Blood Pressure 167.00 mm[Hg] TueAug 14 09:52:04 EST 2023 Diastolic Blood Pressure 68.00 mm[Hg] TueAug 14 09:52:04 EST 4 Heart Rate 62.00 /min TueAug 14 09:52 :04 EST 2023 Systolic Blood Pressure 122.00 mm[Hg] TueAug 13 15:12:31 EST 2023 Diastolic Blood Pressure 74.00 mm[Hg] TueAug 13 15:12:31 EST 4 Body weight 189.00 [lb_av] TueAug 13 15:12 :31 EST 2023 Heart Rate 98.60 /min TueAug 13 15:12 :31 EST 2023 Body temperature 97.70 [degF] TueAug 13 15:1 2:31 EST 2023 Respiratory rate 18.00 /min TueAug 13 15:1 2:31 EST 2023 Systolic Blood Pressure 122.00 mm[Hg] TueAug 13 10:40:08 EST 2023 Diastolic Blood Pressure 74.00 mm[Hg] TueAug 13 10:40:08 EST 2023 Heart Rate 65.00 /min TueAug 13 10:40 :08 EST 2023 Systolic Blood Pressure 116.00 mm[Hg] TueAug 12 11:35:36 EST 2023 Diastolic Blood Pressure 75.00 mm[Hg] TueAug 12 11:35:36 2023 Heart Rate 55.00 /min TueAug 12 11:35 :36 EST 2023 Systolic Blood Pressure 118.00 mm[Hg] TueAug 11 11:51:30 EST 2023 Diastolic Blood Pressure 65.00 mm[Hg] TueAug 11 11:51:30 EST 2023 Heart Rate 49.00 /min TueAug 11 11:51 :30 EST 2023 Systolic Blood Pressure 132.00 mm[Hg] TueAug 10 11:11:30 EST 2023 Diastolic Blood Pressure 76.00 mm[Hg] TueAug 10 11:11:30 EST 2023 Heart Rate 55.00 /min TueAug 10 11:11 :30 EST 2023 Systolic Blood Pressure 141.00 mm[Hg] TueAug 09 09:02:47 EST 2023 Diastolic Blood Pressure 73.00 mm[Hg] TueAug 09 09:02:47 EST 2024 Heart Rate 48.00 /min TueAug 09 09:02 :47 EST 4 Systolic Blood Pressure 136.00 mm[Hg] TueAug 08 08:52:54 EST 2023 Diastolic Blood Pressure 70.00 mm[Hg] TueAug 08 08:52:54 EST 2023 Heart Rate 51.00 /min TueAug 08 08:52 :54 EST 4 Systolic Blood Pressure 150.00 mm[Hg] TueAug 07 10:16:39 EST 2023 Diastolic Blood Pressure 76.00 mm[Hg] TueAug 07 10:16:39 EST 2023 Heart Rate 55.00 /min TueAug 07 10:16 :39 EST 2023 Systolic Blood Pressure 135.00 mm[Hg] TueAug 06 08:49:37 EST 2023 Diastolic Blood Pressure 69.00 mm[Hg] TueAug 06 08:49:37 EST 2023 Heart Rate 52.00 /min TueAug 06 08:49 :37 EST 2023 Systolic Blood Pressure 137.00 mm[Hg] TueAug 05 11:48:02 EST 2023 Diastolic Blood Pressure 80.00 mm[Hg] TueAug 05 11:48:02 2023 Heart Rate 63.00 /min TueAug 05 11:48 :02 EST 2023 Systolic Blood Pressure 167.00 mm[Hg] TueAug 01 09:01:42 EST 2023 Diastolic Blood Pressure 85.00 mm[Hg] TueAug 01 09:01:42 EST 2023 Heart Rate 63.00 /min TueAug 01 09:01 :42 EST 2023 Systolic Blood Pressure 148.00 mm[Hg] TueJul 31 11:03:36 EST 2023 Diastolic Blood Pressure 64.00 mm[Hg] TueJul 31 11:03:36 EST 2023 Heart Rate 51.00 /min TueJul 31 11:03 :36 EST 2023 Systolic Blood Pressure 114.00 mm[Hg] TueJul 30 10:43:47 EST 2023 Diastolic Blood Pressure 54.00 mm[Hg] TueJul 30 10:43:47 EST 2023 Body weight 186.20 [lb_av] TueJul 30 10:43 :47 EST 2023 Heart Rate 68.00 /min TueJul 30 10:43 :47 EST 2023 Body temperature 97.80 [degF] TueJul 30 10:4 3:47 EST 2023 Respiratory rate 20.00 /min TueJul 30 10:4 3:47 EST 2023 Systolic Blood Pressure 159.00 mm[Hg] TueJul 30 09:33:28 EST 2023 Diastolic Blood Pressure 85.00 mm[Hg] TueJul 30 09:33:28 EST 2023 Heart Rate 96.00 /min TueJul 30 09:33 :28 EST 2023 Systolic Blood Pressure 128.00 mm[Hg] TueJul 29 11:44:41 EST 2023 Diastolic Blood Pressure 64.00 mm[Hg] TueJul 29 11:44:41 EST 2023 Heart Rate 58.00 /min TueJul 29 11:44 :41 EST 2023 Systolic Blood Pressure 137.00 mm[Hg] TueJul 28 16:09:35 EDT 2023 Diastolic Blood Pressure 56.00 mm[Hg] TueJul 28 16:09:35 EDT 2023 Heart Rate 52.00 /min TueJul 28 16:09 :35 EDT 2023 Systolic Blood Pressure 143.00 mm[Hg] TueJul 27 11:06:23 EDT 2023 Diastolic Blood Pressure 68.00 mm[Hg] TueJul 27 11:06:23 EDT 2023 Heart Rate 56.00 /min TueJul 27 11:06 :23 EDT 2023 Systolic Blood Pressure 130.00 mm[Hg] Caitlyn Jul 26 08:58:16 EDT 2023 Diastolic Blood Pressure 64.00 mm[Hg] TueJul 26 08:58:16 EDT 2023 Heart Rate 50.00 /min TueJul 26 08:58 :16 EDT 2023 Systolic Blood Pressure 153.00 mm[Hg] TueJul 25 08:38:32 EDT 2023 Diastolic Blood Pressure 79.00 mm[Hg] TueJul 25 08:38:32 EDT 2023 Heart Rate 57.00 /min TueJul 25 08:38 :32 EDT 2023 Systolic Blood Pressure 119.00 mm[Hg] TueJul 24 08:38:10 EDT 2023 Diastolic Blood Pressure 57.00 mm[Hg] TueJul 24 08:38:10 EDT 2023 Heart Rate 47.00 /min TueJul 24 08:38 :10 EDT 2023 Systolic Blood Pressure 153.00 mm[Hg] TueJul 23 11:12:02 EDT 2023 Diastolic Blood Pressure 63.00 mm[Hg] TueJul 23 11:12:02 EDT 2023 Heart Rate 47.00 /min Mon Oct 28 11:12 :02 EDT 4 Systolic Blood Pressure 159.00 mm[Hg] Sun Oct 27 09:51:16 EDT 4 Diastolic Blood Pressure 70.00 mm[Hg] Sun Oct 27 09:51:16 EDT 2023 Heart Rate 82.00 /min Sun Oct 27 09:51 :16 EDT 2023 Systolic Blood Pressure 139.00 mm[Hg] Sat Oct 26 08:17:00 EDT 2023 Diastolic Blood Pressure 62.00 mm[Hg] Sat Oct 26 08:17:00 EDT 2023 Heart Rate 65.00 /min Sat Oct 26 08:17 :00 EDT 4 Systolic Blood Pressure 163.00 mm[Hg] Fri Oct 25 11:21:28 EDT 2023 Diastolic Blood Pressure 72.00 mm[Hg] Fri Oct 25 11:21:28 EDT 2023 Heart Rate 65.00 /min Fri Oct 25 11:21 :28 EDT 2023 Systolic Blood Pressure 126.00 mm[Hg] Caitlyn Oct 24 10:55:47 EDT 2023 Diastolic Blood Pressure 83.00 mm[Hg] Caitlyn Oct 24 10:55:47 EDT 4 Heart Rate 56.00 /min Caitlyn Oct 24 10:55 :47 EDT 4 Systolic Blood Pressure 153.00 mm[Hg] Wed Oct 23 08:32:12 EDT 2023 Diastolic Blood Pressure 79.00 mm[Hg] Wed Oct 23 08:32:12 EDT 4 Heart Rate 57.00 /min Wed Oct 23 08:32 :12 EDT 4 Systolic Blood Pressure 132.00 mm[Hg] Tue Oct 22 08:44:13 EDT 4 Diastolic Blood Pressure 64.00 mm[Hg] Tue Oct 22 08:44:13 EDT 4 Heart Rate 46.00 /min Tue Oct 22 08:44 :13 EDT 4 Systolic Blood Pressure 128.00 mm[Hg] Mon Oct 21 08:02:42 EDT 4 Diastolic Blood Pressure 66.00 mm[Hg] Mon Oct 21 08:02:42 EDT 2023 Heart Rate 57.00 /min Mon Oct 21 08:02 :42 EDT 4 Systolic Blood Pressure 139.00 mm[Hg] Sun Oct 20 10:00:32 EDT 2023 Diastolic Blood Pressure 54.00 mm[Hg] Sun Oct 20 10:00:32 EDT 2024 Heart Rate 48.00 /min Sun Oct 20 10:00 :32 EDT 4 Systolic Blood Pressure 141.00 mm[Hg] Sat Oct 19 10:54:56 EDT 4 Diastolic Blood Pressure 61.00 mm[Hg] Sat Oct 19 10:54:56 EDT 2023 Heart Rate 71.00 /min Sat Oct 19 10:54 :56 EDT 4 Systolic Blood Pressure 156.00 mm[Hg] Fri Oct 18 08:48:42 EDT 4 Diastolic Blood Pressure 65.00 mm[Hg] Fri Oct 18 08:48:42 EDT 4 Heart Rate 64.00 /min Fri Oct 18 08:48 :42 EDT 4 Systolic Blood Pressure 110.00 mm[Hg] Caitlyn Oct 17 18:02:48 EDT 2023 Diastolic Blood Pressure 57.00 mm[Hg] Caitlyn Oct 17 18:02:48 EDT 2023 Body weight 185.60 [lb_av] Caitlyn Oct 17 18:02 :48 EDT 2023 Heart Rate 65.00 /min Caitlyn Oct 17 18:02 :48 EDT 2023 Body temperature 97.80 [degF] Caitlyn Oct 17 18:0 2:48 EDT 2023 Respiratory rate 18.00 /min Caitlyn Oct 17 18:0 2:48 EDT 2023 Systolic Blood Pressure 157.00 mm[Hg] Caitlyn Oct 17 08:34:59 EDT 2023 Diastolic Blood Pressure 75.00 mm[Hg] Caitlyn Oct 17 08:34:59 EDT 4 Heart Rate 52.00 /min Caitlyn Oct 17 08:34 :59 EDT 4 Systolic Blood Pressure 133.00 mm[Hg] Wed Oct 16 08:05:27 EDT 4 Diastolic Blood Pressure 72.00 mm[Hg] Wed Oct 16 08:05:27 EDT 4 Heart Rate 47.00 /min Wed Oct 16 08:05 :27 EDT 4 Systolic Blood Pressure 133.00 mm[Hg] Tue Oct 15 08:53:51 EDT 2023 Diastolic Blood Pressure 71.00 mm[Hg] Tue Oct 15 08:53:51 EDT 2023 Heart Rate 69.00 /min Tue Oct 15 08:53 :51 EDT 2023 Systolic Blood Pressure 121.00 mm[Hg] Mon Oct 14 11:39:43 EDT 2024 Diastolic Blood Pressure 68.00 mm[Hg] Mon Oct 14 11:39:43 EDT 4 Heart Rate 51.00 /min Mon Oct 14 11:39 :43 EDT 4 Body temperature 97.60 [degF] Sun Oct 13 12:4 9:26 EDT 2024 Body temperature 97.60 [degF] Sun Oct 13 12:4 8:39 EDT 4 Systolic Blood Pressure 129.00 mm[Hg] Sun Oct 13 09:21:49 EDT 4 Diastolic Blood Pressure 55.00 mm[Hg] Sun Oct 13 09:21:49 EDT 2023 Heart Rate 50.00 /min Sun Oct 13 09:21 :49 EDT 4 Body temperature 97.60 [degF] Sat Oct 12 17:5 7:09 EDT 2023 Body temperature 97.70 [degF] Sat Oct 12 15:5 7:29 EDT 2023 Systolic Blood Pressure 147.00 mm[Hg] [facility] Oct 12 08:45:30 EDT 2023 Diastolic Blood Pressure 65.00 mm[Hg] [facility] 12 08:45:30 EDT 2023 Heart Rate 97.70 /min [facility] Oct 12 08:45 :30 EDT 4 Body temperature 97.90 [degF] [facility] Oct 11 21:3 4:56 EDT 2023 Body temperature 98.20 [degF] [facility] Oct 11 14:0 3:07 EDT 2023 Systolic Blood Pressure 123.00 mm[Hg] Tue 11 09:34:39 EDT 2023 Diastolic Blood Pressure 56.00 mm[Hg] Tue 11 09:34:39 EDT 2023 Heart Rate 49.00 /min Tue 11 09:34 :39 EDT 2023 Body temperature 97.30 [degF] Tue 11 03:0 5:42 EDT 2023 Systolic Blood Pressure 173.00 mm[Hg] [facility] Oct 10 09:17:41 EDT 2023 Diastolic Blood Pressure 79.00 mm[Hg] [facility] Oct 10 09:17:41 EDT 2023 Heart Rate 80.00 /min [facility] Jun 10 09:17 :41 EDT 2023 Systolic Blood Pressure 135.00 mm[Hg] Wed Jul 04 07:50:45 EDT 2023 Diastolic Blood Pressure 59.00 mm[Hg] Wed Jul 04 07:50:45 EDT 2023 Heart Rate 56.00 /min Wed Oct 09 07:50 :45 EDT 2023 Systolic Blood Pressure 126.00 mm[Hg] Tue Oct 08 08:01:19 EDT 2023 Diastolic Blood Pressure 63.00 mm[Hg] Tue Oct 08 08:01:19 EDT 2023 Heart Rate 51.00 /min Tue 08 08:01 :19 EDT 2023 Systolic Blood Pressure 136.00 mm[Hg] Tue Oct 07 09:24:00 EDT 2023 Diastolic Blood Pressure 66.00 mm[Hg] Mon Oct 07 09:24:00 EDT 2023 Heart Rate 61.00 /min Mon Oct 07 09:24 :00 EDT 2023 Systolic Blood Pressure 130.00 mm[Hg] Sun Oct 06 08:49:45 EDT 2023 Diastolic Blood Pressure 58.00 mm[Hg] Sun Oct 06 08:49:45 EDT 2023 Heart Rate 50.00 /min Sun Oct 06 08:49 :45 EDT 2023 Systolic Blood Pressure 133.00 mm[Hg] Sat Oct 05 11:07:46 EDT 2023 Diastolic Blood Pressure 69.00 mm[Hg] Sat Oct 05 11:07:46 EDT 2023 Heart Rate 55.00 /min Sat Oct 05 11:07 :46 EDT 2023 Systolic Blood Pressure 130.00 mm[Hg] Fri Oct 04 08:49:17 EDT 2023 Diastolic Blood Pressure 66.00 mm[Hg] Fri Oct 04 08:49:17 EDT 2023 Heart Rate 60.00 /min Fri Oct 04 08:49 :17 EDT 2023 Systolic Blood Pressure 151.00 mm[Hg] [facility] Oct 15:43:03 EDT 2023 Diastolic Blood Pressure 67.00 mm[Hg] [facility] Oct 15:43:03 EDT 2023 Body weight 187.40 [lb_av] [facility] Oct 15:43 :03 EDT 2023 Heart Rate 57.00 /min [facility] Oct 15:43 :03 ED2023 Body temperature 97.60 [degF] [facility] Oct 15:4 3:03 ED2023 Respiratory rate 18.00 /min [facility] Oct 15:4 3:03 ED2023 Systolic Blood Pressure 147.00 mm[Hg] [facility] Oct 03 08:01:58 EDT 2023 Diastolic Blood Pressure 68.00 mm[Hg] [facility] Jun 28 08:01:58 EDT 4 Heart Rate 48.00 /min [facility] Jun 28 08:01 :58 EDT 4 Systolic Blood Pressure 127.00 mm[Hg] TueJun 27 08:36:49 EDT 2023 Diastolic Blood Pressure 57.00 mm[Hg] TueJun 27 08:36:49 EDT 2023 Heart Rate 63.00 /min TueJun 27 08:36 :49 EDT 2023 Systolic Blood Pressure 130.00 mm[Hg] TueJun 26 09:51:16 EDT 2023 Diastolic Blood Pressure 67.00 mm[Hg] TueJun 26 09:51:16 EDT 2023 Heart Rate 81.00 /min TueJun 26 09:51 :16 EDT 2023 Systolic Blood Pressure 137.00 mm[Hg] Mon Sep 30 11:16:52 EDT 2023 Diastolic Blood Pressure 67.00 mm[Hg] Mon Sep 30 11:16:52 EDT 2023 Heart Rate 51.00 /min Mon Sep 30 11:16 :52 EDT 2023 Systolic Blood Pressure 134.00 mm[Hg] Sun Sep 29 08:09:44 EDT 2023 Diastolic Blood Pressure 65.00 mm[Hg] Sun Sep 29 08:09:44 EDT 4 Heart Rate 48.00 /min Sun Sep 29 08:09 :44 EDT 4 Systolic Blood Pressure 155.00 mm[Hg] Sat Sep 28 09:36:14 EDT 4 Diastolic Blood Pressure 64.00 mm[Hg] Sat Sep 28 09:36:14 EDT 4 Heart Rate 60.00 /min Sat Sep 28 09:36 :14 EDT 4 Systolic Blood Pressure 118.00 mm[Hg] Fri Sep 27 10:46:40 EDT 2023 Diastolic Blood Pressure 66.00 mm[Hg] Fri Sep 27 10:46:40 EDT 4 Heart Rate 51.00 /min Fri Sep 27 10:46 :40 EDT 2023 Systolic Blood Pressure 121.00 mm[Hg] [facility] Sep 26 07:47:03 EDT 2023 Diastolic Blood Pressure 72.00 mm[Hg] [facility] Sep 26 07:47:03 EDT 2023 Heart Rate 61.00 /min [facility] Sep 26 07:47 :03 EDT 2023 Systolic Blood Pressure 126.00 mm[Hg] Wed Sep 25 07:55:05 EDT 2023 Diastolic Blood Pressure 64.00 mm[Hg] Wed Sep 25 07:55:05 EDT 2023 Heart Rate 57.00 /min Wed Sep 25 07:55 :05 EDT 2023 Systolic Blood Pressure 125.00 mm[Hg] Tue Sep 24 07:55:35 EDT 2023 Diastolic Blood Pressure 70.00 mm[Hg] Tue Sep 24 07:55:35 EDT 2023 Heart Rate 51.00 /min Tue Sep 24 07:55 :35 EDT 2023 Systolic Blood Pressure 149.00 mm[Hg] Mon Sep 23 09:42:03 EDT 2023 Diastolic Blood Pressure 69.00 mm[Hg] Mon Sep 23 09:42:03 EDT 2023 Heart Rate 59.00 /min Mon Sep 23 09:42 :03 EDT 2023 Systolic Blood Pressure 150.00 mm[Hg] Sun Sep 22 11:09:25 EDT 2023 Diastolic Blood Pressure 71.00 mm[Hg] Sun Sep 22 11:09:25 EDT 2023 Heart Rate 63.00 /min Sun Sep 22 11:09 :25 EDT 2023 Systolic Blood Pressure 125.00 mm[Hg] Sat Sep 21 11:28:58 EDT 2023 Diastolic Blood Pressure 53.00 mm[Hg] Sat Sep 21 11:28:58 EDT 2023 Heart Rate 51.00 /min Sat Sep 21 11:28 :58 EDT 2023 Systolic Blood Pressure 151.00 mm[Hg] Fri Sep 20 12:00:23 EDT 2023 Diastolic Blood Pressure 74.00 mm[Hg] Fri Sep 20 12:00:23 EDT 2023 Heart Rate 60.00 /min Fri Sep 20 12:00 :23 EDT 2023 Systolic Blood Pressure 120.00 mm[Hg] [facility] Sep 19 08:01:48 EDT 2023 Diastolic Blood Pressure 79.00 mm[Hg] [facility] Sep 19 08:01:48 EDT 2023 Heart Rate 46.00 /min [facility] Sep 19 08:01 :48 EDT 2023 Systolic Blood Pressure 138.00 mm[Hg] Wed Sep 18 08:45:50 EDT 2023 Diastolic Blood Pressure 72.00 mm[Hg] Wed Sep 18 08:45:50 EDT 2023 Heart Rate 56.00 /min Wed Sep 18 08:45 :50 EDT 2023 Systolic Blood Pressure 117.00 mm[Hg] Tue Sep 17 21:30:41 EDT 2024 Diastolic Blood Pressure 62.00 mm[Hg] e Sep 17 21:30:41 EDT 4 Body weight 187.50 [lb_av] e Sep 17 21:30 :41 EDT 2023 Heart Rate 59.00 /min e Sep 17 21:30 :41 EDT 2023 Body temperature 97.80 [degF] [facility] Sep 17 21:3 0:41 EDT 2023 Respiratory rate 18.00 /min [facility] Sep 17 21:3 0:41 EDT 2023 Systolic Blood Pressure 156.00 mm[Hg] e Sep 17 12:10:10 EDT 2023 Diastolic Blood Pressure 66.00 mm[Hg] e Sep 17 12:10:10 EDT 2023 Heart Rate 52.00 /min e Sep 17 12:10 :10 EDT 2023 Systolic Blood Pressure 136.00 mm[Hg] Mon Sep 16 11:07:11 EDT 2023 Diastolic Blood Pressure 71.00 mm[Hg] Mon Sep 16 11:07:11 EDT 2023 Heart Rate 70.00 /min Mon Sep 16 11:07 :11 EDT 2023 Systolic Blood Pressure 136.00 mm[Hg] Sun Sep 15 09:43:37 EDT 2023 Diastolic Blood Pressure 61.00 mm[Hg] Sun Sep 15 09:43:37 EDT 2023 Heart Rate 50.00 /min Sun Sep 15 09:43 :37 EDT 2023 Systolic Blood Pressure 144.00 mm[Hg] Sat Sep 14 08:44:46 EDT 2023 Diastolic Blood Pressure 69.00 mm[Hg] Sat Sep 14 08:44:46 EDT 2023 Heart Rate 58.00 /min Sat Sep 14 08:44 :46 EDT 2023 Systolic Blood Pressure 130.00 mm[Hg] Fri Sep 13 08:07:24 EDT 2023 Diastolic Blood Pressure 61.00 mm[Hg] Fri Sep 13 08:07:24 EDT 2023 Heart Rate 49.00 /min Fri Sep 13 08:07 :24 EDT 2023 Systolic Blood Pressure 123.00 mm[Hg] [facility] Sep 12 10:26:49 EDT 2023 Diastolic Blood Pressure 65.00 mm[Hg] [facility] Sep 12 10:26:49 EDT 2023 Heart Rate 59.00 /min [facility] Sep 12 10:26 :49 EDT 2023 Systolic Blood Pressure 157.00 mm[Hg] Wed Sep 11 08:00:13 EDT 2023 Diastolic Blood Pressure 67.00 mm[Hg] Wed Sep 11 08:00:13 EDT 2023 Heart Rate 49.00 /min Wed Sep 11 08:00 :13 EDT 2023 Systolic Blood Pressure 136.00 mm[Hg] Tue Sep 10 08:40:20 EDT 2023 Diastolic Blood Pressure 81.00 mm[Hg] Tue Sep 10 08:40:20 EDT 2023 Heart Rate 61.00 /min Tue Sep 10 08:40 :20 EDT 2023 Systolic Blood Pressure 136.00 mm[Hg] Mon Sep 09 09:17:01 EDT 2023 Diastolic Blood Pressure 61.00 mm[Hg] Mon Sep 09 09:17:01 EDT 2023 Heart Rate 54.00 /min Mon Sep 09 09:17 :01 EDT 2023 Systolic Blood Pressure 151.00 mm[Hg] Sun Sep 08 13:01:09 EDT 2023 Diastolic Blood Pressure 87.00 mm[Hg] Sun Sep 08 13:01:09 EDT 2023 Heart Rate 73.00 /min Sun Sep 08 13:01 :09 EDT 2023 Systolic Blood Pressure 111.00 mm[Hg] Sat Sep 07 10:26:49 EDT 2023 Diastolic Blood Pressure 60.00 mm[Hg] Sat Sep 07 10:26:49 EDT 2023 Heart Rate 76.00 /min Sat Sep 07 10:26 :49 EDT 2023 Systolic Blood Pressure 148.00 mm[Hg] Fri Sep 06 08:38:21 EDT 2023 Diastolic Blood Pressure 67.00 mm[Hg] Fri Sep 06 08:38:21 EDT 2023 Heart Rate 51.00 /min Fri Sep 06 08:38 :21 EDT 2023 Systolic Blood Pressure 142.00 mm[Hg] [facility] Sep 05 07:51:32 EDT 2023 Diastolic Blood Pressure 79.00 mm[Hg] [facility] Sep 05 07:51:32 EDT 2023 Heart Rate 64.00 /min [facility] Sep 05 07:51 :32 EDT 2023 Systolic Blood Pressure 130.00 mm[Hg] Wed Sep 04 08:07:20 EDT 2023 Diastolic Blood Pressure 62.00 mm[Hg] Wed Sep 04 08:07:20 EDT 2023 Heart Rate 51.00 /min Wed Sep 04 08:07 :20 EDT 2023 Systolic Blood Pressure 137.00 mm[Hg] e Sep 03 20:18:44 EDT 2023 Diastolic Blood Pressure 61.00 mm[Hg] e Sep 03 20:18:44 EDT 2023 Body weight 186.20 [lb_av] e Sep 20:18 :44 EDT 2023 Heart Rate 56.00 /min e Sep 20:18 :44 EDT 2023 Body temperature 97.70 [degF] e Sep 20:1 8:44 EDT 2023 Respiratory rate 18.00 /min e Sep 20:1 8:44 EDT 2023 Systolic Blood Pressure 119.00 mm[Hg] e Sep 03 08:51:02 EDT 2023 Diastolic Blood Pressure 71.00 mm[Hg] e Sep 08:51:02 EDT 2023 Heart Rate 71.00 /min e Sep 08:51 :02 EDT 2023 Systolic Blood Pressure 144.00 mm[Hg] Mon Sep 02 08:56:54 EDT 2023 Diastolic Blood Pressure 73.00 mm[Hg] Mon Sep 02 08:56:54 EDT 2023 Heart Rate 56.00 /min Mon Sep 02 08:56 :54 EDT 2023 Systolic Blood Pressure 136.00 mm[Hg] Sun Sep 08:35:44 EDT 2023 Diastolic Blood Pressure 51.00 mm[Hg] Sun Sep 08:35:44 EDT 2023 Heart Rate 54.00 /min Sun Sep 08:35 :44 EDT 2023 Systolic Blood Pressure 127.00 mm[Hg] TueMay 26 08:36:56 EDT 2023 Diastolic Blood Pressure 69.00 mm[Hg] TueMay 26 08:36:56 EDT 2023 Heart Rate 80.00 /min TueMay 26 08:36 :56 EDT 2023 Systolic Blood Pressure 119.00 mm[Hg] TueMay 25 09:21:43 EDT 2023 Diastolic Blood Pressure 58.00 mm[Hg] TueMay 25 09:21:43 EDT 2023 Heart Rate 67.00 /min TueMay 25 09:21 :43 EDT 2023 Systolic Blood Pressure 148.00 mm[Hg] TueMay 24 07:57:10 EDT 2023 Diastolic Blood Pressure 75.00 mm[Hg] TueMay 24 07:57:10 EDT 2023 Heart Rate 58.00 /min TueMay 24 07:57 :10 EDT 2023 Systolic Blood Pressure 154.00 mm[Hg] TueMay 23 08:06:11 EDT 2023 Diastolic Blood Pressure 70.00 mm[Hg] TueMay 23 08:06:11 EDT 2023 Heart Rate 49.00 /min TueMay 23 08:06 :11 EDT 2023 Systolic Blood Pressure 167.00 mm[Hg] TueMay 22 08:08:38 EDT 2023 Diastolic Blood Pressure 78.00 mm[Hg] TueMay 22 08:08:38 EDT 2023 Heart Rate 73.00 /min TueMay 22 08:08 :38 EDT 2023 Systolic Blood Pressure 124.00 mm[Hg] TueMay 21 07:44:55 EDT 2023 Diastolic Blood Pressure 56.00 mm[Hg] TueMay 21 07:44:55 EDT 2023 Heart Rate 56.00 /min TueMay 21 07:44 :55 EDT 2023 Systolic Blood Pressure 110.00 mm[Hg] [place] May 20 08:45:26 EDT 2023 Diastolic Blood Pressure 52.00 mm[Hg] [place] May 20 08:45:26 EDT 2023 Heart Rate 57.00 /min [place] May 20 08:45 :26 EDT 2023 Systolic Blood Pressure 157.00 mm[Hg] [facility] May 19 08:44:05 EDT 2023 Diastolic Blood Pressure 89.00 mm[Hg] [facility] May 19 08:44:05 EDT 2023 Heart Rate 73.00 /min [facility] May 19 08:44 :05 EDT 2023 Systolic Blood Pressure 133.00 mm[Hg] TueMay 18 10:25:17 EDT 2023 Diastolic Blood Pressure 64.00 mm[Hg] TueMay 18 10:25:17 EDT 2023 Heart Rate 52.00 /min TueMay 18 10:25 :17 EDT 2023 Systolic Blood Pressure 142.00 mm[Hg] TueMay 17 07:55:23 EDT 2023 Diastolic Blood Pressure 68.00 mm[Hg] TueMay 17 07:55:23 EDT 2023 Heart Rate 53.00 /min TueMay 17 07:55 :23 EDT 2023 Systolic Blood Pressure 183.00 mm[Hg] TueMay 16 08:36:29 EDT 2024 Diastolic Blood Pressure 82.00 mm[Hg] TueMay 16 08:36:29 EDT 2023 Heart Rate 61.00 /min TueMay 16 08:36 :29 EDT 2023 Systolic Blood Pressure 132.00 mm[Hg] TueMay 15 09:51:18 EDT 2023 Diastolic Blood Pressure 51.00 mm[Hg] TueMay 15 09:51:18 EDT 2023 Heart Rate 56.00 /min TueMay 15 09:51 :18 EDT 2023 Systolic Blood Pressure 115.00 mm[Hg] TueMay 14 10:38:07 EDT 2023 Diastolic Blood Pressure 51.00 mm[Hg] TueMay 14 10:38:07 EDT 2023 Heart Rate 47.00 /min TueMay 14 10:38 :07 EDT 2023 Systolic Blood Pressure 117.00 mm[Hg] [place] May 13 08:37:01 EDT 2023 Diastolic Blood Pressure 61.00 mm[Hg] [facility] May 13 08:37:01 EDT 2023 Heart Rate 56.00 /min [place] May 13 08:37 :01 EDT 2023 Systolic Blood Pressure 143.00 mm[Hg] [facility] May 12 17:19:48 EDT 2023 Diastolic Blood Pressure 75.00 mm[Hg] [facility] May 12 17:19:48 EDT 2023 Body weight 188.40 [lb_av] [facility] May 12 17:19 :48 EDT 2023 Heart Rate 51.00 /min [facility] May 12 17:19 :48 EDT 2023 Body temperature 96.40 [degF] [facility] May 12 17:1 9:48 EDT 2023 Respiratory rate 20.00 /min [facility] May 12 17:1 9:48 EDT 2023 Systolic Blood Pressure 123.00 mm[Hg] [facility] May 12 09:31:19 EDT 2023 Diastolic Blood Pressure 69.00 mm[Hg] [facility] May 12 09:31:19 EDT 2023 Heart Rate 66.00 /min [facility] May 12 09:31 :19 EDT 2023 Systolic Blood Pressure 148.00 mm[Hg] TueMay 11 10:14:15 EDT 2023 Diastolic Blood Pressure 65.00 mm[Hg] TueMay 11 10:14:15 EDT 2023 Heart Rate 48.00 /min TueMay 11 10:14 :15 EDT 2023 Systolic Blood Pressure 154.00 mm[Hg] [facility] May 10 08:36:13 EDT 2023 Diastolic Blood Pressure 74.00 mm[Hg] TueMay 10 08:36:13 EDT 2023 Heart Rate 47.00 /min TueMay 10 08:36 :13 EDT 2023 Systolic Blood Pressure 130.00 mm[Hg] TueMay 09 08:53:11 EDT 2023 Diastolic Blood Pressure 72.00 mm[Hg] TueMay 09 08:53:11 EDT 2023 Heart Rate 74.00 /min TueMay 09 08:53 :11 EDT 2023 Systolic Blood Pressure 170.00 mm[Hg] TueMay 08 09:39:47 EDT 2023 Diastolic Blood Pressure 79.00 mm[Hg] TueMay 08 09:39:47 EDT 2023 Heart Rate 51.00 /min TueMay 08 09:39 :47 EDT 2023 Systolic Blood Pressure 135.00 mm[Hg] TueMay 07 08:42:02 EDT 2023 Diastolic Blood Pressure 68.00 mm[Hg] TueMay 07 08:42:02 EDT 2023 Heart Rate 53.00 /min TueMay 07 08:42 :02 EDT 2023 Systolic Blood Pressure 132.00 mm[Hg] [place] May 06 11:19:26 EDT 2023 Diastolic Blood Pressure 80.00 mm[Hg] [facility] May 06 11:19:26 EDT 2023 Heart Rate 73.00 /min [place] May 06 11:19 :26 EDT 2023 Systolic Blood Pressure 133.00 mm[Hg] [facility] May 05 09:23:10 EDT 2023 Diastolic Blood Pressure 60.00 mm[Hg] TueMay 05 09:23:10 EDT 2023 Heart Rate 55.00 /min TueMay 05 09:23 :10 EDT 2023 Systolic Blood Pressure 121.00 mm[Hg] TueMay 04 09:35:05 EDT 2023 Diastolic Blood Pressure 56.00 mm[Hg] TueMay 04 09:35:05 EDT 2023 Heart Rate 53.00 /min TueMay 04 09:35 :05 EDT 2023 Systolic Blood Pressure 122.00 mm[Hg] TueMay 03 09:04:36 EDT 2023 Diastolic Blood Pressure 71.00 mm[Hg] TueMay 03 09:04:36 EDT 2023 Heart Rate 62.00 /min TueMay 03 09:04 :36 EDT 2023 Systolic Blood Pressure 150.00 mm[Hg] TueMay 02 09:12:50 EDT 2023 Diastolic Blood Pressure 62.00 mm[Hg] TueMay 02 09:12:50 EDT 2023 Heart Rate 50.00 /min TueMay 02 09:12 :50 EDT 2023 Systolic Blood Pressure 145.00 mm[Hg] TueMay 01 08:38:48 EDT 2023 Diastolic Blood Pressure 82.00 mm[Hg] TueMay 01 08:38:48 EDT 2023 Heart Rate 58.00 /min TueMay 01 08:38 :48 EDT 2023 Systolic Blood Pressure 124.00 mm[Hg] TueApr 30 08:59:48 EDT 2023 Diastolic Blood Pressure 79.00 mm[Hg] TueApr 30 08:59:48 EDT 2023 Heart Rate 53.00 /min TueApr 30 08:59 :48 EDT 2023 Systolic Blood Pressure 143.00 mm[Hg] [place] Apr 29 07:53:25 EDT 2023 Diastolic Blood Pressure 66.00 mm[Hg] [place] Apr 29 07:53:25 EDT 2023 Heart Rate 60.00 /min [place] Apr 29 07:53 :25 EDT 2023 Systolic Blood Pressure 134.00 mm[Hg] [facility] Apr 28 15:12:11 EDT 2023 Diastolic Blood Pressure 64.00 mm[Hg] [facility] Apr 28 15:12:11 EDT 2023 Body weight 187.80 [lb_av] [facility] Apr 28 15:12 :11 EDT 2023 Heart Rate 63.00 /min [facility] Apr 28 15:12 :11 EDT 2023 Body temperature 98.10 [degF] [facility] Apr 28 15:1 2:11 EDT 2023 Respiratory rate 20.00 /min [facility] Apr 28 15:1 2:11 EDT 2023 Systolic Blood Pressure 134.00 mm[Hg] [facility] Apr 28 08:40:18 EDT 2023 Diastolic Blood Pressure 64.00 mm[Hg] TueApr 28 08:40:18 EDT 2023 Heart Rate 63.00 /min TueApr 28 08:40 :18 EDT 2023 Systolic Blood Pressure 121.00 mm[Hg] TueApr 27 08:33:34 EDT 2023 Diastolic Blood Pressure 52.00 mm[Hg] TueApr 27 08:33:34 EDT 2023 Heart Rate 58.00 /min TueApr 27 08:33 :34 EDT 2024 Systolic Blood Pressure 115.00 mm[Hg] TueApr 26 09:13:04 EDT 202 Diastolic Blood Pressure 59.00 mm[Hg] TueApr 26 09:13:04 EDT 2023 Heart Rate 55.00 /min TueApr 26 09:13 :04 EDT 2023 Systolic Blood Pressure 115.00 mm[Hg] TueApr 26 09:01:49 EDT 2023 Diastolic Blood Pressure 59.00 mm[Hg] [facility] Apr 26 09:01:49 EDT 2023 Heart Rate 55.00 /min TueApr 26 09:01 :49 EDT 2023 Pulse Oximetry 93.00 % TueApr 26 09:01 :49 EDT 2023 Systolic Blood Pressure 162.00 mm[Hg] TueApr 25 07:53:11 EDT 2023 Diastolic Blood Pressure 83.00 mm[Hg] TueApr 25 07:53:11 EDT 2023 Heart Rate 63.00 /min TueApr 25 07:53 :11 EDT 2023 Systolic Blood Pressure 145.00 mm[Hg] TueApr 24 08:56:50 EDT 2023 Diastolic Blood Pressure 71.00 mm[Hg] TueApr 24 08:56:50 EDT 2023 Heart Rate 47.00 /min TueApr 24 08:56 :50 EDT 2023 Systolic Blood Pressure 125.00 mm[Hg] TueApr 23 08:32:36 EDT 2023 Diastolic Blood Pressure 76.00 mm[Hg] TueApr 23 08:32:36 EDT 2023 Heart Rate 59.00 /min TueApr 23 08:32 :36 EDT 2023 Systolic Blood Pressure 133.00 mm[Hg] TueApr 22 08:30:49 EDT 202 Diastolic Blood Pressure 68.00 mm[Hg] TueApr 22 08:30:49 EDT 2023 Heart Rate 61.00 /min TueApr 22 08:30 :49 EDT 2023 Systolic Blood Pressure 147.00 mm[Hg] TueApr 21 08:55:58 EDT 2023 Diastolic Blood Pressure 68.00 mm[Hg] TueApr 21 08:55:58 EDT 2023 Heart Rate 55.00 /min TueApr 21 08:55 :58 EDT 2023 Systolic Blood Pressure 153.00 mm[Hg] TueApr 20 08:43:44 EDT 2023 Diastolic Blood Pressure 74.00 mm[Hg] TueApr 20 08:43:44 EDT 2023 Heart Rate 60.00 /min TueApr 20 08:43 :44 EDT 2023 Systolic Blood Pressure 144.00 mm[Hg] TueApr 19 08:05:33 EDT 2023 Diastolic Blood Pressure 64.00 mm[Hg] TueApr 19 08:05:33 EDT 2023 Heart Rate 51.00 /min TueApr 19 08:05 :33 EDT 202 Systolic Blood Pressure 128.00 mm[Hg] TueApr 18 07:48:35 EDT 202 Diastolic Blood Pressure 67.00 mm[Hg] TueApr 18 07:48:35 EDT 202 Heart Rate 60.00 /min TueApr 18 07:48 :35 EDT 2023 Systolic Blood Pressure 136.00 mm[Hg] TueApr 17 08:32:54 EDT 2023 Diastolic Blood Pressure 69.00 mm[Hg] TueApr 17 08:32:54 EDT 2023 Heart Rate 66.00 /min TueApr 17 08:32 :54 EDT 2023 Systolic Blood Pressure 113.00 mm[Hg] TueApr 16 10:52:16 EDT 2023 Diastolic Blood Pressure 58.00 mm[Hg] TueApr 16 10:52:16 EDT 2023 Heart Rate 52.00 /min TueApr 16 10:52 :16 EDT 2023 Systolic Blood Pressure 146.00 mm[Hg] TueApr 15 08:05:36 EDT 2023 Diastolic Blood Pressure 61.00 mm[Hg] TueApr 15 08:05:36 EDT 2023 Heart Rate 53.00 /min TueApr 15 08:05 :36 EDT 2023 Systolic Blood Pressure 113.00 mm[Hg] TueApr 14 08:09:54 EDT 2023 Diastolic Blood Pressure 66.00 mm[Hg] TueApr 14 08:09:54 EDT 2023 Heart Rate 62.00 /min TueApr 14 08:09 :54 EDT 2023 Systolic Blood Pressure 145.00 mm[Hg] TueApr 13 11:41:20 EDT 2023 Diastolic Blood Pressure 73.00 mm[Hg] TueApr 13 11:41:20 EDT 2023 Heart Rate 87.00 /min TueApr 13 11:41 :20 EDT 2023 Systolic Blood Pressure 120.00 mm[Hg] TueApr 12 08:43:47 EDT 2024 Diastolic Blood Pressure 72.00 mm[Hg] TueApr 12 08:43:47 EDT 2023 Heart Rate 55.00 /min TueApr 12 08:43 :47 EDT 2023 Systolic Blood Pressure 137.00 mm[Hg] TueApr 11 18:50:02 EDT 2023 Diastolic Blood Pressure 62.00 mm[Hg] TueApr 11 18:50:02 EDT 2023 Body weight 187.20 [lb_av] TueApr 11 18:50 :02 EDT 2023 Heart Rate 55.00 /min TueApr 11 18:50 :02 EDT 2023 Body temperature 98.20 [degF] TueApr 11 18:5 0:02 EDT 2023 Respiratory rate 18.00 /min TueApr 11 18:5 0:02 EDT 2023 Systolic Blood Pressure 128.00 mm[Hg] TueApr 11 08:03:24 EDT 2023 Diastolic Blood Pressure 70.00 mm[Hg] TueApr 11 08:03:24 EDT 2023 Heart Rate 64.00 /min TueApr 11 08:03 :24 EDT 2023 Systolic Blood Pressure 138.00 mm[Hg] TueApr 10 07:59:46 EDT 2023 Diastolic Blood Pressure 61.00 mm[Hg] TueApr 10 07:59:46 EDT 2023 Heart Rate 53.00 /min TueApr 10 07:59 :46 EDT 2023 Systolic Blood Pressure 148.00 mm[Hg] TueApr 09 08:37:48 EDT 2023 Diastolic Blood Pressure 76.00 mm[Hg] TueApr 09 08:37:48 EDT 2023 Heart Rate 56.00 /min TueApr 09 08:37 :48 EDT 2024 Systolic Blood Pressure 151.00 mm[Hg] TueApr 08 08:02:57 EDT 2023 Diastolic Blood Pressure 75.00 mm[Hg] TueApr 08 08:02:57 EDT 2023 Heart Rate 55.00 /min TueApr 08 08:02 :57 EDT 2023 Systolic Blood Pressure 125.00 mm[Hg] TueApr 07 10:53:49 EDT 2023 Diastolic Blood Pressure 61.00 mm[Hg] TueApr 07 10:53:49 EDT 2023 Heart Rate 51.00 /min TueApr 07 10:53 :49 EDT 2023 Systolic Blood Pressure 154.00 mm[Hg] TueApr 06 08:50:35 EDT 2023 Diastolic Blood Pressure 83.00 mm[Hg] TueApr 06 08:50:35 EDT 2023 Heart Rate 70.00 /min TueApr 06 08:50 :35 EDT 2024 Systolic Blood Pressure 146.00 mm[Hg] TueApr 05 07:56:51 EDT 202 Diastolic Blood Pressure 65.00 mm[Hg] TueApr 05 07:56:51 EDT 2023 Heart Rate 72.00 /min TueApr 05 07:56 :51 EDT 202 Systolic Blood Pressure 121.00 mm[Hg] TueApr 04 07:55:18 EDT 202 Diastolic Blood Pressure 61.00 mm[Hg] TueApr 04 07:55:18 EDT 2023 Heart Rate 58.00 /min TueApr 04 07:55 :18 EDT 2023 Systolic Blood Pressure 135.00 mm[Hg] TueApr 03 08:12:45 EDT 2023 Diastolic Blood Pressure 85.00 mm[Hg] TueApr 03 08:12:45 EDT 2023 Heart Rate 80.00 /min TueApr 03 08:12 :45 EDT 2023 Systolic Blood Pressure 134.00 mm[Hg] TueApr 02 11:37:48 EDT 2023 Diastolic Blood Pressure 59.00 mm[Hg] TueApr 02 11:37:48 EDT 2023 Heart Rate 63.00 /min TueApr 02 11:37 :48 EDT 2023 Systolic Blood Pressure 131.00 mm[Hg] TueApr 01 08:19:54 EDT 2023 Diastolic Blood Pressure 60.00 mm[Hg] TueApr 01 08:19:54 EDT 2023 Heart Rate 53.00 /min TueApr 01 08:19 :54 EDT 2023 Systolic Blood Pressure 128.00 mm[Hg] TueMar 31 08:02:51 EDT 2023 Diastolic Blood Pressure 57.00 mm[Hg] TueMar 31 08:02:51 EDT 2023 Heart Rate 62.00 /min TueMar 31 08:02 :51 EDT 2023 Systolic Blood Pressure 157.00 mm[Hg] TueMar 30 11:17:35 EDT 2023 Diastolic Blood Pressure 80.00 mm[Hg] TueMar 30 11:17:35 EDT 2023 Heart Rate 75.00 /min TueMar 30 11:17 :35 EDT 2023 Systolic Blood Pressure 133.00 mm[Hg] TueMar 29 09:56:44 EDT 2023 Diastolic Blood Pressure 52.00 mm[Hg] TueMar 29 09:56:44 EDT 2023 Heart Rate 56.00 /min TueMar 29 09:56 :44 EDT 2023 Systolic Blood Pressure 151.00 mm[Hg] TueMar 28 18:38:11 EDT 2023 Diastolic Blood Pressure 63.00 mm[Hg] TueMar 28 18:38:11 EDT 2023 Body weight 185.00 [lb_av] TueMar 28 18:38 :11 EDT 2023 Heart Rate 56.00 /min TueMar 28 18:38 :11 EDT 2023 Body temperature 97.80 [degF] TueMar 28 18:3 8:11 EDT 2023 Respiratory rate 18.00 /min TueMar 28 18:3 8:11 EDT 2023 Systolic Blood Pressure 162.00 mm[Hg] TueMar 28 07:59:09 EDT 2023 Diastolic Blood Pressure 71.00 mm[Hg] TueMar 28 07:59:09 EDT 2023 Heart Rate 48.00 /min TueMar 28 07:59 :09 EDT 2023 Systolic Blood Pressure 142.00 mm[Hg] TueMar 27 07:53:56 EDT 2023 Diastolic Blood Pressure 69.00 mm[Hg] TueMar 27 07:53:56 EDT 2023 Heart Rate 57.00 /min TueMar 27 07:53 :56 EDT 2023 Systolic Blood Pressure 157.00 mm[Hg] TueMar 26 09:37:13 EDT 2023 Diastolic Blood Pressure 84.00 mm[Hg] TueMar 26 09:37:13 EDT 2023 Heart Rate 64.00 /min TueMar 26 09:37 :13 EDT 2023 Systolic Blood Pressure 128.00 mm[Hg] TueMar 25 07:53:13 EDT 2023 Diastolic Blood Pressure 60.00 mm[Hg] TueMar 25 07:53:13 EDT 2023 Heart Rate 52.00 /min TueMar 25 07:53 :13 EDT 2023 Systolic Blood Pressure 116.00 mm[Hg] TueMar 24 08:25:53 EDT 2023 Diastolic Blood Pressure 54.00 mm[Hg] TueMar 24 08:25:53 EDT 2024 Heart Rate 55.00 /min Sat Nino 29 08:25 :53 EDT 4 Systolic Blood Pressure 118.00 mm[Hg] Tue 28 08:38:38 EDT 2023 Diastolic Blood Pressure 61.00 mm[Hg] Tue 28 08:38:38 EDT 4 Heart Rate 61.00 /min Tue 28 08:38 :38 EDT 4 Systolic Blood Pressure 144.00 mm[Hg] Caitlyn Nino 27 08:04:09 EDT 2023 Diastolic Blood Pressure 61.00 mm[Hg] Caitlyn Nino 27 08:04:09 EDT 4 Heart Rate 51.00 /min Caitlyn Nino 27 08:04 :09 EDT 2024 Systolic Blood Pressure 152.00 mm[Hg] Wed Nino 26 08:04:43 EDT 2023 Diastolic Blood Pressure 71.00 mm[Hg] Tue 26 08:04:43 EDT 4 Heart Rate 67.00 /min Tue 26 08:04 :43 EDT 4 Systolic Blood Pressure 150.00 mm[Hg] Tue 25 08:31:03 EDT 2023 Diastolic Blood Pressure 78.00 mm[Hg] Tue 25 08:31:03 EDT 4 Heart Rate 55.00 /min Tue 25 08:31 :03 EDT 4 Systolic Blood Pressure 157.00 mm[Hg] Tue 24 08:33:01 EDT 2023 Diastolic Blood Pressure 76.00 mm[Hg] Tue 24 08:33:01 EDT 2023 Heart Rate 82.00 /min Tue 24 08:33 :01 EDT 2023 Systolic Blood Pressure 141.00 mm[Hg] Sun Nino 23 08:05:11 EDT 2023 Diastolic Blood Pressure 61.00 mm[Hg] Sun Nino 23 08:05:11 EDT 2023 Heart Rate 55.00 /min Sun Nino 23 08:05 :11 EDT 2023 Systolic Blood Pressure 124.00 mm[Hg] Sat Nino 22 08:20:55 EDT 2023 Diastolic Blood Pressure 64.00 mm[Hg] Sat Nino 22 08:20:55 EDT 2023 Heart Rate 51.00 /min Sat Nino 22 08:20 :55 EDT 2023 Systolic Blood Pressure 150.00 mm[Hg] Fri Nino 21 08:32:58 EDT 2023 Diastolic Blood Pressure 71.00 mm[Hg] Fri Nino 21 08:32:58 EDT 2024 Heart Rate 56.00 /min TueMar 16 08:32 :58 EDT 2023 Systolic Blood Pressure 125.00 mm[Hg] Tue 20 08:24:18 EDT 2023 Diastolic Blood Pressure 56.00 mm[Hg] Tue 20 08:24:18 EDT 2023 Heart Rate 50.00 /min Tue 20 08:24 :18 EDT 2023 Systolic Blood Pressure 141.00 mm[Hg] Tue 19 08:48:10 EDT 2023 Diastolic Blood Pressure 79.00 mm[Hg] Tue 19 08:48:10 EDT 2023 Heart Rate 71.00 /min Tue 19 08:48 :10 EDT 2023 Systolic Blood Pressure 128.00 mm[Hg] Tue 18 09:45:42 EDT 2023 Diastolic Blood Pressure 57.00 mm[Hg] Tue 18 09:45:42 EDT 2023 Heart Rate 52.00 /min Tue 18 09:45 :42 EDT 2023 Systolic Blood Pressure 127.00 mm[Hg] Tue 18 05:34:16 EDT 2023 Diastolic Blood Pressure 57.00 mm[Hg] Tue 18 05:34:16 EDT 2023 Body weight 186.60 [lb_av] Tue 18 05:34 :16 EDT 2023 Heart Rate 61.00 /min Tue 18 05:34 :16 EDT 2023 Body temperature 97.50 [degF] Tue 18 05:3 4:16 EDT 2023 Respiratory rate 18.00 /min Tue 18 05:3 4:16 EDT 2023 Systolic Blood Pressure 124.00 mm[Hg] Tue 17 09:01:06 EDT 2023 Diastolic Blood Pressure 64.00 mm[Hg] Tue 17 09:01:06 EDT 2023 Heart Rate 63.00 /min Tue 17 09:01 :06 EDT 2023 Systolic Blood Pressure 146.00 mm[Hg] Sun Nino 16 08:08:35 EDT 2023 Diastolic Blood Pressure 61.00 mm[Hg] Sun Nino 16 08:08:35 EDT 2023 Heart Rate 54.00 /min Sun Nino 16 08:08 :35 EDT 2023 Systolic Blood Pressure 136.00 mm[Hg] Sat Nino 15 11:44:01 EDT 2023 Diastolic Blood Pressure 60.00 mm[Hg] Sat Nino 15 11:44:01 EDT 2023 Heart Rate 65.00 /min Tue Nino 15 11:44 :01 EDT 2024 Systolic Blood Pressure 133.00 mm[Hg] Tue 14 09:59:36 EDT 2023 Diastolic Blood Pressure 51.00 mm[Hg] Tue 14 09:59:36 EDT 2023 Heart Rate 60.00 /min Tue 14 09:59 :36 EDT 2023 Systolic Blood Pressure 140.00 mm[Hg] Caitlyn Nino 13 08:17:48 EDT 202 Diastolic Blood Pressure 63.00 mm[Hg] Tue 13 08:17:48 EDT 2023 Heart Rate 52.00 /min Tue 13 08:17 :48 EDT 2023 Systolic Blood Pressure 135.00 mm[Hg] Tue 12 07:54:54 EDT 2023 Diastolic Blood Pressure 64.00 mm[Hg] TueMar 07 07:54:54 EDT 2023 Heart Rate 85.00 /min TueMar 07 07:54 :54 EDT 2023 Systolic Blood Pressure 117.00 mm[Hg] Tue 11 09:33:48 EDT 2023 Diastolic Blood Pressure 60.00 mm[Hg] Tue 11 09:33:48 EDT 2023 Heart Rate 53.00 /min Tue 11 09:33 :48 EDT 2023 Systolic Blood Pressure 128.00 mm[Hg] Tue 10 12:28:50 EDT 2023 Diastolic Blood Pressure 64.00 mm[Hg] Tue 10 12:28:50 EDT 2023 Heart Rate 61.00 /min TueMar 05 12:28 :50 EDT 2023 Systolic Blood Pressure 130.00 mm[Hg] TueMar 04 08:48:12 EDT 2023 Diastolic Blood Pressure 60.00 mm[Hg] Sun Mar 04 08:48:12 EDT 2023 Heart Rate 61.00 /min Sun Mar 04 08:48 :12 EDT 2023 Systolic Blood Pressure 111.00 mm[Hg] Sat Mar 03 09:32:16 EDT 2023 Diastolic Blood Pressure 56.00 mm[Hg] TueMar 03 09:32:16 EDT 2023 Heart Rate 52.00 /min TueMar 03 09:32 :16 EDT 2023 Systolic Blood Pressure 141.00 mm[Hg] Fri Feb 07 08:39:31 EDT 2023 Diastolic Blood Pressure 87.00 mm[Hg] TueMar 02 08:39:31 EDT 2023 Heart Rate 83.00 /min TueMar 02 08:39 :31 EDT 2023 Systolic Blood Pressure 121.00 mm[Hg] TueMar 01 08:04:35 EDT 2023 Diastolic Blood Pressure 61.00 mm[Hg] TueMar 01 08:04:35 EDT 2023 Heart Rate 60.00 /min TueMar 01 08:04 :35 EDT 2023 Systolic Blood Pressure 136.00 mm[Hg] TueFeb 28 08:07:08 EDT 2023 Diastolic Blood Pressure 69.00 mm[Hg] TueFeb 28 08:07:08 EDT 2023 Heart Rate 58.00 /min TueFeb 28 08:07 :08 EDT 2023 Systolic Blood Pressure 156.00 mm[Hg] TueFeb 27 07:58:28 EDT 2023 Diastolic Blood Pressure 77.00 mm[Hg] TueFeb 27 07:58:28 EDT 2023 Heart Rate 61.00 /min TueFeb 27 07:58 :28 EDT 2023 Systolic Blood Pressure 115.00 mm[Hg] TueFeb 26 17:37:42 EDT 2023 Diastolic Blood Pressure 63.00 mm[Hg] TueFeb 26 17:37:42 EDT 4 Body weight 194.20 [lb_av] TueFeb 26 17:37 :42 EDT 4 Heart Rate 96.00 /min TueFeb 26 17:37 :42 EDT 2023 Body temperature 98.60 [degF] TueFeb 26 17:3 7:42 EDT 4 Respiratory rate 18.00 /min TueFeb 26 17:3 7:42 EDT 4 Systolic Blood Pressure 133.00 mm[Hg] TueFeb 26 08:58:00 EDT 2023 Diastolic Blood Pressure 59.00 mm[Hg] TueFeb 26 08:58:00 EDT 2023 Heart Rate 57.00 /min TueFeb 26 08:58 :00 EDT 4 Systolic Blood Pressure 133.00 mm[Hg] TueFeb 25 08:48:22 EDT 2023 Diastolic Blood Pressure 62.00 mm[Hg] TueFeb 25 08:48:22 EDT 2023 Heart Rate 58.00 /min TueFeb 25 08:48 :22 EDT 2023 Systolic Blood Pressure 153.00 mm[Hg] TueFeb 24 12:00:03 EDT 2023 Diastolic Blood Pressure 81.00 mm[Hg] TueFeb 24 12:00:03 EDT 2023 Heart Rate 82.00 /min TueFeb 24 12:00 :03 EDT 2023 Systolic Blood Pressure 130.00 mm[Hg] TueFebruary 23 10:44:05 EDT 2023 Diastolic Blood Pressure 65.00 mm[Hg] TueFebruary 23 10:44:05 EDT 2023 Heart Rate 51.00 /min TueFebruary 23 10:44 :05 EDT 2023 Systolic Blood Pressure 145.00 mm[Hg] TueFebruary 22 08:45:00 EDT 2023 Diastolic Blood Pressure 88.00 mm[Hg] TueFebruary 22 08:45:00 EDT 2023 Heart Rate 71.00 /min TueFebruary 22 08:45 :00 EDT 2023 Systolic Blood Pressure 134.00 mm[Hg] TueFebruary 21 10:24:18 EDT 2023 Diastolic Blood Pressure 65.00 mm[Hg] TueFebruary 21 10:24:18 EDT 2023 Heart Rate 52.00 /min TueFebruary 21 10:24 :18 EDT 2023 Systolic Blood Pressure 141.00 mm[Hg] TueFebruary 20 09:33:35 EDT 2023 Diastolic Blood Pressure 63.00 mm[Hg] TueFebruary 20 09:33:35 EDT 2023 Heart Rate 60.00 /min TueFebruary 20 09:33 :35 EDT 2023 Systolic Blood Pressure 160.00 mm[Hg] TueFebruary 19 09:14:24 EDT 2023 Diastolic Blood Pressure 63.00 mm[Hg] TueFebruary 19 09:14:24 EDT 2023 Heart Rate 58.00 /min TueFebruary 19 09:14 :24 EDT 2023 Systolic Blood Pressure 147.00 mm[Hg] TueFebruary 18 08:33:48 EDT 2023 Diastolic Blood Pressure 64.00 mm[Hg] TueFebruary 18 08:33:48 EDT 2023 Heart Rate 57.00 /min TueFebruary 18 08:33 :48 EDT 2023 Systolic Blood Pressure 115.00 mm[Hg] TueFebruary 17 10:09:58 EDT 2023 Diastolic Blood Pressure 52.00 mm[Hg] TueFebruary 17 10:09:58 EDT 2023 Heart Rate 55.00 /min TueFebruary 17 10:09 :58 EDT 2023 Systolic Blood Pressure 140.00 mm[Hg] TueFebruary 16 11:01:11 EDT 2023 Diastolic Blood Pressure 72.00 mm[Hg] TueFebruary 16 11:01:11 EDT 2023 Heart Rate 64.00 /min TueFebruary 16 11:01 :11 EDT 2023 Systolic Blood Pressure 143.00 mm[Hg] TueFebruary 15 09:35:57 EDT 2023 Diastolic Blood Pressure 69.00 mm[Hg] TueFebruary 15 09:35:57 EDT 2023 Heart Rate 61.00 /min TueFebruary 15 09:35 :57 EDT 2023 Systolic Blood Pressure 141.00 mm[Hg] TueFebruary 14 09:52:03 EDT 2023 Diastolic Blood Pressure 68.00 mm[Hg] TueFebruary 14 09:52:03 EDT 2023 Heart Rate 58.00 /min TueFebruary 14 09:52 :03 EDT 2023 Systolic Blood Pressure 143.00 mm[Hg] TueFebruary 13 09:23:44 EDT 2023 Diastolic Blood Pressure 88.00 mm[Hg] TueFebruary 13 09:23:44 EDT 2023 Heart Rate 62.00 /min TueFebruary 13 09:23 :44 EDT 2023 Systolic Blood Pressure 145.00 mm[Hg] TueFebruary 12 09:54:24 EDT 2023 Diastolic Blood Pressure 61.00 mm[Hg] TueFebruary 12 09:54:24 EDT 2023 Heart Rate 55.00 /min TueFebruary 12 09:54 :24 EDT 2023 Systolic Blood Pressure 133.00 mm[Hg] TueFebruary 11 08:32:37 EDT 2023 Diastolic Blood Pressure 66.00 mm[Hg] TueFebruary 11 08:32:37 EDT 2023 Heart Rate 70.00 /min TueFebruary 11 08:32 :37 EDT 2023 Systolic Blood Pressure 135.00 mm[Hg] TueFebruary 11 01:00:00 EDT 2023 Diastolic Blood Pressure 63.00 mm[Hg] TueFebruary 11 01:00:00 EDT 2023 Heart Rate 63.00 /min TueFebruary 11 01:00 :00 EDT 2023 Body weight 181.20 [lb_av] TueFebruary 11 01:00 :00 EDT 2023 Body temperature 97.90 [degF] TueFebruary 11 01:0 0:00 EDT 2023 Respiratory rate 18.00 /min TueFebruary 11 01:0 0:00 EDT 2023 Pulse Oximetry 95.00 % TueFebruary 11 01:00 :00 EDT 2023 Body Height 62.00 [in_i] TueFebruary 11 01:00 :00 EDT 2023 Systolic Blood Pressure 115.00 mm[Hg] TueFebruary 10 09:06:04 EDT 2023 Diastolic Blood Pressure 67.00 mm[Hg] TueFebruary 10 09:06:04 EDT 2023 Heart Rate 56.00 /min TueFebruary 10 09:06 :04 EDT 2023 Systolic Blood Pressure 162.00 mm[Hg] TueFebruary 09 10:00:09 EDT 2023 Diastolic Blood Pressure 84.00 mm[Hg] TueFebruary 09 10:00:09 EDT 2023 Heart Rate 79.00 /min TueFebruary 09 10:00 :09 EDT 2023 Systolic Blood Pressure 118.00 mm[Hg] TueFebruary 08 09:09:00 EDT 2023 Diastolic Blood Pressure 59.00 mm[Hg] TueFebruary 08 09:09:00 EDT 2023 Heart Rate 56.00 /min TueFebruary 08 09:09 :00 EDT 2023 Systolic Blood Pressure 137.00 mm[Hg] TueFebruary 07 12:24:14 EDT 2023 Diastolic Blood Pressure 86.00 mm[Hg] TueFebruary 07 12:24:14 EDT 2023 Heart Rate 52.00 /min TueFebruary 07 12:24 :14 EDT 2023 Body temperature 96.60 [degF] TueFebruary 07 12:2 4:14 EDT 2023 Respiratory rate 18.00 /min TueFebruary 07 12:2 4:14 EDT 2023 Pulse Oximetry 96.00 % TueFebruary 07 12:24 :14 EDT 2023 Systolic Blood Pressure 137.00 mm[Hg] TueFebruary 07 10:54:52 EDT 2023 Diastolic Blood Pressure 86.00 mm[Hg] TueFebruary 07 10:54:52 EDT 2023 Heart Rate 52.00 /min TueFebruary 07 10:54 :52 EDT 2023 Systolic Blood Pressure 149.00 mm[Hg] TueFebruary 06 10:11:29 EDT 2023 Diastolic Blood Pressure 59.00 mm[Hg] TueFebruary 06 10:11:29 EDT 2023 Heart Rate 66.00 /min TueFebruary 06 10:11 :29 EDT 2023 Body weight 181.60 [lb_av] TueFebruary 05 12:33 :38 EDT 2023 Systolic Blood Pressure 136.00 mm[Hg] TueFebruary 05 10:18:40 EDT 2023 Diastolic Blood Pressure 60.00 mm[Hg] TueFebruary 05 10:18:40 EDT 2023 Heart Rate 63.00 /min TueFebruary 05 10:18 :40 EDT 2023 Systolic Blood Pressure 149.00 mm[Hg] TueFebruary 04 09:32:08 EDT 2023 Diastolic Blood Pressure 67.00 mm[Hg] TueFebruary 04 09:32:08 EDT 2023 Heart Rate 62.00 /min TueFebruary 04 09:32 :08 EDT 2023 Body Height 62.00 [in_i] TueFebruary 03 14:04 :42 EDT 2023 Systolic Blood Pressure 136.00 mm[Hg] TueFebruary 03 09:50:10 EDT 2023 Diastolic Blood Pressure 45.00 mm[Hg] TueFebruary 03 09:50:10 EDT 2023 Heart Rate 52.00 /min TueFebruary 03 09:50 :10 EDT 2023 Systolic Blood Pressure 118.00 mm[Hg] TueFebruary 02 09:44:31 EDT 2023 Diastolic Blood Pressure 52.00 mm[Hg] TueFebruary 02 09:44:31 EDT 2023 Heart Rate 55.00 /min TueFebruary 02 09:44 :31 EDT 2023 Systolic Blood Pressure 122.00 mm[Hg] TueFebruary 01 23:18:52 EDT 2023 Diastolic Blood Pressure 70.00 mm[Hg] TueFebruary 01 23:18:52 EDT 2023 Heart Rate 78.00 /min TueFebruary 01 23:18 :52 EDT 2023 Body temperature 97.50 [degF] TueFebruary 01 23:1 8:52 EDT 2023 Respiratory rate 18.00 /min TueFebruary 01 23:1 8:52 EDT 2023 Pulse Oximetry 0.00 % TueFebruary 01 23:18 :52 EDT 2023 Systolic Blood Pressure 127.00 mm[Hg] TueFebruary 01 13:09:10 EDT 2023 Diastolic Blood Pressure 67.00 mm[Hg] TueFebruary 01 13:09:10 EDT 2023 Heart Rate 61.00 /min TueFebruary 01 13:09 :10 EDT 2023 Body temperature 97.80 [degF] TueFebruary 01 13:0 9:10 EDT 2023 Respiratory rate 18.00 /min TueFebruary 01 13:0 9:10 EDT 2023 Pulse Oximetry 95.00 % TueFebruary 01 13:09 :10 EDT 2023 Systolic Blood Pressure 127.00 mm[Hg] TueFebruary 01 09:23:29 EDT 2023 Diastolic Blood Pressure 67.00 mm[Hg] TueFebruary 01 09:23:29 EDT 2023 Heart Rate 61.00 /min TueFebruary 01 09:23 :29 EDT 2023 Systolic Blood Pressure 131.00 mm[Hg] TueFebruary 01 01:25:08 EDT 2023 Diastolic Blood Pressure 62.00 mm[Hg] TueFebruary 01 01:25:08 EDT 2023 Heart Rate 88.00 /min TueFebruary 01 01:25 :08 EDT 2023 Body temperature 97.90 [degF] TueFebruary 01 01:2 5:08 EDT 2023 Respiratory rate 18.00 /min TueFebruary 01 01:2 5:08 EDT 2023 Pulse Oximetry 97.00 % TueFebruary 01 01:25 :08 EDT 2023 Systolic Blood Pressure 146.00 mm[Hg] TueJanuary 31 11:06:40 EDT 2023 Diastolic Blood Pressure 81.00 mm[Hg] TueJanuary 31 11:06:40 EDT 2023 Heart Rate 55.00 /min TueJanuary 31 11:06 :40 EDT 2023 Body temperature 98.50 [degF] TueJanuary 31 11:0 6:40 EDT 2023 Respiratory rate 18.00 /min TueJanuary 31 11:0 6:40 EDT 2023 Pulse Oximetry 93.00 % TueJanuary 31 11:06 :40 EDT 2023 Systolic Blood Pressure 146.00 mm[Hg] TueJanuary 31 11:05:08 EDT 2023 Diastolic Blood Pressure 81.00 mm[Hg] TueJanuary 31 11:05:08 EDT 2023 Heart Rate 55.00 /min TueJanuary 31 11:05 :08 EDT 2023 Systolic Blood Pressure 142.00 mm[Hg] TueJanuary 31 03:39:21 EDT 2023 Diastolic Blood Pressure 54.00 mm[Hg] TueJanuary 31 03:39:21 EDT 2023 Heart Rate 62.00 /min TueJanuary 31 03:39 :21 EDT 2023 Body temperature 98.00 [degF] TueJanuary 31 03:3 9:21 EDT 2023 Respiratory rate 18.00 /min TueJanuary 31 03:3 9:21 EDT 2023 Pulse Oximetry 94.00 % TueJanuary 31 03:39 :21 EDT 4 Systolic Blood Pressure 157.00 mm[Hg] TueJanuary 30 08:09:42 EDT 2023 Diastolic Blood Pressure 81.00 mm[Hg] TueJanuary 30 08:09:42 EDT 2023 Systolic Blood Pressure 157.00 mm[Hg] TueJanuary 30 08:09:42 EDT 2023 Diastolic Blood Pressure 81.00 mm[Hg] TueJanuary 30 08:09:42 EDT 4 Heart Rate 56.00 /min TueJanuary 30 08:09 :42 EDT 2023 Heart Rate 56.00 /min TueJanuary 30 08:09 :42 EDT 4 Body temperature 97.80 [degF] TueJanuary 30 08:0 9:42 EDT 2023 Respiratory rate 18.00 /min TueJanuary 30 08:0 9:42 EDT 2023 Pulse Oximetry 94.00 % TueJanuary 30 08:09 :42 EDT 2023 Systolic Blood Pressure 126.00 mm[Hg] TueJanuary 30 04:19:39 EDT 2023 Diastolic Blood Pressure 72.00 mm[Hg] TueJanuary 30 04:19:39 EDT 2023 Heart Rate 85.00 /min TueJanuary 30 04:19 :39 EDT 2023 Body temperature 98.60 [degF] TueJanuary 30 04:1 9:39 EDT 2023 Respiratory rate 20.00 /min TueJanuary 30 04:1 9:39 EDT 4 Pulse Oximetry 0.00 % TueJanuary 30 04:19 :39 EDT 2023 Systolic Blood Pressure 130.00 mm[Hg] TueJanuary 29 09:22:30 EDT 2023 Diastolic Blood Pressure 60.00 mm[Hg] TueJanuary 29 09:22:30 EDT 2023 Systolic Blood Pressure 130.00 mm[Hg] TueJanuary 29 09:22:30 EDT 2023 Diastolic Blood Pressure 60.00 mm[Hg] TueJanuary 29 09:22:30 EDT 2023 Heart Rate 68.00 /min TueJanuary 29 09:22 :30 EDT 2023 Body weight 177.60 [lb_av] TueJanuary 29 07:27 :57 EDT 2023 Systolic Blood Pressure 131.00 mm[Hg] TueJanuary 28 23:28:00 EDT 2023 Diastolic Blood Pressure 76.00 mm[Hg] TueJanuary 28 23:28:00 EDT 2023 Heart Rate 78.00 /min TueJanuary 28 23:28 :00 EDT 2023 Body temperature 97.50 [degF] TueJanuary 28 23:2 8:00 EDT 2023 Respiratory rate 20.00 /min TueJanuary 28 23:2 8:00 EDT 2023 Pulse Oximetry 0.00 % TueJanuary 28 23:28 :00 EDT 2023 Systolic Blood Pressure 136.00 mm[Hg] TueJanuary 28 08:53:05 EDT 2023 Diastolic Blood Pressure 59.00 mm[Hg] TueJanuary 28 08:53:05 EDT 2023 Systolic Blood Pressure 136.00 mm[Hg] TueJanuary 28 08:53:05 EDT 2023 Diastolic Blood Pressure 59.00 mm[Hg] TueJanuary 28 08:53:05 EDT 2023 Heart Rate 61.00 /min TueJanuary 28 08:53 :05 EDT 2023 Body temperature 97.10 [degF] TueJanuary 28 08:5 3:05 EDT 2023 Respiratory rate 20.00 /min TueJanuary 28 08:5 3:05 EDT 2023 Pulse Oximetry 96.00 % TueJanuary 28 08:53 :05 EDT 2023 Systolic Blood Pressure 136.00 mm[Hg] TueJanuary 28 03:58:16 EDT 2023 Diastolic Blood Pressure 78.00 mm[Hg] TueJanuary 28 03:58:16 EDT 2023 Heart Rate 66.00 /min TueJanuary 28 03:58 :16 EDT 2023 Body temperature 97.50 [degF] TueJanuary 28 03:5 8:16 EDT 2023 Respiratory rate 18.00 /min TueJanuary 28 03:5 8:16 EDT 2023 Pulse Oximetry 0.00 % TueJanuary 28 03:58 :16 EDT 2023 Body weight 177.60 [lb_av] TueJanuary 27 09:53 :48 EDT 2023 Systolic Blood Pressure 139.00 mm[Hg] TueJanuary 27 09:31:14 EDT 2023 Diastolic Blood Pressure 60.00 mm[Hg] TueJanuary 27 09:31:14 EDT 2023 Systolic Blood Pressure 139.00 mm[Hg] TueJanuary 27 09:31:14 EDT 2023 Diastolic Blood Pressure 60.00 mm[Hg] TueJanuary 27 09:31:14 EDT 2023 Heart Rate 63.00 /min TueJanuary 27 09:31 :14 EDT 2023 Body temperature 98.40 [degF] TueJanuary 27 09:3 1:14 EDT 2023 Respiratory rate 18.00 /min TueJanuary 27 09:3 1:14 EDT 2023 Pulse Oximetry 98.00 % TueJanuary 27 09:31 :14 EDT 2023 Systolic Blood Pressure 157.00 mm[Hg] TueJanuary 26 23:52:19 EDT 2023 Diastolic Blood Pressure 63.00 mm[Hg] TueJanuary 26 23:52:19 EDT 2023 Heart Rate 66.00 /min TueJanuary 26 23:52 :19 EDT 2023 Body temperature 98.20 [degF] TueJanuary 26 23:5 2:19 EDT 2023 Respiratory rate 18.00 /min TueJanuary 26 23:5 2:19 EDT 2023 Pulse Oximetry 95.00 % TueJanuary 26 23:52 :19 EDT 2023 Systolic Blood Pressure 129.00 mm[Hg] TueJanuary 26 17:01:38 EDT 2023 Diastolic Blood Pressure 61.00 mm[Hg] TueJanuary 26 17:01:38 EDT 2023 Heart Rate 59.00 /min TueJanuary 26 17:01 :38 EDT 2023 Body temperature 98.00 [degF] TueJanuary 26 17:0 1:38 EDT 2023 Respiratory rate 20.00 /min TueJanuary 26 17:0 1:38 EDT 2023 Pulse Oximetry 97.00 % TueJanuary 26 17:01 :38 EDT 2023 Body weight 0.00 [lb_av] TueJanuary 26 13:32 :39 EDT 2023 Systolic Blood Pressure 133.00 mm[Hg] TueJanuary 26 09:13:18 EDT 2023 Diastolic Blood Pressure 59.00 mm[Hg] TueJanuary 26 09:13:18 EDT 2023 Systolic Blood Pressure 111.00 mm[Hg] TueJanuary 25 21:24:43 EDT 2023 Diastolic Blood Pressure 43.00 mm[Hg] TueJanuary 25 21:24:43 EDT 2023 Heart Rate 57.00 /min TueJanuary 25 21:24 :43 EDT 2023 Body temperature 98.20 [degF] TueJanuary 25 21:2 4:43 EDT 2023 Respiratory rate 20.00 /min TueJanuary 25 21:2 4:43 EDT 2023 Pulse Oximetry 94.00 % TueJanuary 25 21:24 :43 EDT 2023 Body weight 180.80 [lb_av] TueJanuary 25 17:34 :10 EDT 2023 Systolic Blood Pressure 158.00 mm[Hg] TueJanuary 25 08:52:49 EDT 2023 Diastolic Blood Pressure 84.00 mm[Hg] TueJanuary 25 08:52:49 EDT 2023 Systolic Blood Pressure 158.00 mm[Hg] TueJanuary 25 08:52:49 EDT 2023 Diastolic Blood Pressure 84.00 mm[Hg] TueJanuary 25 08:52:49 EDT 2023 Heart Rate 84.00 /min TueJanuary 25 08:52 :49 EDT 2023 Body temperature 98.20 [degF] TueJanuary 25 08:5 2:49 EDT 2023 Respiratory rate 20.00 /min TueJanuary 25 08:5 2:49 EDT 2023 Pulse Oximetry 94.00 % TueJanuary 25 08:52 :49 EDT 2023 Systolic Blood Pressure 148.00 mm[Hg] TueJanuary 25 04:24:00 EDT 2023 Diastolic Blood Pressure 76.00 mm[Hg] TueJanuary 25 04:24:00 EDT 2023 Systolic Blood Pressure 136.00 mm[Hg] TueJanuary 25 04:24:00 EDT 2023 Diastolic Blood Pressure 78.00 mm[Hg] TueJanuary 25 04:24:00 EDT 2023 Systolic Blood Pressure 142.00 mm[Hg] TueJanuary 25 04:24:00 EDT 2023 Diastolic Blood Pressure 75.00 mm[Hg] TueJanuary 25 04:24:00 EDT 2023 Heart Rate 78.00 /min TueJanuary 25 04:24 :00 EDT 2023 Body temperature 97.80 [degF] TueJanuary 25 04:2 4:00 EDT 2023 Respiratory rate 16.00 /min TueJanuary 25 04:2 4:00 EDT 2023 Pulse Oximetry 96.00 % TueJanuary 25 04:24 :00 EDT 2024 Systolic Blood Pressure 144.00 mm[Hg] TueJanuary 25 00:27:02 EDT 2023 Diastolic Blood Pressure 78.00 mm[Hg] TueJanuary 25 00:27:02 EDT 2023 Heart Rate 76.00 /min TueJanuary 25:27 :02 EDT 2023 Body temperature 97.20 [degF] TueJanuary 25 00:2 7:02 EDT 2023 Respiratory rate 16.00 /min TueJanuary 25 00:2 7:02 EDT 2023 Pulse Oximetry 0.00 % TueJanuary 25 00:27 :02 EDT 2023 Systolic Blood Pressure 162.00 mm[Hg] TueJanuary 24 18:37:00 EDT 2023 Diastolic Blood Pressure 64.00 mm[Hg] TueJanuary 24 18:37:00 EDT 2023 Heart Rate 79.00 /min TueJanuary 24 18:37 :00 EDT 2023 Body temperature 98.10 [degF] TueJanuary 24 18:3 7:00 EDT 2023 Respiratory rate 18.00 /min TueJanuary 24 18:3 7:00 EDT 2023 Pulse Oximetry 95.00 % TueJanuary 24 18:37 :00 EDT 2023 Reason for Referral Past Medical History
--- OUTSIDE RECORDS SUMMARY | 2025-01-17 15:21 | XMS_ITS | Data Portability ---
Author Organization [employer] [facility] Main [facility] Address [address] [place] [address] Care Team Providers Care Hr Shared Services Consultant Name Role Phone [facility] PAPI [facility] FAX OTHER TERE ELLIS Primary Care Provider Assessment Encounter Date Assessment Date Assessment LastModified by Organization Details LastModified Time 12/09/2024 12/09/2024 add vitamin D3 5000 units daily (home med per [facility] that patient is not taking - she is also on routine tylenol but will hold on adding this routinely for now), add tessalon perles TID x 5 days, check bmp, CBC, Vitamin B12 12/12 [email or web address] Not available 12/11/2024 02:49:51 12/11/2024 12/11/2024 Labs (BMP, CBC, Vit B12) on 12/12. [email or web address] Not available 12/11/2024 12:30:28 Plan of Treatment Reminders Order Date Submit Date Provider Last Modified By Organization Details Last Modified Time Details Appointments None record ed. Lab None record ed. Referral None record ed. Procedures None record ed. Surgeries None record ed. Imaging None record ed. Medication Orders None record ed. Patient TargetsNo targets recorded. Patient Instructions Encounter Date Encounter Id Patient Instructions Last Modified By Organization Details Last Modified Time 12/09/2024 [id number] I spent {{ >50#} } minutes providing care to the patient today. More than 50% of that time was spent in discussing the expected course of the disease, discussing prognosis, coordinating care and counseling of the patient/family. [email or web address] Not available 12/11/2024 03:01:49 12/11/2024 [id number] I spent {{ 33#}} minutes providing care to the patient today. More than 50% of that time was spent in discussing the expected course of the disease, discussing prognosis, coordinating care and counseling of the patient/family. Not available 12/11/2024 12:53:02 12/14/2024 [id number] I spent {{ 32#}} minutes providing care to the patient today. More than 50% of that time was spent in discussing the expected course of the disease, discussing prognosis, coordinating care and counseling of the patient/family. Not available 12/14/2024 11:20:29 12/18/2024 [id number] I spent {{ 40#}} minutes providing care to the patient today. More than 50% of that time was spent in discussing the expected course of the disease, discussing prognosis, coordinating care and counseling of the patient/family. The patient will be discharged home with home health orders of home health RN / PT / OT to evaluate and treat. The patient is homebound because of {{gait instability poor balance* fall risk respiratory difficulties cogn itive impairment disori entation severe pain wounds}} and is unable to leave home safely because {{requires use of an assistive device and assistance of another person to leave home requires considerable and taxing effort to leave home* of cognitive impairment}}. The patient requires home health nursing for instruction, observation and assessment; PT for training to restore safe independent functional ambulation in community; and OT for training to improve ability to fulfill ADLs. Please follow-up with your primary care provider within 1 week. Call your primary care provider for instructions or go to the emergency room for new or worsening symptoms. Not available 12/18/2024 15:28:52 Reason for Referral None Reported. Results Created Date Observation Date Name Description Value Unit Range Abnormal Flag Note LastModifiedBy Organization Detail LastModifiedTime Result Notes None recorded. Procedures Surgical History Date Name Laterality Status Provider Name and Address Organization Details Recorded Time Appendectomy completed [facility] 12/07/2024 11:48:18 Cholecystectomy completed [facility] 12/07/2024 11:48:45 Imaging Results None recorded. Procedure Notes None recorded. Medical Equipment None Reported. Allergies Allergen ID Allergen Name Allergen Category Reaction Reaction Severity Criticality Documentation Date Start Date Code Code System Note Provider Name and Address Organization Details Recorded Time 85506 Product containin g penicilli n (product) medicatio n Not available Not available Not available 12/07/2024 16763 8001 SNOMED Not Available Not Available Not Available Medications Name Sig Start Date Stop Date Status Note LastModified by Organization Details LastModified Time acetaminoph en 325 mg tablet Take 2 tablets every 6 hours by oral route as needed. active Not Available Not Available No t Available oxybutynin chloride ER 15 mg tablet,exte nded release 24 hr Take 1 tablet every day by oral route. active Not Available Not Available No t Available lidocaine 4 % topical patch Apply 2 patches every day by topical route. active Not Available Not Available No t Available benzonatate 200 mg capsule Take 1 capsule 3 times a day by oral route for 5 days. 12/18 completed Stop Date: 12/16 Not Available Not Available Not Available propranolol ER 80 mg capsule,24 hr,extended release Take 2 capsules every day by oral route. active Not Available Not Available No t Available furosemide 20 mg tablet Take 1 tablet every day by oral route. active Not Available Not Available No t Available Tessalon Perles 200 mg capsules TID x 5 days 12/11 completed Not Available Not Available Not Available Mucinex 1,200 mg tablet, extended release Take 1 tablet twice a day by oral route for 8 days. 12/18 completed Stop Date: 12/14 Not Available Not Available Not Available melatonin 5 mg tablet Take 1 tablet every day by oral route at bedtime. active Not Available Not Available No t Available Vitamin D3 125 mcg (5,000 unit) tablet Take 1 tablet every day by oral route. active Not Available Not Available No t Available Eliquis 5 mg tablet Take 1 tablet twice a day by oral route. active Not Available Not Available No t Available Vitals Date Recorded Body height Body mass index (BMI) Body weight Oxygen saturation Oxygen saturation in Arterial blood by Pulse oximetry Respiratory rate Body temperature Heart rate Systolic blood pressure Diastolic blood pressure Provider Name and Address Organization Details Last Updated DateTime 157.48 cm 32.7 kg/m2 60042.6 g 94 % 94 % 18 /min 98.2 [degF] 89 /min 140 mm[Hg] 73 mm[Hg] [place] [address] [facility], [place], [address], [place] [facility] 5 02:03:32 Date Recorded Body height Heart rate Body temperature Respiratory rate Oxygen saturation Oxygen saturation in Arterial blood by Pulse oximetry Body mass index (BMI) Body weight Systolic blood pressure Diastolic blood pressure Provider Name and Address Organization Details Last Updated DateTime 5 157.48 cm 69 /min 98 [degF] 18 /min 97 % 97 % 33.2 kg/m2 06273.3 7 g 108 mm[Hg] 70 mm[Hg] [place] [address] [place], [address], [facility] 5 12:19:59 Date Recorded Body height Heart rate Body temperature Respiratory rate Oxygen saturation Oxygen saturation in Arterial blood by Pulse oximetry Body mass index (BMI) Body weight Systolic blood pressure Diastolic blood pressure Provider Name and Address Organization Details Last Updated DateTime 5 157.48 cm 74 /min 97.4 [degF] 16 /min 98 % 98 % 33.2 kg/m2 17200.3 7 g 103 mm[Hg] 55 mm[Hg] [place] [address] [place], [address], [facility] 5 11:14:16 Date Recorded Body height Heart rate Body temperature Respiratory rate Oxygen saturation Oxygen saturation in Arterial blood by Pulse oximetry Body mass index (BMI) Body weight Systolic blood pressure Diastolic blood pressure Provider Name and Address Organization Details Last Updated DateTime 5 157.48 cm 59 /min 98 [degF] 20 /min 97 % 97 % 33.7 kg/m2 82538 g 112 mm[Hg] 56 mm[Hg] [place] [address] [place], [address], [facility] 5 15:22:03 Social History Question Answer Notes LastModified by Organizat ion Details LastModified Time Tobacco Smoking Status Unknown If Ever Smoked Adrianna August izquierdo [facility] 12/07/2024 11:50:10 What Is Your Level Of Alcohol Consumption? None Information not available 12/07/2024 What Is Your Code Status? DNR Information not available 12/07/2024 Do You Have A Medical Power Of Machine Engineer? Yes Son Natanael Reis Information not available 12/07/2024 Do You Use Any Illicit Or Recreational Drugs? No Information not available 12/07/2024 Sex: Unknown Functional Status None recorded. Mental Status None recorded. Family History Nothing Reported. Medical History Condition Response Incontinence -- Urinary Y Lymphedema Y Deep Vein Thrombosis (DVT) Y Obesity Y Hypertension Y Gynecological HistoryNo gynecological history recorded. Obstetrics History GPAL:G 0 P 0 0 0 0 Immunizations Vaccine Type Date Status Note Provider Nam e and Address Organization Details Recorded Time SARS-COV-2 (COVID-19) vaccine, UNSPECIFIED 03/21/2023 completed Adrianna izquierdo, [place] - [facility] 12/07/2024 11:57:35 Past Encounters Encounter ID Performer Location Encounter Start Date Encounter Closed Date Diagnosis/Indication Diagnosis SNOMED-CT Code Diagnosis ICD10 Code Diagnosis Note [id number] Isabel Allen DO [address] [address] 12/09/2024 07:02:56 12/20/2024 11:30:34 Upper respiratory infection 77104330 J06.9 flu/rsv/co vid testing negative during her inpatient stay at [facility] from 12/03 without concerns for pneumonia (showed minimal left pleural effusion)S he continues to have an intermitte nt coughconti nue mucinex, add tessalon TID x 5 daysrechec k flu and covid tests todaymonit or for need to repeat CXR History of deep vein thrombosis 881069008 Z86.718 continue eliquisdet ails unclear related to this and assume plan is for medical terminologist treatment with oral anticoagul ants as she was on eliquis dating back to early 2023 per [facility] provider notes Essential hypertension 38176862 I10 continue propranolo l and lasixtrend blood pressuresa djust meds as clinically indicated Overactive urinary bladder 889955484 N32.81 continue daily oxybutynin Vitamin D deficiency 347 16766 E55.9 resume daily replacemen t therapy Osteoarthritis 459907722 M19.90 the patient is on routine tylenol as an outpatient as well as meloxicamd /c'd meloxicam on admission to - I would not continue this medication routinely in an elderly patient on NOAC therapy for DVTwill continue prn order for tylenol for now as patient denies significan t pain on exam todaymonit or for need to resume scheduled dosing Insomnia 190313120 G47.0 1 continue melatonin which is not a routine outpatient medication for the patient - this was ordered on admission to due to inpatient reports of insomnia/a gitation in place of seroquel Altered mental status 41 3304711 R41.82 unclear of baseline cognition - d/c summary states patient with baseline dementia and needs neurology f/u although PMH does not confirm thisshe had agitation and aggressive behaviors during her hospitaliz ation that required prn haldol and initiation of nighttime seroquelmo od seems to have stabilized since arrival to - seroquel has been discontinu edST to followwill continue to closely monitor, r/u reversible causes and provide supportive measuresde eduardo to PCP for neurology f/u and/or initiation of medication s related to dementia Physical deconditioning 3408725307 9102 R68.89 related to advanced age, recent fall and URItherapi es have been initiated - she will return to her [facility] apartment at upon d/c from [facility] [id number] Nicky Vogel NP [address] [address] 12/11/2024 09:27:42 12/20/2024 11:28:37 Upper respiratory infection 45679988 J06.9 Flu/RSV/Co vid testing negative during her inpatient stay at [facility]. Repeat testing here also negative.C XR from 12/03 without concerns for pneumonia (showed minimal left pleural effusion). She did continue to have an intermitte nt cough, has improved with addition of Mucinex (through 12/14) and Tessalon (through 12/16).Resp iratory status is stable at baseline. Pt denies respirator y symptoms today.Lisa tor for need to repeat CXR. History of deep vein thrombosis 330888383 Z86.718 Presumed stable. Continue EliquisDet ails unclear related to this and assume plan is for medical terminologist treatment with oral anticoagul ants as she was on Eliquis dating back to early 2023 per [facility] provider notes. Essential hypertension 57887979 I10 Stable. Continue Propranolo l and Lasix.Cont inue to trend blood pressures, monitor lytes and renal function, and adjust meds as clinically indicated. Overactive urinary bladder 923931385 N32.81 Stable. Continue daily Oxybutynin . Vitamin D deficiency 347 79201 E55.9 Resumed daily supplement . Trend level as OP. Osteoarthritis 796303104 M19.90 Takes routine Tylenol as an outpatient , as well as Meloxicam. D/C'd Meloxicam on admission to . Do not plan to continue this medication routinely in an elderly patient on NOAC therapy for DVT.Contin ue Lidocaine patch & PRN Tylenol for now. Consider scheduling APAP once again should pain arise. Insomnia 068322547 G47.0 1 Pt originally discharged from hospital on Seroquel, stopped on arrival here.Zack castro. Continue Melatonin. Altered mental status 41 7491998 R41.82 Unclear of baseline cognition. Hospital D/C summary states patient with baseline dementia and needs neurology f/u, although PMH from PCP does not confirm this. She had agitation and aggressive behaviors during her hospitaliz ation that required PRN Haldol and nighttime Seroquel, both which have not been continued on arrival here.Mood seems to have stabilized since arrival to . Continues on Melatonin alone.ST to follow.Mayank colon to closely monitor for reversible causes and provide supportive measures.D efer to PCP for neurology f/u and/or initiation of medication s related to dementia. Physical deconditioning 0117923043 9102 R68.89 Related to advanced age, recent fall and URI.Therap ies have been initiated. She will return to her [facility] apartment at upon d/c from SNF. Edema of l ower extremity 088959916 R60.0 Stable. Continue Lasix.Cont inue BLE compressio n and encourage elevation when at rest. [id number] Nicky Vogel NP [place] [address] [place] [address] 12/14/2024 09:28:22 12/20/2024 11:29:13 Upper respiratory infection 21719275 J06.9 Flu/RSV/Co vid testing negative during her inpatient stay at [facility]. Repeat testing here also negative.C XR from 12/03 without concerns for pneumonia (showed minimal left pleural effusion). She did continue to have an intermitte nt cough, has improved with addition of Mucinex (through 12/14) and Tessalon (through 12/16).Resp iratory status is stable at baseline. Pt denies respirator y symptoms today.Lisa mj for need to repeat CXR. Essential hypertension 58460718 I10 Stable. Continue Propranolo l and Lasix.Cont inue to trend blood pressures, monitor lytes and renal function, and adjust meds as clinically indicated. Edema of l ower extremity 321013318 R60.0 Stable. Continue Lasix.Cont inue BLE compressio n and encourage elevation when at rest. Osteoarthritis 410071455 M19.90 Takes routine Tylenol as an outpatient , as well as Meloxicam. D/C'd Meloxicam on admission to . Do not plan to continue this medication routinely in an elderly patient on NOAC therapy for DVT.Contin ue Lidocaine patch & PRN Tylenol for now. Consider scheduling APAP once again should pain arise. No concerns today. Overactive urinary bladder 994745520 N32.81 Stable. Continue daily Oxybutynin . Altered mental status 41 7028060 R41.82 Unclear of baseline cognition. Hospital D/C summary states patient with baseline dementia and needs neurology f/u, although PMH from PCP does not confirm this. She had agitation and aggressive behaviors during her hospitaliz ation that required PRN Haldol and nighttime Seroquel, both which have not been continued on arrival here.Mood seems to have stabilized since arrival to . Continues on Melatonin alone.ST to follow.Con tinue to closely monitor for reversible causes and provide supportive measures.D efer to PCP for neurology f/u and/or initiation of medication s related to dementia. Insomnia 655532895 G47.0 1 Pt originally discharged from hospital on Seroquel, stopped on arrival here.Stabl e. Continue Melatonin. Vitamin D deficiency 347 46209 E55.9 Resumed daily supplement . Trend level as OP. History of deep vein thrombosis 417937766 Z86.718 Presumed stable. Continue Eliquis.De tails unclear related to this and assume plan is for intermediate treatment with oral anticoagul ants as she was on Eliquis dating back to early 2023 per [facility] provider notes. Physical deconditioning 4527979503 9102 R68.89 Related to advanced age, recent fall and URI.Therap ies have been initiated. She will return to her [facility] apartment at upon d/c from [facility]. [id number] Nicky Vogel NP [place] [address] [place] [address] 12/18/2024 09:48:36 12/20/2024 11:29:54 Upper respiratory infection 46100231 J06.9 Flu/RSV/Co vid testing negative during her inpatient stay at [facility]. Repeat testing here also negative.C XR from 12/03 without concerns for pneumonia (showed minimal left pleural effusion). She did continue to have an intermitte nt cough, resolved with addition of Mucinex through 12/14 and Tessalon Perles through 12/16.Respi ratory status is stable at baseline. Pt denies respirator y symptoms today. Essential hypertension 20550875 I10 Stable. Continue Propranolo l and Lasix.Cont inue to trend blood pressures, monitor lytes and renal function, and adjust meds as clinically indicated. Edema of l ower extremity 239544615 R60.0 Stable. Continue Lasix.Cont inue BLE compressio n and encourage elevation when at rest. Osteoarthritis 900317340 M19.90 Takes routine Tylenol as an outpatient , as well as Meloxicam. D/C'd Meloxicam on admission to . Do not plan to continue this medication routinely in an elderly patient on NOAC therapy for DVT.Contin ue Lidocaine patch & PRN Tylenol. Has not required scheduled APAP. Overactive urinary bladder 916754007 N32.81 Stable. Continue daily Oxybutynin . Altered mental status 41 8109682 R41.82 Unclear of baseline cognition. Hospital D/C summary states patient with baseline dementia and needs neurology f/u, although PMH from PCP does not confirm this. She had agitation and aggressive behaviors during her hospitaliz ation that required PRN Haldol and nighttime Seroquel, both which have not been continued on arrival here.Mood seems to have stabilized since arrival to . Continues on Melatonin alone.ST has followed.C ontinue to closely monitor for reversible causes and provide supportive measures.D efer to PCP for neurology f/u and/or initiation of medication s related to dementia. Insomnia 401605890 G47.0 1 Pt originally discharged from hospital on Seroquel, stopped on arrival here.Zack fermin Continue Melatonin. Vitamin D deficiency 347 43764 E55.9 Resumed daily supplement . Trend level as OP. History of deep vein thrombosis 922289695 Z86.718 Presumed stable. Continue Eliquis.De tails unclear related to this and assume plan is for intermediate treatment with oral anticoagul ants as she was on Eliquis dating back to early 2023 per [facility] provider notes. Health Concerns Section Related Observation LastModified by Organization Detai ls LastModified Time None Recorded Concern Status LastModified by Organization Details LastModified Time None Recorded Advance Directives Directive None Recorded Payers Encounter Date Sequence Insurance Name Policy Number Policy Banda Covered Member ID Banda Member ID Guarantor Name 12/09/2024 1 [place] Rohini Ladd [id number] 5 Natanael Reis 12/11/2024 2 [place] [id number] Rohini Ladd [id number] Natanael Reis 12/11/2024 1 [place] Rohini Ladd [id number] 5 Natanael Reis 12/14/2024 2 [id number] Rohini Ladd [id number] Natanael Reis 12/14/2024 1 [place] Rohini Ladd [id number] 5 Natanael Reis 12/18/2024 2 [id number] Rohini Ladd [id number] Natanael Reis 12/18/2024 1 [place] Rohini Ladd [id number] 5 Natanael Reis Notes Date Note Type Note Provider Name and Address Organization Details Recorded Time 12/09/2024 text/html 84 Y/O female [place] F resident of [facility] with a PMH of DVT, HTN, overactive bladder, OA and lymphedema admitted for post acute rehab subsequent to an inpatient stay at [facility] 12/03-12/06/2024 related to weakness, a fall and URI symptoms. Per [facility] documentation, the patient had an unwitnessed fall 12/03. She was trying to get up from her recliner when she fell to the floor and complained of pain all over. EMS was called and she was taken to [facility] ER for further evaluation. Imaging done in the ER was negative for acute pathology. She had URI symptoms with negative viral testing and a CXR c/w a minimal left pleural effusion. She was started on prednisone and duonebs related to her respiratory symptoms. She was admitted to the hospitalist service for further evaluation and treatment. Her inpatient stay was complicated by agitation and aggressive behavior. She was treated with haldol and seroquel. Seroquel was ordered on hospital discharge but not continued since her arrival here. Nursing reports mood has been stable although confusion is noted. New medications: mucinex and seroquel (not continued on admission to )Dose adjusted/discontin ued medications: NONE The patient is lying in bed this am. She is a fair historian - confused / forgetful at times. She continues to have an intermittent non productive cough. Nursing did put her on supplemental O2 last night as her O2 sats were 88%. She is currently off of oxygen this am. She denies pain, reports she typically AMB with a WW. Aside from her cough, no nursing concerns. Code status is DNRSon, Natanael [place] [address] [place], [address], [facility] 12/11/2024 03:02:25 12/11/2024 text/html F/U fall, URI, dementia with behaviors, deconditioning, and chronic medical conditions.---12/09e patient is lying in bed this am. She is a fair historian - confused / forgetful at times. She continues to have an intermittent non productive cough. Nursing did put her on supplemental O2 last night as her O2 sats were 88%. She is currently off of oxygen this am. She denies pain, reports she typically AMB with a WW. Aside from her cough, no nursing concerns.--- 5Csarita is seated in her recliner in her room, coloring a coloring book. She is in good spirits, confused, denies pain or concerns but tells me she wants to go home downstairs to room 455 -- some men are delivering a recliner and I need to be there to make sure it works. She is redirected when we discuss that they have contacted her son and that her son has it handled. VSS. Staff is without concerns today. No therapy notes available [place] [address] [place], [address], [facility] 12/11/2024 14:06:06 12/14/2024 text/html F/U fall, URI, dementia with behaviors, deconditioning, and chronic medical conditions.---12/09e patient is lying in bed this am. She is a fair historian - confused / forgetful at times. She continues to have an intermittent non productive cough. Nursing did put her on supplemental O2 last night as her O2 sats were 88%. She is currently off of oxygen this am. She denies pain, reports she typically AMB with a WW. Aside from her cough, no nursing concerns.--- 5Csarita is seated in her recliner in her room, coloring a coloring book. She is in good spirits, confused, denies pain or concerns but tells me she wants to go home downstairs to room 455 -- some men are delivering a recliner and I need to be there to make sure it works. She is redirected when we discuss that they have contacted her son and that her son has it handled. VSS. Staff is without concerns today. No therapy notes available for review at present.---12/14/24 Rohini is doing well today, seated in her recliner, a poor historian, denies concerns or pain. She thinks I am a nurse that worked yesterday and asks me if I stayed here all night. She is in good spirits. VSS. [place] [id number] [address] [facility], [place], [address], [employer] [facility] 12/14/2024 11:20:40 12/18/2024 text/html 84 Y/O female AL F resident of [facility] with a PMH of DVT, HTN, overactive bladder, OA and lymphedema admitted for post acute rehab subsequent to an inpatient stay at [facility] 12/03-12/06/2024 related to weakness, a fall and URI symptoms. Per [facility] documentation, the patient had an unwitnessed fall 12/03. She was trying to get up from her recliner when she fell to the floor and complained of pain all over. EMS was called and she was taken to [facility] for further evaluation. Imaging done in the ER was negative for acute pathology. She had URI symptoms with negative viral testing and a CXR c/w a minimal left pleural effusion. She was started on prednisone and duonebs related to her respiratory symptoms. She was admitted to the hospitalist service for further evaluation and treatment. Her inpatient stay was complicated by agitation and aggressive behavior. She was treated with haldol and seroquel. Seroquel was ordered on hospital discharge but not continued since her arrival here. Nursing reports mood has been stable although confusion is noted. New medications: mucinex and seroquel (not continued on admission to )Dose adjusted/discontin ued medications: NONE Code status is DNRSon, Natanael Reis is POAPCP Tereyvonne Ellis ---12/09/24e patient is lying in bed this am. She is a fair historian - confused / forgetful at times. She continues to have an intermittent non productive cough. Nursing did put her on supplemental O2 last night as her O2 sats were 88%. She is currently off of oxygen this am. She denies pain, reports she typically AMB with a WW. Aside from her cough, no nursing concerns.--- 5Csarita is seated in her recliner in her room, coloring a coloring book. She is in good spirits, confused, denies pain or concerns but tells me she wants to go home downstairs to room 455 -- some men are delivering a recliner and I need to be there to make sure it works. She is redirected when we discuss that they have contacted her son and that her son has it handled. VSS. Staff is without concerns today. No therapy notes available for review at present.---12/14/24 Rohini is doing well today, seated in her recliner, a poor historian, denies concerns or pain. She thinks I am a nurse that worked yesterday and asks me if I stayed here all night. She is in good spirits. VSS. Staff is without concerns.--- 5Csarita is doing well, resting in a recliner in her room, coloring a coloring book. She is a poor historian, without concerns or pain to report today. We discuss her discharge back to [facility] tomorrow and she is without concerns regarding this, is looking forward to it, and tells me to let her Don know so that he can move there with her. Her is actually a resident on LTC on hospice. VSS. Staff is without concerns today. Nicky Vogel, CHATO [address] [facility], [place], [address], [facility] 12/18/2024 15:29:16 OBGyn Episode No OBEpisode recorded.
--- OUTSIDE RECORDS SUMMARY | 2025-01-17 15:22 | XMS_ITS | Referral Summary ---
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 Gender Identity Not on file Sexual Orientation [...] Plan of Treatment Not on file Insurance [employer] [place] [address] [employer], [facility] MEDICARE [employer] [place] [facility] Member Subscriber Plan / Payer (Ef fective 2021-Present) Name:Rohini Ladd Relation to Subscriber:Self Name:Rohini Ladd Payer ID:[id number] (NAIC) Group ID:[id number] Type: OTHER Address: [address] [place] [id number] MEDICARE BCBS MEDICARE [place] ALISON KNUTSON [facility] Care Teams Illustrator Set Relationship Specialty Start Date End Date Bartolo Troncoso MD PCP - General 12/03/13
--- OUTSIDE RECORDS SUMMARY | 2025-01-17 15:22 | XMS_ITS | Clinical Summary ---
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 Gender Identity Not on file Sexual [...] 07/08/2021, 11/11/2020, Additional history exists Influenza Vaccine (Season Ended) 2025 07/05/2023, 06/15/2022, 07/04/2020, Additional history exists DTaP/Tdap/Td Vaccine (2 - Td or Tdap) 09/21/2032 09/21/2022 Zoster Vaccine Completed 10/23/2021, 05/13/2021 Pneumococcal vaccine 65+ Completed 022, 03/10/2020, 07/27/2006 Insurance [facility] MEDICARE [place] MEDICARE [employer] [place] [facility] MEDICARE BCBS MEDICARE [place] Care Teams Lumber Scaler Relationship Specialty Start Date End Date Bartolo Troncoso MD [facility] - General 12/03/13
[2025-01-17 15:40] LABS: Basophils Absolute Auto 0.1 K/mm3 (0.0-0.1); Basophils Percent Auto 0.9 % (0.2-1.2); Eosinophils Absolute Auto 0.2 K/mm3 (0-0.3); Eosinophils Percent Auto 3.1 % (0-4.4); Hematocrit 38.1 % (37.0-47.0); Immature Granulocyte Absolute 0.01 K/mm3 (0.00-0.031); Immature Granulocyte Percent A 0.2 % (0-0.5); Lymphocytes Absolute Auto 1.73 K/mm3 (0.9-3.2); Lymphocytes Percent Auto 31.1 % (18.3-44.2); Mean Corpuscular HGB Conc 31.5 g/dl (32-36); Mean Corpuscular Hemoglobin 30.9 pg (26-34); Mean Corpuscular Volume 98.2 fl (80-100); Mean Platelet Volume 9.8 fl (7.4-10.4); Monocytes Absolute Auto 0.9 K/mm3 (0.1-0.6); Monocytes Percent Auto 16.5 % (2.6-8.5); Neutrophils Absolute Auto 2.7 K/mm3 (1.3-6.7); Neutrophils Percent Auto 48.2 % (45.5-73.1); Platelet Count Result 231 k/mm3 (150-375); Red Blood Count 3.88 M/mm3 (4.2-5.4); Red Cell Distribution Width 14.5 % (11.5-14.5); White Blood Count 5.6 K/mm3 (4.5-10.0)
--- NOTE | 2025-01-17 15:52 | ECG_ITS ---
Test Date: 2025-01-17 16:20:56 Measurements Intervals [place] Rate: 67 P: 0 [place]: 0 QRS: 17 QRSD: 102 T: 6 QT: 421 QTc: 446 Interpretive Statements ATRIAL FIBRILLATION INCOMPLETE RIGHT BUNDLE BRANCH BLOCK BASELINE ARTIFACT- I, II, III, AVR, AVL, AVF, V1-V2 ABNORMAL ECG Compared to ECG 12/03/2024 04:37:12 Sinus rhythm no longer present Electronically Signed On 01-17-2025 16:57:25 CDT by Vladimir Giraldo D.O.
[2025-01-17 15:58] LABS: Alanine Aminotransferase 13 U/L (6-35); Alkaline Phosphatase 84 U/L (38-126); Anion Gap 7 mmol/L (4-12); Aspartate Amino Transferase 24 U/L (14-36); Bilirubin,Total 0.7 mg/dL (0.2-1.3); Blood Urea Nitrogen 18 mg/dL (7-17); Carbon Dioxide 30 mmol/L (22-30); Chloride 102 mmol/L (98-107); Estimated CRCL calculation 43 ml/min; Estimated Glomerular Filt Rate > 60; Glucose 106 mg/dL (65-110); Potassium 3.6 mmol/L (3.4-5.0); Sodium 139 mmol/L (137-145)
[2025-01-17 16:07] LABS: NT Pro B Type Natriuretic Pept 2780 pg/mL (19.9-100)
[2025-01-17 16:39] LABS: INR 1.3; Prothrombin Time 16.6 Seconds (11.1-14.7)
[2025-01-17 16:40] LABS: Partial Thromboplastin Time 32.5 Seconds (22.3-36.8)
[2025-01-17 17:16] LABS: Add Urine Microscopic? NO; Appearance Urine Clear (Clear); Bilirubin Urine Negative (Negative); Blood Urine Negative (Negative); Color Urine Yellow (Yellow); Glucose Urine UA Negative (Negative); Ketones Urine Negative (Negative); Leukocyte Esterase Ur Negative LEU/UL (Negative); Nitrate Urine Negative (Negative); Protein Urine Negative (Negative); Specific Grav Ur 1.008 (1.001-1.035); Urobilinogen Urine 0.2 mg/dL (<2.0)
[2025-01-17 17:34] LABS: Basophils Absolute Auto 0.1 K/mm3 (0.0-0.1); Basophils Percent Auto 0.8 % (0.2-1.2); Eosinophils Absolute Auto 0.2 K/mm3 (0-0.3); Eosinophils Percent Auto 2.6 % (0-4.4); Hematocrit 36.9 % (37.0-47.0); Hemoglobin 11.9 g/dL (12.0-15.0); Immature Granulocyte Absolute 0.02 K/mm3 (0.00-0.031); Immature Granulocyte Percent A 0.3 % (0-0.5); Lymphocytes Absolute Auto 2.22 K/mm3 (0.9-3.2); Lymphocytes Percent Auto 35.7 % (18.3-44.2); Mean Corpuscular HGB Conc 32.2 g/dl (32-36); Mean Corpuscular Hemoglobin 31.2 pg (26-34); Mean Corpuscular Volume 96.6 fl (80-100); Mean Platelet Volume 9.9 fl (7.4-10.4); Monocytes Absolute Auto 1.1 K/mm3 (0.1-0.6); Neutrophils Absolute Auto 2.7 K/mm3 (1.3-6.7); Neutrophils Percent Auto 43.6 % (45.5-73.1); Platelet Count Result 228 k/mm3 (150-375); Red Blood Count 3.82 M/mm3 (4.2-5.4); Red Cell Distribution Width 14.5 % (11.5-14.5); White Blood Count 6.2 K/mm3 (4.5-10.0)
--- OUTSIDE RECORDS SUMMARY | 2025-01-17 17:40 | XMS_ITS | Referral Summary ---
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 Gender Identity Not on file Sexual Orientation [...] Plan of Treatment Not on file Insurance [employer] [place] [address] [place], [facility]34 MEDICARE [employer] [place] [facility] Member Subscriber Plan / Payer (Ef fective 2021-Present) Name:Rohini Ladd Relation to Subscriber:Self Name:Rohini Ladd Payer ID:[id number] (NAIC) Group ID:[id number] Type: OTHER Address: [address] [place] [id number] MEDICARE [place] MEDICARE [place] ALISON KNUTSON [facility] Care Teams Ornamental Ironworker Helper Relationship Specialty Start Date End Date Bartolo Troncoso MD PCP - General 12/03/13
--- OUTSIDE RECORDS SUMMARY | 2025-01-17 17:40 | XMS_ITS ---
Author Name Auto Generated, Auto Generated Organization [email or web address] Address [address] [place] [address] Phone [phone] Care Team Providers Care Network Field Engineer Name Role Phone Pierre Ellis Unavailable [phone] Nicky Vogel Unavailable Isabel Alva Unavailable Functional Status No Results Mental Status No Results Allergies and Intolerances Name Onset Date Reaction Severity penicillin (Allergy) TueJanuary 24 17:55:00 EDT 202 4 Encounters Program Name Primary Diagnosis Admission Date/Time Dis charge Date/Time Rehabilitation Clinic TueDec 19 20:00:00 EDT 2024 Server Security [facility] TueSep 21 19:00:00 2019January 29 12:30:00 EDT 2023 Rehabilitation Clinic TueFebruary 12 20:00:00 EDT 2023 Caitlyn Mar 08 08:00:00 EDT 2023 Server Security Administrator [facility] TueJanuary 24 12:45:00 EDT 2023February 11 08:30:00 EDT 2023 Assisted Living Area Lymphedema, not elsewhere classified TueFebruary 11 09:00:00 EDT 2023 [facility] Caitlyn Dec 06 14:30:00 EDT 2024Dec 19 07:00:00 EDT [...] 1 Time Daily Indication: Edema total 40mg TELEPHONE SOLICITOR supervision x1 TueJan 11 01:00:00 ED2024 benzonatate [...] 2 Times Daily Indication: blood clot prevention TELEPHONE SOLICITOR supervision x1, x4 TueDec 19 15:07:00 EDT 2024 propranoloL ER 80 mg capsule,24 hr,extended release 2 tabs CAPSULE, EXTENDED RELEASE 24HR Oral 1 Time Daily Indication: HTN HIGH BLOOD PRESSURE BP and/or Pulse Hold: Systolic Blood Pressure < 100 Hold;Vitals (Diastolic Blood Pressure) < 60 Hold;Vital Signs (Pulse) < 55 Hold;.TELEPHONE SOLICITOR supervision x1 TueDec 19 15:13:00 EDT 2024 furosemide 20 mg tablet 1 tablet TABLET Oral 1 Time Daily Indication: Edema TELEPHONE SOLICITOR supervision x1 TueDec 19 15:14:00 EDT 2024 [...] Or al 1 Time Daily Indication: Insomnia TELEPHONE SOLICITOR supervision x4 TueDec 19 15:00:00 EDT 2024 [...] TABLET Oral 1 Time Daily Indication: Edema TELEPHONE SOLICITOR supervision x1 TueMar 02 01:00:00 EDT 2023Dec 19 15:15:00 EDT 2024 doxycycline hyclate 100 mg capsule 1 tab CAPSULE Oral 2 Times Daily for 10 Days Indication: URI TELEPHONE SOLICITOR Supervision X1 x4 TueFebruary 23 01:00:00 EDT 2023Mar 05 00:59:00 EDT 2023 azithromycin 250 mg tablet 2 tabs TABLET Oral 1 Time Daily for 1 Day Indication: Bronchitis TELEPHONE SOLICITOR Supervision x1 TueFebruary 16 01:00:00 EDT 2023February 17 00:59:00 EDT 2023 azithromycin 250 mg tablet 1 tabs TABLET Oral 1 Time Daily for 4 Days Indication: Bronchitis TELEPHONE SOLICITOR Supervision x1 TueFebruary 17 01:00:00 EDT 2023February 21 00:59:00 EDT 2023 Mucus DM 30 mg-600 mg tablet,extended release 1 tab TABLET, EXTENDED RELEASE 12 HR Oral 2 Times Daily for 7 Days Indication: Bronchitis /cough TELEPHONE SOLICITOR Supervision x1 x4 TueFebruary 16 01:00:00 EDT 2023February 23 00:59:00 EDT 2023 oxyBUTYnin chloride ER 15 mg tablet,extended release 24 hr Take 1 TABLET, EXTENDED RELEASE 24 HR Oral 1 Time Daily Indication: OABCNA supervision x1 TueFebruary 11 14:00:00 EDT 2023Dec 19 15:07:00 EDT 2024 Eliquis 5 mg tablet Take 1 TABLET Oral 2 Times Daily Indication: blood clot prevention TELEPHONE SOLICITOR supervision x1, x4 TueFebruary 11 14:00:00 EDT [...] < 60 Hold;Vital Signs (Pulse) < 55 Hold;.TELEPHONE SOLICITOR supervision x1 TueFebruary 11 06:00:00 EDT 2023February [...] < 60 Hold;Vital Signs (Pulse) < 55 Hold;.TELEPHONE SOLICITOR supervision x1 TueFebruary 11 17:00:00 EDT 2023Dec 19 15:15:00 EDT 2024 Blood Pressure Kit 1 KIT Other 2 Times Monthly Indication: Vital signs TELEPHONE SOLICITOR to obtain vital signs TueFebruary 11 14:00:00 [...] 2023 * End Date: * Text: * skilled nursing (current) use of anticoagulants* Code: * Start [...] 2024 Pulse Oximetry 99.00 % [facility] Mar 08:29 :44 EDT 2024 Systolic Blood Pressure 110.00 mm[Hg] Tue 22 01:49:47 EDT 2024 Diastolic Blood Pressure 72.00 mm[Hg] TueDec 15 01:49:47 EDT 2024 Heart Rate 68.00 /min [facility] Dec 15 01:49 :47 EDT 2024 Body temperature 98.20 [degF] [facility] Dec 15 01:4 9:47 EDT 2024 Respiratory rate 16.00 /min TueDec 15 01:4 9:47 EDT 2024 Pulse Oximetry 98.00 % [facility] Dec 15 01:49 :47 EDT 2024 Body [...] 2:52 EDT 2024 Respiratory rate 20.00 /min [facility] 16 01:0 2:52 EDT 2024 Pulse Oximetry 93.00 % [facility] 16 01:02 :52 EDT 2024 Body weight 179.60 [lb_av] [facility] Mar 15 11:32 :51 EDT 2024 Systolic Blood Pressure 108.00 mm[Hg] [facility] Mar 15 10:47:15 EDT 2024 Diastolic Blood Pressure 78.00 mm[Hg] [facility] Mar 15 10:47:15 EDT 2024 Heart Rate 72.00 /min [facility] 15 10:47 :15 EDT 2024 Body temperature 98.20 [degF] [facility] 15 10:4 7:15 EDT 2024 Respiratory rate 20.00 /min [facility] 15 10:4 7:15 EDT 2024 Pulse Oximetry 96.00 % [facility] 15 10:47 :15 EDT 2024 Systolic Blood Pressure 108.00 mm[Hg] [facility] 15 10:35:49 EDT 2024 Diastolic Blood Pressure 78.00 mm[Hg] [facility] 15 10:35:49 EDT 2024 Systolic Blood Pressure 108.00 mm[Hg] [facility] 15 10:35:49 EDT 2024 Diastolic Blood Pressure 78.00 mm[Hg] [facility] Mar 15 10:35:49 EDT 2024 Heart Rate 72.00 /min [facility] Mar 15 10:35 :49 EDT 2024 Systolic Blood Pressure 94.00 mm[Hg] [facility] Mar 15 02:44:16 EDT 2024 Diastolic Blood Pressure 58.00 mm[Hg] [facility] Mar 15 02:44:16 EDT 2024 Heart Rate 65.00 /min [facility] Nov 15 02:44 :16 EDT 2024 Body temperature 98.30 [degF] [facility] Mar 15 02:4 4:16 EDT 2024 Respiratory rate 18.00 /min [facility] 15 02:4 4:16 EDT 2024 Pulse Oximetry 95.00 % [facility] Nov 15 02:44 :16 EDT 2024 Systolic [...] Systolic Blood Pressure 128.00 mm[Hg] [facility] Oct 27 08:40:20 EST 2024 Diastolic Blood Pressure 61.00 mm[Hg] [facility] Oct 27 08:40:20 EST 2024 Heart Rate 52.00 /min [facility] Oct 27 08:40 :20 EST 2024 Systolic [...] Systolic Blood Pressure 147.00 mm[Hg] [facility] Oct 12 08:45:30 EDT 2023 Diastolic Blood Pressure 65.00 mm[Hg] [facility] 12 08:45:30 EDT 2023 Heart Rate 97.70 /min [facility] Oct 12 08:45 :30 EDT 4 Body temperature 97.90 [degF] [facility] Oct 11 21:3 4:56 EDT 2023 Body temperature 98.20 [degF] [facility] Oct 11 14:0 3:07 EDT [...] :41 EDT 2023 Body temperature 97.80 [degF] [facility] Sep 17 21:3 0:41 EDT 2023 Respiratory rate 18.00 /min [facility] Sep 17 21:3 0:41 EDT 2023 Systolic [...] 10:26:49 EDT 2023 Heart Rate 59.00 /min [facility] Sep 12 10:26 :49 EDT 2023 [...] EDT 2023 Systolic Blood Pressure 110.00 mm[Hg] [facility] May 20 08:45:26 EDT 2023 Diastolic Blood Pressure 52.00 mm[Hg] [facility] May 20 08:45:26 EDT 2023 Heart Rate 57.00 /min [facility] May 20 08:45 :26 EDT 2023 Systolic Blood Pressure 157.00 mm[Hg] [facility] May 19 08:44:05 EDT 2023 Diastolic Blood Pressure 89.00 mm[Hg] [facility] May 19 08:44:05 EDT 2023 Heart Rate 73.00 /min [facility] May 19 08:44 :05 EDT 2023 Systolic [...] EDT 2023 Systolic Blood Pressure 117.00 mm[Hg] [facility] May 13 08:37:01 EDT 2023 Diastolic Blood Pressure 61.00 mm[Hg] [facility] May 13 08:37:01 EDT 2023 Heart Rate 56.00 /min [facility] May 13 08:37 :01 EDT 2023 Systolic Blood Pressure 143.00 mm[Hg] [facility] May 12 17:19:48 EDT 2023 Diastolic Blood Pressure 75.00 mm[Hg] [facility] May 12 17:19:48 EDT 2023 Body weight 188.40 [lb_av] [facility] May 12 17:19 :48 EDT 2023 Heart Rate 51.00 /min [facility] May 12 17:19 :48 EDT 2023 Body temperature 96.40 [degF] [facility] May 12 17:1 9:48 EDT 2023 Respiratory rate 20.00 /min [facility] May 12 17:1 9:48 EDT 2023 Systolic Blood Pressure 123.00 mm[Hg] [facility] May 12 09:31:19 EDT 2023 Diastolic Blood Pressure 69.00 mm[Hg] [facility] May 12 09:31:19 EDT 2023 Heart Rate 66.00 /min [facility] May 12 09:31 :19 EDT 2023 Systolic [...] EDT 2023 Systolic Blood Pressure 132.00 mm[Hg] [facility] May 06 11:19:26 EDT 2023 Diastolic Blood Pressure 80.00 mm[Hg] [facility] May 06 11:19:26 EDT 2023 Heart Rate 73.00 /min [facility] May 06 11:19 :26 EDT 2023 Systolic Blood Pressure 133.00 mm[Hg] [facility] May 05 09:23:10 EDT 2023 Diastolic Blood [...] EDT 2023 Systolic Blood Pressure 143.00 mm[Hg] [facility] Apr 29 07:53:25 EDT 2023 Diastolic Blood Pressure 66.00 mm[Hg] [facility] Apr 29 07:53:25 EDT 2023 Heart Rate 60.00 /min [facility] Apr 29 07:53 :25 EDT 2023 Systolic Blood Pressure 134.00 mm[Hg] [facility] Apr 28 15:12:11 EDT 2023 Diastolic Blood Pressure 64.00 mm[Hg] [facility] Apr 28 15:12:11 EDT 2023 Body weight 187.80 [lb_av] [facility] Apr 28 15:12 :11 EDT 2023 Heart Rate 63.00 /min [facility] Apr 28 15:12 :11 EDT 2023 Body temperature 98.10 [degF] [facility] Apr 28 15:1 2:11 EDT 2023 Respiratory rate 20.00 /min [facility] Apr 28 15:1 2:11 EDT 2023 Systolic Blood Pressure 134.00 mm[Hg] [facility] Apr 28 08:40:18 EDT 2023 Diastolic Blood [...]
--- OUTSIDE RECORDS SUMMARY | 2025-01-17 17:40 | XMS_ITS | Clinical Summary ---
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
--- OUTSIDE RECORDS SUMMARY | 2025-01-17 17:40 | XMS_ITS | Encounter Summary ---
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 Not on file Not on file documented as of this encounter Plan of Treatment Not on file documented as of this encounter Visit Diagnoses Not on filedocumented in this encounter Additional Health Concerns Infection Onset Date Last Indicated Resolved Time COVID-19 Rule Out 10/12/2020 10/12/2020 10/12/2020 7:23 PM MANAGER CALL CENTER COVID-19 Rule Out 10/12/2020 10/13/2020 10/13/2020 3:40 PM MANAGER CALL CENTER COVID-19 Rule Out 09/23/2021 09/23/2021 09/24/2021 6:33 PM MANAGER CALL CENTER COVID-19 Rule Out 10/27/2021 10/27/2021 10/27/2021 1:46 PM MANAGER CALL CENTER COVID-19 Rule Out 10/27/2021 10/27/2021 10/30/2021 2:44 PM MANAGER CALL CENTER COVID-19 Rule Out 01/20/2024 01/20/2024 01/20/2024 2:06 PM CDT documented as of this encounter Care Teams Flumer Relationship Specialty Start Date End Date Bartolo Troncoso MD [address] [place] [address] PCP - General FAMILY PRACTICE 07/27/16 02/05/21 Gurwinder Crandall MD [address] [id number] PCP - General INTERNAL MEDICINE 02/06/21 Neville Ruiz MD [address] [place] [address] INTERNAL MEDICINE 07/27/16 11/03/21 documented as of this encounter
--- OUTSIDE RECORDS SUMMARY | 2025-01-17 17:40 | XMS_ITS | Clinical Summary ---
Author Organization [facility] Address [facility] [place] [address] Care Team Providers Care Modern Greek Studies Professor Name Role Phone Gurwinder Crandall MD Primary Care Provider [phone] Allergies Active Allergy Reactions Criticality Noted Date [...] Does not apply route daily. Send to [facility]; fax to [phone] 1 Device 12/24/19 Active Misc. Devices (EXTENDABLE BEDSIDE RAIL) MiscIndications:Art hritis,At high risk for falls Place one rail on each side of bed. Send order to [facility]. 2 each 02/09/20 Active Oral Electrolytes (PEDIALYTE ADVANCED CARE) SolutionIndications :Acute gastroenteritis Take 1 cup by mouth every 4 (four) hours. [place] to substitute. 40120 mL 01/20/20 24 Active Additional Information Patient [...] Apply 1 Package topically daily. Fax to [facility] or [facility]. 1 Package 1 09/10/20 24 Active [...] DVT (deep vein thrombosis) 04/01/2020 Lymphedema 08/10/2016 long term (current) use of anticoagulants 2015 Knee pain 03/20/2014 Arthritis DVT (deep venous thrombosis) ([facility] HHS/HCC) Hypertension Pulmonary embolism ([facility]) Overview (02/05/2022): On Xarelto. Stable. 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 Not on file Not on file Last Filed Vital Signs Vital Sign Reading Time Taken Comments Blood Pressure 117/78 09/10/2024 1:10 PM EVALUATION ENGINEER Pulse 51 09/10/2024 1:10 PM EVALUATION ENGINEER Temperature 36.4 C (97.6 F) 09/10/2024 1:10 PM EVALUATION ENGINEER Respiratory Rate 18 09/10/2024 1:10 PM EVALUATION ENGINEER Oxygen Saturation 96% 09/10/2024 1:10 PM EVALUATION ENGINEER Inhaled Oxygen Concentration - - Weight 87.5 kg (192 lb 12.8 oz) 09/10/2024 1:10 PM EVALUATION ENGINEER Height 158.8 cm (5' 2.5 ) 09/10/2024 1:10 PM EVALUATION ENGINEER Body Mass Index 34.7 09/10/2024 1:10 PM EVALUATION ENGINEER Plan of Treatment Health Maintenance Due Date Last Done Comments RSV Immunization or 60+ Years (1 - 1-dose 75+ series) 2013 COVID-19 Vaccine ( season) 2024 07/09/2022, 02/10/2022, 02/10/2022, Additional history exists PHQ-2 (Physician [place]) 09/26/2024 02/07/2023 Annual Medicare Wellness Visit 12/19/2025 11/04/2021 Postponed from 11/05/2022 (Future Appointment) DTaP, Tdap and Td Vaccines (2 - Td or Tdap) 09/21/2032 09/21/2022 Zoster Vaccines Completed 10/23/2021, 05/13/2021 Pneumococcal Vaccine: 50+ Years Completed 06/21/2022, 03/10/2020, 07/27/2006 Meningococcal B Vaccine Aged Out No l [...] needs to increase activity at home Lifestyle No Archana Zimmer, RN Note: Pt daughter states that pt and her both suffer from mobility issues. Pt will have PT/OT evaluation today Insurance [facility]. [address] [phone] MEDICARE [place] Advance Directives Documents on File Type Date Recorded Patient Liaison Planner Expl anation Advance Directives and Livin g Will 01/25/2024 7:13 AM POLST * Full Code (Latest Code Status on File) Date Activated Date Inactivated Comments 10/11/2020 5:07 AM 10/15/2020 5:09 PM * Full Code Date Activated Date Inactivated Comments 10/08/2020 11:23 PM 10/10/2020 7:41 PM Care Teams Modern Greek Studies Professor Relationship Specialty Start Date End Date Gurwinder Crandall MD [address] [address] PCP - General INTERNAL MEDICINE 02/06/21
--- OUTSIDE RECORDS SUMMARY | 2025-01-17 17:40 | XMS_ITS ---
Author Name Auto Generated, Auto Generated Organization [facility] Address [address] [place] [address] Phone [phone] Care Team Providers Care Senior Clinical Study Manager Name Role Phone Pierre Ellis Unavailable [phone] Nicky Vogel Unavailable [phone] Isabel Alva Unavailable Functional Status No Results Mental Status No Results Allergies and Intolerances Name Onset Date Reaction Severity penicillin (Allergy) TueJanuary 24 17:55:00 EDT 202 4 Encounters Program Name Primary Diagnosis Admission Date/Time Dis charge Date/Time [facility] TueJanuary 24 12:45:00 EDT 2023February 11 08:30:00 EDT 2023 Assisted Living Area Lymphedema, not elsewhere classified TueFebruary 11 09:00:00 EDT 2023 [facility] TueSep 21 19:00:00 EST 2019January 29 12:30:00 EDT 2023 [facility] TueFebruary 12 20:00:00 EDT 2023 Caitlyn Mar 08 08:00:00 EDT 2023 [facility] Caitlyn Dec 06 14:30:00 EDT 2024Dec 19 07:00:00 EDT 2024 [facility] TueDec 19 20:00:00 EDT 2024 Immunizations Name Dates Status TST-PPD intradermal TueJanuary 24 01:00:00 EDT 2023 Completed TST-PPD intradermal Wed January 31:00:00 EDT [...] 1 Time Daily Indication: Edema total 40mg BUS ASSISTANT supervision x1 TueJan 11 01:00:00 ED2024 benzonatate [...] 2 Times Daily Indication: blood clot prevention BUS ASSISTANT supervision x1, x4 TueDec 19 15:07:00 EDT 2024 propranoloL ER 80 mg capsule,24 hr,extended release 2 tabs CAPSULE, EXTENDED RELEASE 24HR Oral 1 Time Daily Indication: HTN HIGH BLOOD PRESSURE BP and/or Pulse Hold: Systolic Blood Pressure < 100 Hold;Vitals (Diastolic Blood Pressure) < 60 Hold;Vital Signs (Pulse) < 55 Hold;.BUS ASSISTANT supervision x1 TueDec 19 15:13:00 EDT 2024 furosemide 20 mg tablet 1 tablet TABLET Oral 1 Time Daily Indication: Edema BUS ASSISTANT supervision x1 TueDec 19 15:14:00 EDT 2024 [...] Or al 1 Time Daily Indication: Insomnia BUS ASSISTANT supervision x4 TueDec 19 15:00:00 EDT 2024 [...] TABLET Oral 1 Time Daily Indication: Edema BUS ASSISTANT supervision x1 TueMar 02 01:00:00 EDT 2023Dec 19 15:15:00 EDT 2024 doxycycline hyclate 100 mg capsule 1 tab CAPSULE Oral 2 Times Daily for 10 Days Indication: URI BUS ASSISTANT Supervision X1 x4 TueFebruary 23 01:00:00 EDT 2023Mar 05 00:59:00 EDT 2023 azithromycin 250 mg tablet 2 tabs TABLET Oral 1 Time Daily for 1 Day Indication: Bronchitis BUS ASSISTANT Supervision x1 TueFebruary 16 01:00:00 EDT 2023February 17 00:59:00 EDT 2023 azithromycin 250 mg tablet 1 tabs TABLET Oral 1 Time Daily for 4 Days Indication: Bronchitis BUS ASSISTANT Supervision x1 TueFebruary 17 01:00:00 EDT 2023February 21 00:59:00 EDT 2023 Mucus DM 30 mg-600 mg tablet,extended release 1 tab TABLET, EXTENDED RELEASE 12 HR Oral 2 Times Daily for 7 Days Indication: Bronchitis /cough BUS ASSISTANT Supervision x1 x4 TueFebruary 16 01:00:00 EDT 2023February 23 00:59:00 EDT 2023 oxyBUTYnin chloride ER 15 mg tablet,extended release 24 hr Take 1 TABLET, EXTENDED RELEASE 24 HR Oral 1 Time Daily Indication: OABCNA supervision x1 TueFebruary 11 14:00:00 EDT 2023Dec 19 15:07:00 EDT 2024 Eliquis 5 mg tablet Take 1 TABLET Oral 2 Times Daily Indication: blood clot prevention BUS ASSISTANT supervision x1, x4 TueFebruary 11 14:00:00 EDT [...] < 60 Hold;Vital Signs (Pulse) < 55 Hold;.BUS ASSISTANT supervision x1 TueFebruary 11 06:00:00 EDT 2023February [...] < 60 Hold;Vital Signs (Pulse) < 55 Hold;.BUS ASSISTANT supervision x1 TueFebruary 11 17:00:00 EDT 2023Dec 19 15:15:00 EDT 2024 Blood Pressure Kit 1 KIT Other 2 Times Monthly Indication: Vital signs BUS ASSISTANT to obtain vital signs TueFebruary 11 14:00:00 [...] 2023 * End Date: * Text: * half-way (current) use of anticoagulants* Code: * Start [...] 2:52 EDT 2024 Respiratory rate 20.00 /min [facility] 16 01:0 2:52 EDT 2024 Pulse Oximetry 93.00 % [facility] 16 01:02 :52 EDT 2024 Body weight 179.60 [lb_av] [facility] Mar 15 11:32 :51 EDT 2024 Systolic Blood Pressure 108.00 mm[Hg] [facility] Mar 15 10:47:15 EDT 2024 Diastolic Blood Pressure 78.00 mm[Hg] [facility] Mar 15 10:47:15 EDT 2024 Heart Rate 72.00 /min [facility] 15 10:47 :15 EDT 2024 Body temperature 98.20 [degF] [facility] 15 10:4 7:15 EDT 2024 Respiratory rate 20.00 /min [facility] 15 10:4 7:15 EDT 2024 Pulse Oximetry 96.00 % [facility] 15 10:47 :15 EDT 2024 Systolic Blood Pressure 108.00 mm[Hg] [facility] 15 10:35:49 EDT 2024 Diastolic Blood Pressure 78.00 mm[Hg] [facility] 15 10:35:49 EDT 2024 Systolic Blood Pressure 108.00 mm[Hg] [facility] 15 10:35:49 EDT 2024 Diastolic Blood Pressure [...] 4:16 EDT 2024 Respiratory rate 18.00 /min [facility] 15 02:4 4:16 EDT 2024 Pulse Oximetry [...] :30 EDT 4 Body temperature 97.90 [degF] [facility] Oct 11 21:3 4:56 EDT 2023 Body temperature 98.20 [degF] [facility] Oct 11 14:0 3:07 EDT 2023 Systolic [...] 2023 Body temperature 97.80 [degF] [facility] Sep 17 21:3 0:41 EDT 2023 Respiratory rate 18.00 /min [facility] Sep 17 21:3 0:41 EDT 2023 Systolic [...] 10:26:49 EDT 2023 Heart Rate 59.00 /min [facility] Sep 12 10:26 :49 EDT 2023 [...] EDT 2023 Systolic Blood Pressure 110.00 mm[Hg] [facility] May 20 08:45:26 EDT 2023 Diastolic Blood Pressure 52.00 mm[Hg] [facility] May 20 08:45:26 EDT 2023 Heart Rate 57.00 /min [facility] May 20 08:45 :26 EDT 2023 Systolic [...] EDT 2023 Systolic Blood Pressure 117.00 mm[Hg] [facility] May 13 08:37:01 EDT 2023 Diastolic Blood Pressure 61.00 mm[Hg] [facility] May 13 08:37:01 EDT 2023 Heart Rate 56.00 /min [facility] May 13 08:37 :01 EDT 2023 Systolic [...] EDT 2023 Systolic Blood Pressure 132.00 mm[Hg] [facility] May 06 11:19:26 EDT 2023 Diastolic Blood Pressure 80.00 mm[Hg] [facility] May 06 11:19:26 EDT 2023 Heart Rate 73.00 /min [facility] May 06 11:19 :26 EDT 2023 Systolic [...] EDT 2023 Systolic Blood Pressure 143.00 mm[Hg] [facility] Apr 29 07:53:25 EDT 2023 Diastolic Blood Pressure 66.00 mm[Hg] [facility] Apr 29 07:53:25 EDT 2023 Heart Rate 60.00 /min [facility] Apr 29 07:53 :25 EDT 2023 Systolic [...]
[2025-01-17 17:42] VITALS: BP 133/77; PULSE 66; RESP 15; O2SAT 99
[2025-01-17 17:47] LABS: Troponin I < 0.012 ng/mL (0.000-0.034)
--- NOTE | 2025-01-17 18:25 | PM.IMHP ---
H&P: HPI History of Present Illness Date/Time: 01/17/25 20:00 Chief Complaint: Leg pain and swelling. Narrative: This is an 84-year-old female with hypertension, overactive bladder, deep venous thrombosis, and lymphedema in the lower extremities who presented to the emergency department via EMS from her nursing facility for evaluation of leg pain and swelling. She is a only a fair historian and seems to suffer from short-term memory loss however there is no documented history of dementia in her chart. She does not know why she was brought here today or who called EMS. I reminded her that she came in for leg pain and she tells me that her legs do not hurt anymore than usual. They are chronically tight and heavy due to lymphedema. There was some redness on exam but she had not noticed. Her only complaint is that of hunger and she states nobody is letting her eat. She denies fever, lightheadedness, dizziness, headache, chest pain, pleuritic pain, palpitations, shortness of breath, abdominal pain, nausea, vomiting, diarrhea, and dysuria. She also denies vertigo, visual changes, focal weakness, paresthesias, and difficulty speaking and swallowing. In the ED: She was afebrile on arrival with stable vital signs. Labs were significant for WBC count of 5.6, hemoglobin 12.0, BUN 18, creatinine 0.87, proBNP 2780, troponin less than 0.012. Urinalysis was unremarkable. Chest x-ray showed a small left-sided pleural effusion without infiltrate. Lower extremity venous ultrasounds were negative for DVT. EKG showed atrial fibrillation with a rate of 67 and an incomplete right bundle-branch block. She was given furosemide 20 mg and is being admitted in this setting for further treatment and evaluation of presumed new onset congestive heart failure and atrial fibrillation. Review of Systems Review of Systems: Unable to be obtained accurately given her confusion. [facility] Past Medical History Medical History (Updated 01/17/25 @ 23:00 by Geni Danielle PA-C) Deep venous thrombosis Lymphedema Overactive bladder Obesity Hypertension Surgical History Surgical History (Updated 01/17/25 @ 22:55 by Geni Danielle PA-C) History of varicose vein stripping History of bilateral carpal tunnel release History of appendectomy History of cholecystectomy Social History Social History (Updated 01/17/25 @ 22:57 by Geni Danielle PA-C) Social History: Surrogate medical decision maker: Austin Reis, son ([phone]). Code status: Do not resuscitate. Smoking status: Never smoker Alcohol intake: never Substance use: never Substance use type: does not use Do You Feel Safe in your Home?: Yes Lack of Transportation: No Lack of Food: Never True Current Housing: I Have Housing Concerned About Future Housing: No Difficulty Paying Gas/Electric Bills: No Difficulty Paying for Meds: No Currently Unemployed: No Education: High School Diploma/GED Difficulty w/ Childcare or Family Care: No Additional living arrangements comments: . Lives at [place]. Spiritual care concerns: No Meds Home Medications and Allergies Home Medications ?Medication ?Instructions ?Recorded ?Confirmed ?Type apixaban 5 mg tablet (Eliquis) 5 mg PO BID 01/25/24 01/17/25 History oxybutynin chloride 15 mg 15 mg PO DAILY 01/25/24 01/17/25 History tablet,extended release 24 hr propranolol 80 mg capsule,24 160 mg PO DAILY 01/25/24 01/17/25 History hr,extended release furosemide 20 mg tablet 20 mg PO DAILY 08/23/24 01/17/25 History meloxicam 7.5 mg tablet 7.5 mg PO PRN pain 12/03/24 01/17/25 History guaifenesin 600 mg tablet, 1,200 mg (2 x 600 mg) PO Q12HR #30 12/06/24 01/17/25 Rx extended release 12 hr (Mucus tabs Relief ER) quetiapine 25 mg tablet (Seroquel) 25 mg PO HS #30 tabs 12/06/24 01/17/25 Rx Allergies Allergy/AdvReac Type Severity Reaction Status Date / Time Penicillins Allergy unknown Verified 01/17/25 14:14 Vital Signs Vital Signs - 24 hr 01/17/25 14:24 01/17/25 17:42 Temperature 97.2 F L Pulse Rate 74 66 Respiratory Rate 20 15 Blood Pressure 121/56 L 133/77 Pulse Oximetry 99 99 Oxygen Delivery Room Air Exam Narrative: General: Nontoxic-appearing elderly female sitting up in bed in no acute distress. Weight: 92.8 kg. BMI: 35.1. HEENT: PERRL, EOMI. Sclera anicteric. Oral mucosa moist. Crowded oropharynx. Neck: Supple. Limited due to neck circumference. No obvious JVD. Respiratory: Respirations are nonlabored and she is speaking in full sentences. Cardiovascular: Irregularly irregular rate and rhythm. Gastrointestinal: Abdomen is soft, nontender, and nondistended with positive bowel sounds. Skin: Warm and dry. Erythema of the lower extremities secondary to swelling. No evidence of cellulitis. Toenails are thick. Extremities: No cyanosis or clubbing. Chronic lymphedema of the lower extremities with superimposed 2+ pitting edema. Neurological: Alert to name, age, date of , and place. She cannot tell me why she was brought to the hospital. Cranial nerves 2-12 are grossly intact. Speech is clear. No facial asymmetry. Hand carroting machine offbearer and foot pushes equal bilaterally. She did not participate in the rest of the neurologic exam. Psychiatric: Pleasant and cooperative with appropriate mood. She exhibits some confusion (she asked if her can come to dinner though I was told he is ) and appears to have short-term memory loss. H&P: Results Labs Labs: Short CBC 01/17/25 01/17/25 Range/Units 15:31 17:21 WBC 5.6 6.2 (4.5-10.0) K/mm3 Hgb 12.0 11.9 L (12.0-15.0) g/dL Hct 38.1 36.9 L (37.0-47.0) % Plt Count 231 228 (150-375) k/mm3 BMP 01/17/25 15:31 Sodium 139 Potassium 3.6 Chloride 102 Carbon Dioxide 30 BUN 18 H Creatinine 0.87 Glucose 106 Calcium 9.0 Cardiac Enzymes 01/17/25 Range/Units 15:31 Troponin I < 0.012 (0.000-0.034) ng/mL Liver Function 01/17/25 Range/Units 15:31 Total Bilirubin 0.7 (0.2-1.3) mg/dL AST 24 (14-36) U/L ALT 13 (6-35) U/L Alkaline Phosphatase 84 (38-126) U/L Albumin 4.0 (3.5-5.1) g/dL Urine 01/17/25 Range/Units 17:05 Urine Color Yellow (Yellow) Urine Appearance Clear (Clear) Urine pH 7.0 (5.0-9.0) Ur Specific [place] 1.008 (1.001-1.035) Urine Protein Negative (Negative) mg/dL Urine Glucose (UA) Negative (Negative) mg/dL Imaging Chest X-Ray 01/17/25 16:21 IMPRESSION: Small left-sided pleural effusion without focal infiltrate. Venous Doppler Study 01/17/25 16:49 IMPRESSION: Negative bilateral lower extremity venous US. No deep vein thrombosis. Assessment and Plan Assessment and plan (1) New onset atrial fibrillation: Code(s): I48.91 - Unspecified atrial fibrillation Status: Acute (2) Suspected congestive heart failure: Code(s): R09.89 - Other specified symptoms and signs involving the circulatory and respiratory systems Status: Acute (3) Confusion: Code(s): R41.0 - Disorientation, unspecified Status: Acute (4) Hypertension: Code(s): I10 - Essential (primary) hypertension Status: Acute (5) Chronic anticoagulation: Code(s): Z79.01 - [facility] (current) use of anticoagulants Status: Acute (6) Lymphedema: Code(s): I89.0 - Lymphedema, not elsewhere classified Status: Acute Plan The patient presented to the emergency department for evaluation of increasing swelling of and pain in her legs as detailed in HPI. Labs, imaging, EKG, and all reports were personally reviewed. She has chronic lymphedema but appears have superimposed pitting edema with concerns for possible congestive heart failure given elevated proBNP as well. She will be judiciously diuresed with close monitoring of volume status, renal function, and electrolytes. Her legs are a bit red from the swelling but are not infected. She is in new onset atrial fibrillation, is rate controlled, and is asymptomatic. Echocardiogram has been ordered. She is confused but has no focal findings on examination. There is no documentation of dementia in the chart and I have not been able to get hold of family members to see if this is new or not. Thus will obtain a brain CT and consider brain MRI depending on what information her family members provide. No findings to suggest underlying infection. Blood pressures were reviewed and they have been stable. 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 The rest of her home medications will be reviewed and resumed as appropriate. Findings and treatment plan were discussed with the patient. Questions were solicited and answered to satisfaction. The patient's medical management will be taken over by the hospitalist team in a.m. Quality VTE Prophylaxis VTE prophylaxis: pharmacologic ordered (on apixaban) The patient has been admitted under observation status. Hospitalist MIPS Advance Care Plan I have confirmed that the patient's Advanced Care Plan is present, code status is documented, or surrogate decision maker is listed in patient medical record.: Yes Medication Reconciliation I have utilized all available resources to obtain, update and review the patients current medications (includes all prescriptions, OTC, herbals, cannabis, and nutritional supplements).: Yes
[2025-01-17 18:41] VITALS: PULSE 65
--- NOTE | 2025-01-17 18:54 | PC.NURSE ---
Natanael, room 5 son notified of pt admission to hospital. All questions answered.
[2025-01-17] MEDS: FUROSEMIDE INJ 40 MG/4 ML VIAL 20 MG IV PUSH (19:26)
[2025-01-17 20:28] VITALS: BP 111/55; PULSE 63; RESP 12; O2SAT 97
--- NOTE | 2025-01-17 20:56 | ADMGEN ---
This patient, Rohini Ladd, was admitted to 3 [facility] Surg Room 324-02. Patient/family oriented to hospital policies and general routines including ID bracelet, bed and alarms, visiting hours, pain management, procedures, bathroom and other care routines, personal items, smoking policy, room service/diet, and visiting hours. Information on how to activate the Rapid Response Team has been discussed. Patient/Family are encouraged to report perceived risks to care and to ask questions if they do not understand what they are told or what they should do.
[2025-01-17] MEDS: ACETAMINOPHEN 325 MG TABLET 650 MG PO (21:02)
[2025-01-17 21:07] VITALS: BMI 35.1
[2025-01-17 21:11] VITALS: BP 122/70; PULSE 70; RESP 16; TEMP 37.3; O2SAT 97
[2025-01-17 22:00] VITALS: BP 132/63; PULSE 61; RESP 16; TEMP 37.3; O2SAT 97
[2025-01-17] MEDS: QUEtiapine FUMARATE 25 MG TABLET PO (23:35)
[2025-01-17] MEDS: APIXABAN 5 MG TABLET PO (23:35)
[2025-01-18 06:00] VITALS: BP 139/74; PULSE 62; RESP 16; TEMP 36.2; O2SAT 98
[2025-01-18 06:22] LABS: Hematocrit 34.5 % (37.0-47.0); Hemoglobin 10.7 g/dL (12.0-15.0); Mean Corpuscular Hemoglobin 30.6 pg (26-34); Mean Corpuscular Volume 98.6 fl (80-100); Mean Platelet Volume 9.7 fl (7.4-10.4); Platelet Count Result 199 k/mm3 (150-375); Red Cell Distribution Width 14.6 % (11.5-14.5); White Blood Count 4.5 K/mm3 (4.5-10.0)
[2025-01-18 06:36] LABS: Anion Gap 6 mmol/L (4-12); Blood Urea Nitrogen 15 mg/dL (7-17); Calcium 8.3 mg/dL (8.4-10.2); Carbon Dioxide 27 mmol/L (22-30); Chloride 106 mmol/L (98-107); Estimated CRCL calculation 63 ml/min; Estimated Glomerular Filt Rate > 60; Glucose 90 mg/dL (65-110); Magnesium 2.1 mg/dL (1.6-2.3); Potassium 3.4 mmol/L (3.4-5.0); Sodium 139 mmol/L (137-145)
[2025-01-18 08:00] VITALS: PULSE 82; O2SAT 95
[2025-01-18 08:04] VITALS: O2SAT 95
--- NOTE | 2025-01-18 08:04 | P.PNIM_ITS ---
Progress Note: A&P Assessment and Plan (1) New onset atrial fibrillation: Code(s): I48.91 - Unspecified atrial fibrillation Status: Acute Assessment and Plan: Continue Eliquis 5 mg p.o. b.i.d. Heart rate controlled No further recommendation from Cardiology (2) Suspected congestive heart failure: Code(s): R09.89 - Other specified symptoms and signs involving the circulatory and respiratory systems Status: Acute Assessment and Plan: Continue furosemide 20 mg p.o. q.d. 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 She is a only a fair historian and seems to suffer from short-term memory loss however there is no documented history of dementia in her chart. She does not know why she was brought here today or who called EMS. I reminded her that she came in for leg pain and she tells me that her legs do not hurt anymore than usual. They are chronically tight and heavy due to lymphedema. There was some redness on exam but she had not noticed. Her only complaint is that of hunger and she states nobody is letting her eat. She denies fever, lightheadedness, dizziness, headache, chest pain, pleuritic pain, palpitations, shortness of breath, abdominal pain, nausea, vomiting, diarrhea, and dysuria. She also denies vertigo, visual changes, focal weakness, paresthesias, and difficulty speaking and swallowing. In the ED: She was afebrile on arrival with stable vital signs. Labs were significant for WBC count of 5.6, hemoglobin 12.0, BUN 18, creatinine 0.87, proBNP 2780, troponin less than 0.012. Urinalysis was unremarkable. Chest x-ray showed a small left-sided pleural effusion without infiltrate. Lower extremity venous ultrasounds were negative for DVT. EKG showed atrial fibrillation with a rate of 67 and an incomplete right bundle-branch block. She was given furosemide 20 mg and is being admitted in this setting for further treatment and evaluation of presumed new onset congestive heart failure and atrial fibrillation. 01/18: Present reports that she is doing well although she has some right foot pain. Ordered foot x-ray. Patient unable to verify white she is taking Eliquis. Review of Systems Review of Systems: Unable to be obtained accurately given her confusion. Exam Narrative: General: Nontoxic-appearing elderly female sitting up in bed in no acute distress. Weight: 92.8 kg. BMI: 35.1. HEENT: PERRL, EOMI. Sclera anicteric. Oral mucosa moist. Crowded oropharynx. Neck: Supple. Limited due to neck circumference. No obvious JVD. Respiratory: Respirations are nonlabored and she is speaking in full sentences. Cardiovascular: Irregularly irregular rate and rhythm. Gastrointestinal: Abdomen is soft, nontender, and nondistended with positive bowel sounds. Skin: Warm and dry. Erythema of the lower extremities secondary to swelling. No evidence of cellulitis. Toenails are thick. Extremities: No cyanosis or clubbing. Chronic lymphedema of the lower extre mities with superimposed 2+ pitting edema. Neurological: Alert to name, age, date of , and place. She cannot tell me why she was brought to the hospital. Cranial nerves 2-12 are grossly intact. Speech is clear. No facial asymmetry. 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 She did not participate in the rest of the neurologic exam. Psychiatric: Pleasant and cooperative with appropriate mood. She exhibits some confusion (she asked if her can come to dinner though I was told he is ) and appears to have short-term memory loss. Objective Data Vital Signs Vital Signs: Vital Signs - 24 hr 01/17/25 14:24 01/17/25 17:42 01/17/25 18:41 Temperature 97.2 F L Pulse Rate 74 66 65 Respiratory Rate 20 15 Blood Pressure 121/56 L 133/77 Pulse Oximetry 99 99 Oxygen Delivery Room Air 01/17/25 20:28 01/17/25 21:11 01/17/25 21:34 Temperature 99.1 F Pulse Rate 63 70 Respiratory Rate 12 16 Blood Pressure 111/55 L 122/70 Pulse Oximetry 97 97 Oxygen Delivery Room Air 01/17/25 22:00 01/18/25 06:00 Temperature 99.2 F 97.1 F L Pulse Rate 61 62 Respiratory Rate 16 16 Blood Pressure 132/63 139/74 Pulse Oximetry 97 98 Oxygen Delivery Intake/Output Intake/Output: Intake & Output 01/15/25 01/16/25 01/17/25 01/18/25 23:59 23:59 23:59 23:59 Intake Total 550 Output Total 650 Balance -100 Meds/Results Medications: Active Medications Generic Name Dose Route Start Last Admin Trade Name Freq PRN Reason Stop Dose Admin Acetaminophen 650 mg 01/17/25 18:32 01/17/25 21:02 Acetaminophen 325 Mg Tablet PO 650 mg Q4H PRN Administration Mild Pain (1-3) or Fever Apixaban 5 mg 01/17/25 23:15 01/17/25 23:35 Apixaban 5 Mg Tablet PO 5 mg Q12HR ELLI Administration Furosemide 20 mg 01/17/25 18:35 01/17/25 19:26 Furosemide Inj 40 Mg/4 Ml Vial IV PUSH 20 mg Q12HR ELLI Administration Miscellaneous Information 1 each 01/17/25 00:01 Propranolol 80 Mg Capsule,Extended Release 24hr Is Nonformulary, Can Pt Bring From Home? XX 02/16/25 00:00 CLARIFY ELLI Non-Formulary Medication 160 mg 01/18/25 09:00 Propranolol PO 02/17/25 08:59 DAILY ELLI Oxybutynin Chloride 15 mg 01/18/25 09:00 Oxybutynin Chloride Xl 5 Mg Tab.Er.24 PO DAILY ELLI Perflutren Lipid Microsphere 0 ml 01/17/25 23:04 Perflutren Lipid Microspheres 1.5 Ml Vial Diluted To 10 Ml Total Volume IV PUSH 01/20/25 23:04 ONCE PRN adequate visualization Protocol Quetiapine Fumarate 25 mg 01/17/25 23:10 01/17/25 23:35 Quetiapine Fumarate 25 Mg Tablet PO 25 mg HS ELLI Administration Radiology Results: ITS Impressions Chest X-Ray 01/17/25 16:21 IMPRESSION: Small left-sided pleural effusion without focal infiltrate. Venous Doppler Study 01/17/25 16:49 IMPRESSION: Negative bilateral lower extremity venous US. No deep vein thrombosis. Labs Labs: Laboratory Results - last 24 hr 01/17/25 01/17/25 01/17/25 15:31 17:05 17:21 WBC 5.6 6.2 RBC 3.88 L 3.82 L Hgb 12.0 11.9 L Hct 38.1 36.9 L MCV 98.2 96.6 MCH 30.9 31.2 MCHC 31.5 L 32.2 RDW 14.5 14.5 Plt Count 231 228 MPV 9.8 9.9 Immature Gran % (Auto) 0.2 0.3 Neut % (Auto) 48.2 43.6 L Lymph % (Auto) 31.1 35.7 [place] % (Auto) 16.5 H 17.0 H Eos % (Auto) 3.1 2.6 Baso % (Auto) 0.9 0.8 Lymph # (Auto) 1.73 2.22 [place] # (Auto) 0.9 H 1.1 H Eos # (Auto) 0.2 0.2 Baso # (Auto) 0.1 0.1 Abs Immat Gran (auto) 0.01 0.02 Absolute Neuts (auto) 2.7 2.7 Absolute Nucleated RBC 0.000 0.000 Nucleated RBC % 0.0 0.0 PT 16.6 H INR 1.3 APTT 32.5 Sodium 139 Potassium 3.6 Chloride 102 Carbon Dioxide 30 Anion Gap 7 BUN 18 H Creatinine 0.87 Estim Creat Clear Calc 43 Estimated GFR > 60 Glucose 106 Calcium 9.0 Magnesium Total Bilirubin 0.7 AST 24 ALT 13 Alkaline Phosphatase 84 Troponin I < 0.012 NT-Pro-B Natriuret Pep 2780 H Total Protein 7.0 Albumin 4.0 TSH (Reflex) Urine Color Yellow Urine Appearance Clear Urine pH 7.0 Ur Specific [place] 1.008 Urine Protein Negative Urine Glucose (UA) Negative Urine Ketones Negative Ur Blood (Man) Negative Urine Nitrate Negative Urine Bilirubin Negative Urine Urobilinogen 0.2 Leukocyte Esterase Rfl Negative 01/18/25 06:11 WBC 4.5 RBC 3.50 L Hgb 10.7 L Hct 34.5 L MCV 98.6 MCH 30.6 MCHC 31.0 L RDW 14.6 H Plt Count 199 MPV 9.7 Immature Gran % (Auto) Neut % (Auto) Lymph % (Auto) [place] % (Auto) Eos % (Auto) Baso % (Auto) Lymph # (Auto) [place] # (Auto) Eos # (Auto) Baso # (Auto) Abs Immat Gran (auto) Absolute Neuts (auto) Absolute Nucleated RBC Nucleated RBC % PT INR APTT Sodium 139 Potassium 3.4 Chloride 106 Carbon Dioxide 27 Anion Gap 6 BUN 15 Creatinine 0.60 L Estim Creat Clear Calc 63 Estimated GFR > 60 Glucose 90 Calcium 8.3 L Magnesium 2.1 Total Bilirubin AST ALT Alkaline Phosphatase Troponin I NT-Pro-B Natriuret Pep Total Protein Albumin TSH (Reflex) 2.750 Urine Color Urine Appearance Urine pH Ur Specific [place] Urine Protein Urine Glucose (UA) Urine Ketones Ur Blood (Man) Urine Nitrate Urine Bilirubin Urine Urobilinogen Leukocyte Esterase Rfl Quality VTE Prophylaxis VTE prophylaxis: pharmacologic ordered (on apixaban) Hospitalist MIPS Advance Care Plan I have confirmed that the patient's Advanced Care Plan is present, code status is documented, or surrogate decision maker is listed in patient medical record.: Yes Medication Reconciliation I have utilized all available resources to obtain, update and review the patients current medications (includes all prescriptions, OTC, herbals, cannabis, and nutritional supplements).: Yes
[2025-01-18] MEDS: FUROSEMIDE INJ 40 MG/4 ML VIAL 20 MG IV PUSH ×2 (09:14→20:36)
[2025-01-18] MEDS: APIXABAN 5 MG TABLET PO ×2 (09:14→20:36)
[2025-01-18] MEDS: oxyBUTYnin CHLORIDE XL 5 MG TAB.ER.24 15 MG PO (09:14)
[2025-01-18 11:52] VITALS: PULSE 80
[2025-01-18] MEDS: PROPRANOLOL HCL 40 MG TABLET 80 MG PO ×2 (11:52→20:36)
[2025-01-18 14:00] VITALS: BP 125/72; PULSE 80; RESP 20; TEMP 36.9; O2SAT 97
--- NOTE | 2025-01-18 15:00 | P.CONCA_ITS ---
Assessment and Plan Assessment and plan (1) Atrial fibrillation by electrocardiogram: Code(s): I48.91 - Unspecified atrial fibrillation Status: Acute Assessment and Plan: This is a new diagnosis. Her heart rate is controlled with propranolol. She is already on Eliquis for history of DVT. Given that she is already anticoagulated and heart rate is controlled, no further cardiac recommendations in regards to her atrial fibrillation to make at this time. (2) CHF (congestive heart failure): Code(s): I50.9 - Heart failure, unspecified Status: Acute Assessment and Plan: I think most of her lower extremity swelling is lymphedema. However, her echocardiogram did show elevated RA pressure and she has some diastolic dysfunction. Her left ventricular systolic function is normal. Agree with IV furosemide for now. She takes a low dose of p.o. furosemide at home which should be continued at discharge. Would also recommend outpatient referral for lymphedema wraps. No other specific cardiac recommendations to make at this time. Cardiology will sign off. Please do not hesitate to call with any questions. History of Present Illness History of Present Illness Consult date/time: 01/18/25 15:00 Requesting physician: Jermaine Cabello MD Consult reason: atrial fibrillation and congestive heart failure Reason For Visit: Lymphedema, Afib w normal ventricular response, CH Narrative: Rohini Ladd is an 84-year-old female with no previous cardiac history. This is a patient who comes to the hospital with complaints of bilateral lower extremity swelling and leg pain. Cardiology is consulted for atrial fibrillation and congestive heart failure. Patient denies having any cardiac history and is unaware of any previous diagnosis of atrial fibrillation. She denies having any palpitations, chest pain, shortness of breath. She states that her right leg is chronically swollen but she began to notice swelling in her left leg which is ultimately what prompted her to come to the hospital. Review of Systems 2 Review of Systems: All systems reviewed & are unremarkable except as noted in HPI and below PMFSH Past Medical History Medical History Deep venous thrombosis Lymphedema Overactive bladder Obesity Hypertension Surgical History Surgical History History of varicose vein stripping History of bilateral carpal tunnel release History of appendectomy History of cholecystectomy Social History Social History Social History: Surrogate medical decision maker: Austin Reis, danilo ([phone]). Code status: Do not resuscitate. Smoking status: Never smoker Alcohol intake: never Substance use: never Substance use type: does not use Do You Feel Safe in your Home?: Yes Lack of Transportation: No Lack of Food: Never True Current Housing: I Have Housing Concerned About Future Housing: No Difficulty Paying Gas/Electric Bills: No Difficulty Paying for Meds: No Currently Unemployed: No Education: High School Diploma/GED Difficulty w/ Childcare or Family Care: No Additional living arrangements comments: . Lives at [place]. Spiritual care concerns: No Meds Home Medications and Allergies Home Medications ?Medication ?Instructions ?Recorded ?Confirmed ?Type apixaban 5 mg tablet (Eliquis) 5 mg PO BID 01/25/24 01/17/25 History oxybutynin chloride 15 mg 15 mg PO DAILY 01/25/24 01/17/25 History tablet,extended release 24 hr propranolol 80 mg capsule,24 160 mg PO DAILY 01/25/24 01/17/25 History hr,extended release furosemide 20 mg tablet 20 mg PO DAILY 08/23/24 01/17/25 History meloxicam 7.5 mg tablet 7.5 mg PO PRN pain 12/03/24 01/17/25 History guaifenesin 600 mg tablet, 1,200 mg (2 x 600 mg) PO Q12HR #30 12/06/24 01/17/25 Rx extended release 12 hr (Mucus tabs Relief ER) quetiapine 25 mg tablet (Seroquel) 25 mg PO HS #30 tabs 12/06/24 01/17/25 Rx Allergies Allergy/AdvReac Type Severity Reaction Status Date / Time Penicillins Allergy unknown Verified 01/17/25 14:14 Vital Signs Vital Signs - 24 hr 01/17/25 17:42 01/17/25 18:41 01/17/25 20:28 Temperature Pulse Rate 66 65 63 Respiratory Rate 15 12 Blood Pressure 133/77 111/55 L Pulse Oximetry 99 97 Oxygen Delivery 01/17/25 21:11 01/17/25 21:34 01/17/25 22:00 Temperature 37.3 C 37.3 C Pulse Rate 70 61 Respiratory Rate 16 16 Blood Pressure 122/70 132/63 Pulse Oximetry 97 97 Oxygen Delivery Room Air 01/18/25 06:00 01/18/25 08:00 01/18/25 08:04 Temperature 36.2 C L Pulse Rate 62 82 Respiratory Rate 16 Blood Pressure 139/74 Pulse Oximetry 98 95 95 Oxygen Delivery Room Air Room Air 01/18/25 11:52 Temperature Pulse Rate 80 Respiratory Rate Blood Pressure Pulse Oximetry Oxygen Delivery Exam 2 Const: General: comfortable, no acute distress, alert and awake O rientation/consciousness: patient oriented x3 HENMT: Head: normal to inspection Eyes: General: appearance normal, both eyes and all related structures P upils: Equal, round and reactive pupils present Neck: Neck: normal visual inspection, supple and no JVD Carotids: normal carotid upstroke Resp: Effort & Inspection: normal respiratory effort Auscultation: crackles Cardio: Rate: regular rate Rhythm: abnormal rhythm Heart sounds: S1 normal heart sound present, S2 normal heart sound present and Murmur heart sound present systolic GI: Auscultation: normal bowel sounds Skin: General skin exam: normal color Neuro: General: patient oriented x3 Cranial nerves: Yes Equal, round and reactive pupils present Extrem: Other: Lymphedema Psych: Appearance: grossly normal Mental Status: mental status grossly normal Results Labs and Meds 01/18/25 06:11 01/18/25 06:11 Lab results: Cardiac Enzymes 01/17/25 Range/Units 15:31 AST 24 (14-36) U/L Troponin I < 0.012 (0.000-0.034) ng/mL Coagulation 01/17/25 Range/Units 15:31 PT 16.6 H (11.1-14.7) Seconds APTT 32.5 (22.3-36.8) Seconds CBC 01/17/25 01/17/25 01/18/25 Range/Units 15:31 17:21 06:11 WBC 5.6 6.2 4.5 (4.5-10.0) K/mm3 RBC 3.88 L 3.82 L 3.50 L (4.2-5.4) M/mm3 Hgb 12.0 11.9 L 10.7 L (12.0-15.0) g/dL Hct 38.1 36.9 L 34.5 L (37.0-47.0) % Plt Count 231 228 199 (150-375) k/mm3 Lymph # (Auto) 1.73 2.22 (0.9-3.2) K/mm3 [place] # (Auto) 0.9 H 1.1 H (0.1-0.6) K/mm3 Eos # (Auto) 0.2 0.2 (0-0.3) K/mm3 Baso # (Auto) 0.1 0.1 (0.0-0.1) K/mm3 Comprehensive Metabolic Panel 01/17/25 01/18/25 Range/Units 15:31 06:11 Sodium 139 139 (137-145) mmol/L Potassium 3.6 3.4 (3.4-5.0) mmol/L Chloride 102 106 (98-107) mmol/L Carbon Dioxide 30 27 (22-30) mmol/L BUN 18 H 15 (7-17) mg/dL Creatinine 0.87 0.60 L (0.7-1.0) mg/dL Glucose 106 90 (65-110) mg/dL Calcium 9.0 8.3 L (8.4-10.2) mg/dL AST 24 (14-36) U/L ALT 13 (6-35) U/L Alkaline Phosphatase 84 (38-126) U/L Total Protein 7.0 (6.3-8.2) g/dL Albumin 4.0 (3.5-5.1) g/dL Intake and Output 01/17/25 01/18/25 01/18/25 23:59 07:59 15:59 Intake Total 550 480 Output Total 650 Balance -100 480 Intake: Oral 550 480 Output: Catheter Urine 650 External/Condom 650 Patient Weight 01/18/25 23:59 Weight 91.7 kg
[2025-01-18 20:07] VITALS: BP 131/79; PULSE 67; RESP 18; TEMP 36.7; O2SAT 97
[2025-01-18] MEDS: QUEtiapine FUMARATE 25 MG TABLET PO (20:35)
--- NOTE | 2025-01-18 23:04 | ECHO_ITS ---
Patient Info Name: Rohini Ladd Age: 84 years : 1940 Gender: Female Ht: 64 in Wt: 205 lbs BSA: 2.09 m2 HR: 61 bpm BP: 132 / 63 mmHg Heart Rhythm: Atrial Fibrillation Technical Quality: Fair Exam Date: 01/18/2025 10:06 AM Exam Location: Echo Lab Patient Status: Inpatient Admit Date: 01/18/2025 Staff Ordering Physician: Geni Danielle PA-C Metal Pattern Maker: Mitzi Orozco RDCS Attending Provider: Jermaine Cabello MD Referring Physician: Lolis MADDOX; Exam Type: CA echo doppler color flow Study Info Indications - CHF, new onset Afib Complete two-dimensional, color flow and Doppler transthoracic echocardiogram is performed. Summary 1. Complete two-dimensional, color flow and Doppler transthoracic echocardiogram is performed. 2. Left ventricular chamber dimension is normal. 3. Left ventricular systolic function is normal, estimated at 65-70%. 4. The left ventricular diastolic function is abnormal. 5. E/e' 18 is elevated. 6. Atrial fibrillation. 7. Left atrial chamber dimension is moderately enlarged. 8. Right atrial chamber dimension is moderately enlarged. 9. There is mild aortic valve sclerosis. 10. The mitral valve has mildly calcified leaflets and moderately calcified annulus. 11. There is trace mitral valve regurgitation. 12. There is trace tricuspid valve regurgitation. 13. Mild pulmonary hypertension, estimated pulmonary arterial systolic pressure is 45 mmHg. 14. Dilated inferior vena cava with >50% collapse upon inspiration consistent with elevated right atrial pressure, 10 mmHg. Left Ventricle E/e' 18 is elevated. Atrial fibrillation. Left ventricular chamber dimension is normal. Left ventricular systolic function is normal, estimated at 65-70%. The left ventricular diastolic function is abnormal. Right Ventricle Right ventricular systolic function is normal and with normal TAPSE 2.2 cm. Right ventricular chamber dimension is normal. Left Atria Left atrial chamber dimension is moderately enlarged. Right Atria Right atrial chamber dimension is moderately enlarged. Aortic Valve The aortic valve is trileaflet. There is mild aortic valve sclerosis. There is no aortic valve stenosis. There is no aortic valve regurgitation. Pulmonic Valve There is no pulmonic regurgitation. Mitral Valve The mitral valve has mildly calcified leaflets and moderately calcified annulus. There is no mitral valve stenosis. There is trace mitral valve regurgitation. Tricuspid Valve There is trace tricuspid valve regurgitation. Mild pulmonary hypertension, estimated pulmonary arterial systolic pressure is 45 mmHg. Pericardium/Pleural There is no pericardial effusion. Inferior Vena Cava Dilated inferior vena cava with >50% collapse upon inspiration consistent with elevated right atrial pressure, 10 mmHg. Aorta The aortic root size at the sinus of Valsalva is normal. Left Ventricular Outflow Tract Name Value Normal LVOT 2D LVOT Diameter 2.0 cm LVOT Doppler LVOT Peak Gradient 4 mmHg LVOT Mean Gradient 2 mmHg LVOT VTI 21 cm LVOT VTI/AV VTI Ratio 0.5 LVOT Stroke Volume 67 ml LVOT CO 3.9 l/min LVOT CI 1.9 l/min/m2 Pulmonic Valve Name Value Normal RVOT Doppler RVOT Peak Gradient 2 mmHg PV Doppler PV Peak Gradient 3 mmHg Mitral Valve Name Value Normal MV Doppler MV Decel [place] 549 cm/s2 MV PHT 65 ms MV Area (PHT) 3.4 cm2 4.0-5.0 MV Diastolic Function MV E Peak Velocity 123 cm/s MV A Peak Velocity 43 cm/s MV E/A 2.9 MV Decel Time 225 ms MV Annular TDI MV E/e' (Septal) 19.0 <=8.0 MV E/e' (Lateral) 17.2 <=8.0 MV E/e' (Average) 18.1 Tricuspid Valve Name Value Normal TV Regurgitation Doppler TR Peak Velocity 294 cm/s TR Peak Gradient 35 mmHg Estimated PAP/RSVP RA Pressure 10 mmHg <=5 PA Systolic Pressure 45 mmHg <36 RV Systolic Pressure 45 mmHg <36 Aortic Valve Name Value Normal AV Doppler AV Peak Velocity 176 cm/s AV Peak Gradient 12 mmHg AV Mean Gradient 6 mmHg AV VTI 39 cm AV Area (Cont Eq VTI) 1.7 cm2 >=3.0 AV Area (Cont Eq Seravndo) 1.9 cm2 AV Regurgitation 2D LVOT Area 3.2 cm2 Ventricles Name Value Normal LV Dimensions 2D/MM IVS Diastolic Thickness (2D) 0.9 cm 0.6-1.0 LVID Diastole (2D) 4.3 cm 3.8-5.2 LVIW Diastolic Thickness (2D) 1.0 cm 0.6-0.9 LVID Systole (2D) 2.4 cm 2.2-3.5 LVOT Diameter 2.0 cm LV Mass (2D Cubed) 127.82 g 67.00-162.00 LV Mass Index (2D Cubed) 61 g/m2 43-95 Relative Wall Thickness (2D) 0.46 LV Fractional Shortening/Ejection Fraction 2D/MM LV Fractional Shortening (2D) 44 % 27-45 LV EF (2D Teicholz) 75 % 54-74 LV Diastolic Volume (4C MOD) 84 ml LV EF (4C MOD) 73 % LV Diastolic Volume (2C MOD) 74 ml LV EF (2C MOD) 59 % LV Diastolic Volume (BP MOD) 78 ml 46-106 LV Diastolic Volume Index (BP MOD) 37 ml/m2 29-61 LV Systolic Volume (BP MOD) 26 ml 14-42 LV Systolic Volume Index (BP MOD) 12 ml/m2 8-24 LV EF (BP MOD) 67 % 54-74 LV Diastolic Length (4C) 6.7 cm LV Systolic Length (4C) 5.3 cm LV Stroke Volume (4C MOD) 62 ml Atria Name Value Normal LA Dimensions LA Volume (4C A-L) 90 ml LA Volume (BP A-L) 83 ml RA Dimensions RA Area (4C) 26.7 cm2 <=18.0 Report Signatures
[2025-01-19] VITALS (7 sets, daily range): BP systolic 110–151; BP diastolic 63–96; PULSE 62–84; RESP 16–20; TEMP 35.9–37.3; O2SAT 92–97
[2025-01-19 05:30] LABS: Hematocrit 39.5 % (37.0-47.0); Hemoglobin 12.7 g/dL (12.0-15.0); Mean Corpuscular HGB Conc 32.2 g/dl (32-36); Mean Corpuscular Hemoglobin 31.1 pg (26-34); Mean Corpuscular Volume 96.8 fl (80-100); Mean Platelet Volume 9.6 fl (7.4-10.4); Platelet Count Result 227 k/mm3 (150-375); Red Blood Count 4.08 M/mm3 (4.2-5.4); Red Cell Distribution Width 14.5 % (11.5-14.5); White Blood Count 7.7 K/mm3 (4.5-10.0)
[2025-01-19 05:43] LABS: Alanine Aminotransferase 13 U/L (6-35); Albumin Level 3.8 g/dL (3.5-5.1); Alkaline Phosphatase 76 U/L (38-126); Anion Gap 9 mmol/L (4-12); Aspartate Amino Transferase 19 U/L (14-36); Bilirubin,Total 0.9 mg/dL (0.2-1.3); Blood Urea Nitrogen 14 mg/dL (7-17); Calcium 8.7 mg/dL (8.4-10.2); Carbon Dioxide 29 mmol/L (22-30); Chloride 103 mmol/L (98-107); Estimated CRCL calculation 69 ml/min; Estimated Glomerular Filt Rate > 60; Glucose 100 mg/dL (65-110); Potassium 3.5 mmol/L (3.4-5.0); Sodium 141 mmol/L (137-145)
[2025-01-19] MEDS: APIXABAN 5 MG TABLET PO ×2 (09:00→20:28)
[2025-01-19] MEDS: PROPRANOLOL HCL 40 MG TABLET 80 MG PO ×2 (09:00→20:29)
[2025-01-19] MEDS: FUROSEMIDE INJ 40 MG/4 ML VIAL 20 MG IV PUSH ×2 (09:02→20:30)
[2025-01-19] MEDS: oxyBUTYnin CHLORIDE XL 5 MG TAB.ER.24 15 MG PO (09:02)
--- NOTE | 2025-01-19 09:50 | PM.IMPN ---
Progress Note: A&P Assessment and Plan (1) New onset atrial fibrillation: Code(s): I48.91 - Unspecified atrial fibrillation Status: Acute Assessment and Plan: Continue Eliquis 5 mg p.o. b.i.d. Heart rate controlled No further recommendation from Cardiology (2) Suspected congestive heart failure: Code(s): R09.89 - Other specified symptoms and signs involving the circulatory and respiratory systems Status: Acute Assessment and Plan: Continue furosemide 20 mg p.o. q.d. 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 Extensive subcutaneous edema throughout the right lower leg and about the foot and ankle. No acute osseous abnormality. 2. 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 UE BL LE:Negative bilateral lower extremity venous US. No deep vein thrombosis. Multimodal pain management Order PT /OT Subjective Date/time seen: 01/19/25 09:50 Interval history: interval Hx: 84-year-old female with hypertension, overactive bladder, deep venous thrombosis, and lymphedema in the lower extremities who presented to the emergency department via EMS from her nursing facility for evaluation of leg pain and swelling. She is a only a fair historian and seems to suffer from short-term memory loss however there is no documented history of dementia in her chart. She does not know why she was brought here today or who called EMS. I reminded her that she came in for leg pain and she tells me that her legs do not hurt anymore than usual. They are chronically tight and heavy due to lymphedema. There was some redness on exam but she had not noticed. Her only complaint is that of hunger and she states nobody is letting her eat. She denies fever, lightheadedness, dizziness, headache, chest pain, pleuritic pain, palpitations, shortness of breath, abdominal pain, nausea, vomiting, diarrhea, and dysuria. She also denies vertigo, visual changes, focal weakness, paresthesias, and difficulty speaking and swallowing. In the ED: She was afebrile on arrival with stable vital signs. Labs were significant for WBC count of 5.6, hemoglobin 12.0, BUN 18, creatinine 0.87, proBNP 2780, troponin less than 0.012. Urinalysis was unremarkable. Chest x-ray showed a small left-sided pleural effusion without infiltrate. Lower extremity venous ultrasounds were negative for DVT. EKG showed atrial fibrillation with a rate of 67 and an incomplete right bundle-branch block. She was given furosemide 20 mg and is being admitted in this setting for further treatment and evaluation of presumed new onset congestive heart failure and atrial fibrillation. 01/18: Present reports that she is doing well although she has some right foot pain. Ordered foot x-ray. Patient unable to verify white she is taking Eliquis. 01/19: Reviewed right foot x-ray. No significant finding other than arthritis. Will discuss with care coordination and PT/Ot for discharge planning. Review of Systems Review of Systems: Unable to be obtained accurately given her confusion. Exam Narrative: General: Nontoxic-appearing elderly female sitting up in bed in no acute distress. Weight: 92.8 kg. BMI: 35.1. HEENT: PERRL, EOMI. Sclera anicteric. Oral mucosa moist. Crowded oropharynx. Neck: Supple. Limited due to neck circumference. No obvious JVD. Respiratory: Respirations are nonlabored and she is speaking in full sentences. Cardiovascular: Irregularly irregular rate and rhythm. Gastrointestinal: Abdomen is soft, nontender, and nondistended with positive bowel sounds. Skin: Warm and dry. Erythema of the lower extremities secondary to swelling. No evidence of cellulitis. Toenails are thick. Extremities: No cyanosis or clubbing. Chronic lymphedema of the lower extremities with superimposed 2+ pitting edema. Neurological: Alert to name, age, date of , and place. She cannot tell me why she was brought to the hospital. Cranial nerves 2-12 are grossly intact. Speech is clear. No facial asymmetry. 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 She did not participate in the rest of the neurologic exam. Psychiatric: Pleasant and cooperative with appropriate mood. She exhibits some confusion (she asked if her can come to dinner though I was told he is ) and appears to have short-term memory loss. Objective Data Vital Signs Vital Signs: Vital Signs - 24 hr 01/18/25 11:52 01/18/25 14:00 01/18/25 20:00 Temperature 98.5 F Pulse Rate 80 80 Respiratory Rate 20 Blood Pressure 125/72 Pulse Oximetry 97 Oxygen Delivery Room Air 01/18/25 20:07 01/19/25 05:17 01/19/25 09:00 Temperature 98.0 F 97.9 F Pulse Rate 67 73 70 Respiratory Rate 18 16 Blood Pressure 131/79 116/96 H Pulse Oximetry 97 97 Oxygen Delivery 01/19/25 09:03 Temperature Pulse Rate Respiratory Rate Blood Pressure 124/73 Pulse Oximetry Oxygen Delivery Intake/Output Intake/Output: Intake & Output 01/16/25 01/17/25 01/18/25 01/19/25 23:59 23:59 23:59 23:59 Intake Total 2370 1030 Output Total 650 2700 Balance 1720 -1670 Meds/Results Medications: Active Medications Generic Name Dose Route Start Last Admin Trade Name Freq PRN Reason Stop Dose Admin Acetaminophen 650 mg 01/17/25 18:32 01/17/25 21:02 Acetaminophen 325 Mg Tablet PO 650 mg Q4H PRN Administration Mild Pain (1-3) or Fever Apixaban 5 mg 01/17/25 23:15 01/19/25 09:00 Apixaban 5 Mg Tablet PO 5 mg Q12HR ELLI Administration Furosemide 20 mg 01/17/25 18:35 01/19/25 09:02 Furosemide Inj 40 Mg/4 Ml Vial IV PUSH 20 mg Q12HR ELLI Administration Oxybutynin Chloride 15 mg 01/18/25 09:00 01/19/25 09:02 Oxybutynin Chloride Xl 5 Mg Tab.Er.24 PO 15 mg DAILY ELLI Administration Perflutren Lipid Microsphere 0 ml 01/17/25 23:04 Perflutren Lipid Microspheres 1.5 Ml Vial Diluted To 10 Ml Total Volume IV PUSH 01/20/25 23:04 ONCE PRN adequate visualization Protocol Propranolol HCl 80 mg 01/18/25 12:00 01/19/25 09:00 Propranolol Hcl 40 Mg Tablet PO 80 mg Q12HR ELLI Administration Quetiapine Fumarate 25 mg 01/17/25 23:10 01/18/25 20:35 Quetiapine Fumarate 25 Mg Tablet PO 25 mg HS ELLI Administration Radiology Results: ITS Impressions Chest X-Ray 01/17/25 16:21 IMPRESSION: Small left-sided pleural effusion without focal infiltrate. Venous Doppler Study 01/17/25 16:49 IMPRESSION: Negative bilateral lower extremity venous US. No deep vein thrombosis. Head CT 01/18/25 11:13 Impression: No intracranial hemorrhage, mass, or acute infarct. Atrophy and chronic white matter changes, as above. Foot X-Ray 01/18/25 15:08 IMPRESSION: 1. Extensive subcutaneous edema throughout the right lower leg and about the foot and ankle. No acute osseous abnormality. 2. 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 Tibia/Fibula X-Ray 01/18/25 15:08 IMPRESSION: 1. Extensive subcutaneous edema throughout the right lower leg and about the foot and ankle. No acute osseous abnormality. 2. 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 Labs Labs: Laboratory Results - last 24 hr 01/19/25 05:23 WBC 7.7 RBC 4.08 L Hgb 12.7 Hct 39.5 MCV 96.8 MCH 31.1 MCHC 32.2 RDW 14.5 Plt Count 227 MPV 9.6 Sodium 141 Potassium 3.5 Chloride 103 Carbon Dioxide 29 Anion Gap 9 BUN 14 Creatinine 0.54 L Estim Creat Clear Calc 69 Estimated GFR > 60 Glucose 100 Calcium 8.7 Total Bilirubin 0.9 AST 19 ALT 13 Alkaline Phosphatase 76 Total Protein 7.0 Albumin 3.8 Quality VTE Prophylaxis VTE prophylaxis: pharmacologic ordered (on apixaban) Hospitalist [facility] Advance Care Plan I have confirmed that the patient's Advanced Care Plan is present, code status is documented, or surrogate decision maker is listed in patient medical record.: Yes Medication Reconciliation I have utilized all available resources to obtain, update and review the patients current medications (includes all prescriptions, OTC, herbals, cannabis, and nutritional supplements).: Yes
--- NOTE | 2025-01-19 15:38 | PCPTNOTE ---
Nursing reports just got patient back in bed. Physical therapy will check on patient tomorrow [id number]
[2025-01-19] MEDS: QUEtiapine FUMARATE 25 MG TABLET PO (20:28)
[2025-01-20 06:00] VITALS: BP 127/62; PULSE 84; RESP 18; TEMP 36.6; O2SAT 94
[2025-01-20 06:09] LABS: Hemoglobin 11.5 g/dL (12.0-15.0); Mean Corpuscular HGB Conc 31.9 g/dl (32-36); Mean Corpuscular Hemoglobin 31.3 pg (26-34); Mean Corpuscular Volume 98.1 fl (80-100); Mean Platelet Volume 9.8 fl (7.4-10.4); Platelet Count Result 195 k/mm3 (150-375); Red Blood Count 3.67 M/mm3 (4.2-5.4); Red Cell Distribution Width 14.4 % (11.5-14.5)
[2025-01-20 06:21] LABS: Alanine Aminotransferase 12 U/L (6-35); Albumin Level 3.4 g/dL (3.5-5.1); Alkaline Phosphatase 70 U/L (38-126); Anion Gap 4 mmol/L (4-12); Aspartate Amino Transferase 19 U/L (14-36); Bilirubin,Total 1.4 mg/dL (0.2-1.3); Blood Urea Nitrogen 16 mg/dL (7-17); Calcium 8.5 mg/dL (8.4-10.2); Carbon Dioxide 32 mmol/L (22-30); Chloride 100 mmol/L (98-107); Estimated CRCL calculation 57 ml/min; Estimated Glomerular Filt Rate > 60; Glucose 104 mg/dL (65-110); Potassium 3.4 mmol/L (3.4-5.0); Sodium 136 mmol/L (137-145)
[2025-01-20 09:23] VITALS: PULSE 78
[2025-01-20] MEDS: PROPRANOLOL HCL 40 MG TABLET 80 MG PO ×2 (09:23→21:28)
[2025-01-20] MEDS: oxyBUTYnin CHLORIDE XL 5 MG TAB.ER.24 15 MG PO (09:23)
[2025-01-20] MEDS: APIXABAN 5 MG TABLET PO ×2 (09:23→21:28)
[2025-01-20] MEDS: FUROSEMIDE INJ 40 MG/4 ML VIAL 20 MG IV PUSH ×2 (09:23→21:27)
--- NOTE | 2025-01-20 09:35 | P.PNIM_ITS ---
Progress Note: A&P Assessment and Plan (1) New onset atrial fibrillation: Code(s): I48.91 - Unspecified atrial fibrillation Status: Acute Assessment and Plan: Continue Eliquis 5 mg p.o. b.i.d. Heart rate controlled No further recommendation from Cardiology (2) Suspected congestive heart failure: Code(s): R09.89 - Other specified symptoms and signs involving the circulatory and respiratory systems Status: Acute Assessment and Plan: Continue furosemide 20 mg p.o. q.d. 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 Extensive subcutaneous edema throughout the right lower leg and about the foot and ankle. No acute osseous abnormality. 2. 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 UE BL LE:Negative bilateral lower extremity venous US. No deep vein thrombosis. Multimodal pain management Order PT /OT Order CTA LE Subjective Date/time seen: 01/20/25 09:35 Interval history: interval Hx: 84-year-old female with hypertension, overactive bladder, deep venous thrombosis, and lymphedema in the lower extremities who presented to the emergency department via EMS from her nursing facility for evaluation of leg pain and swelling. She is a only a fair historian and seems to suffer from short-term memory loss however there is no documented history of dementia in her chart. She does not know why she was brought here today or who called EMS. I reminded her that she came in for leg pain and she tells me that her legs do not hurt anymore than usual. They are chronically tight and heavy due to lymphedema. There was some redness on exam but she had not noticed. Her only complaint is that of hunger and she states nobody is letting her eat. She denies fever, lightheadedness, dizziness, headache, chest pain, pleuritic pain, palpitations, shortness of breath, abdominal pain, nausea, vomiting, diarrhea, and dysuria. She also denies vertigo, visual changes, focal weakness, paresthesias, and difficulty speaking and swallowing. In the ED: She was afebrile on arrival with stable vital signs. Labs were significant for WBC count of 5.6, hemoglobin 12.0, BUN 18, creatinine 0.87, proBNP 2780, troponin less than 0.012. Urinalysis was unremarkable. Chest x-ray showed a small left-sided pleural effusion without infiltrate. Lower extremity venous ultrasounds were negative for DVT. EKG showed atrial fibrillation with a rate of 67 and an incomplete right bundle-branch block. She was given furosemide 20 mg and is being admitted in this setting for further treatment and evaluation of presumed new onset congestive heart failure and atrial fibrillation. 01/18: Present reports that she is doing well although she has some right foot pain. Ordered foot x-ray. Patient unable to verify white she is taking Eliquis. 01/19: Reviewed right foot x-ray. No significant finding other than arthritis. Complains of acute on chronic right foot pain.Evidence of purple foot which looks little more exacerbated than yesterday. Unable to feel the pulse due to sever lymphedema. Order CTA LE. Will discuss with care coordination and PT/OT after CTA LE results for discharge planning. Review of Systems Review of Systems: Unable to be obtained accurately given her confusion. All systems reviewed & are unremarkable except as noted in HPI and below ROS unobtainable: Yes unobtainable due to medical condition Exam Narrative: General: Nontoxic-appearing elderly female sitting up in bed in no acute distress. Weight: 92.8 kg. BMI: 35.1. HEENT: PERRL, EOMI. Sclera anicteric. Oral mucosa moist. Crowded oropharynx. Neck: Supple. Limited due to neck circumference. No obvious JVD. Respiratory: Respirations are nonlabored and she is speaking in full sentences. Cardiovascular: Irregularly irregular rate and rhythm. Gastrointestinal: Abdomen is soft, nontender, and nondistended with positive bowel sounds. Skin: Warm and dry. Erythema of the lower extremities secondary to swelling. No evidence of cellulitis. Toenails are thick. Extremities: No cyanosis or clubbing. Chronic lymphedema of the lower extremities with superimposed 2+ pitting edema. Neurological: Alert to name, age, date of , and place. She cannot tell me why she was brought to the hospital. Cranial nerves 2-12 are grossly intact. Speech is clear. No facial asymmetry. 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 She did not participate in the rest of the neurologic exam. Psychiatric: Pleasant and cooperative with appropriate mood. She exhibits some confusion (she asked if her can come to dinner though I was told he is ) and appears to have short-term memory loss. Const: General: comfortable, no acute distress, alert and awake Orientation /consciousness: patient oriented x3 HENMT: Head: normal to inspection Eyes: General: appearance normal, both eyes and all related structures Pupils: Equal, round and reactive pupils present Neck: Neck: normal visual inspection, supple and no JVD Carotids: normal carotid upstroke Resp: Effort & Inspection: normal respiratory effort Auscultation: crackles Cardio: Rate: regular rate Rhythm: abnormal rhythm Heart sounds: S1 normal heart sound present, S2 normal heart sound present and Murmur heart sound present systolic GI: Auscultation: normal bowel sounds Skin: General skin exam: normal color Neuro: General: patient oriented x3 Cranial nerves: Yes Equal, round and reactive pupils present Extrem: Other: Lymphedema Psych: Appearance: grossly normal Mental Status: mental status grossly normal Objective Data Vital Signs Vital Signs: Vital Signs - 24 hr 01/19/25 12:31 01/19/25 14:00 01/19/25 20:00 Temperature 99.2 F Pulse Rate 62 Respiratory Rate 20 Blood Pressure 110/63 Pulse Oximetry 96 Oxygen Delivery Room Air Room Air 01/19/25 20:29 01/19/25 21:03 01/20/25 06:00 Temperature 96.7 F L 97.8 F Pulse Rate 72 84 84 Respiratory Rate 18 18 Blood Pressure 151/70 H 127/62 Pulse Oximetry 92 94 Oxygen Delivery 01/20/25 09:23 Temperature Pulse Rate 78 Respiratory Rate Blood Pressure Pulse Oximetry Oxygen Delivery Intake/Output Intake/Output: Intake & Output 01/17/25 01/18/25 01/19/25 01/20/25 23:59 23:59 23:59 23:59 Intake Total 2370 1270 300 Output Total 650 3200 750 Balance 5779 -4063 -181 Meds/Results Medications: Active Medications Generic Name Dose Route Start Last Admin Trade Name Rohitq PRN Reason Stop Dose Admin Acetaminophen 650 mg 01/17/25 18:32 01/17/25 21:02 Acetaminophen 325 Mg Tablet PO 650 mg Q4H PRN Administration Mild Pain (1-3) or Fever Apixaban 5 mg 01/17/25 23:15 01/20/25 09:23 Apixaban 5 Mg Tablet PO 5 mg Q12HR ELLI Administration Furosemide 20 mg 01/17/25 18:35 01/20/25 09:23 Furosemide Inj 40 Mg/4 Ml Vial IV PUSH 20 mg Q12HR ELLI Administration Oxybutynin Chloride 15 mg 01/18/25 09:00 01/20/25 09:23 Oxybutynin Chloride Xl 5 Mg Tab.Er.24 PO 15 mg DAILY ELLI Administration Perflutren Lipid Microsphere 0 ml 01/17/25 23:04 Perflutren Lipid Microspheres 1.5 Ml Vial Diluted To 10 Ml Total Volume IV PUSH 01/20/25 23:04 ONCE PRN adequate visualization Protocol Propranolol HCl 80 mg 01/18/25 12:00 01/20/25 09:23 Propranolol Hcl 40 Mg Tablet PO 80 mg Q12HR ELLI Administration Quetiapine Fumarate 25 mg 01/17/25 23:10 01/19/25 20:28 Quetiapine Fumarate 25 Mg Tablet PO 25 mg HS ELLI Administration Radiology Results: ITS Impressions Chest X-Ray 01/17/25 16:21 IMPRESSION: Small left-sided pleural effusion without focal infiltrate. Venous Doppler Study 01/17/25 16:49 IMPRESSION: Negative bilateral lower extremity venous US. No deep vein thrombosis. Head CT 01/18/25 11:13 Impression: No intracranial hemorrhage, mass, or acute infarct. Atrophy and chronic white matter changes, as above. Foot X-Ray 01/18/25 15:08 IMPRESSION: 1. Extensive subcutaneous edema throughout the right lower leg and about the foot and ankle. No acute osseous abnormality. 2. 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 Tibia/Fibula X-Ray 01/18/25 15:08 IMPRESSION: 1. Extensive subcutaneous edema throughout the right lower leg and about the foot and ankle. No acute osseous abnormality. 2. 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 Labs Labs: Laboratory Results - last 24 hr 01/20/25 05:52 WBC 8.0 RBC 3.67 L Hgb 11.5 L Hct 36.0 L MCV 98.1 MCH 31.3 MCHC 31.9 L RDW 14.4 Plt Count 195 MPV 9.8 Sodium 136 L Potassium 3.4 Chloride 100 Carbon Dioxide 32 H Anion Gap 4 BUN 16 Creatinine 0.65 L Estim Creat Clear Calc 57 Estimated GFR > 60 Glucose 104 Calcium 8.5 Total Bilirubin 1.4 H AST 19 ALT 12 Alkaline Phosphatase 70 Total Protein 6.0 L Albumin 3.4 L Quality VTE Prophylaxis VTE prophylaxis: pharmacologic ordered (on apixaban) Hospitalist [facility] Advance Care Plan I have confirmed that the patient's Advanced Care Plan is present, code status is documented, or surrogate decision maker is listed in patient medical record.: Yes Medication Reconciliation I have utilized all available resources to obtain, update and review the patients current medications (includes all prescriptions, OTC, herbals, cannabis, and nutritional supplements).: Yes
[2025-01-20 14:15] VITALS: BP 108/62; PULSE 89; RESP 18; TEMP 36.6; O2SAT 97
[2025-01-20 21:28] VITALS: PULSE 80
[2025-01-20] MEDS: QUEtiapine FUMARATE 25 MG TABLET PO (21:28)
[2025-01-20 22:00] VITALS: BP 144/52; PULSE 55; RESP 18; TEMP 36.6; O2SAT 95
[2025-01-21 06:00] VITALS: BP 141/56; PULSE 59; RESP 18; TEMP 36.4; O2SAT 94
[2025-01-21 06:26] LABS: Hematocrit 37.5 % (37.0-47.0); Hemoglobin 11.8 g/dL (12.0-15.0); Mean Corpuscular HGB Conc 31.5 g/dl (32-36); Mean Corpuscular Volume 98.4 fl (80-100); Mean Platelet Volume 9.9 fl (7.4-10.4); Platelet Count Result 211 k/mm3 (150-375); Red Blood Count 3.81 M/mm3 (4.2-5.4); Red Cell Distribution Width 13.9 % (11.5-14.5)
[2025-01-21 06:47] LABS: Alanine Aminotransferase 12 U/L (6-35); Albumin Level 3.6 g/dL (3.5-5.1); Alkaline Phosphatase 69 U/L (38-126); Anion Gap 7 mmol/L (4-12); Aspartate Amino Transferase 16 U/L (14-36); Bilirubin,Total 0.9 mg/dL (0.2-1.3); Blood Urea Nitrogen 19 mg/dL (7-17); Calcium 8.6 mg/dL (8.4-10.2); Carbon Dioxide 32 mmol/L (22-30); Chloride 102 mmol/L (98-107); Estimated CRCL calculation 63 ml/min; Estimated Glomerular Filt Rate > 60; Glucose 88 mg/dL (65-110); Potassium 3.2 mmol/L (3.4-5.0); Sodium 141 mmol/L (137-145)
--- NOTE | 2025-01-21 08:26 | PM.DS ---
DS: Admitting Diagnosis Discharge Date 01/21/2025 DS: Discharge Diagnosis Discharge Diagnosis (1) New onset atrial fibrillation: Code(s): I48.91 - Unspecified atrial fibrillation Status: Acute Assessment and Plan: Continue Eliquis 5 mg p.o. b.i.d. Heart rate controlled No further recommendation from Cardiology (2) Suspected congestive heart failure: Code(s): R09.89 - Other specified symptoms and signs involving the circulatory and respiratory systems Status: Acute Assessment and Plan: Continue furosemide 20 mg p.o. q.d. Reviewed echocardiogram As per cardiology Lymphedema wraps recommend as outpatient (3) Confusion: Code(s): R41.0 - Disorientation, unspecified Status: Acute (4) Hypertension: Code(s): I10 - Essential (primary) hypertension Status: Acute Assessment and Plan: Continue Propanol (5) Chronic anticoagulation: Code(s): Z79.01 - nursing home (current) use of anticoagulants Status: Acute Assessment and Plan: History of DVT (6) Lymphedema: Code(s): I89.0 - Lymphedema, not elsewhere classified Status: Acute Assessment and Plan: Lymphedema wraps as outpatient (7) Foot pain, right: Code(s): M79.671 - Pain in right foot Status: Acute Assessment and Plan: Right foot x-ray;1. Extensive subcutaneous edema throughout the right lower leg and about the foot and ankle. No acute osseous abnormality. 2. 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 UE BL LE:Negative bilateral lower extremity venous US. No deep vein thrombosis. Multimodal pain management Order PT /OT Order CTA LE DS: Summary Hospital Course Hospital Course: 84-year-old female with hypertension, overactive bladder, deep venous thrombosis, and lymphedema in the lower extremities who presented to the emergency department via EMS from her nursing facility for evaluation of leg pain and swelling. She is a only a fair historian and seems to suffer from short-term memory loss however there is no documented history of dementia in her chart. She does not know why she was brought here today or who called EMS. I reminded her that she came in for leg pain and she tells me that her legs do not hurt anymore than usual. They are chronically tight and heavy due to lymphedema. There was some redness on exam but she had not noticed. Her only complaint is that of hunger and she states nobody is letting her eat. She denies fever, lightheadedness, dizziness, headache, chest pain, pleuritic pain, palpitations, shortness of breath, abdominal pain, nausea, vomiting, diarrhea, and dysuria. She also denies vertigo, visual changes, focal weakness, paresthesias, and difficulty speaking and swallowing. In the ED: She was afebrile on arrival with stable vital signs. Labs were significant for WBC count of 5.6, hemoglobin 12.0, BUN 18, creatinine 0.87, proBNP 2780, troponin less than 0.012. Urinalysis was unremarkable. Chest x-ray showed a small left-sided pleural effusion without infiltrate. Lower extremity venous ultrasounds were negative for DVT. EKG showed atrial fibrillation with a rate of 67 and an incomplete right bundle-branch block. She was given furosemide 20 mg and is being admitted in this setting for further treatment and evaluation of presumed new onset congestive heart failure and atrial fibrillation. Cardiology evaluated the patient for new onset A.Fib. cardiology believes most of her leg edema are due to chronic lymphedema and recommend lymphedema wrap. Patient is already on Eliquis 5 mg PO BID for DVT. Patient has chronic BL leg pain . According to Her right leg is always purple in color but recently it is more purplish. Right foot x-ray was negative for any fracture. CTA of the bilateral lower extremity Time Spent with Patient Time attestation: Total time spent providing and/or coordinating discharge services: Exam Narrative: General: Nontoxic-appearing elderly female sitting up in bed in no acute distress. Weight: 92.8 kg. BMI: 35.1. HEENT: PERRL, EOMI. Sclera anicteric. Oral mucosa moist. Crowded oropharynx. Neck: Supple. Limited due to neck circumference. No obvious JVD. Respiratory: Respirations are nonlabored and she is speaking in full sentences. Cardiovascular: Irregularly irregular rate and rhythm. Gastrointestinal: Abdomen is soft, nontender, and nondistended with positive bowel sounds. Skin: Warm and dry. Erythema of the lower extremities secondary to swelling. No evidence of cellulitis. Toenails are thick. Extremities: No cyanosis or clubbing. Chronic lymphedema of the lower extremities with superimposed 2+ pitting edema. Neurological: Alert to name, age, date of , and place. She cannot tell me why she was brought to the hospital. Cranial nerves 2-12 are grossly intact. Speech is clear. No facial asymmetry. 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 She did not participate in the rest of the neurologic exam. Psychiatric: Pleasant and cooperative with appropriate mood. She exhibits some confusion (she asked if her can come to dinner though I was told he is ) and appears to have short-term memory loss. Const: General: comfortable, no acute distress, alert and awake Orientation/consciousness: patient oriented x3 HENMT: Head: normal to inspection Eyes: General: appearance normal, both eyes and all related structures Pupils: Equal, round and reactive pupils present Neck: Neck: normal visual inspection, supple and no JVD Carotids: normal carotid upstroke Resp: Effort & Inspection: normal respiratory effort Auscultation: crackles Cardio: Rate: regular rate Rhythm: abnormal rhythm Heart sounds: S1 normal heart sound present, S2 normal heart sound present and Murmur heart sound present systolic GI: Auscultation: normal bowel sounds Skin: General skin exam: normal color Neuro: General: patient oriented x3 Cranial nerves: Yes Equal, round and reactive pupils present Extrem: Other: Lymphedema Psych: Appearance: grossly normal Mental Status: mental status grossly normal DS: Data Data Completed and Pending Labs on day of discharge: Labs from last 24 hours 01/21/25 06:03 WBC 6.0 RBC 3.81 L Hgb 11.8 L Hct 37.5 MCV 98.4 MCH 31.0 MCHC 31.5 L RDW 13.9 Plt Count 211 MPV 9.9 Sodium 141 Potassium 3.2 L Chloride 102 Carbon Dioxide 32 H Anion Gap 7 BUN 19 H Creatinine 0.60 L Estim Creat Clear Calc 63 Estimated GFR > 60 Glucose 88 Calcium 8.6 Total Bilirubin 0.9 AST 16 ALT 12 Alkaline Phosphatase 69 Total Protein 6.0 L Albumin 3.6 Discharge Plan Discharge Consulting providers: Imani Cancino Patient Language: Zimbabwean Discharge Medications: No Action oxybutynin chloride 15 mg tablet extended release 24hr 15 mg PO DAILY propranolol 80 mg capsule,extended release 24hr 160 mg PO DAILY Eliquis 5 mg tablet 5 mg PO BID meloxicam 7.5 mg tablet 7.5 mg PO PRN guaifenesin [Mucus Relief ER] 600 mg Tablet Extended Release 12hr 1,200 mg PO Q12HR Qty: 30 0RF quetiapine [Seroquel] 25 mg Tablet 25 mg PO HS Qty: 30 0RF furosemide 20 mg tablet 20 mg PO DAILY Date of admission: 01/18/25 07:27 Primary Care Provider: Raz,Gurwinder Admitting Provider: Jermaine Cabello Attending physician on admission: Jermaine Cabello Condition: Stable
[2025-01-21] MEDS: oxyBUTYnin CHLORIDE XL 5 MG TAB.ER.24 15 MG PO (10:21)
[2025-01-21 10:22] VITALS: PULSE 80
[2025-01-21] MEDS: PROPRANOLOL HCL 40 MG TABLET 80 MG PO ×2 (10:22→21:16)
[2025-01-21] MEDS: ACETAMINOPHEN 325 MG TABLET 650 MG PO ×2 (10:22→21:17)
[2025-01-21] MEDS: APIXABAN 5 MG TABLET PO ×2 (10:22→21:17)
[2025-01-21] MEDS: FUROSEMIDE INJ 40 MG/4 ML VIAL 20 MG IV PUSH ×2 (10:22→21:17)
[2025-01-21 14:00] VITALS: BP 106/59; PULSE 64; RESP 18; TEMP 36.2; O2SAT 98
--- NOTE | 2025-01-21 14:56 | PM.IMPN ---
Progress Note: A&P Assessment and Plan (1) New onset atrial fibrillation: Code(s): I48.91 - Unspecified atrial fibrillation Status: Acute Assessment and Plan: Continue Eliquis 5 mg p.o. b.i.d. Heart rate controlled No further recommendation from Cardiology (2) Suspected congestive heart failure: Code(s): R09.89 - Other specified symptoms and signs involving the circulatory and respiratory systems Status: Acute Assessment and Plan: Continue furosemide 20 mg p.o. q.d. 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 Extensive subcutaneous edema throughout the right lower leg and about the foot and ankle. No acute osseous abnormality. 2. 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 UE BL LE:Negative bilateral lower extremity venous US. No deep vein thrombosis. 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 Otherwise mild nonhemodynamically significant stenosis in the arteries of the right lower limb As per vascular surgeon at [facility] no further intervention Subjective Date/time seen: 01/21/25 14:56 Interval history: 84-year-old female with hypertension, overactive bladder, deep venous thrombosis, and lymphedema in the lower extremities who presented to the emergency department via EMS from her nursing facility for evaluation of leg pain and swelling. She is a only a fair historian and seems to suffer from short-term memory loss however there is no documented history of dementia in her chart. She does not know why she was brought here today or who called EMS. I reminded her that she came in for leg pain and she tells me that her legs do not hurt anymore than usual. They are chronically tight and heavy due to lymphedema. There was some redness on exam but she had not noticed. Her only complaint is that of hunger and she states nobody is letting her eat. She denies fever, lightheadedness, dizziness, headache, chest pain, pleuritic pain, palpitations, shortness of breath, abdominal pain, nausea, vomiting, diarrhea, and dysuria. She also denies vertigo, visual changes, focal weakness, paresthesias, and difficulty speaking and swallowing. In the ED: She was afebrile on arrival with stable vital signs. Labs were significant for WBC count of 5.6, hemoglobin 12.0, BUN 18, creatinine 0.87, proBNP 2780, troponin less than 0.012. Urinalysis was unremarkable. Chest x-ray showed a small left-sided pleural effusion without infiltrate. Lower extremity venous ultrasounds were negative for DVT. EKG showed atrial fibrillation with a rate of 67 and an incomplete right bundle-branch block. She was given furosemide 20 mg and is being admitted in this setting for further treatment and evaluation of presumed new onset congestive heart failure and atrial fibrillation. Cardiology evaluated the patient for new onset A.Fib. cardiology believes most of her leg edema are due to chronic lymphedema and recommend lymphedema wrap. Patient is already on Eliquis 5 mg PO BID for DVT. Patient has chronic BL leg pain . According to Her right leg is always purple in color but recently it is more purplish. Right foot x-ray was negative for any fracture. CTA of the bilateral lower extremity showsComplete occlusion of the right posterior tibial artery at its origin which reconstitutes below the level of the ankle via the right peroneal artery. Otherwise mild nonhemodynamically significant stenosis in the arteries of the right lower limb. Discuss with vascular surgeon at [facility] who recommend no further intervention. Review of Systems Review of Systems: Unable to be obtained accurately given her confusion. All systems reviewed & are unremarkable except as noted in HPI and below ROS unobtainable: Yes unobtainable due to medical condition Exam Narrative: General: Nontoxic-appearing elderly female sitting up in bed in no acute distress. Weight: 92.8 kg. BMI: 35.1. HEENT: PERRL, EOMI. Sclera anicteric. Oral mucosa moist. Crowded oropharynx. Neck: Supple. Limited due to neck circumference. No obvious JVD. Respiratory: Respirations are nonlabored and she is speaking in full sentences. Cardiovascular: Irregularly irregular rate and rhythm. Gastrointestinal: Abdomen is soft, nontender, and nondistended with positive bowel sounds. Skin: Warm and dry. Erythema of the lower extremities secondary to swelling. No evidence of cellulitis. Toenails are thick. Extremities: No cyanosis or clubbing. Chronic lymphedema of the lower extremities with superimposed 2+ pitting edema. Neurological: Alert to name, age, date of , and place. She cannot tell me why she was brought to the hospital. Cranial nerves 2-12 are grossly intact. Speech is clear. No facial asymmetry. 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 She did not participate in the rest of the neurologic exam. Psychiatric: Pleasant and cooperative with appropriate mood. She exhibits some confusion (she asked if her can come to dinner though I was told he is ) and appears to have short-term memory loss. Const: General: comfortable, no acute distress, alert and awake Orientation/consciousness: patient oriented x3 HENMT: Head: normal to inspection Eyes: General: appearance normal, both eyes and all related structures Pupils: Equal, round and reactive pupils present Neck: Neck: normal visual inspection, supple and no JVD Carotids: normal carotid upstroke Resp: Effort & Inspection: normal respiratory effort Auscultation: crackles Cardio: Rate: regular rate Rhythm: abnormal rhythm Heart sounds: S1 normal heart sound present, S2 normal heart sound present and Murmur heart sound present systolic GI: Auscultation: normal bowel sounds Skin: General skin exam: normal color Neuro: General: patient oriented x3 Cranial nerves: Yes Equal, round and reactive pupils present Extrem: Other: Lymphedema Psych: Appearance: grossly normal Mental Status: mental status grossly normal Objective Data Vital Signs Vital Signs: Vital Signs - 24 hr 01/20/25 21:28 01/20/25 22:00 01/21/25 06:00 Temperature 97.8 F 97.6 F Pulse Rate 80 55 L 59 L Respiratory Rate 18 18 Blood Pressure 144/52 H 141/56 H Pulse Oximetry 95 94 Oxygen Delivery 01/21/25 08:00 01/21/25 10:22 Temperature Pulse Rate 80 Respiratory Rate Blood Pressure Pulse Oximetry Oxygen Delivery Room Air Intake/Output Intake/Output: Intake & Output 01/18/25 01/19/25 01/20/25 01/21/25 23:59 23:59 23:59 23:59 Intake Total 2370 1270 1140 860 Output Total 650 3200 750 Balance 1720 -1930 390 860 Meds/Results Medications: Active Medications Generic Name Dose Route Start Last Admin Trade Name Freq PRN Reason Stop Dose Admin Acetaminophen 650 mg 01/17/25 18:32 01/21/25 10:22 Acetaminophen 325 Mg Tablet PO 650 mg Q4H PRN Administration Mild Pain (1-3) or Fever Apixaban 5 mg 01/17/25 23:15 01/21/25 10:22 Apixaban 5 Mg Tablet PO 5 mg Q12HR ELLI Administration Furosemide 20 mg 01/17/25 18:35 01/21/25 10:22 Furosemide Inj 40 Mg/4 Ml Vial IV PUSH 20 mg Q12HR ELLI Administration Oxybutynin Chloride 15 mg 01/18/25 09:00 01/21/25 10:21 Oxybutynin Chloride Xl 5 Mg Tab.Er.24 PO 15 mg DAILY ELLI Administration Propranolol HCl 80 mg 01/18/25 12:00 01/21/25 10:22 Propranolol Hcl 40 Mg Tablet PO 80 mg Q12HR ELLI Administration Quetiapine Fumarate 25 mg 01/17/25 23:10 01/20/25 21:28 Quetiapine Fumarate 25 Mg Tablet PO 25 mg HS ELLI Administration Radiology Results: ITS Impressions Chest X-Ray 01/17/25 16:21 IMPRESSION: Small left-sided pleural effusion without focal infiltrate. Venous Doppler Study 01/17/25 16:49 IMPRESSION: Negative bilateral lower extremity venous US. No deep vein thrombosis. Head CT 01/18/25 11:13 Impression: No intracranial hemorrhage, mass, or acute infarct. Atrophy and chronic white matter changes, as above. Foot X-Ray 01/18/25 15:08 IMPRESSION: 1. Extensive subcutaneous edema throughout the right lower leg and about the foot and ankle. No acute osseous abnormality. 2. 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 Tibia/Fibula X-Ray 01/18/25 15:08 IMPRESSION: 1. Extensive subcutaneous edema throughout the right lower leg and about the foot and ankle. No acute osseous abnormality. 2. 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 Lower Extremity CTA 01/21/25 12:26 IMPRESSION: 1. Atherosclerotic disease without hematoma significant stenosis in the abdomen and pelvis. 2. 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 Otherwise mild nonhemodynamically significant stenosis in the arteries of the right lower limb. 3. Mild to moderate stenosis at the origin of the left anterior tibial artery and moderate to severe stenosis at the origin of the left tibioperoneal trunk but with three-vessel runoff below the ankle. 4. Nonobstructing left nephrolithiasis. Labs Labs: Laboratory Results - last 24 hr 01/21/25 06:03 WBC 6.0 RBC 3.81 L Hgb 11.8 L Hct 37.5 MCV 98.4 MCH 31.0 MCHC 31.5 L RDW 13.9 Plt Count 211 MPV 9.9 Sodium 141 Potassium 3.2 L Chloride 102 Carbon Dioxide 32 H Anion Gap 7 BUN 19 H Creatinine 0.60 L Estim Creat Clear Calc 63 Estimated GFR > 60 Glucose 88 Calcium 8.6 Total Bilirubin 0.9 AST 16 ALT 12 Alkaline Phosphatase 69 Total Protein 6.0 L Albumin 3.6 Quality VTE Prophylaxis VTE prophylaxis: pharmacologic ordered (on apixaban) Hospitalist [facility] Advance Care Plan I have confirmed that the patient's Advanced Care Plan is present, code status is documented, or surrogate decision maker is listed in patient medical record.: Yes Medication Reconciliation I have utilized all available resources to obtain, update and review the patients current medications (includes all prescriptions, OTC, herbals, cannabis, and nutritional supplements).: Yes
[2025-01-21] MEDS: POTASSIUM CHLORIDE 20 MEQ ER TABLET 40 MEQ PO (16:57)
[2025-01-21 21:16] VITALS: PULSE 78
[2025-01-21] MEDS: QUEtiapine FUMARATE 25 MG TABLET PO (21:17)
[2025-01-21 21:21] VITALS: BP 114/71; PULSE 65; RESP 18; TEMP 36.1; O2SAT 96
[2025-01-22 06:00] VITALS: BP 116/69; PULSE 66; RESP 18; TEMP 36.2; O2SAT 94
[2025-01-22] MEDS: oxyBUTYnin CHLORIDE XL 5 MG TAB.ER.24 15 MG PO (09:51)
[2025-01-22] MEDS: APIXABAN 5 MG TABLET PO (09:51)
[2025-01-22 09:53] VITALS: PULSE 66
[2025-01-22] MEDS: PROPRANOLOL HCL 40 MG TABLET 80 MG PO (09:53)
--- NOTE | 2025-01-22 12:58 | PM.DS ---
DS: Admitting Diagnosis Discharge Date 01/22/2025 Admitting Diagnosis Leg pain and swelling. DS: Discharge Diagnosis Discharge Diagnosis (1) Lymphedema: Code(s): I89.0 - Lymphedema, not elsewhere classified Status: Acute DS: Summary Hospital Course Hospital Course: This is an 84-year-old female with hypertension, overactive bladder, deep venous thrombosis, and lymphedema in the lower extremities who presented to the emergency department via EMS from her nursing facility for evaluation of leg pain and swelling. patient is pleasantly confused at bedside In the ED: She was afebrile on arrival with stable vital signs. Labs were significant for WBC count of 5.6, hemoglobin 12.0, BUN 18, creatinine 0.87, proBNP 2780, troponin less than 0.012. Urinalysis was unremarkable. Chest x-ray showed a small left-sided pleural effusion without infiltrate. Lower extremity venous ultrasounds were negative for DVT. EKG showed atrial fibrillation with a rate of 67 and an incomplete right bundle-branch block. Patient was managed for CHF exacerbation, ECHO showed abnormal disatolic function with normal EF, [facility]antly [facility] which the daughter noted is her baseline. Patient discharged to SNF today. WIll continue Lasix at 40mg bid PO. CTA LE was done yesterday which showed complete occlusion of the right posterior tibial artery at its origin which reconstitutes below the level of the ankle via the right perneal artery. Dr Bell discussed with vascular surgeon at [facility] and no further intervention needed. Discussed with daughter this afternoon and i told her we are putting patient on lasix 40mg PO bid and she will need to continue follow up with PCP for further adjustment. Continue Compression therapy Patient discharged to SNF. continue other home meds F/u with PCP in 3-5 days. Time Spent with Patient Time attestation: Total time spent providing and/or coordinating discharge services: Discharge Plan Discharge Attending physician on discharge: Walt Arceo Consulting providers: Imani Cancino Discharging Clinician: Walt Arceo Anticipated Discharge Date/Time: 01/22/25 12:41 Patient Disposition: SNF Activity: as tolerated Diet: as tolerated Discharge Instructions: Continue Compression therapy Patient Language: Libyan Stand Alone Forms: General Discharge Information Follow-up/Referrals: Imani Cancino, [facility] [Advanced Practice Nurse] - (F/u with Cardiology as instructed ) Raz,MD Gurwinder [Primary Care Provider] - (F/u with PCP in 3-5 days ) Discharge Medications: Continued oxybutynin chloride 15 mg tablet extended release 24hr 15 mg PO DAILY propranolol 80 mg capsule,extended release 24hr 160 mg PO DAILY Eliquis 5 mg tablet 5 mg PO BID meloxicam 7.5 mg tablet 7.5 mg PO PRN guaifenesin [Mucus Relief ER] 600 mg Tablet Extended Release 12hr 1,200 mg PO Q12HR Qty: 30 0RF quetiapine [Seroquel] 25 mg Tablet 25 mg PO HS Qty: 30 0RF Changed furosemide 20 mg tablet 40 mg PO BID 30 Days Qty: 120 0RF Date of admission: 01/18/25 07:27 Primary Care Provider: Raz,Gurwinder Admitting Provider: Jermaine Cabello Attending physician on admission: Walt Arceo Condition: Stable
[2025-01-22 14:00] VITALS: BP 110/60; PULSE 100; RESP 20; TEMP 36.4; O2SAT 100
[2025-01-22 14:13] LABS: SARS-CoV-2 RNA PCR Negative (Negative)
== END 2025-01-22 14:30 | DRG 606 ==
LOC: ANHED 17:37 → ANH3MEDSUR 19:22
PROVIDERS: Physician Assistant; Registered Nurse; Admitting Provider General Practice; Emergency Provider Emergency Medicine; PCP Internal Medicine; Visit Provider Internal Medicine
DX: I89.0 Lymphedema, not elsewhere classified (principal); I50.33 Acute on chronic diastolic (congestive) heart failure; I48.91 Unspecified atrial fibrillation; I11.0 Hypertensive heart disease with heart failure; I45.10 Unspecified right bundle-branch block; N32.81 Overactive bladder; R41.0 Disorientation, unspecified; E66.9 Obesity, unspecified; Z66 Do not resuscitate; Z86.718 Personal history of other venous thrombosis and embolism; Z90.49 Acquired absence of other specified parts of digestive tract; Z68.31 Body mass index [BMI] 31.0-31.9, adult; Z79.01 Long term (current) use of anticoagulants
CPT/HCPCS: 36415; 70450; 71045; 73590; 73630; 73706; 80048; 80053; 81003; 83735; 83880; 84443; 84484; 85025; 85027; 85610; 85730; 87635; 93005; 93306; 93970; 96374; 97110; 97116; 97161; 97166; 97530; 97535; 99285; A9270; G0378; J1938; Q9967

== ENCOUNTER 2025-08-30 08:00 | Outpatient (RCR) | payer MEDICARE, SELFPAY ==
--- NOTE | 2025-06-05 16:06 | OTOPEVAL1 ---
Assessment and note entered by Liliya Mueller OT Evaluation Information Assessment Status Evaluation Diagnosis I89.0 Lymphedema ICD-10 Condition Codes (OT) Lymphedema I89.0 Subjective Information Pt. is unable to recall that she has lymphedema. Spoke with PTTEODORO who provided background on pt.' s previous treatment here at [facility]. Per pt. she does not receive assistance at facility. Per chart and information gathered from care provider. Pt. receives assistance for ADLs in assisted living and uses 3 wheeled walker. Physical Therapist who previously treated pt. for lymphedema, reports the pt. previously had caregiver assistance to assist pt. in doffing/ donning compression garments daily and assist in using compression pump. Reported Pain Level Pain Score 0: Self Report Assessment OT Clinical Summary Pt. is 84 year old F, presenting with symptoms consistent with stage 2/3 BLE lymphedema, including swelling and variable tissue texture. Pt . is unable to recall history of lymphedema treatment, confirming through chart that pt. has previously participated in complete decongestive treatment. Pt. did not arrive with caregiver assistance on this date, but would benefit from caregiver support during treatment, to facilitate continuity and safety in care as well as oversight to management of condition at facility between treatments. Pt. will benefit from a modified complete decongestive treatment including manual lymph drainage, use of compression garments and possible short stretch compression bandaging, and use of home and in clinic compression pump, with assist from caregivers to facilitate management of Plan of Care Interventions Manual Therapy,Other Other Interventions compression pump OT Services Indicated Yes Treatment Frequency and 3 x/ wk for 10 visits Duration These treatments will address the objective and functional deficits as defined above. The patient will be advanced safely and appropriately in order for the patient to progress towards his/her prior level of function. Additional exercises will be introduced and as well as a comprehensive home exercise program upon discharge, if needed, ?to ensure carryover of functional gains achieved in the clinic. This treatment plan has been reviewed and agreement upon by the patient.
--- NOTE | 2025-06-07 15:55 | PCOTNOTE ---
Pt. was seen in OP occupational therapy for treatment of Lymphedema. Pt. was alone, arriving by [facility] transport vehicle. 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 safety and intensity of treatment, as well as discuss expectations of treatment. Voice messages were left with Che at [facility] and Rohini's son Natanael Reis. Will continue to follow to determine plan for treatment.
--- NOTE | 2025-06-11 13:48 | PCOTNOTE ---
Spoke again with patient's son Natanael and [facility] federal aid coordinator regarding concerns for safety and continuity of care if proceeding with treatment. Recommended that pt. have caregiver present at time of treatment to ensure consistent communication with facility and follow through of treatment requirements during intensive phase of treatment. Both confirm understanding and plan to discuss.
--- NOTE | 2025-06-14 09:26 | PCOTNOTE ---
Pt. caregiver did not arrive for 9am appointment. Caregiver did not call to cancel. Plans to follow up regarding appointments and plan for treatment.
--- NOTE | 2025-08-21 16:16 | OTOPPROG ---
Assessment and note entered by Liliya Mueller OT Evaluation Information Assessment Status Progress Diagnosis I89.0 Lymphedema ICD-10 Condition Codes (OT) Lymphedema I89.0 Subjective Information Pt. arrives with hired caregiver. Pt. is unreliable historian and unable to recall that she has lymphedema or prior experiences with treatment, but prior health records and additional therapists report that pt. has come to facility for multiple complete decongestive therapy treatments over many years. Pt.'s caregiver, who is with her for 4 hours on treatment days, reports that pt. typically ambulates at facility with walker independently, but does not know additional level of assist which pt. receives at [facility] . Previous treatment provider at this clinic reports that reports the pt. previously had caregiver assistance to assist pt. in doffing/donning compression garments daily and assist in using compression pump. Assessment OT Clinical Summary Pt. is 84 year old F, presenting with symptoms consistent with stage 2/3 BLE lymphedema, including swelling and variable tissue texture. Pt . is unable to recall history of lymphedema treatment, confirming through chart that pt. has previously participated in complete decongestive treatment. Pt. now has caregiver who attends each treatment with her. Pt. displays L LE volume reduction after short stretch compression bandaging and has now transitioned into wear older compression stocking, as R LE compression bandage wrapping has been initiated due to increased swelling and worsening symptoms when not wrapped. Pt. will benefit from continued complete decongestive treatment including manual lymph drainage, use of compression garments and short stretch compression bandaging, and use of home and in clinic compression pump, with assist from caregivers to facilitate management of condition Plan of Care Interventions Therapeutic Exercise,Manual Therapy,Other Other Interventions compression pump OT Services Indicated Yes Treatment Frequency and 3 x/ wk for 10 visits Duration These treatments will address the objective and functional deficits as defined above. The patient will be advanced safely and appropriately in order for the patient to progress towards his/her prior level of function. Additional exercises will be introduced and as well as a comprehensive home exercise program upon discharge, if needed, ?to ensure carryover of functional gains achieved in the clinic. This treatment plan has been reviewed and agreement upon by the patient.
== END 2025-09-03 23:59 | disposition home or self-care (01) ==
LOC: ANHOT 08:00
PROVIDERS: PCP Internal Medicine; Visit Provider Family Medicine
DX: I89.0 Lymphedema, not elsewhere classified (principal)
CPT/HCPCS: 29581; 97016; 97140; 97165; 97535